=== PATIENT | female | born 1960 | race Caucasian/White ===

== ENCOUNTER 2017-10-11 23:18 | Emergency (ER) | payer OTHER, SELFPAY ==
[2017-10-11 23:25] VITALS: BP 131/71; PULSE 45; RESP 16; TEMP 36.4; O2SAT 100; BMI 55.0
--- NOTE | 2017-10-11 23:33 | XR_ITS ---
XR chest 2V HISTORY: Weakness and dizziness ITS.REASON: DIZZINESS ORDERING PHYSICIAN: Nadeem Banks MD PATIENT AGE: 56 years COMPARISON: 02/08/2017 FINDINGS: Cardiac size is upper limits of normal. No evidence of CHF.. Calcified granuloma right lower lobe. The lungs are otherwise clear.. No acute bony abnormalities. IMPRESSION: No change with no acute finding. Borderline cardiomegaly
--- NOTE | 2017-10-11 23:48 | HMH.EDDIZZ ---
ED Disposition Clinical Impression: Bradycardia with 41-50 beats per minute Cardiac arrhythmia Qualifiers: Arrhythmia type: unspecified cardiac arrhythmia Qualified Code(s): I49.9 - Cardiac arrhythmia, unspecified Disposition: Home, Self-Care Condition on Discharge: Good Instructions: DI for Bradycardia Additional Instructions: see pcp and change meds as per card Referrals: Provider,Referral, [Primary Care Provider] - - Critical Care Critical Care Time: No Attestation: On 10/11/17, the high probability of a clinically significant, sudden or life threatening deterioration of the following system(s) required my full and direct attention, intervention and personal management. The time I documented below is in addition to time spent performing reported procedures but includes the following listed in this critical care notation. Medical Decision Making - Medical Records Medical records reviewed: Yes: I reviewed the patient's medical records. Vital Signs: 10/11/17 23:25 Temperature 97.6 F Temperature Source Tympanic Pulse Rate [Right Brachial] 45 L Respiratory Rate 16 Blood Pressure [Right Arm] 131/71 Blood Pressure Mean [Right Arm] 91 02 Sat by Pulse Oximetry 100 Oxygen Delivery Method Room Air - Lab Data Lab results reviewed: Yes: I reviewed the patient's lab results. Lab Results 10/11/17 23:33: WBC 6.9, RBC 4.86, Hgb 14.0, Hct 42.1, MCV 86.5, MCH 28.9, MCHC 33.4, RDW 13.1, Plt Count 264, MPV 8.4, Neut % (Auto) 68.5, Lymph % (Auto) 19.3, Rush % (Auto) 4.4, Eos % (Auto) 7.1, Baso % (Auto) 0.7, Neut # (Auto) 4.7, Lymph # (Auto) 1.3, Rush # (Auto) 0.3, Eos # (Auto) 0.5 H, Baso # (Auto) 0.1 10/11/17 23:33: Sodium 136, Potassium 3.7, Chloride 102, Carbon Dioxide 33 H, Anion Gap 4.7 L, BUN 15, Creatinine 1.19 H, Estimated Creat Clear 48, Estimated GFR 47 L, Est GFR ( Amer) 57 L, Glucose 103, Calcium 9.1, Total Bilirubin 0.9, AST 23, ALT 30, Alkaline Phosphatase 70, Total Creatine Kinase 79, CK-MB (CK-2) 0.8, CK-MB (CK-2) Rel Index 1.0, Troponin I < 0.02, Total Protein 7.2, Albumin 3.7, Globulin 3.5 H, Albumin/Globulin Ratio 1.1 10/11/17 23:53: POC Glucose 96 10/12/17 00:00: TSH 3.30, Thyroxine (T4) 12.5 Result diagrams: 10/11/17 23:33 10/11/17 23:33 Orders (Tests/Meds): ED MEDICATIONS Discontinued Medications Generic Name Dose Route Start Last Admin Trade Name Freq PRN Reason Stop Dose Admin Sodium Chloride 1,000 mls @ 999 mls/hr 10/12/17 00:30 10/12/17 00:30 Sod Chloride 0.9% 1000ml Bag IV 10/12/17 01:30 999 mls/hr .Q1H1M TONY Administration - Radiology Data #1 Image(s): Chest Image Reviewed: Yes I reviewed the patient's radiology image Preliminary Findings: Normal/NAD - ECG Data Tracing #1 I reviewed this ECG and interpreted as documented below: Arrhythmias present: sinus jens Ischemic changes: non-specific ST-T wave changes - Physician Consults Physician Consulted: arron Reason -: Pt condition Additional Consult: barbara Reason -: Pt condition - Yan Inquiry Pt receiving controlled substance: No Dizzy HPI - General Chief Complaint: Dizziness Stated Complaint: Dizziness and blurred vision Time Seen by Provider: 10/11/17 23:48 Mode of Arrival: Ambulatory Source of Information: Patient, Medical Record Limitations: No Limitations Description of Symptoms (Recalled from ER Triage Doc. by RN): DIZZINESS WITH BLURRED VISION SINCE wednesday - History of Present Illness HPI Narrative: pt with dec hr with dizzyness but no chest pain or syncope - uses betablocker for tremor MD complaint: dizziness, lightheadedness Onset (ago): day(s) Timing: gradual onset Description: room spinning , lightheadedness History of similar episodes: Yes History of trauma: No Severity: moderate - Related Data Home Medications Medication Instructions Recorded Confirmed Levothyroxine Sodium 50 mcg PO DAILY 10/11/17 10/11/17 [Levothyroxine 50mcg (
[2017-10-12] LABS: POC Glucose,Bedside 96 mg/dL
[2017-10-12 00:31] LABS: Basophils # 0.1 K/mm3 (0-0.2); Basophils % 0.7 % (0.1-2.0); Eosinophils # 0.5 K/mm3 (0.0-0.4); Eosinophils % 7.1 % (0.1-12.0); Hematocrit 42.1 % (37.0-47.0); Lymphocytes # 1.3 K/mm3 (0.7-4.5); Lymphocytes % 19.3 K/mm3 (10-50); Mean Corpuscular HGB Conc 33.4 g/dL (31.8-35.4); Mean Corpuscular Hemoglobin 28.9 pg (27.0-31.2); Mean Corpuscular Volume 86.5 fl (81-99); Mean Platelet Volume 8.4 fl (7.4-10.4); Monocytes # 0.3 K/mm3 (0.1-1.0); Monocytes % 4.4 % (1.7-9.3); Neutrophils # 4.7 K/mm3 (1.8-7.8); Neutrophils % 68.5 % (37.0-80.0); Platelet Count 264 K/mm3 (142-424); Red Blood Count 4.86 M/mm3 (4.20-5.40); Red Cell Distribution Width 13.1 % (11.5-17.5); White Blood Count 6.9 K/mm3 (4.8-10.8)
[2017-10-12 00:59] LABS: Alanine Aminotransferase 30 U/L (12-78); Albumin Level 3.7 gm/dL (3.4-5.0); Albumin/Globulin Ratio 1.1 (1.1-1.8); Alkaline Phosphatase 70 U/L (46-116); Anion Gap 4.7 mEq/L (5-15); Aspartate Amino Transferase 23 U/L (15-37); Bilirubin,Total 0.9 mg/dL (0.2-1.0); Blood Urea Nitrogen 15 mg/dL (7-18); Calcium 9.1 mg/dL (8.5-10.1); Carbon Dioxide 33 mmol/L (21.0-32.0); Chloride 102 mmol/L (98-107); Creatine Kinase 79 U/L (26-192); Creatine Kinase MB 0.8 mg/ml (0.0-3.6); Creatinine Clearance Estimated 48 mL/min (0-300); Creatinine,Serum 1.19 mg/dL (0.55-1.02); Estimated Glomerular Filt Rate 47 ml/min (>60); GFR (African American) 57 ML/MIN (>60); Globulin 3.5 gm/dl (1.3-3.2); Glucose 103 mg/dL (74-106); Potassium 3.7 mmoL/L (3.5-5.1); Sodium 136 mmol/L (136-145); Total Protein,Serum 7.2 gm/dL (6.4-8.2); Troponin I < 0.02 ng/ml (0.00-0.06)
[2017-10-12 03:31] LABS: T4 (Thyroxine) 12.5 ug/dl (4.7-13.3)
[2017-10-12 08:46] VITALS: BP 102/60; PULSE 48; RESP 18; TEMP 36.6; O2SAT 98
== END 2017-10-12 08:48 | disposition home or self-care (01) ==
PROVIDERS: Emergency Provider Emergency Medicine
DX: R00.1 Bradycardia, unspecified (principal); I49.9 Cardiac arrhythmia, unspecified; R42 Dizziness and giddiness
CPT/HCPCS: 71046; 80053; 82550; 82553; 82962; 84436; 84443; 84484; 85025; 93005; 96365; 99281

== ENCOUNTER 2017-11-03 09:21 | Outpatient (RCR) | payer OTHER, SELFPAY ==
--- NOTE | 2017-11-03 10:17 | HMH.PTOPEV ---
Rehab Outpatient Evaluation Rehab OP Evaluation Start: 11/03/17 10:06 Freq: Status: Active Protocol: Document 11/03/17 10:06 SHY (Rec: 11/03/17 10:16 SHY [id number]) Electronically Signed By Charanjit Trammell PT 11/03/17 10:06 Outpatient Therapy Subjective History Subjective History This is the initial Physical THerapy evalaution for Yamileth Caal. Pt is a 56 y/o female referred to PT for c/o dizzyness . Pt reports she began having severe bouts of vertigo towards the end of September. Pt reports she spent 4 days in bed w/ severe vertigo, that eased up after beginning to take Meclazine. Chief Complaint Other Symptom Type Other Symptoms Relieved By Rest/Positioning OTC Meds Symptoms Aggravated By Bending/Stooping Physical Activity Twisting Prior Functional Limitations None Current Functional Limitations Recreation Activity Bending/Stooping Symptom Description Intermittent Level of pain today (0-10) 0 Pain scale - at its best (0-10) 0 Pain scale - at its worst (0-10) 0 Balance Eval Chief Complaint vertigo Yes Did you feel dizzy, unsteady or faint? Yes Activity at onset movement R sided is worse Prior Functional Limitations Prior Functional [place] Level independent Current Functional Limitations Comment motion sensitivity Hx of Falls Hx Falls No Number in last 6 months 0 Gait/Posture Asssessment General Gait Observation Wide Based Gait Assistive Devices None / NA Level of Transfer Assist Independent Hip Observation in Gait Swing Circumducted Hip Observation in Gait Stance Inadequate Extension Ankle/Foot Observation in Gait Swing No Deviation Body Alignment Posture Forward Head Nystagmus Nystagmus Presence Unilateral Nystagmus Description Right Direction Geotropic Left Torsion Latency - Delayed Oculomotor Gaze Oculomotor Gaze Nml: Vergence Smooth Pursuit Saccades VOR Cancellation Cover/Uncover
== END 2017-11-03 09:22 | disposition home or self-care (01) ==
LOC: PT 09:21
PROVIDERS: Visit Provider Family Medicine
DX: H81.10 Benign paroxysmal vertigo, unspecified ear (principal)
CPT/HCPCS: 97140

== ENCOUNTER → 2018-06-10 10:50 | Outpatient (CLI) | payer OTHER, SELFPAY ==
--- NOTE | 2018-06-10 10:53 | XR_ITS ---
XR knee LT 4V HISTORY: ITS.REASON: left knee pain ORDERING PHYSICIAN: Rafa Julien MD PATIENT AGE: 57 years COMPARISON: 05/19/2016 FINDINGS: There are moderate to severe osteoarthritic changes of the medial compartment and patellofemoral joint with mild osteoarthritic changes of the lateral compartment. No fracture or dislocation. No lytic or blastic change. IMPRESSION: Moderate to severe osteoarthritis of the left knee overall not significantly changed
== END ==
PROVIDERS: PCP Family Medicine; Visit Provider Orthopaedic Surgery
DX: M25.562 Pain in left knee (principal)
CPT/HCPCS: 73564

== ENCOUNTER → 2019-07-01 18:56 | Outpatient (CLI) | payer OTHER, SELFPAY | PROVIDERS: PCP Family Medicine; Visit Provider Nurse Practitioner Family | DX: R78.81 Bacteremia (principal) | CPT/HCPCS: 36415; 87040 ==

== ENCOUNTER → 2019-08-16 08:42 | Outpatient (CLI) | payer OTHER, SELFPAY ==
--- NOTE | 2019-08-16 08:47 | XR_ITS ---
PROCEDURE: XR KNEE LT 4V CLINICAL INDICATION: left knee pain COMPARISON: KNEE3R KNEE-3 VIEWS-RT from 04/27/2015 [id number] KNEE-4 OR 5 VIEWS-RT from 05/19/2016 [id number] KNEE-4 OR 5 VIEWS-LT from 05/19/2016 [id number] XR knee LT 4V from 06/10/2018 FINDINGS: There are moderate to severe osteoarthritic changes the medial compartment and patellofemoral joint. These findings have slightly progressed 06/10/2018. Mild to moderate osteoarthritis involves the lateral compartment no fracture or dislocation. No lytic or blastic change. IMPRESSION: Moderate to severe osteoarthritis which is slightly progressed Dictated by: Florentin Sun MD 08/16/2019 09:09 Electronically signed by Florentin Sun MD in [place] 08/16/2019 09:09
--- NOTE | 2019-08-16 08:47 | XR_ITS ---
PROCEDURE: XR KNEE RT 4V CLINICAL INDICATION: right knee pain COMPARISON: KNEE3R KNEE-3 VIEWS-RT from 04/27/2015 [id number] KNEE-4 OR 5 VIEWS-RT from 05/19/2016 [id number] KNEE-4 OR 5 VIEWS-LT from 05/19/2016 [id number] XR knee LT 4V from 06/10/2018 FINDINGS: Moderate to severe osteoarthritic changes are present involving the medial compartment and patellofemoral joint moderate osteoarthritis of the lateral compartment. There is mild lateral tibial translation. Prominent bony spurs are present at the intercondylar region and tibial spine area. There may be a loose body in the intercondylar region. On the lateral view there is a triangular-shaped density posterior to the distal femur measuring 14 mm and could be related to either an irregular fabella or loose body and could be better evaluated with CT or MRI. IMPRESSION: Severe osteoarthritis which has progressed compared to the previous exam with possible loose body in the intercondylar region Dictated by: Florentin Sun MD 08/16/2019 09:08 Electronically signed by Florentin Sun MD in [place] 08/16/2019 09:08
== END ==
PROVIDERS: PCP Family Medicine; Visit Provider Orthopaedic Surgery
DX: M25.562 Pain in left knee (principal); M17.11 Unilateral primary osteoarthritis, right knee
CPT/HCPCS: 73564

== ENCOUNTER → 2019-08-18 12:00 | Outpatient (CLI) | payer OTHER, SELFPAY ==
--- NOTE | 2019-08-18 | ECG_ITS ---
APPROVED REPORT Exam: Resting ECG HR:62 bpm ECG Measurements Heart Rate 62 AXES SC 122 P 49 QRSd 112 QRS 20 QT 388 T 66 QTc 393 <Conclusion> Normal sinus rhythm Incomplete right bundle branch block Borderline ECG Electronically signed by : Kyrie Dupont, 08/18/2019 18:21:37
[2019-08-18 12:13] LABS: Microscopic, Urine URINE MICROSCOPIC (MICROSCOPIC)
--- NOTE | 2019-08-18 12:20 | XR_ITS ---
PROCEDURE: XR CHEST 2V CLINICAL HISTORY: HTN, PRE OP COMPARISON: CXR1 CHEST-PORTABLE from 02/08/2017 CXR2V XR chest 2V from 10/11/2017 XR CHEST PORTABLE from 05/11/2019 FINDINGS: The cardiomediastinal silhouette and pulmonary vascularity are within normal limits. There is calcified granuloma in the right lower lobe. The lungs are otherwise clear. No acute bony abnormalities. IMPRESSION: No change with no acute finding Dictated by: Florentin Sun MD 08/18/2019 13:20 Electronically signed by Florentin Sun MD in [place] 08/18/2019 13:20
[2019-08-18 12:26] LABS: Appearance,Urine CLEAR (Clear); Bilirubin,Urine Negative (Negative); Blood, Urine Negative (Negative); Color,Urine YELLOW (Yellow); Glucose,Urine (UA) Negative (Negative); Ketones,Urine Negative (Negative); Leukocyte Esterase,Urine Negative (Negative); Nitrate,Urine Negative (Negative); PH,Urine 6.5 (5.0-8.5); Protein,Urine Negative (Negative); Specific Gravity, Urine 1.025 (1.005-1.030); Urobilinogen,Urine 0.2 EU/dl (0.2)
[2019-08-18 12:29] LABS: Basophils % 0.9 % (0.1-2.0); Eosinophils # 0.5 K/mm3 (0.0-0.4); Lymphocytes # 1.2 K/mm3 (0.7-4.5); Lymphocytes % 24.8 % (10-50); Mean Corpuscular HGB Conc 33.5 g/dL (31.8-35.4); Mean Corpuscular Hemoglobin 31.2 pg (27.0-31.2); Mean Corpuscular Volume 93.1 fl (81-99); Mean Platelet Volume 7.8 fl (7.4-10.4); Monocytes # 0.2 K/mm3 (0.1-1.0); Monocytes % 4.4 % (1.7-9.3); Neutrophils % 59.9 % (37.0-80.0); Platelet Count 268 K/mm3 (142-424); Red Blood Count 4.19 M/mm3 (4.20-5.40); Red Cell Distribution Width 13.2 % (11.5-17.5); White Blood Count 4.9 K/mm3 (4.8-10.8)
[2019-08-18 12:45] LABS: Bacteria,Urine 2+ /lpf; Mucus,Urine 2+ /lpf; RBC,Urine Occasional #/hpf (0-3)
[2019-08-18 14:02] LABS: Alanine Aminotransferase 24 U/L (12-78); Albumin Level 3.6 gm/dL (3.4-5.0); Albumin/Globulin Ratio 1.2 (1.1-1.8); Alkaline Phosphatase 65 U/L (46-116); Anion Gap 14.2 mEq/L (5-15); Aspartate Amino Transferase 15 U/L (15-37); Bilirubin,Total 0.4 mg/dL (0.2-1.0); Blood Urea Nitrogen 17 mg/dL (7-18); Calcium 8.6 mg/dL (8.5-10.1); Carbon Dioxide 30 mmol/L (21.0-32.0); Chloride 106 mmol/L (98-107); Chol/HDL Ratio 1.7 (1-3.5); Cholesterol 219 mg/dL (140-200); Creatinine,Serum 1.37 mg/dL (0.55-1.02); Estimated Glomerular Filt Rate 40 ml/min (>60); Free T4 (Free Thyroxine) 0.98 ng/dl (0.76-1.46); GFR (African American) 48 ML/MIN (>60); Globulin 2.9 gm/dl (1.3-3.2); Glucose 81 mg/dL (74-106); HDL Cholesterol 130 mg/dL (29-89); LDL Cholesterol 67 mg/dL (0-130); Potassium 4.2 mmoL/L (3.5-5.1); Sodium 146 mmol/L (136-145); Total Protein,Serum 6.5 gm/dL (6.4-8.2); Triglycerides 108 mg/dL (30-200); VLDL Cholesterol 22 mg/dL (0-40)
== END ==
PROVIDERS: PCP Family Medicine; Visit Provider Family Medicine
DX: Z01.818 Encounter for other preprocedural examination (principal); E03.9 Hypothyroidism, unspecified; I10 Essential (primary) hypertension
CPT/HCPCS: 36415; 71046; 80053; 80061; 81001; 84439; 84443; 85025; 87086; 93005

== ENCOUNTER → 2019-09-01 16:53 | Outpatient (CLI) | payer OTHER, SELFPAY ==
[2019-09-01 16:58] LABS: Microscopic, Urine URINE MICROSCOPIC (MICROSCOPIC)
[2019-09-01 17:02] LABS: Appearance,Urine CLEAR (Clear); Bilirubin,Urine Negative (Negative); Blood, Urine Negative (Negative); Color,Urine YELLOW (Yellow); Glucose,Urine (UA) Negative (Negative); Ketones,Urine Negative (Negative); Leukocyte Esterase,Urine Negative (Negative); Nitrate,Urine Negative (Negative); Protein,Urine Negative (Negative); Urobilinogen,Urine 0.2 EU/dl (0.2)
[2019-09-01 17:15] LABS: Bacteria,Urine Trace /lpf; WBC,Urine Occasional #/hpf (0-3)
== END ==
PROVIDERS: Visit Provider Orthopaedic Surgery
DX: Z01.818 Encounter for other preprocedural examination (principal); M17.12 Unilateral primary osteoarthritis, left knee
CPT/HCPCS: 36415; 81001; 86850

== ENCOUNTER 2019-09-04 06:26 | Observation (INO) | payer OTHER, SELFPAY ==
[2019-09-01 09:24] VITALS: BMI 41.5
[2019-09-04] VITALS (39 sets, daily range): BP systolic 111–160; BP diastolic 60–96; PULSE 47–80; RESP 16–20; TEMP 36.1–43; O2SAT 94–100; BMI 42.3
--- NOTE | 2019-09-04 07:18 | HMH.ANESCL ---
[facility] Anesthesia Checklist - Patient Identification Patient Identification: Arm Band, Verbal (Name & ) - Structural Data Admitted From: Home Planned Operative Procedure/s: tka Consent for Planned Operative Procedure(s) Verified: Yes Verified Documents: History and Physical - NPO Status Verified Time NPO: 00:00 - Chart Verification Results Verified: CBC, BMP - Additional verifications Patient : No Anesthesia Reactions: No Hx Blood Transfusions: No Blood Transfusion Reaction: No Cephalosporin Allergy: No Previous Colonoscopy: No - Cardiovascular Assessment Heart Sounds: S1 & S2 Pulse Strength: Baseline Pulse Rhythm: Regular Peripheral Edema: No - Airway Assessment C-Spine Mobility Assessed: Yes TMJ Mobility Assessed: Yes Dentition: Poor Dentition - Neurological Assessment Level of Consciousness: Awake, Alert, Appropriate Hx Seizures: No Numbness or tingling in extremities: No - Anesthesia Plan Anesthesia Risk discussed: Yes Anesthesia Plan: Verified ASA Class: II Anesthesia Type: General [facility] History I have reviewed the patient's past medical history: Yes Medical History: Reports:: Cancer, Gastroesophageal Reflux Disease(GERD), Hypertension, MRSA Denies:: Diabetes Mellitus Type 1, Diabetes Mellitus Type 2, Internal Pacemaker, Seizures *Have you ever received a pneumonia vaccine?: No *Have you received a flu vaccine this season?: Yes Other Medical History: Reports: Arthritis, Thyroid Disease. Denies: Blood Transfusion Reaction Anesthesia experience/problems:: none Laterality Cases: Left: Other Other Surgeries: Yes: Cardiac Catheterization, Cholecystectomy. No: Pacemaker Amputation: No Fractures: No - *Social History Educational Level: Attended College Smoking Status: Never smoker Alcohol Intake: never Alcohol Intake Frequency:: a few times a month Substance Use Type: other *Occupational Status:: employed Housing: house Household Members: family *Travel in the last 8 weeks: None Family Hx:: Diabetes
--- NOTE | 2019-09-04 08:43 | P.PN_ITS ---
[facility] Anesthesia Record Part I Intake, IV Amount: 700 Estimated blood loss (mL): 0 Urine output (mL): 250 Blood Pressure: 133/96 SaO2: 96 Pulse Rate: 67 Respiratory Rate: 16 Temperature: 97 F Patient is:: Drowsy, Stable Stable to PACU at:: 08:45
--- NOTE | 2019-09-04 09:40 | SUR.PHASEI ---
0900-pt requested bed curtis, large bowel movement noted. pt eating ice chips, ok per anesthesia, pt tolerating well. pt c/o intermittent cramping in left thigh when moving, relief noted upon resting, pt denies need for medication. 0915-family at bedside
--- NOTE | 2019-09-04 10:08 | SUR.PHASEI ---
1000-pt resting, family at bedside. no complaints noted
[2019-09-04 10:14] LABS: Microscopic,Cath URINE MICROSCOPIC (MICROSCOPIC)
[2019-09-04 10:16] LABS: Appearance,Urine/Cath CLEAR (Clear); Bilirubin,Cath Negative (Negative); Blood, Urine/Cath Negative (Negative); Color,Urine/Cath YELLOW (Yellow); Glucose,Urine/Cath (UA) Negative (Negative); Ketones,Urine/Cath Negative (Negative); Leukocyte Esterase,Cath Negative (Negative); Nitrate,Cath Negative (Negative); Protein,Urine/Cath Negative (Negative); Specific Gravity, Urine/Cath 1.015 (1.005-1.030); Urobilinogen,Cath 0.2 EU/dl (0.2)
[2019-09-04 10:27] LABS: Bacteria,Urine/Cath 1+ /lpf; WBC,Urine/Cath Occasional #/hpf (0-3)
--- NOTE | 2019-09-04 13:11 | SUR.PHASEI ---
1311-Dr. Julien at bedside talking to pt and family
--- NOTE | 2019-09-04 14:36 | SUR.PHASEI ---
1338-pt transported back to OR at this time per surgery team, vss, pt in stable condition
--- NOTE | 2019-09-04 15:12 | SUR.OPER ---
At 0753 pt was brought into OR for surgery. Pt was sedated and intubated per anesthesia. At 0820 decision was made to abort the case due to instrument contamination. No incision had been made at this time. Surgeon discussed with family and agreement was made for reattempt of surgery later today. Anesthesia was reversed and pt was extubated. Pt transferred to PACU at 0845, see PACU intervention for documentation and monitoring.
--- NOTE | 2019-09-04 18:12 | XR_ITS ---
PROCEDURE: XR KNEE LT 2V CLINICAL INDICATION: post op left TKA COMPARISON: XR KNEE LT 4V from 08/16/2019 FINDINGS: The prior femoral prosthesis is in good alignment and apposition to the tibial plateau prosthesis. There is metallic plate undersurface of the patella. There mild postsurgical changes of the soft tissues especially in the infrapatellar region. Other findings:None. IMPRESSION: Satisfactory postop appearance total knee prosthesis Dictated by: Dr. Jonas Jensen MD 09/05/2019 07:[address] Jonas Jensen MD in [place] 09/05/2019 07:42
--- NOTE | 2019-09-04 18:13 | P.PN_ITS ---
[facility] Anesthesia Record Part I Intake, IV Amount: 1,500 Estimated blood loss (mL): 100 Urine output (mL): 1,400 Blood Pressure: 125/69 SaO2: 95 Pulse Rate: 67 Respiratory Rate: 16 Temperature: 97.5 F Patient is:: Drowsy, Stable Stable to PACU at:: 18:10
--- NOTE | 2019-09-04 18:32 | HMH.OPNOTE ---
Date of procedure: 09/04/19 Pre-op Diagnosis:: Advanced degenerative arthritis, left knee Post-op Diagnosis:: Same Procedure performed:: Uncemented total knee arthroplasty, left Surgeon:: Rafa Julien MD Retail Store Clerk(s):: Sydney Webb KNOT BORER:: Gilles Lo Anesthesia: GETA, regional (Femoral and sciatic nerve blocks) Estimated blood loss (mL): 50 Clinical Note:: Patient is a 58-year-old female with end-stage osteoarthritis and [id number] appearance of the medial and patellofemoral compartments with a progressive varus deformity, stiffness and developing flexion contracture presented with unremitting severe pain not relieved by conservative management. The deformity and pain have advanced to the point that it is becoming a hazard for the patient with risk of falling and injuring herself. A total knee arthroplasty is indicated to relieve the pain, correct the deformity, improve function, reduce the risk of falls and improve quality of life. Please refer to my office note for full details. Operative findings:: As noted on the preoperative evaluation, the knee joint had a partially correctable varus deformity and flexion contracture of 5 degrees. As seen on the x-rays, there are tricompartmental degenerative changes with the medial and patellofemoral compartments showing advanced changes with [id number] appearance. Extensive osteophyte formation noted over all 3 compartments. The menisci and cruciate ligaments are significantly degenerated. Bone quality is good. Operative note:: On the day of the surgery the patient and family were seen in the preoperative area. I have again reviewed the clinical and x-ray findings and again discussed the diagnosis, natural history and management options in detail including both nonsurgical and surgical. Patient has end-stage degenerative arthritis of the left knee and has failed to respond satisfactorily to appropriate conservative management so far and has opted for a total knee arthroplasty. The left knee joint is stiff and painful, and is limiting mobility, ADLs and quality of life. Also the knee gives out and patient is at risk of falls resulting in fractures. I have again discussed the details of the procedure, risks and benefits and alternatives in detail. The complications discussed include but are not limited to infection, injury to nerves and blood vessels including injury to popliteal artery, injury to tendons and ligaments, DVT and PE, fat embolism, intraoperative fracture, limb length inequality, patella fracture, patellofemoral instability, patellar clunk syndrome, quadriceps and patellar tendon rupture, implant failure, component loosening, periprosthetic femur and tibia fractures, stiffness (arthrofibrosis), limp, incomplete relief of pain, incomplete functional recovery, likely need for further surgery in future including revision and anesthetic complications including heart attack, stroke and even . We also discussed about the likely need for blood transfusion and transfusion reactions. We discussed how any of these events can be devastating. We have discussed nonsurgical alternatives as well. Patient understands and wishes to proceed with a left total knee arthroplasty as planned and I believe that she is fully informed as to the risks, benefits, and alternatives including nonsurgical alternatives. We also discussed the postoperative course including the rehab and physical therapy required. A physical examination was performed and documented. Patient understood the risks, agreed to proceed with surgery, signed the consent form and no guarantees or assurances were given or implied. The limb was appropriately marked and initialed by me. The patient was then brought to the operating room and a general anesthesia was administered by the room service food server. Prior to that patient had no blocks in the pre-anesthetic area. The patient was then positioned supine on the operating table. All the bony prominences were
--- NOTE | 2019-09-04 18:42 | PC.NURSE ---
surgery stated that last dose of ancef was 1705. order for it every 6 hours will fax order to pharmacy to have first dose start at 2305
--- NOTE | 2019-09-04 19:13 | ECG_ITS ---
APPROVED REPORT Exam: Resting ECG HR:48 bpm ECG Measurements Heart Rate 48 AXES IN 150 P 51 QRSd 102 QRS -4 QT 484 T 41 QTc 432 <Conclusion> Marked sinus bradycardia Incomplete right bundle branch block Abnormal ECG Electronically signed by : Kyrie Dupont, 09/05/2019 14:26:59
--- NOTE | 2019-09-04 19:24 | PC.NURSE ---
report given to luther
--- NOTE | 2019-09-04 20:01 | PC.NURSE ---
pt arrived to floor from OR
[2019-09-04 20:17] LABS: Troponin I < 0.02 ng/ml (0.00-0.06)
--- NOTE | 2019-09-04 20:17 | SUR.PHASEI ---
1840-pt reports chest pain, called RT for EKG. Notified . Orders received to notify primary MD if EKG is abnormal and get troponin. VS remain stable, no changes noted to youth nutritional monitor. 1909-RT at bedside for EKG. EKG sent to ER for MD review. ER MD requests further review. Dr Cummings reviewed EKG and stated he would see the pt when she is transferred to her room. 1914-instrument and controls technician at bedside for troponin lab draw.
--- NOTE | 2019-09-04 21:27 | HMH.ACPN2 ---
Internal Medicine - PN: Subj *Date: 09/04/19 *Time: 21:27 Interval history: FAMILY MEDICINE CONSULT: S: This 58-year-old white female underwent left total knee replacement today by Dr. Julien. Apparently her surgery was uncomplicated and she did well. In the PACU she experienced some chest pain. She did not have shortness of breath. She did not have nausea or diaphoresis. EKG and troponins were obtained. By the time patient reached the medical floor she was without pain and she is comfortable at this time. The EKG did not significantly appear different from her preop though she does show a sinus bradycardia which she does have a tendency toward. She does not take rate admitting medications. She does have hypothyroidism and takes levothyroxine 50 mcg a day. Her troponin was negative. Her oxygen saturations have been normal. She underwent heart catheterization February 08, 2017 and was found not to have coronary artery disease. The patient is a smoker. Her preop history and physical exam by Dr. Osorio is present on the chart. I have also included on the chart and EKG from August 18 this year and lab work from August 18 as well. Slight elevation is noted in creatinine at 1.37. BUN was 17. TSH was within normal range. She has a remarkably high HDL cholesterol at 130. Her LDL cholesterol is only 67. Exam Vital signs and Labs for Last 24 Hours: Temp Pulse Resp BP Pulse Ox 97.8 F 49 L 16 159/93 H 100 09/04/19 18:50 09/04/19 19:50 09/04/19 19:50 09/04/19 19:50 09/04/19 19:50 Laboratory Results - last 24 hr 09/04/19 08:05: Urine Color Yellow, Urine Appearance Clear, Urine pH 7.0, Ur Specific [place] 1.015, Urine Protein Negative, Urine Glucose (UA) Negative, Urine Ketones Negative, Urine Blood Negative, Urine Nitrate Negative, Urine Bilirubin Negative, Urine Urobilinogen 0.2, Ur Leukocyte Esterase Negative, Urine RBC None, Urine WBC Occasional, Ur Squamous Epith Cells 5-10, Urine Bacteria 1+ 09/04/19 19:53: Troponin I < 0.02 I & O for Last 24 hours: Intake & Output 09/02/19 09/03/19 09/04/19 09/05/19 11:59 11:59 11:59 11:59 Intake Total 700 / 700 1500 / 1500 Output Total 100 / 100 Balance 600 / 600 1500 / 1500 - Constitutional no acute distress - *Routine HEENT Exam Eye: Present: PERRL, conjunctivae pink (A bit pale) ENT: Present: mucous membranes moist - Routine Chest/Breast/Axilla Exam Chest wall: Absent: tenderness - *Routine Respiratory Exam Present: CTA bilaterally. Absent: respiratory distress - *Routine Cardiovascular Exam Present: bradycardia (Sinus. No murmurs.) - *Routine Abdominal Exam Present: soft, obese. Absent: tenderness - *Routine Extremities Exam Present: pulses intact (Color of skin is normal. Flowtron device in place on the right leg.). Absent: edema - *Routine Neurological Exam Present: alert, oriented X3. Absent: altered mental status Assessment and Plan (1) Status post left knee replacement Current visit: Yes Status: Acute Category: Surgical Code(s): Z96.652 - Presence of left artificial knee joint (2) Obesity Current visit: Yes Status: Acute Category: Medical Code(s): E66.9 - Obesity, unspecified (3) Hypothyroidism (acquired) Current visit: Yes Status: Acute Category: Medical Code(s): E03.9 - Hypothyroidism, unspecified (4) Bradycardia with 41-50 beats per minute Current visit: No Status: Acute Category: Medical Code(s): R00.1 - Bradycardia, unspecified (5) Chest pain Current visit: No Status: Acute Category: Medical Code(s): R07.9 - Chest pain, unspecified - Assessment and plan all Dx Assessment and Plan for all problems:: It was requested that the patient be placed in stepdown and continued on cardiac nurse specialist. She seems quite stable at this time. CBC is ordered. Follow-up cardiac enzymes will be obtained in 4 hours. Thank you for the consult. I will follow this patient with you.
[2019-09-04 21:44] LABS: Basophils % 0.3 % (0.1-2.0); Eosinophils % 0.3 % (0.1-12.0); Hematocrit 40.1 % (37.0-47.0); Hemoglobin 12.4 g/dL (12.2-16.2); Lymphocytes # 0.5 K/mm3 (0.7-4.5); Lymphocytes % 7.7 % (10-50); Mean Corpuscular HGB Conc 30.8 g/dL (31.8-35.4); Mean Corpuscular Hemoglobin 29.5 pg (27.0-31.2); Mean Corpuscular Volume 95.8 fl (81-99); Mean Platelet Volume 8.4 fl (7.4-10.4); Monocytes # 0.3 K/mm3 (0.1-1.0); Monocytes % 3.6 % (1.7-9.3); Neutrophils # 6.1 K/mm3 (1.8-7.8); Platelet Count 257 K/mm3 (142-424); Red Blood Count 4.19 M/mm3 (4.20-5.40); Red Cell Distribution Width 13.7 % (11.5-17.5); White Blood Count 6.9 K/mm3 (4.8-10.8)
[2019-09-04 21:47] LABS: MANUAL DIFFERENTIAL MANUAL DIFFERENTIAL (MANUAL DIFF)
[2019-09-04 21:56] LABS: Lymphocytes % 6 % (10-50); Neutrophils % 86 % (42-76); Platelet Estimate Normal; RBC Morphology Normal; Total Cells Counted 100
[2019-09-05] VITALS (11 sets, daily range): BP systolic 94–159; BP diastolic 49–93; PULSE 49–81; RESP 16–24; TEMP 36.6–37.1; O2SAT 93–98; BMI 42.3
[2019-09-05 01:29] LABS: Troponin I < 0.02 ng/ml (0.00-0.06)
--- NOTE | 2019-09-05 04:17 | PC.NURSE ---
Has rested at intervals this shift. Remains on room air w/ no s/s of resp distress. NSR on teley w/ HR currently in 80's. Family remains at bedside. Pt denies any pain in her LLE, only occasional viridiana horses when she attempts to move in bed. Surgical dressing remains C/D/I. 2 + pedal pulses palpable in BLE, pt is able to move her toes freely. Polar pac is in place to (L) knee. Incentive spirometer available at bedside, reviewed w/ pt and educated on importance of use post-op. Castro cath to drain at bedside w/ clear straw colored urine noted. No BM this shift. Scud in place to RLE. New IV placed in RAC this shift, currently infusing LR @ 75 mls/hr.
[2019-09-05 06:24] LABS: Basophils % 0.4 % (0.1-2.0); Eosinophils # 0.1 K/mm3 (0.0-0.4); Eosinophils % 0.5 % (0.1-12.0); Hematocrit 36.9 % (37.0-47.0); Hemoglobin 11.4 g/dL (12.2-16.2); Lymphocytes % 11.2 % (10-50); Mean Corpuscular HGB Conc 30.8 g/dL (31.8-35.4); Mean Corpuscular Hemoglobin 29.1 pg (27.0-31.2); Mean Corpuscular Volume 94.6 fl (81-99); Mean Platelet Volume 8.1 fl (7.4-10.4); Monocytes # 0.8 K/mm3 (0.1-1.0); Monocytes % 8.5 % (1.7-9.3); Neutrophils # 7.1 K/mm3 (1.8-7.8); Neutrophils % 79.5 % (37.0-80.0); Platelet Count 248 K/mm3 (142-424); Red Cell Distribution Width 13.8 % (11.5-17.5)
[2019-09-05 06:28] LABS: Anion Gap 9.4 mEq/L (5-15); Blood Urea Nitrogen 13 mg/dL (7-18); Calcium 8.2 mg/dL (8.5-10.1); Carbon Dioxide 30 mmol/L (21.0-32.0); Chloride 107 mmol/L (98-107); Creatinine Clearance Estimated 63 mL/min (50-200); Creatinine,Serum 0.88 mg/dL (0.55-1.02); Estimated Glomerular Filt Rate 66 ml/min (>60); GFR (African American) 80 ML/MIN (>60); Glucose 127 mg/dL (74-106); Potassium 4.4 mmoL/L (3.5-5.1); Sodium 142 mmol/L (136-145)
--- NOTE | 2019-09-05 07:36 | SW/DCPLANNER ---
RECEIVED REFERRAL FOR THIS PATIENT FOR DISCHARGE PLANNING: MS PACE HAD TOTAL KNEE YESTERDAY AND APPEARS TO BE FEELING BETTER THIS MORNING, STATED SHE IS ABLE TO EAT BREAKFAST.. 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
--- NOTE | 2019-09-05 08:30 | P.CONPHA_ITS ---
[facility] Pharmacy VTE Monitoring - Patient Demographics Admission date: 09/04/19 Report Date: 09/05/19 Time: 08:30 Allergies/Adverse Reactions: Patient Allergies promethazine Allergy (Intermediate, Verified 09/01/19 09:24) ANXIETY Height: 1.65 m Weight: 115.326 kg Patient Problems: Current Active Problems (This Medical Record has been edited. Action required.) Status post left knee replacement (Acute) Obesity (Acute) Hypothyroidism (acquired) (Acute) - VTE Risk Labs: VTE Related Lab Results Hgb 11.4 g/dL (12.2-16.2) L 09/05/19 05:58 Hct 36.9 % (37.0-47.0) L 09/05/19 05:58 Plt Count 248 K/mm3 (142-424) 09/05/19 05:58 BUN 13 mg/dL (7-18) 09/05/19 05:58 Creatinine 0.88 mg/dL (0.55-1.02) 09/05/19 05:58 Estimated Creat Clear 63 mL/min (50-200) 09/05/19 05:58 Was VTE Risk Assessment Performed: Yes VTE Score: 3 VTE Risk Level: Low Risk - Prophylaxis VTE Prophylaxis Ordered?: Yes Types of VTE Prophylaxis: IPCS Thigh High Location of Applied Device: Right Leg - VTE Diagnosis Confirmed Treatment or plan recommended: Continue Current Treatment
--- NOTE | 2019-09-05 08:58 | HMH.ACPN2 ---
Internal Medicine - PN: Subj *Date: 09/05/19 *Time: 08:58 Interval history: FAMILY MEDICINE CONSULT: She had a quiet night and feels better this morning. She had no chest pain and is comfortable. Her heart rate is in the 90s this morning and regular. Exam Vital signs and Labs for Last 24 Hours: Temp Pulse Resp BP Pulse Ox 98.3 F 79 19 120/63 93 L 09/05/19 04:00 09/05/19 08:00 09/05/19 08:00 09/05/19 08:00 09/05/19 08:00 Laboratory Results - last 24 hr 09/04/19 08:05: Urine Color Yellow, Urine Appearance Clear, Urine pH 7.0, Ur Specific [place] 1.015, Urine Protein Negative, Urine Glucose (UA) Negative, Urine Ketones Negative, Urine Blood Negative, Urine Nitrate Negative, Urine Bilirubin Negative, Urine Urobilinogen 0.2, Ur Leukocyte Esterase Negative, Urine RBC None, Urine WBC Occasional, Ur Squamous Epith Cells 5-10, Urine Bacteria 1+ 09/04/19 19:33: WBC 6.9, RBC 4.19 L, Hgb 12.4, Hct 40.1, MCV 95.8, MCH 29.5, MCHC 30.8 L, RDW 13.7, Plt Count 257, MPV 8.4, Neut % (Auto) 88.0 H, Lymph % (Auto) 7.7 L, [place] % (Auto) 3.6, Eos % (Auto) 0.3, Baso % (Auto) 0.3, Neut # (Auto) 6.1, Lymph # (Auto) 0.5 L, [place] # (Auto) 0.3, Eos # (Auto) 0.0, Baso # (Auto) 0.0, Total Counted 100, Neutrophils % (Manual) 86 H, Band Neutrophils % 8.0, Lymphocytes % (Manual) 6 L, Platelet Estimate Normal, RBC Morphology Normal 09/04/19 19:53: Troponin I < 0.02 09/05/19 01:05: Troponin I < 0.02 09/05/19 05:58: WBC 9.0 D, RBC 3.90 L, Hgb 11.4 L, Hct 36.9 L, MCV 94.6, MCH 29.1, MCHC 30.8 L, RDW 13.8, Plt Count 248, MPV 8.1, Neut % (Auto) 79.5, Lymph % (Auto) 11.2, [place] % (Auto) 8.5, Eos % (Auto) 0.5, Baso % (Auto) 0.4, Neut # (Auto) 7.1, Lymph # (Auto) 1.0, [place] # (Auto) 0.8, Eos # (Auto) 0.1, Baso # (Auto) 0.0 09/05/19 05:58: Sodium 142, Potassium 4.4, Chloride 107, Carbon Dioxide 30, Anion Gap 9.4, BUN 13, Creatinine 0.88, Estimated Creat Clear 63, Estimated GFR 66, Est GFR ( Amer) 80, Glucose 127 H, Calcium 8.2 L I & O for Last 24 hours: Intake & Output 09/02/19 09/03/19 09/04/19 09/05/19 11:59 11:59 11:59 11:59 Intake Total 700 / 700 2409 / 2409 Output Total 100 / 100 550 / 550 Balance 600 / 600 1859 / 1859 Weight 254 lb 4 oz - Constitutional no acute distress - *Routine HEENT Exam Eye: Present: PERRL. Absent: conjunctival icterus - Routine Chest/Breast/Axilla Exam Chest wall: Absent: tenderness - *Routine Respiratory Exam Present: CTA bilaterally - *Routine Cardiovascular Exam Present: RRR - *Routine Abdominal Exam Present: soft. Absent: tenderness - *Routine Extremities Exam Present: pulses intact, normal capillary refill. Absent: edema Assessment and Plan (1) Status post left knee replacement Current visit: Yes Status: Acute Category: Surgical Code(s): Z96.652 - Presence of left artificial knee joint (2) Obesity Current visit: Yes Status: Acute Category: Medical Code(s): E66.9 - Obesity, unspecified (3) Hypothyroidism (acquired) Current visit: Yes Status: Acute Category: Medical Code(s): E03.9 - Hypothyroidism, unspecified (4) Bradycardia with 41-50 beats per minute Current visit: No Status: Acute Category: Medical Code(s): R00.1 - Bradycardia, unspecified (5) Chest pain Current visit: No Status: Acute Category: Medical Code(s): R07.9 - Chest pain, unspecified - Assessment and plan all Dx Assessment and Plan for all problems:: I will continue to follow the patient with you during this hospitalization. She may come out of stepdown observation.
--- NOTE | 2019-09-05 09:41 | HMH.ANESII ---
[facility] Anesthesia Record Part II Discharge Time: 19:50 Destination: Medical Surgical Department PACU nurse assessment reviewed?: Yes Patient Condition:: Good Anesthesia Complications:: None Swallowing reflex intact?: Yes Cyanosis?: No Blood Pressure: 159/93 Pulse Rate: 49 Temperature: 97.8 F Mental Status: Alert & Oriented Pain level:: 5 Nausea and/or vomitting:: None Intake, IV Amount: 0
--- NOTE | 2019-09-05 10:00 | HMH.PHAINT ---
MEDICATION RECONCILIATION COMPLETED ON PATIENT USING EXTERNAL FILL HISTORY FROM PHARMACY. -RADHA CHAND, RASHAWND
--- NOTE | 2019-09-05 11:40 | HMH.OTEV ---
OT Inpatient Evaluation Rehab OT IP Evaluation Start: 09/04/19 18:34 Freq: ONCE Status: Complete Protocol: Document 09/05/19 11:36 [facility] (Rec: 09/05/19 11:40 [facility] [id number]) Rehab OT IP Assessment Subjective History Pt oriented x 3 upon arrival. Pt agreeable to engage in therapy evaluation. Pt lived at home and was completely independent with all ADL's and IADL's prior to surgery. Pt did not require the use of AE. 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 Subjective I have been scared to walk on it. Objective Patient Orientation Person,Place,Birthday Upper Extremity Gross ROM WFL Bed Mobility bed mobility-scooting,bed mobility - supine/sit,bed mobility - rolling Assist Level Supervision/Stand by Transfer Training Sit/Stand Transfer Assist Level Contact Guard/Hand Hold Chair Transfer Ability Contact Guard/Hand Hold Chair Transfer Technique Sit to/from Ambulatory Chair Transfer Assistive Devices Rolling Walker decrease in endurance No Rehab OT IP prob,goals,plan Problems Date of Evaluation: 09/05/19 OT IP Problems Bed Mobility,Transfers,Gait, Balance,Self care,Safety Rehab Potential Rehab Potential Good Equipment Needs Assistive Devices Rolling / Wheeled Walker Plan OT intervention Plan Bed Mobility,Transfers,Gait, Balance,Self care,Safety, Therapeutic Exercise OT Plan Frequency Daily Duration LOS Discharge Goals Bed Mobility Ability Standby Assistance Sit to Stand Chair Transfer Ability Supervision/Stand by Chair Transfer Ability Supervision/Stand by Chair Transfer Technique Sit to/from Ambulatory Chair Transfer Assistive Devices Rolling Walker Self care skills fully toilet trained,dressing/ undressing independently,uses utensils to feed self Feeding Ability Independent Lower Body Dressing Ability Assistance X1 Upper Body Dressing Ability Standby Assistance Bathing Ability Assistance x1 Performing Toilet Hygiene Ability Standby Assistance Overall Commode/Toilet Transfer Ability Standby Assistance Commode/Toilet Transfer Technique Sit to/from Ambulatory Oral Care Ability Independent Discharge Plan OT Discharge Plan
--- NOTE | 2019-09-05 12:12 | HMH.PTEV ---
Physical Therapy Evaluation Rehab PT IP Evaluation Start: 09/04/19 18:34 Freq: ONCE Status: Active Protocol: Document 09/05/19 12:02 PWDAVID (Rec: 09/05/19 12:12 PWDAVID [id number]) Subjective/History History History THis is the initial IP PT evaluation for Yamileth Caal. Pt is a 58 y/o female admitted to [facility] s/ p L TKA. Subjective Subjective Pt reports she still has some numbness in LLE. Rehab PT IP Eval Objective Appearance Patient Behavior Appropriate,Cooperative, Anxious Patient Orientation Person,Place,Time Difficulty following instructions none Speech Pattern Clear,Appropriate Ambulation Patient Able to Ambulate Yes Ambulation Observation IP General Gait Pattern Observation Antalgic Gait Ambulation Distance (feet) 2 Ambulation Assistive Device Rolling Walker Balance Ability to Arise Able, uses arms to help Sitting Balance Steady, safe Standing Balance Steady, wide stance Dynamic Sitting Balance Ability Normal Dynamic Standing Balance Ability Fair Transfers Bed Transfer Ability Supervision/Stand by Chair Transfer Ability Supervision/Stand by Sit to Stand Bed Transfer Ability Contact Guard/Hand Hold Sit to Stand Chair Transfer Ability Contact Guard/Hand Hold ROM LLE PT ROM Status ABN Abnormal ROM Comment LLE megan wrapped MMT LLE PT MMT ABN Abnormal MMT Grade 3-/5 quad Rehab PT IP prob,goals,plan Problems Date of Evaluation: 09/05/19 PT IP Problems Transfers,Gait,Balance,Self care Rehab Potential Rehab Potential Good Equipment Needs Assistive Devices Rolling / Wheeled Walker Plan PT Intervention Plan Transfers,Gait,Therapeutic Exercise PT Plan Frequency BID Duration LOS Discharge Goals Bed Transfer Ability Supervision/Stand by Sit to Stand Chair Transfer Ability Supervision/Stand by Ambulation Assistive Device Rolling Walker Ambulation Distance (feet) 25 Discharge Plan PT Discharge Plan pt to return home and begin OPPT on 09/07/19 G -code Required Yes Eval Complexity Eval Charge Codes 46829 - Low Complexity G Codes PT Current Status Mobility PT Current Status Modifier CJ-At least 20% but less than 40% impaired, limited or
--- NOTE | 2019-09-05 13:07 | HMH.ORTHPN ---
Subjective Date: 09/05/19 Time: 13:00 Principal diagnosis: Status post total knee arthroplasty, left Interval history: Patient is status post left total knee arthroplasty post op day #1. Patient is sitting up in a chair and says she is doing; however, she does report some knee pain and nausea. Patient reports moderate knee pain and says it's well-controlled with medication. Patient still reports some paresthesias in the lower leg and foot from the nerve blocks. No history of any cough, chest pain, shortness of breath or palpitations. Patient is eating and drinking well. Patient says she managed to walk few steps with the help of physical therapy using a walker. Postoperatively, in the PACU she complained of chest pain for which she had appropriate work-up; she was also seen by Dr. Cummings for consultation regarding the chest pain. The work-up did not reveal any acute coronary event. Her chest pain has since improved. PN: Obj Ex Vital signs: Temp Pulse Resp BP Pulse Ox 97.8 F 79 24 114/54 L 97 09/05/19 09:43 09/05/19 12:00 09/05/19 12:00 09/05/19 12:00 09/05/19 12:00 Narrative: Laboratory Results - last 24 hr 09/04/19 19:33: WBC 6.9, RBC 4.19 L, Hgb 12.4, Hct 40.1, MCV 95.8, MCH 29.5, MCHC 30.8 L, RDW 13.7, Plt Count 257, MPV 8.4, Neut % (Auto) 88.0 H, Lymph % (Auto) 7.7 L, [place] % (Auto) 3.6, Eos % (Auto) 0.3, Baso % (Auto) 0.3, Neut # (Auto) 6.1, Lymph # (Auto) 0.5 L, [place] # (Auto) 0.3, Eos # (Auto) 0.0, Baso # (Auto) 0.0, Total Counted 100, Neutrophils % (Manual) 86 H, Band Neutrophils % 8.0, Lymphocytes % (Manual) 6 L, Platelet Estimate Normal, RBC Morphology Normal 09/04/19 19:53: Troponin I < 0.02 09/05/19 01:05: Troponin I < 0.02 09/05/19 05:58: WBC 9.0 D, RBC 3.90 L, Hgb 11.4 L, Hct 36.9 L, MCV 94.6, MCH 29.1, MCHC 30.8 L, RDW 13.8, Plt Count 248, MPV 8.1, Neut % (Auto) 79.5, Lymph % (Auto) 11.2, [place] % (Auto) 8.5, Eos % (Auto) 0.5, Baso % (Auto) 0.4, Neut # (Auto) 7.1, Lymph # (Auto) 1.0, [place] # (Auto) 0.8, Eos # (Auto) 0.1, Baso # (Auto) 0.0 09/05/19 05:58: Sodium 142, Potassium 4.4, Chloride 107, Carbon Dioxide 30, Anion Gap 9.4, BUN 13, Creatinine 0.88, Estimated Creat Clear 63, Estimated GFR 66, Est GFR ( Amer) 80, Glucose 127 H, Calcium 8.2 L Intake & Output 09/03/19 09/04/19 09/05/19 09/06/19 11:59 11:59 11:59 11:59 Intake Total 700 / 700 2409 / 2409 Output Total 100 / 100 550 / 550 Balance 600 / 600 1859 / 1859 Weight 254 lb 4 oz Exam General appearance: alert, active, awake, no acute distress ENT: normal exam; mucous membranes moist Neck: Soft and supple, trachea midline, full range of movements Cardiovascular: regular rate & rhythm, S1-S2 heard, normal peripheral pulses Respiratory: clear to auscultation, normal breath sounds Abdomen: Soft and nontender, normal bowel sounds Genitourinary: Urinary catheter in place Neuro: alert, oriented x 3, no deficits Psych: appropriate mood/affect for her situation; communicates well Extremities: On examination of the left knee, the dressings are clean, dry and intact. No soakage of dressings noted. She has good quadriceps contraction and is just about able to straight leg raise. Distal pulses are 2+; capillary refill is brisk. Patient has paresthesias over the lower leg and foot from the nerve blocks. Thigh and calf are soft and no signs of compartment syndrome noted. Diagnostic imaging: Postoperative check x-rays reviewed along with radiologist report. The x-rays show total knee arthroplasty in good alignment. No complications noted on the x-rays. - Urinary Catheter Management [place] Cath placed during this visit: no Progress Note: A&P (1) Status post left knee replacement Status: Acute Current Visit: Yes (2) Obesity Status: Acute Current Visit: Yes (3) Hypothyroidism (acquired) Status: Acute Current Visit: Yes (4) Bradycardia with 41-50 beats per minute Status: Acute Current Visit:
--- NOTE | 2019-09-05 18:26 | PC.NURSE ---
Patient walked to bathroom with one assist using a walker. Tolerated this well. Pain medications given.
[2019-09-06] VITALS (7 sets, daily range): BP systolic 120–154; BP diastolic 64–85; PULSE 70–91; RESP 16–20; TEMP 36.9–37.3; O2SAT 91–97; BMI 42.5
--- NOTE | 2019-09-06 08:01 | PC.NURSE ---
PT RESTED WELL THIS SHIFT. A&O X4. PERRLA. 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 +2 BILATERAL RADIAL AND PEDAL PULSES NOTED. NSR NOTED ON PSYCHIATRIC MENTAL HEALTH NURSE THIS SHIFT. NO EDEMA NOTED. BILATERAL BREATH SOUNDS NOTED CLEAR THROUGHOUT UPON AUSCULTATION. THIS AM PT NOTED WITH A NON-PRODUCTIVE CROUPY COUGH. ENCOURAGED USE OF INCENTIVE SPIROMETER THROUGHOUT SHIFT WHILE AWAKE. PT DEMONSTRATED APPROPRIATE USE. PT REFUSED SCUDS. AMB WELL TO AND FROM BATHROOM WITH STANDBY ASSIST X1. UPON INITIAL ASSESSMENT PT WAS IN PAIN WITH ELEVATED B/P. PAIN WAS WELL CONTROLLED THROUGHOUT THE NIGHT WITH ROTATION OF TORDOL AND TYLENOL/OXYCODONE COMBO PER NOV. UPON REASSESSMENTS PT WAS NOTED RESTING WITH EYES CLOSED WITH NO FURTHER COMPLAINTS. ACTIVE BOWEL SOUNDS NOTED IN ALL 4 QUADS. ABD NOTED LARGE, ROUND, AND NON-TENDER UPON PALPATION. ADEQUATE URINE OUTPUT NOTED THIS SHIFT. URINE NOTED CLEAR, BRIGHT YELLOW, WITH NORMAL ODOR. NO BM NOTED THIS SHIFT. B/P RETURNED TO BASELINE THIS AM UPON 0400 ROUNDS. PT ALSO STATES HER PAIN IS WELL CONTROLLED, RATING 1/10. VSS. REMAINS SAFE. CALL LIGHT WITHIN REACH. WILL CONTINUE TO MONITOR.
--- NOTE | 2019-09-06 09:20 | HMH.ACPN2 ---
Internal Medicine - PN: Subj *Date: 09/06/19 *Time: 09:20 Interval history: FAMILY MEDICINE CONSULT: She seems to be quite stable. Possibly will be discharged today. She is a bit anxious about having to be discharged. She slept okay last night. She has had some congestion. She has a past history of having to use an inhaler during episodes of bronchitis. She has been using her incentive spirometry bottles. Exam Vital signs and Labs for Last 24 Hours: Temp Pulse Resp BP Pulse Ox 99.0 F 79 20 120/78 91 L 09/06/19 04:55 09/06/19 04:55 09/06/19 04:55 09/06/19 04:55 09/06/19 04:55 I & O for Last 24 hours: Intake & Output 09/03/19 09/04/19 09/05/19 09/06/19 11:59 11:59 11:59 11:59 Intake Total 700 / 700 2409 / 2409 120 / 120 Output Total 100 / 100 550 / 550 1250 / 1250 Balance 600 / 600 1859 / 1859 -1130 / -1130 Weight 254 lb 4 oz 255 lb 4 oz - Constitutional no acute distress - *Routine HEENT Exam Head: Present: normocephalic Eye: Present: PERRL ENT: Present: mucous membranes moist - Routine Chest/Breast/Axilla Exam Chest wall: Absent: tenderness - *Routine Respiratory Exam Present: decreased breath sounds, wheezes (Some) - *Routine Cardiovascular Exam Present: RRR. Absent: tachycardia - *Routine Abdominal Exam Present: soft, obese. Absent: tenderness - *Routine Extremities Exam Present: pulses intact Assessment and Plan (1) Status post left knee replacement Current visit: Yes Status: Acute Category: Surgical Code(s): Z96.652 - Presence of left artificial knee joint (2) Obesity Current visit: Yes Status: Acute Category: Medical Code(s): E66.9 - Obesity, unspecified (3) Hypothyroidism (acquired) Current visit: Yes Status: Acute Category: Medical Code(s): E03.9 - Hypothyroidism, unspecified (4) Bradycardia with 41-50 beats per minute Current visit: No Status: Acute Category: Medical Code(s): R00.1 - Bradycardia, unspecified (5) Chest pain Current visit: No Status: Acute Category: Medical Code(s): R07.9 - Chest pain, unspecified (6) Tobacco abuse Current visit: Yes Status: Acute Category: Medical Code(s): Z72.0 - Tobacco use - Assessment and plan all Dx Assessment and Plan for all problems:: Add Ventolin HFA inhaler. Check chest x-ray.
--- NOTE | 2019-09-06 09:30 | XR_ITS ---
PROCEDURE: XR CHEST PORTABLE Patient Age:58Y CLINICAL HISTORY: CONGESTION nonsmoker but knee replacement 2 days ago the a the the the the COMPARISON: CXR2V XR chest 2V from 10/11/2017 XR CHEST PORTABLE from 05/11/2019 XR CHEST 2V from 05/11/2019 XR CHEST 2V from 08/18/2019 FINDINGS: The May 2019 portable upright CXR provides the best comparison although inspiration slightly less optimal today. Borderline cardiomegaly, with heart size on today's CXR accentuated by portable projection again observed. There is some mild chronic changes towards bases, as noted on previous exam.. The umberto and mediastinal structures appear stable-calcified hilar nodes most evident on right old granulomatous disease. Superior mediastinum unremarkable. panel monitor leads in place. Normal to upper normal pulmonary vascularity. Chest wall/ribs unremarkable on this PCXR On closer inspection there is suggestion slight increased markings at the left infrahilar region and medial left lower lobe-which partially obscure the descending aorta shadow. Thus suspect minimal airspace disease reflect atelectasis and possible minimal infiltrate medial left lower lobe. There is also some atelectasis I believe at the right infrahilar region and medial right base associated chronic changes-no definitive infiltrate but difficult to totally exclude. Tend favor atelectasis here at right lung base but . Upper lung mcnair clear Stable round calcified granuloma right lung base. 14 mm size again noted IMPRESSION: 1.Suggestion minimal airspace disease medial aspect LLL- . Atelectasis with probable minimal infiltrate here, partially obscures the descending aorta shadow 2.Suspect minimal atelectasis and chronic changes at the right infrahilar region/right lung base 3.Borderline cardiomegaly Dictated by: Pola Aguilar MD 09/06/2019 10:20 Electronically signed by Pola Aguilar MD in [place] 09/06/2019 10:20
--- NOTE | 2019-09-06 13:07 | HMH.DCSUM ---
General - General Admission date:: 09/04/19 Discharge date: 09/06/19 HPI HPI: Patient is a 58-year-old female with advanced degenerative joint disease of the left knee who is admitted to the hospital electively following an uncomplicated primary total knee arthroplasty on 09/04/2019. Prior to surgery patient had long-standing pain, stiffness and disability secondary to advanced degenerative arthritis in both knee joints with the left knee being worse than the right. She has not responded well to conservative management including weight loss, NSAID, Tylenol, and intra-articular injections in the past. A total knee arthroplasty is indicated to improve her pain, mobility and quality of life and to reduce the risk of falls. Her walking distance and ADLs are adversely affected; she also has history of night pain and sleep disturbance. The surgical and nonsurgical alternatives were discussed in detail with the patient as well as the risks and benefits of the surgery. Patient is fairly healthy and has a history of hypothyroidism, bradycardia, obesity and osteoarthritis. Hospital Course Hospital Course: Patient underwent an uncomplicated straightforward primary uncemented left total knee arthroplasty on 09/04/2019. Immediately after surgery, patient complained of chest pain in the PACU. Evaluation did not reveal evidence of any acute coronary event. Dr. Cummings was consulted for this; evaluation did not reveal any evidence of acute coronary event; patient was managed appropriately and her chest pain resolved in a short period of time. Following surgery patient was admitted to hospital and progressed well without any orthopedic complications. On the day of discharge she complained of some chest congestion and was placed on albuterol inhalation by Dr. Cummings. The postoperative check x-ray of the left knee was satisfactory with good alignment and fixation of the components. Patient progressed rapidly with physical therapy and was able to mobilize using a walker. After 2 days of hospital stay for observation, patient was discharged to home with self-care on 09/06/2019. Patient is planning to do outpatient physical therapy at [facility]. At the time of discharge she has not yet regained good quadriceps control and is not able to actively straight leg raise. Patient has mild to moderate pain and her pain is well controlled with as needed oral medication. The incision is healthy and healing well. No signs of any erythema, induration or discharge noted. After consulting with the pharmacy, patient was started on Lovenox 40 mg subcu twice daily for DVT prophylaxis after surgery. The neurovascular status in both lower extremities is intact. Pedal pulses 2+ bilaterally and fully sensate distally. No clinical evidence of DVT noted. Patient was cleared for discharge by physical therapy. On the day of discharge, the patient has been stable. Patient's vital signs have been stable throughout and patient is afebrile at the time of discharge. She is being discharged home with family/self-care. She has outpatient physical therapy scheduled. Condition at discharge: improved and stable. Treatments and Procedures: Total knee arthroplasty, left knee; date of surgery 09/04/2019. Objective Vital signs: Temp Pulse Resp BP Pulse Ox 99.1 F 77 18 128/68 97 09/06/19 12:00 09/06/19 12:00 09/06/19 12:00 09/06/19 12:00 09/06/19 12:00 no acute distress, morbidly obese, cooperative - *Routine HEENT Exam Head: Present: normocephalic, atraumatic Eye: Present: EOMI ENT: Present: mucous membranes moist - *Routine Neck Exam Present: supple, full ROM, trachea midline - *Routine Respiratory Exam Present: CTA bilaterally - *Routine Cardiovascular Exam Present: RRR, Normal S1, Normal S2 - *Routine Abdominal Exam Present: soft, normoactive bowel sounds. Absent: tenderness - *Routine Extremities Exam Comments: On examination of
--- NOTE | 2019-09-06 14:36 | PC.NURSE ---
Addendum entered by Zeferino Irvin RN 09/06/19 14:47: spoke with Dr. Smith and reported CXR results and he ordered omnicef 300 mg po bid x 7 days and albuterol inhaler. Awaiting daughter at this time- went [facility]. Original Note: Spoke with kaila in RE to [facility] and [facility]. [facility] is going to deliver within the hr. D/C instructions given to ptMax coker
--- NOTE | 2019-09-06 16:37 | PC.NURSE ---
Spoke with Dr. Julien and he has called in a new script to [facility] for pts pain medication. Pharm was unable to fill due to quanity of previous script.
== END 2019-09-06 17:00 | disposition home or self-care (01) ==
LOC: 2ND 06:27
PROVIDERS: Family Medicine; Admitting Provider Orthopaedic Surgery; PCP Family Medicine; Visit Provider Orthopaedic Surgery
PROC: (CPT 27447; principal; 2019-09-04 07:30)
DX: M17.0 Bilateral primary osteoarthritis of knee (principal); E03.9 Hypothyroidism, unspecified; Z79.899 Other long term (current) drug therapy; E66.01 Morbid (severe) obesity due to excess calories; Z68.41 Body mass index [BMI] 40.0-44.9, adult; R07.9 Chest pain, unspecified; R00.1 Bradycardia, unspecified
CPT/HCPCS: 27447; 36415; 71045; 73560; 80048; 81001; 84484; 85007; 85025; 93005; 96374; 97116; 97161; 97166; 97530; C1776; G0378; J2405; J2710; J3370

== ENCOUNTER → 2019-10-19 09:47 | Outpatient (CLI) | payer OTHER, SELFPAY ==
--- NOTE | 2019-10-19 09:51 | XR_ITS ---
PROCEDURE: XR KNEE LT 2V CLINICAL INDICATION: sp LT knee replacement, sx 09/04/19 COMPARISON: [id number] XR knee LT 4V from 06/10/2018 XR KNEE RT 4V from 08/16/2019 XR KNEE LT 4V from 08/16/2019 XR KNEE LT 2V from 09/04/2019 FINDINGS: Status post total knee replacement with good alignment and no evidence of orthopedic complications. Soft tissue gas is no longer apparent. Other findings:None. IMPRESSION: Good alignment status post total knee replacement Dictated by: Florentin Sun MD 10/19/2019 12:56 Electronically signed by Florentin Sun MD in [facility] 10/19/2019 12:56
== END ==
PROVIDERS: PCP Family Medicine; Visit Provider Orthopaedic Surgery
DX: M25.562 Pain in left knee (principal); Z96.652 Presence of left artificial knee joint
CPT/HCPCS: 73560

== ENCOUNTER → 2019-11-20 09:21 | Outpatient (CLI) | payer OTHER, SELFPAY ==
[2019-11-24 11:22] LABS: Vitamin B12 358 pg/mL (232-1245)
== END ==
PROVIDERS: Visit Provider Specialist
DX: R25.1 Tremor, unspecified (principal)
CPT/HCPCS: 36415; 82607

== ENCOUNTER 2019-11-23 14:30 | Outpatient (RCR) | payer OTHER, SELFPAY ==
--- NOTE | 2019-09-07 09:47 | HMH.PTOPEV ---
PT Outpatient Evaluation Rehab PT Outpatient Evaluation Start: 09/07/19 09:27 Freq: Status: Active Protocol: Document 09/07/19 09:27 LORENA (Rec: 09/07/19 09:47 LORENA [id number]) Electronically Signed By Narinder Grossman, PT 09/07/19 09:27 Outpatient Therapy Subjective History Subjective History Pt presents s/p L TKA w/sx. on 09/04. Pt reports 'as expected' post-op pain/ discomfort, 'mostly at the top of the incision'. Pt reports ambulation with RW 'is doable' , but 'it's definitely more painful when I'm up on it'. Chief Complaint Pain,Stiff,Weakness Symptom Type Ache,Sharp,Dull Symptoms Relieved By Rest/Positioning Symptoms Aggravated By Standing,Walking Prior Functional Limitations Standing,Walking Current Functional Limitations Housework,Standing,Walking, Stairs Symptom Description Constant but Variable Level of pain today (0-10) 5 Pain scale - at its best (0-10) 4 Pain scale - at its worst (0-10) 8 Hip/Knee Eval Gait Observation General Gait Pattern Observation Antalgic Gait,Wide Based Gait, Decrease Weight Bear (L), Decrease Stride Lngth (L) Assistive Device Assistive Devices Rolling / Wheeled Walker Palpation Tenderness left Knee Palpation Finding Tenderness Knee Palpation Overall Comment 3/4 GLOBAL MMT Hip Flexion Strength Grade 4- Good- Hip Abduction Strength Grade 3+ Fair+ Hip Adduction Strength Grade 3+ Fair+ Hip Extension Strength Grade 3+ Fair+ Knee Extension Strength Grade 4- Good- Knee Flexion Strength Grade 4- Good- ROM Knee Flexion Active Range of Motion ( 10-70 degrees) Knee Flexion Passive Range of Motion ( 5-80 degrees) Knee ROM Limitations Pain Outpatient Therapy Assessment Impairments Problems/Impairmments Palpation Tenderness,Impaired Range of Motion,Impaired Strength,Impaired Gait Pattern ,Impaired Walking,Impaired Standing,Impaired Household Care,Impaired Stair Climbing, Subjective C/O Pain,Impaired Self Care/Self Management Prognosis Rehab Potential Good Clinical Impression Consistent with Diagnosis Yes Short Term Goals Number of Weeks 4 Decreased Palpation Tenderness Yes: 1-2/4 Increase Range of Motion
--- NOTE | 2019-11-14 15:37 | HMH.RHREAS ---
Rehab Reassessment Rehab OP Re-assessment Start: 10/06/19 13:15 Freq: Status: Active Protocol: Document 11/14/19 15:30 DARVINDURGA (Rec: 11/14/19 15:37 [email or web address] [id number]) Electronically Signed By Narinder Grossman, PT 11/14/19 15:30 Rehab Re-assessment Subjective Subjective Pt reports 4/10 posterior L knee pain/calf pain on VAS, however, reports feels 80% better overall since I Eval Objective Objective Notes AROM: L KNEE FLX 5-105 PROM: L KNEE 0-110 MMT: L QUAD 4+/5, HS 4-4+/5, L HIP FLX 4/5, L HIP ABD,EXT, ADD 4/5 TTP: L KNEE GASTROC INSERTION 2-3/4 (MEDIAL AND LATERAL) Assessment Progress Assessment Progressing as Expected Assessment Notes PT W/IMPROVED GAIT, STRENGTH, ADN ROM Patient goals met STG'S 04/13 LTG'S 10/16 Goals Not Met LTG'S 04/15 Plan Plan PT TO CONT. W/SKILLED P.T. TO MAKE FURTHER IMPROVEMENTS IN AROM, STRENGTH, AND TTP TO ALLOW FOR OPTIMAL FUNCTION Frequency of Therapy 2-3X/WK Duration of therapy 3-4WKS Time and Billing Re-Eval Time 15 Re-Eval Billing Units 1 PHYSICIAN CERTIFICATION: I certify the specified therapy services for Yamileth Caal are required, authorized, and reviewed every 30 days.
== END 2019-11-23 15:34 | disposition home or self-care (01) ==
LOC: PT 14:30
PROVIDERS: PCP Family Medicine; Visit Provider Orthopaedic Surgery
DX: M25.562 Pain in left knee (principal); Z96.652 Presence of left artificial knee joint
CPT/HCPCS: 97010; 97014; 97016; 97033; 97110; 97116; 97140; 97163; 97164; G0283

== ENCOUNTER → 2019-12-18 11:15 | Outpatient (CLI) | payer OTHER, SELFPAY ==
[2019-12-18 14:24] LABS: Hemoglobin A1C 4.9 % (4.0-6.0)
== END ==
PROVIDERS: Visit Provider Specialist
DX: E11.9 Type 2 diabetes mellitus without complications (principal); G47.33 Obstructive sleep apnea (adult) (pediatric); G47.00 Insomnia, unspecified; R06.83 Snoring; R53.83 Other fatigue; G47.19 Other hypersomnia; R25.1 Tremor, unspecified; Z68.41 Body mass index [BMI] 40.0-44.9, adult
CPT/HCPCS: 36415; 83036; 95806

== ENCOUNTER → 2020-01-21 14:16 | Outpatient (CLI) | payer OTHER, SELFPAY ==
[2020-01-21 14:29] LABS: Adenovirus F 40/41, stool Not Detected (NotDetected); Astrovirus Not Detected (NotDetected); Campylobacter Not Detected (NotDetected); Clostridium Difficile A/B, PCR Not Detected (NotDetected); Cryptosporidium Not Detected (NotDetected); Cyclospora Cayetanesis Not Detected (NotDetected); Entamoeba histolytica Not Detected (NotDetected); Enteroaggregative E coli Not Detected (NotDetected); Enteropathogenic E coli Not Detected (NotDetected); Enterotoxigenic E coli Not Detected (NotDetected); Giardia lamblia Not Detected (NotDetected); Norovirus Not Detected (NotDetected); Plesimonas Shigalloides, PCR Not Detected (NotDetected); Rotavirus A Not Detected (NotDetected); Salmonella, PCR Not Detected (NotDetected); Sapovirus Not Detected (NotDetected); Shiga-like toxin E coli Not Detected (NotDetected); Shigella Enterovasive E coli Not Detected (NotDetected); Vibrio Cholerae Not Detected (NotDetected); Vibrio, PCR Not Detected (NotDetected); Yersinia Entercolitica, PCR Not Detected (NotDetected)
== END ==
PROVIDERS: PCP Family Medicine; Visit Provider Nurse Practitioner
DX: R19.7 Diarrhea, unspecified (principal)
CPT/HCPCS: 87507

== ENCOUNTER 2020-01-23 12:26 | Observation (INO) | payer OTHER, SELFPAY ==
[2020-01-23 12:39] VITALS: BP 115/72; PULSE 71; RESP 16; TEMP 36.9; O2SAT 100; BMI 41.5
--- NOTE | 2020-01-23 12:44 | CT_ITS ---
PROCEDURE: CT HEAD/BRAIN WO CON CLINICAL INDICATION: migraine COMPARISON: CT HEAD/BRAIN WO CON from 08/28/2019 TECHNIQUE: Axial images obtained. All CT scans at the facility use one or more dose reduction, viz: automated exposure control, ma/kV adjustment per patient size (including targeted exams where dose is matched to indication, i.e. head), or iterative reconstruction technique. FINDINGS: No midline shift, mass effect, intracranial hemorrhage, hydrocephalus, or extra-axial fluid collection is evident. The sylvian fissures are mildly prominent and the cortical sulci over the frontal lobes are mildly prominent. The calvarium has an unremarkable appearance. No mastoid effusion. No sinus air-fluid level. IMPRESSION: No acute intracranial finding, findings of mild age-appropriate cortical atrophy Dictated by: Dr. Jonas Jensen MD 01/23/2020 14:[address] Jonas Jensen MD in [facility] 01/23/2020 14:25
[2020-01-23 12:54] LABS: Basophils # 0.1 K/mm3 (0-0.2); Basophils % 0.9 % (0.1-2.0); Eosinophils # 0.3 K/mm3 (0.0-0.4); Eosinophils % 3.3 % (0.1-12.0); Hematocrit 39.2 % (37.0-47.0); Hemoglobin 12.8 g/dL (12.2-16.2); Lymphocytes # 1.2 K/mm3 (0.7-4.5); Lymphocytes % 14.7 % (10-50); Mean Corpuscular HGB Conc 32.7 g/dL (31.8-35.4); Mean Corpuscular Hemoglobin 29.6 pg (27.0-31.2); Mean Corpuscular Volume 90.6 fl (81-99); Mean Platelet Volume 7.8 fl (7.4-10.4); Monocytes # 0.4 K/mm3 (0.1-1.0); Monocytes % 4.6 % (1.7-9.3); Neutrophils # 6.3 K/mm3 (1.8-7.8); Neutrophils % 76.5 % (37.0-80.0); Platelet Count 289 K/mm3 (142-424); Red Blood Count 4.33 M/mm3 (4.20-5.40); Red Cell Distribution Width 13.6 % (11.5-17.5); White Blood Count 8.3 K/mm3 (4.8-10.8)
[2020-01-23 13:00] LABS: Chloride 100 mmol/L (98-107); Sodium 134 mmol/L (136-145)
[2020-01-23 13:03] LABS: Alanine Aminotransferase 16 U/L (12-78); Albumin Level 3.8 g/dl (3.5-5.0); Albumin/Globulin Ratio 1.3 (1.1-1.8); Alkaline Phosphatase 84 U/L (38-126); Aspartate Amino Transferase 27 U/L (14-36); Bilirubin,Total 0.7 mg/dl (0.2-1.3); Blood Urea Nitrogen 13 mg/dl (7-17); Calcium 9.3 mg/dl (8.4-10.2); Carbon Dioxide 31 mmol/L (22.0-30.0); Creatinine Clearance Estimated 78 mL/min (50-200); Estimated Glomerular Filt Rate 86 ml/min (>60); GFR (African American) 104 ML/MIN (>60); Glucose 100 mg/dl (74-100); Total Protein,Serum 6.8 g/dl (6.3-8.2)
--- NOTE | 2020-01-23 13:24 | HMH.EDGENADL ---
ED Disposition Clinical Impression: Intractable headache Qualifiers: Headache type: unspecified Headache chronicity pattern: acute headache Qualified Code(s): R51 - Headache Diarrhea Qualifiers: Diarrhea type: presumed infectious Qualified Code(s): R19.7 - Diarrhea, unspecified Abdominal pain Qualifiers: Abdominal location: lower abdomen, unspecified Qualified Code(s): R10.30 - Lower abdominal pain, unspecified Disposition: Admitted as Observation Condition on Discharge: Fair - Critical Care Critical Care Time: No Attestation: On 01/23/20, the high probability of a clinically significant, sudden or life threatening deterioration of the following system(s) required my full and direct attention, intervention and personal management. The time I documented below is in addition to time spent performing reported procedures but includes the following listed in this critical care notation. Medical Decision Making - Medical Records Medical records reviewed: Yes: I reviewed the patient's medical records. - Yan Inquiry Pt receiving controlled substance: Yes Yan was queried for this patient: No Reason not queried -: Emergent pt cond-no time Risks and benefits of using a controlled substance: were not discussed with pt by me Vital Signs: 01/23/20 12:39 01/23/20 16:27 01/23/20 18:01 Temperature 98.5 F 98.5 F Temperature Source Oral Pulse Rate 64 Pulse Rate [Right Brachial] 71 62 Respiratory Rate 16 16 18 Blood Pressure 116/66 Blood Pressure [Right Arm] 115/72 136/74 Blood Pressure Mean [Right Arm] 86 94 Blood Pressure Source Automatic Cuff Blood Pressure Source [Right Arm] Automatic Cuff Automatic Cuff Blood Pressure Position Supine Blood Pressure Position [Right Arm] Sitting Sitting 02 Sat by Pulse Oximetry 100 94 L Oxygen Delivery Method Room Air Room Air Room Air - Lab Data Lab results reviewed: Yes: I reviewed the patient's lab results. Lab Results 01/23/20 12:40: WBC 8.3, RBC 4.33, Hgb 12.8, Hct 39.2, MCV 90.6, MCH 29.6, MCHC 32.7, RDW 13.6, Plt Count 289, MPV 7.8, Neut % (Auto) 76.5, Lymph % (Auto) 14.7, [place] % (Auto) 4.6, Eos % (Auto) 3.3, Baso % (Auto) 0.9, Neut # (Auto) 6.3, Lymph # (Auto) 1.2, [place] # (Auto) 0.4, Eos # (Auto) 0.3, Baso # (Auto) 0.1 01/23/20 12:40: Sodium 134 L, Potassium 4.0, Chloride 100, Carbon Dioxide 31 H, Anion Gap 7.0, BUN 13, Creatinine 0.70, Estimated Creat Clear 78, Estimated GFR 86, Est GFR ( Amer) 104, Glucose 100, Calcium 9.3, Total Bilirubin 0.7, AST 27, ALT 16, Alkaline Phosphatase 84, Total Protein 6.8, Albumin 3.8, Globulin 3.0, Albumin/Globulin Ratio 1.3 01/23/20 12:40: Amylase 56, Lipase 39 Result diagrams: 01/23/20 12:40 01/23/20 12:40 Orders (Tests/Meds): ED MEDICATIONS Generic Name Dose Route Start Last Admin Trade Name Freq PRN Reason Stop Dose Admin Acetaminophen 650 mg 01/23/20 17:55 Acetaminophen 325mg Tab PO 02/22/20 17:54 Q4HP PRN As Needed for Fever or Pain Sodium Chloride 1,000 mls @ 100 mls/hr 01/23/20 17:55 Sod Chlor 0.9% 1000ml Bag IV 02/22/20 17:54 .Q10H TONY Levothyroxine Sodium 50 mcg 01/24/20 09:00 Synthroid 50mcg (0.05mg) Tablet PO 02/23/20 08:59 DAILY TONY Morphine Sulfate 4 mg 01/23/20 17:55 Morphine 2mg/Ml Syringe IV 02/22/20 17:54 Q4HP PRN Severe Pain Ondansetron HCl 4 mg 01/23/20 17:55 Zofran 4mg/2ml Vial IV 02/22/20 17:54 Q8HP PRN Nausea Primidone 250 mg 01/24/20 09:00 Mysoline 250mg Tablet PO 02/23/20 08:59 DAILY TONY Discontinued Medications Generic Name Dose Route Start Last Admin Trade Name Freq PRN Reason Stop Dose Admin Diphenhydramine HCl 25 mg 01/23/20 12:50 01/23/20 12:52 Benadryl 50mg/1ml Vial IV 01/23/20 12:51 25 mg ONCE ONE Administration Sodium Chloride 1,000 mls @ 999 mls/hr 01/23/20 12:45 01/23/20 12:52 Sod Chlor 0.9% 1000ml Bag IV 01/23/20 13:45 999 mls/hr .Q1H1M TONY Admi
--- NOTE | 2020-01-23 13:34 | CT_ITS ---
PROCEDURE: CT ABDOMEN PELVIS W CON CLINICAL INDICATION: abdo pain COMPARISON: ABDPELW/O CT ABD PELVIS W/O CONTRAST from 07/12/2016 TECHNIQUE: IV Contrast: 75ML OPTIRAY 350 Oral Contrast none given Axial images obtained with sagittal and coronal reformats. All CT scans at the facility use one or more dose reduction, viz: automated exposure control, ma/kV adjustment per patient size (including targeted exams where dose is matched to indication, i.e. head), or iterative reconstruction technique. FINDINGS: Lower thorax: No acute finding there is moderate-sized calcified granuloma right lower lobe. There is borderline cardiomegaly. There is no pleural fluid. ABDOMEN: Liver: No masses or biliary dilatation. Gallbladder: Post cholecystectomy Pancreas: No masses or peripancreatic fluid collections. Spleen: unremarkable Adrenals: unremarkable Kidneys/ureters: The kidneys are normal in size and show symmetrical function both appearing normal. ABDOMEN & PELVIS: Stomach bowel: The stomach is decompressed with the wall of the stomach appearing somewhat thickened but this is likely due to lack of distention. Small bowel appears normal. There is moderate scattered stool and gas seen throughout the colon. Peritoneum: There is a small umbilical hernia containing fat only. Lymph nodes: No enlarged lymph nodes apparent. Vasculature: No evidence of abdominal aortic aneurysm. No retroperitoneal hemorrhage evident. Bones: There is prominent spurring anteriorly and posteriorly at the L5-S1 level. There are moderate multilevel degenerate changes lower thoracic spine. PELVIS: Reproductive: The uterus is normal size and in the midline. Bladder: Moderately distended with urine but appearing normal. There is no cul-de-sac fluid. Appendix: Not definitely identified but I see no findings to suggest appendicitis. IMPRESSION: No acute abdominal or pelvic pathology identified Dictated by: Dr. Jonas Jensen MD 01/23/2020 15:[address] Jonas Jensen MD in [place] 01/23/2020 15:06
[2020-01-23 13:48] LABS: Amylase 56 U/L (30-110); Lipase 39 U/L (23-300)
[2020-01-23 16:27] VITALS: BP 136/74; PULSE 62; RESP 16; O2SAT 94
--- NOTE | 2020-01-23 16:54 | PC.NURSE ---
Dr barreto paged at this time
--- NOTE | 2020-01-23 18:00 | PC.NURSE ---
report called to LUIS ALBERTO Larson on second floor, stated she would send staff to transport pt.
[2020-01-23 18:01] VITALS: BP 116/66; PULSE 64; RESP 18; TEMP 36.9; O2SAT 97
[2020-01-23 18:30] VITALS: BMI 41.3
[2020-01-23 18:37] LABS: Microscopic, Urine URINE MICROSCOPIC (MICROSCOPIC)
[2020-01-23 19:05] LABS: Appearance,Urine CLEAR (Clear); Bilirubin,Urine Negative (Negative); Blood, Urine TRACE-L (Negative); Color,Urine YELLOW (Yellow); Glucose,Urine (UA) Negative (Negative); Ketones,Urine TRACE (Negative); Leukocyte Esterase,Urine Negative (Negative); Nitrate,Urine Negative (Negative); Protein,Urine Negative (Negative); Urobilinogen,Urine 0.2 EU/dl (0.2)
--- NOTE | 2020-01-23 19:16 | PC.NURSE ---
report given to saran
--- NOTE | 2020-01-23 19:37 | PC.NURSE ---
REPORT GIVEN TO DAVID SAHU
[2020-01-23 19:39] LABS: Bacteria,Urine Trace /lpf; WBC,Urine Occasional #/hpf (0-3)
[2020-01-23 19:57] VITALS: BP 125/70; PULSE 60; RESP 17; TEMP 36.6; O2SAT 94
[2020-01-24 04:00] VITALS: BP 100/57; PULSE 66; RESP 16; TEMP 36.4; O2SAT 96
[2020-01-24 05:22] VITALS: BMI 42.4
[2020-01-24 08:00] VITALS: BP 105/60; PULSE 59; RESP 18; TEMP 36.6; O2SAT 99
--- NOTE | 2020-01-24 08:01 | P.CONPHA_ITS ---
[facility] Pharmacy VTE Monitoring - Patient Demographics Admission date: 01/23/20 Report Date: 01/24/20 Time: 08:01 Allergies/Adverse Reactions: Patient Allergies promethazine Allergy (Intermediate, Verified 01/23/20 12:45) ANXIETY Height: 1.65 m Weight: 115.439 kg Patient Problems: Current Active Problems (This Medical Record has been edited. Action required.) Intractable headache (Acute) Diarrhea (Acute) Abdominal pain (Acute) - VTE Risk Labs: VTE Related Lab Results Hgb 12.8 g/dL (12.2-16.2) 01/23/20 12:40 Hct 39.2 % (37.0-47.0) 01/23/20 12:40 Plt Count 289 K/mm3 (142-424) 01/23/20 12:40 BUN 13 mg/dl (7-17) 01/23/20 12:40 Creatinine 0.70 mg/dl (0.52-1.04) 01/23/20 12:40 Estimated Creat Clear 78 mL/min (50-200) 01/23/20 12:40 VTE Score: 9 VTE Risk Level: Moderate Risk - Prophylaxis VTE Prophylaxis Ordered?: Yes Types of VTE Prophylaxis: TEDS Knee High Location of Applied Device: Bilateral Lower Extremeties - VTE Diagnosis Confirmed Treatment or plan recommended: Continue Current Treatment
--- NOTE | 2020-01-24 08:02 | HMH.PHAINT ---
MEDICATION RECONCILIATION COMPLETED ON PATIENT USING EXTERNAL FILL HISTORY FROM PHARMACY AND PATIENT INTERVIEW. -RADHA CHAND, RASHAWND
--- NOTE | 2020-01-24 08:37 | HMH.HP ---
*Admission Date: 01/23/20 <Ana Maria Eldridge 01/24/20 08:46> *Chief complaint: headache, diarrhea, vomiting <Ana Maria Eldridge 01/24/20 08:37> *History of present illness: Ms. Caal is a 59-year-old female with a history of hypothyroidism, essential tremor, and reflux. She states on Wednesday she began having diarrhea. It was very watery and she had multiple episodes. She had an outpatient diarrhea panel performed which was negative. She states she woke up Wednesday morning with a migraine and vomiting. She was unable to get out of her bed except to go to the bathroom. She states she woke up early Wednesday and felt better, however the migraine and vomiting returned. Her son brought her to the emergency room. She states she was given a migraine cocktail and some morphine, which finally helped her headache. She woke up with a mild headache this morning, but it was relieved with Tylenol. She states her diarrhea has resolved and she has had no further vomiting. She does complain of some right-sided neck pain today. She has been able to eat some Jell-O and drink some fluids. <Ana Maria Eldridge 01/24/20 08:46> [facility] History I have reviewed the patient's past medical history: Yes <Ana Maria Eldridge 01/24/20 08:46> Medical History: Reports:: Gastroesophageal Reflux Disease(GERD), Hypertension, MRSA Denies:: Cancer, Diabetes Mellitus Type 1, Diabetes Mellitus Type 2, Internal Pacemaker, Seizures <Ana Maria Eldridge 01/24/20 08:37> *Have you ever received a pneumonia vaccine?: No <Ana Maria Eldridge 01/24/20 08:37> *Have you received a flu vaccine this season?: Yes <Ana Maria Eldridge 01/24/20 08:37> Other Medical History: Reports: Arthritis, Cataracts, Hypothyroidism, Sinus Problems, Thyroid Disease. Denies: Blood Transfusion Reaction <Ana Maria Eldridge 01/24/20 08:37> Laterality Cases: Left: Total Knee Replacement, Other, Bilateral: Cataract, Tonsillectomy <Ana Maria Eldridge 01/24/20 08:46> Other Surgeries: Yes: Cardiac Catheterization, Cholecystectomy, Other. No: Pacemaker <Ana Maria Eldridge 20 08:37> Amputation: No <MikejfAna Maria 01/24/20 08:37> Fractures: No <MikejfAna Maria 01/24/20 08:37> - *Social History Educational Level: Attended College <MikejfAna Maria 01/24/20 08:37> Smoking Status: Former smoker <MikejfAna Maria 01/24/20 08:37> Tobacco Type: cigarettes <JazmynAna Maria 01/24/20 08:37> # Packs/Day (cigarettes): 1 <JazmynAna Maria 01/24/20 08:37> #Yrs smoked (if former smoker): 30 <JazmynAna Maria 01/24/20 08:37> Alcohol Intake: never <JazmynAna Maria 01/24/20 08:37> Alcohol Intake Frequency:: holidays/special occasions only <MikejfAna Maria 01/24/20 08:37> Substance Use Type: other <JazmynAna Maria 01/24/20 08:37> *Occupational Status:: employed <JazmynAna Maria 01/24/20 08:37> Housing: house <MikejfAna Maria 01/24/20 08:37> Household Members: spouse <MikejfAna Maria 01/24/20 08:37> *Travel in the last 8 weeks: None <JazmynAna Maria 01/24/20 08:37> Family Hx:: Coronary Artery Disease, Diabetes, Hypertension, Alcoholism <JazmynAna Maria 01/24/20 08:37> Review of Systems - Constitutional Reports fatigue, Reports headache(s), Reports weakness, Denies fever(s) <JazmynAna Maria 01/24/20 08:46> - Eyes Denies blurry vision, Denies double vision <JazmynAna Maria 01/24/20 08:46> - ENT Denies nasal congestion, Denies sore throat <JazmynAna Maria 01/24/20 08:46> - *Cardiovascular Denies chest pain, Denies shortness of breath <Ana Maria Eldridge 01/24/20 08:46> - *Respiratory Denies cough, Denies shortness of breath <Ana Maria Eldridge 01/24/20 08:46> - *Gastrointestinal Reports abdominal pain, Reports loose stools, Reports nausea, Reports vomiting <Ana Maria Eldridge 01/24/20 08:46> - *Genitourinary Denies difficulty urinating, Denies painful urination <Ana Maria Eldridge 01/24/20 08:46> - *Musculoskeletal Reports neck pain (right side), Denies joint pain <Ana Maria Eldridge 01/24/20 08:46> - *Neurolo
[2020-01-24 11:23] LABS: Adenovirus F 40/41, stool Not Detected (NotDetected); Astrovirus Not Detected (NotDetected); Campylobacter Not Detected (NotDetected); Clostridium Difficile A/B, PCR Not Detected (NotDetected); Cryptosporidium Not Detected (NotDetected); Cyclospora Cayetanesis Not Detected (NotDetected); Entamoeba histolytica Not Detected (NotDetected); Enteroaggregative E coli Not Detected (NotDetected); Enteropathogenic E coli Not Detected (NotDetected); Enterotoxigenic E coli Not Detected (NotDetected); Giardia lamblia Not Detected (NotDetected); Norovirus Not Detected (NotDetected); Plesimonas Shigalloides, PCR Not Detected (NotDetected); Rotavirus A Not Detected (NotDetected); Salmonella, PCR Not Detected (NotDetected); Sapovirus Not Detected (NotDetected); Shiga-like toxin E coli Not Detected (NotDetected); Shigella Enterovasive E coli Not Detected (NotDetected); Vibrio Cholerae Not Detected (NotDetected); Vibrio, PCR Not Detected (NotDetected); Yersinia Entercolitica, PCR Not Detected (NotDetected)
[2020-01-24 16:00] VITALS: BP 97/55; PULSE 69; RESP 16; TEMP 36.7; O2SAT 97
[2020-01-24 17:30] VITALS: BP 110/70
--- NOTE | 2020-01-24 19:12 | PC.NURSE ---
report given to luther
[2020-01-24 19:17] VITALS: BP 94/56; PULSE 64; RESP 18; TEMP 36.9; O2SAT 94
--- NOTE | 2020-01-24 20:00 | PC.NURSE ---
DURING THIS RN'S ADL CHECK AT 1700 PATIENT STATED HER LAST BP CHECK WAS LOW. THIS RN ASSESSED A MANUAL BP. 110/70. PATIENT STATED SHE JUST DOESN'T FEEL WELL. THIS RN ASKED IF THERE IS ANYTHING SHE CAN DO OR NEEDS ANYTHING. PATIENT STATED NO, I JUST DON'T FEEL GOOD. THIS RN INSTRUCTED TO PATIENT TO CALL OUT TO WC IF SHE NEEDS ANYTHING OR HAS A CHANGE IN STATUS, PATIENT VERBALIZED AN UNDERSTANDING. NO OTHER CONCERNS OR NEEDS AT THIS TIME.
--- NOTE | 2020-01-25 03:36 | PC.NURSE ---
patient iv infiltrated, patient states that she thinks she will be ok without it and would like to leave it out. patient has received one dose of tylenol for headache at the beginning of the shift, has had no nausea or diarrhea this shift. will continue to monitor.
[2020-01-25 03:48] VITALS: BP 108/60; PULSE 54; RESP 18; TEMP 36.4; O2SAT 94
[2020-01-25 05:22] VITALS: BMI 42.9
[2020-01-25 08:00] VITALS: BP 145/77; PULSE 60; RESP 18; TEMP 36.5; O2SAT 96
--- NOTE | 2020-01-25 08:22 | HMH.ACPN2 ---
<Ana Maria Eldridge - Last Filed: 01/25/20 08:22> Internal Medicine - PN: Subj *Date: 01/25/20 *Time: 08:22 Interval history: Patient is feeling much better today. Her headache is resolved. She is had no further vomiting or diarrhea. Her abdominal pain is improved. She was able to tolerate some liquids this morning and Jell-O. She slept well last night and is anxious to go home. Exam Vital signs and Labs for Last 24 Hours: Temp Pulse Resp BP Pulse Ox 97.6 F 54 L 18 108/60 L 94 L 01/25/20 03:48 01/25/20 03:48 01/25/20 03:48 01/25/20 03:48 01/25/20 03:48 Laboratory Results - last 24 hr 01/24/20 11:15: Stl Aeromonas (PCR) Not detected, Stl C. cayetanensis PCR Not detected, Stool Rotavirus (PCR) Not detected, Stl Adenov F 40/41 PCR Not detected, Stool Astrovirus (PCR) Not detected, Stool Campylobacter PCR Not detected, Stl C.difficile Tox PCR Not detected, Stool Cryptosporidium PCR Not detected, Stl E.coli Shiga Tox PCR Not detected, Stool E coli O157 PCR Not detected, Stl Enterotoxigenic E PCR Not detected, Stool EPEC (PCR) Not detected, Stool EAEC (PCR) Not detected, Stl E. histolytica PCR Not detected, Stool Giardia Lamblia PCR Not detected, Stool Salmonella PCR Not detected, Stool Sapovirus (PCR) Not detected, Stl P. shigelloides PCR Not detected, Stl Shigella/EIEC PCR Not detected, St Y.enterocolitica PCR Not detected, Stool Vibrio (PCR) Not detected, Stl Vibrio cholerae PCR Not detected, Stl Norovirus GI/GII PCR Not detected I & O for Last 24 hours: Intake & Output 01/22/20 01/23/20 01/24/20 01/25/20 11:59 11:59 11:59 11:59 Intake Total 2888 / 2888 840 / 840 Output Total 1100 / 1100 3100 / 3100 Balance 1788 / 1788 -2260 / -2260 Weight 254 lb 8 oz 257 lb 9 oz - Constitutional no acute distress - *Routine Respiratory Exam Present: CTA bilaterally - *Routine Cardiovascular Exam Present: RRR - *Routine Abdominal Exam Present: soft, normoactive bowel sounds. Absent: tenderness - *Routine Extremities Exam Absent: cyanosis, clubbing, edema - *Routine Skin Exam Present: warm. Absent: rash - *Routine Neurological Exam Present: alert, oriented X3 Assessment and Plan (1) Migraine Current visit: No Status: Acute Category: Medical Code(s): G43.909 - Migraine, unspecified, not intractable, without status migrainosus (2) Nausea and vomiting Current visit: Yes Status: Acute Category: Medical Code(s): R11.2 - Nausea with vomiting, unspecified (3) Abdominal pain Current visit: Yes Status: Acute Qualifiers: Abdominal location: lower abdomen, unspecified Qualified Code(s): R10.30 - Lower abdominal pain, unspecified Category: Medical Code(s): R10.9 - Unspecified abdominal pain (4) Diarrhea Current visit: Yes Status: Acute Qualifiers: Diarrhea type: presumed infectious Qualified Code(s): R19.7 - Diarrhea, unspecified Category: Medical Code(s): R19.7 - Diarrhea, unspecified (5) Hypothyroidism (acquired) Current visit: No Status: Chronic Category: Medical Code(s): E03.9 - Hypothyroidism, unspecified (6) Obesity Current visit: No Status: Chronic Category: Medical Code(s): E66.9 - Obesity, unspecified - Assessment and plan all Dx Assessment and Plan for all problems:: Patient stable to be discharged home today. <Edwin Osorio - Last Filed: 01/25/20 08:29> Internal Medicine - PN: Subj *Date: 01/25/20 *Time: 08:28 Exam Vital signs and Labs for Last 24 Hours: Temp Pulse Resp BP Pulse Ox 97.6 F 54 L 18 108/60 L 94 L 01/25/20 03:48 01/25/20 03:48 01/25/20 03:48 01/25/20 03:48 01/25/20 03:48 Laboratory Results - last 24 hr 01/24/20 11:15: Stl Aeromonas (PCR) Not detected, Stl C. cayetanensis PCR Not detected, Stool Rotavirus (PCR) Not detected, Stl Adenov F 40/41 PCR Not detected, Stool Astrovirus (PCR) Not detected, Stool Campylobacter PCR Not detected, Stl C.difficile Tox PCR Not detecte
--- NOTE | 2020-01-25 09:33 | HMH.PHAINT ---
DISCHARGE COUNSELING-DISCUSSED THE ADDITION OF CYCLOBENZAPRINE 5 MG TIDP.
--- NOTE | 2020-01-25 11:49 | HMH.DCSUM ---
General - General Admission date:: 01/23/20 <Edwin Osorio - 01/26/20 08:46> 01/23/20 <Ana Maria Eldridge - 01/25/20 12:04> Discharge date: 01/25/20 <Ana Maria Eldridge - 01/25/20 12:04> HPI HPI: Ms. Caal is a 59-year-old female with a history of hypothyroidism, essential tremor, and reflux. She states on Wednesday she began having diarrhea. It was very watery and she had multiple episodes. She had an outpatient diarrhea panel performed which was negative. She states she woke up Wednesday morning with a migraine and vomiting. She was unable to get out of her bed except to go to the bathroom. She states she woke up early Wednesday and felt better, however the migraine and vomiting returned. Her son brought her to the emergency room. She states she was given a migraine cocktail and some morphine, which finally helped her headache. She woke up with a mild headache this morning, but it was relieved with Tylenol. She states her diarrhea has resolved and she has had no further vomiting. She does complain of some right-sided neck pain today. She has been able to eat some Jell-O and drink some fluids. <Ana Maria Eldridge - 01/25/20 12:04> Hospital Course Hospital Course: The patient's initial head CT showed nothing acute. Her abdominal/pelvic CT showed nothing acute. She was admitted and given a migraine cocktail as well as morphine for her headache, which improved. Her vomiting and diarrhea resolved. She did have a muscle spasm on the right side of her neck and was started on some muscle relaxants and a heating pad. Stool PCR was ordered and was negative. Her diet was advanced and she tolerated this well. She was stable to be discharged home on continued Flexeril as needed and will follow-up in the office of [facility]. <Ana Maria Eldridge - 01/25/20 12:04> Objective Vital signs: Temp Pulse Resp BP Pulse Ox 97.7 F 60 18 145/77 H 96 01/25/20 08:00 01/25/20 08:00 01/25/20 08:00 01/25/20 08:00 01/25/20 08:00 <Edwin Osorio - 05/22/20 08:46> Temp Pulse Resp BP Pulse Ox 97.7 F 60 18 145/77 H 96 01/25/20 08:00 01/25/20 08:00 01/25/20 08:00 01/25/20 08:00 01/25/20 08:00 <Ana Maria Eldridge - 01/25/20 12:04> Narrative: - Constitutional no acute distress - *Routine HEENT Exam Head: Present: normocephalic Eye: Present: EOMI, PERRL ENT: Present: mucous membranes moist - *Routine Neck Exam Present: supple, tenderness (along the trapezius attachment to the occiput on the right). Absent: lymphadenopathy - *Routine Respiratory Exam Present: CTA bilaterally - *Routine Cardiovascular Exam Present: RRR - *Routine Abdominal Exam Present: soft, normoactive bowel sounds, tenderness (bilateral lower quadrants) - *Routine Extremities Exam Absent: cyanosis, clubbing, edema - *Routine Skin Exam Present: warm. Absent: rash - *Routine Neurological Exam Present: alert, oriented X3 <Ana Maria Eldridge - 01/25/20 12:04> Results Labs on day of discharge: Labs from last 24 hours 01/24/20 11:15 Stl Aeromonas (PCR) Not detected Stl C. cayetanensis PCR Not detected Stool Rotavirus (PCR) Not detected Stl Adenov F 40/41 PCR Not detected Stool Astrovirus (PCR) Not detected Stool Campylobacter PCR Not detected Stl C.difficile Tox PCR Not detected Stool Cryptosporidium PCR Not detected Stl E.coli Shiga Tox PCR Not detected Stool E coli O157 PCR Not detected Stl Enterotoxigenic E PCR Not detected Stool EPEC (PCR) Not detected Stool EAEC (PCR) Not detected Stl E. histolytica PCR Not detected Stool Giardia Lamblia PCR Not detected Stool Salmonella PCR Not detected Stool Sapovirus (PCR) Not detected Stl P. shigelloides PCR Not detected Stl Shigella/EIEC PCR Not detected St Y.enterocolitica PCR Not detected Stool Vibrio (PCR) Not detected Stl Vibrio cholerae PCR Not detected Stl Norovirus GI/GII PCR Not detected
== END 2020-01-25 11:25 | disposition home or self-care (01) ==
LOC: ER 17:30 → 2ND 18:17
PROVIDERS: Admitting Provider Family Medicine; Emergency Provider Emergency Medicine; PCP Family Medicine; Visit Provider Family Medicine
DX: R10.30 Lower abdominal pain, unspecified (principal); G43.909 Migraine, unspecified, not intractable, without status migrainosus; E03.9 Hypothyroidism, unspecified; E66.9 Obesity, unspecified; Z68.41 Body mass index [BMI] 40.0-44.9, adult; I10 Essential (primary) hypertension; Z87.891 Personal history of nicotine dependence; K21.9 Gastro-esophageal reflux disease without esophagitis; G25.0 Essential tremor; Z79.899 Other long term (current) drug therapy
CPT/HCPCS: 70450; 74177; 80053; 81001; 82150; 83690; 85025; 87507; 96365; 96375; 96376; 99284; G0378; J2405; Q9967

== ENCOUNTER → 2020-02-01 07:07 | Outpatient (CLI) | payer OTHER, SELFPAY ==
[2020-02-01 10:23] LABS: Glucose 1 Hour 84 mg/dL (74-100); Glucose 2 Hour 56 mg/dL (74-100); Glucose,Fasting 90 mg/dl (74-100)
--- NOTE | 2020-02-01 10:31 | XR_ITS ---
PROCEDURE: XR HIP LT 2-3V W/PELVIS CLINICAL INDICATION: LT HIP PAIN COMPARISON: CT ABDOMEN PELVIS W CON from 01/23/2020 FINDINGS: There are mild osteoarthritic changes of the left hip with lucency is noted at the acetabular roof consistent with subchondral cystic changes. No acute fracture or dislocation. Mild degenerative changes are also present involving the right hip as seen on the AP view of the pelvis. IMPRESSION: Mild osteoarthritis of the hips Dictated by: Florentin Sun MD 02/01/2020 13:12 Electronically signed by Florentin Sun MD in [facility] 02/01/2020 13:12
[2020-02-01 12:55] LABS: Glucose 3 Hour 76 mg/dL (74-100)
== END ==
PROVIDERS: Visit Provider Family Medicine
DX: R25.1 Tremor, unspecified (principal); M25.552 Pain in left hip
CPT/HCPCS: 36415; 73502; 82951

== ENCOUNTER → 2020-02-04 17:32 | Outpatient (CLI) | payer OTHER, SELFPAY ==
[2020-02-04 18:15] LABS: Coronavirus 19 IgG Antibody Negative (Negative); Coronavirus 19 IgM Antibody Negative (Negative)
== END ==
PROVIDERS: PCP Emergency Medicine; Visit Provider Emergency Medicine
DX: Z03.818 Encounter for observation for suspected exposure to other biological agents ruled out (principal)
CPT/HCPCS: 86328

== ENCOUNTER → 2020-02-21 11:55 | Outpatient (CLI) | payer OTHER, SELFPAY ==
--- NOTE | 2020-02-21 12:01 | XR_ITS ---
PROCEDURE: XR KNEE LT 2V CLINICAL INDICATION: sp LT TKA, dos 09/04/19 Follow-up knee replacement COMPARISON: No exams were available for comparison FINDINGS: Status post total knee arthroplasty on the left with good alignment and no evidence of orthopedic complications with no significant change. IMPRESSION: Good alignment status post left knee replacement Dictated by: Florentin Sun MD 02/21/2020 14:14 Electronically signed by Florentin Sun MD in [facility] 02/21/2020 14:14
--- NOTE | 2020-02-21 12:01 | XR_ITS ---
PROCEDURE: XR KNEE RT 4V CLINICAL INDICATION: right knee pain COMPARISON: XR KNEE RT 4V from 08/16/2019 XR KNEE LT 4V from 08/16/2019 XR KNEE LT 2V from 09/04/2019 XR KNEE LT 2V from 10/19/2019 FINDINGS: No fracture or dislocation. No lytic or blastic change. There is normal mineralization. Moderate to severe osteoarthritic changes are present involving the medial compartment and patellofemoral joint. Mild osteoarthritis involves the lateral compartment. Other findings:None. IMPRESSION: No change in the moderate to severe osteoarthritic changes Dictated by: Florentin Sun MD 02/21/2020 14:35 Electronically signed by Florentin Sun MD in [facility] 02/21/2020 14:35
== END ==
PROVIDERS: PCP Family Medicine; Visit Provider Orthopaedic Surgery
DX: M17.11 Unilateral primary osteoarthritis, right knee (principal); Z96.652 Presence of left artificial knee joint
CPT/HCPCS: 73560; 73564

== ENCOUNTER → 2020-03-14 15:01 | Outpatient (CLI) | payer OTHER, SELFPAY ==
--- NOTE | 2020-03-14 15:08 | MR_ITS ---
PROCEDURE: MR LUMBAR SPINE WO CON CLINICAL INDICATION: LUMBAGO Left-sided hip/groin pain X 2 months, pain is worse with walking pain, numbness and tingling down left leg COMPARISON: CT ABDOMEN PELVIS W CON from 01/23/2020 TECHNIQUE: Standard multiplanar multiecho sequences are performed without contrast. 3-D MIP and myelographic images are also rendered and reviewed FINDINGS: The spinal cord ends at the L1 level. T12-L1: Unremarkable. L1-L2: Unremarkable. L2-L3: Mild facet hypertrophic change with minimal amount of fluid in the left facet joint L3-L4: Mild concentric bulging disc with mild facet and ligamentum hypertrophy and [id number] bilateral foraminal narrowing L4-5: Facet and ligamentum hypertrophic change with mild bilateral foraminal narrowing L5-S1: There is grade 1 spondylitic spondylolisthesis. There is 9 mm anterolisthesis of L5 on S1 with severe degenerative disc disease at that level with moderate facet and ligamentum hypertrophic changes with sclerosis at the pars defect. This is causing moderate to severe right foraminal narrowing and severe left foraminal narrowing with impingement upon the exiting L5 nerve root. No extruded herniated disc are evident. IMPRESSION: 1. L2-L3: Mild facet hypertrophic change with minimal amount of fluid in the left facet joint 2. L3-L4: Mild concentric bulging disc with mild facet and ligamentum hypertrophy and ljxg-uw-fvawsmna bilateral foraminal narrowing 3. L4-5: Facet and ligamentum hypertrophic change with mild bilateral foraminal narrowing 4. L5-S1: There is grade 1 spondylitic spondylolisthesis. There is 9 mm anterolisthesis of L5 on S1 with severe degenerative disc disease at that level with moderate facet and ligamentum hypertrophic changes with sclerosis at the pars defect. This is causing moderate to severe right foraminal narrowing and severe left foraminal narrowing with impingement upon the exiting L5 nerve root. Dictated by: Florentin Sun MD 03/15/2020 16:09 Electronically signed by Florentin Sun MD in [facility] 03/15/2020 16:09
== END ==
PROVIDERS: PCP Family Medicine; Visit Provider Family Medicine
DX: M54.40 Lumbago with sciatica, unspecified side (principal); M51.36 Other intervertebral disc degeneration, lumbar region; M43.06 Spondylolysis, lumbar region
CPT/HCPCS: 72148; 76376

== ENCOUNTER → 2020-03-20 11:58 | Outpatient (POV) | payer OTHER, SELFPAY ==
--- NOTE | 2020-03-20 13:16 | HMH.PMPROC ---
- Procedure Date: 03/20/20 Time: 13:17 Anesthesiologist:: Bryan Humphreys MD Complications:: None Pre-procedure Diagnosis:: Sacroiliitis and trochanteric bursitis Post-procedure Diagnosis:: Same Indications for Procedure:: Patient is a pleasant 59-year-old white female who we are treating for low back pain left hip pain left leg pain. Most of her pain seems to be over the left trochanteric bursa left SI joint. She she has a positive Gemma test on left side. She has positive SI joint compression test on left side. She has a positive Gus's test on left side. Today we will do a left SI joint injection with trochanteric bursa injection to help her with her pain symptoms. Procedure Details:: Left SI joint injection under fluoroscopy Informed consent was obtained and the risks and benefits of the procedure was explained to the patient. Patient was taken to the procedure room. Patient was placed prone on the procedure table. The left hip was prepped using ChloraPrep. The skin and subcutaneous tissues were anesthetized using lidocaine. I placed a 22-gauge spinal needle into the inferior aspect of the left SI joint. Needle placement was confirmed with dye. After this we injected 5 mL bupivacaine 0.25% and Depo-Medrol 40 mg into the left SI joint. The patient tolerated the procedure well with no complication. Left trochanteric bursa injection under fluoroscopy Is a informed consent was obtained and the risk and benefits of the procedure was explained to the patient. The patient was taken to procedure room and placed prone on the procedure table. The left hip was prepped using ChloraPrep. The skin and subcutaneous tissues were anesthetized using lidocaine. I placed a 22-gauge spinal needle under fluoroscopic guidance and advanced until it contacted the left greater trochanter. Needle placement was confirmed with dye. After this we injected 5 mL bupivacaine 0.25% and Depo-Medrol 40 mg. Patient tolerated the procedure well with no complications. Plan and Disposition:: We will follow-up with her in 2 weeks. Will reevaluate symptoms at that time. If this does not help her symptoms we will proceed with a lumbar epidural steroid injection.
[2020-03-20 13:45] VITALS: BP 108/86; PULSE 66; RESP 18; O2SAT 98; BMI 34.9
[2020-03-20 14:11] VITALS: BP 110/87; PULSE 65; RESP 18; TEMP 36.2; O2SAT 98; BMI 34.9
[2020-03-20 14:12] VITALS: BP 108/86; PULSE 66; RESP 18
[2020-03-20 14:13] VITALS: BP 110/88; BP 115/87; PULSE 69; PULSE 71; RESP 18; O2SAT 98
== END ==
PROVIDERS: PCP Family Medicine; Visit Provider Anesthesiology
DX: M46.1 Sacroiliitis, not elsewhere classified (principal); M70.62 Trochanteric bursitis, left hip; I49.9 Cardiac arrhythmia, unspecified; G43.909 Migraine, unspecified, not intractable, without status migrainosus; Z96.652 Presence of left artificial knee joint; E03.9 Hypothyroidism, unspecified; Z79.899 Other long term (current) drug therapy
CPT/HCPCS: 20610; 27096; 77002; 99202; G0260; Q9966

== ENCOUNTER 2020-03-24 06:44 | Emergency (ER) | payer OTHER, SELFPAY ==
--- NOTE | 2020-03-24 06:49 | CT_ITS ---
PROCEDURE: CT HEAD/BRAIN WO CON CLINICAL INDICATION: stroke protocol COMPARISON: CT HEAD/BRAIN WO CON from 01/23/2020 TECHNIQUE: Axial images obtained. All CT scans at the facility use one or more dose reduction, viz: automated exposure control, ma/kV adjustment per patient size (including targeted exams where dose is matched to indication, i.e. head), or iterative reconstruction technique. FINDINGS: No midline shift, mass effect, intracranial hemorrhage, hydrocephalus, or extra-axial fluid collection is evident. The calvarium has an unremarkable appearance. No mastoid effusion. No sinus air-fluid level. There has been bilateral cataract surgery. The cortical sulci are mildly prominent but normal for age. IMPRESSION: No acute intracranial finding Dictated by: Dr. Jonas Jensen MD 03/24/2020 08:[address] Jonas Jensen MD in [facility] 03/24/2020 08:34
--- NOTE | 2020-03-24 06:50 | PC.NURSE ---
pt to ed per pov. pt to ct for stroke protocol
[2020-03-24 06:56] VITALS: RESP 16; TEMP 36.7; O2SAT 87; BMI 46.0
--- NOTE | 2020-03-24 06:57 | PC.NURSE ---
pt to ct
--- NOTE | 2020-03-24 07:10 | PC.NURSE ---
Pt returned from rad
--- NOTE | 2020-03-24 07:11 | PC.NURSE ---
report given to jl gorman rn
--- NOTE | 2020-03-24 07:11 | PC.NURSE ---
[facility] calling at this time.
--- NOTE | 2020-03-24 07:12 | PC.NURSE ---
Dr Banks speaking with [facility] at this time.
--- NOTE | 2020-03-24 07:18 | PC.NURSE ---
blood sent to lab.
[2020-03-24 07:22] LABS: MANUAL DIFFERENTIAL MANUAL DIFFERENTIAL (MANUAL DIFF)
[2020-03-24 07:23] VITALS: BP 117/95; PULSE 56; O2SAT 100
[2020-03-24 07:25] LABS: Basophils % 0.7 % (0.1-2.0); Eosinophils # 0.4 K/mm3 (0.0-0.4); Eosinophils % 5.5 % (0.1-12.0); Hematocrit 39.9 % (37.0-47.0); Hemoglobin 13.8 g/dL (12.2-16.2); Lymphocytes # 1.8 K/mm3 (0.7-4.5); Lymphocytes % 27.5 % (10-50); Mean Corpuscular HGB Conc 34.6 g/dL (31.8-35.4); Mean Corpuscular Hemoglobin 31.6 pg (27.0-31.2); Mean Corpuscular Volume 91.2 fl (81-99); Mean Platelet Volume 7.8 fl (7.4-10.4); Monocytes # 0.3 K/mm3 (0.1-1.0); Monocytes % 4.9 % (1.7-9.3); Neutrophils # 4.1 K/mm3 (1.8-7.8); Neutrophils % 61.4 % (37.0-80.0); Platelet Count 267 K/mm3 (142-424); Red Blood Count 4.37 M/mm3 (4.20-5.40); Red Cell Distribution Width 13.6 % (11.5-17.5); White Blood Count 6.6 K/mm3 (4.8-10.8)
[2020-03-24 07:28] LABS: Chloride 99 mmol/L (98-107); Sodium 140 mmol/L (136-145)
[2020-03-24 07:29] LABS: Eosinophils % 2 % (0-3); Lymphocytes % 31 % (10-50); Monocytes % 5 % (2-9); Neutrophils % 62 % (42-76); Platelet Estimate Normal; RBC Morphology Normal; Total Cells Counted 100
[2020-03-24 07:30] VITALS: BP 120/64; PULSE 58; O2SAT 98
[2020-03-24 07:31] LABS: Alanine Aminotransferase 25 U/L (12-78); Alkaline Phosphatase 74 U/L (38-126); Aspartate Amino Transferase 36 U/L (14-36); Bilirubin,Total 0.5 mg/dl (0.2-1.3); Blood Urea Nitrogen 17 mg/dl (7-17); Carbon Dioxide 32 mmol/L (22.0-30.0); Creatinine Clearance Estimated 63 mL/min (50-200); Estimated Glomerular Filt Rate 73 ml/min (>60); GFR (African American) 89 ML/MIN (>60)
[2020-03-24 07:32] LABS: Albumin Level 4.4 g/dl (3.5-5.0); Albumin/Globulin Ratio 1.5 (1.1-1.8); Calcium 9.6 mg/dl (8.4-10.2); Glucose 88 mg/dl (74-100); Total Protein,Serum 7.4 g/dl (6.3-8.2)
--- NOTE | 2020-03-24 07:37 | HMH.EDHA ---
ED Disposition Clinical Impression: Headache Qualifiers: Headache type: unspecified Headache chronicity pattern: acute headache Intractability: not intractable Qualified Code(s): R51 - Headache Disposition: Home, Self-Care Condition on Discharge: Good Instructions: DI for Migraine Additional Instructions: see pcp for follow up Referrals: Edwin Osorio MD [Primary Care Provider] - - Critical Care Critical Care Time: No Attestation: On 03/24/20, the high probability of a clinically significant, sudden or life threatening deterioration of the following system(s) required my full and direct attention, intervention and personal management. The time I documented below is in addition to time spent performing reported procedures but includes the following listed in this critical care notation. Medical Decision Making - Medical Records Medical records reviewed: Yes: I reviewed the patient's medical records. - Yan Inquiry Pt receiving controlled substance: No Vital Signs: 03/24/20 06:56 03/24/20 07:23 03/24/20 07:30 Temperature 98.0 F Temperature Source Oral Pulse Rate [Right Radial] 56 L 58 L Respiratory Rate 16 Blood Pressure [Right Arm] 117/95 H 120/64 Blood Pressure Mean [Right Arm] 102 82 Blood Pressure Source [Right Arm] Automatic Cuff Automatic Cuff Blood Pressure Position [Right Arm] Sitting Sitting 02 Sat by Pulse Oximetry 87 L 100 98 Oxygen Delivery Method Room Air Room Air Room Air - Lab Data Lab results reviewed: Yes: I reviewed the patient's lab results. Lab Results 03/24/20 07:16: WBC 6.6, RBC 4.37, Hgb 13.8, Hct 39.9, MCV 91.2, MCH 31.6 H, MCHC 34.6, RDW 13.6, Plt Count 267, MPV 7.8, Neut % (Auto) 61.4, Lymph % (Auto) 27.5, [place] % (Auto) 4.9, Eos % (Auto) 5.5, Baso % (Auto) 0.7, Neut # (Auto) 4.1, Lymph # (Auto) 1.8, [place] # (Auto) 0.3, Eos # (Auto) 0.4, Baso # (Auto) 0.0, Total Counted 100, Neutrophils % (Manual) 62, Lymphocytes % (Manual) 31, Monocytes % (Manual) 5, Eosinophils % (Manual) 2, Platelet Estimate Normal, RBC Morphology Normal 03/24/20 07:16: Sodium 140, Potassium 4.0, Chloride 99, Carbon Dioxide 32 H, Anion Gap 13.0, BUN 17, Creatinine 0.80, Estimated Creat Clear 63, Estimated GFR 73, Est GFR ( Amer) 89, Glucose 88, Calcium 9.6, Total Bilirubin 0.5, AST 36, ALT 25, Alkaline Phosphatase 74, Total Protein 7.4, Albumin 4.4, Globulin 3.0, Albumin/Globulin Ratio 1.5 Result diagrams: 03/24/20 07:16 03/24/20 07:16 Orders (Tests/Meds): ED MEDICATIONS Generic Name Dose Route Start Last Admin Trade Name Freq PRN Reason Stop Dose Admin Sodium Chloride 1,000 mls @ 999 mls/hr 03/24/20 07:15 03/24/20 07:27 Sod Chlor 0.9% 1000ml Bag IV 03/24/20 08:15 999 mls/hr .[id number] TONY Administration Sodium Chloride 8 ml 03/24/20 07:08 03/24/20 07:26 Sodium Chloride 0.9% 10ml Vial IV 04/23/20 07:07 8 ml NEEDED PRN Administration dilute pepcid Discontinued Medications Generic Name Dose Route Start Last Admin Trade Name Freq PRN Reason Stop Dose Admin Famotidine 20 mg 03/24/20 07:08 03/24/20 07:26 Pepcid 20mg/2ml Vial IV 03/24/20 07:09 20 mg ONCE ONE Administration Ketorolac Tromethamine 30 mg 03/24/20 07:08 03/24/20 07:26 Toradol 30mg/Ml Vial IV 03/24/20 07:09 30 mg ONCE ONE Administration Metoclopramide HCl 10 mg 03/24/20 07:08 03/24/20 07:26 Reglan 10mg/2ml Vial IVP 03/24/20 07:09 10 mg ONCE ONE Administration Ondansetron HCl 4 mg 03/24/20 07:08 03/24/20 07:26 Zofran 4mg/2ml Vial IV 03/24/20 07:09 4 mg ONCE ONE Administration ORDERS Category Date Time Status CT head/brain wo con Stat Cat Scan 03/24/20 06:49 Taken - CT Data CT Scan: Head Time Received: 07:[address] Reviewed: Yes: I have viewed the radiologist's interpretation Preliminary Findings: Normal/NAD - Reevaluation(s) Time: 07:45 Reevaluation #1: improved Headache HPI - General Chief Complaint: Headac
--- NOTE | 2020-03-24 08:25 | PC.NURSE ---
pt states feeling improved with medication given
[2020-03-24 08:46] VITALS: BP 123/67; PULSE 78; RESP 16; TEMP 36.6; O2SAT 98
== END 2020-03-24 08:51 | disposition home or self-care (01) ==
PROVIDERS: Emergency Provider Emergency Medicine; PCP Family Medicine
DX: G43.901 Migraine, unspecified, not intractable, with status migrainosus (principal); K21.9 Gastro-esophageal reflux disease without esophagitis; I10 Essential (primary) hypertension; E03.9 Hypothyroidism, unspecified; Z79.899 Other long term (current) drug therapy
CPT/HCPCS: 70450; 80053; 85007; 85014; 85018; 85048; 85049; 96365; 96375; 99283; J2405

== ENCOUNTER 2020-03-26 10:30 | Observation (INO) | payer OTHER, SELFPAY ==
[2020-03-26] VITALS (9 sets, daily range): BP systolic 91–158; BP diastolic 53–93; PULSE 52–64; RESP 16–18; TEMP 36.6–36.8; O2SAT 94–100; BMI 43.2; BMI 43.7
--- NOTE | 2020-03-26 10:35 | CT_ITS ---
Procedure: CT ANGIO NECK CLINICAL HISTORY: Head pain Severe headache, nausea, blurred vision, pressure on top of COMPARISON: No exams were available for comparison TECHNIQUE: IV Contrast: 100ml Optiray 350 Axial images obtained with sagittal and coronal reformats. All CT scans at the facility use one or more dose reduction, viz: automated exposure control, ma/kV adjustment per patient size (including targeted exams where dose is matched to indication, i.e. head), or iterative reconstruction technique. FINDINGS: CTA neck: Aortic arch: Unremarkable. No stenosis of the great vessels. Vertebral arteries have an unremarkable appearance. No evidence of carotid stenosis, aneurysm, or dissection. Carotids: There is tortuosity of the internal carotid arteries on both sides but no evidence significant stenosis, ulceration, or dissection. CTA head: The vertebral basilar system has an unremarkable appearance. The internal carotids are unremarkable. No aneurysm, AVM, or major intracranial occlusive process is evident.. No evidence sinus thrombosis. No enhancing lesions, AVMs, midline shift, or mass effect evident. There is nonspecific thickening of the esophagus. Lung apices are clear. IMPRESSION: Negative CTA of the neck and head Dictated by: Florentin Sun MD 03/26/2020 12:03 Electronically signed by Florentin Sun MD in [facility] 03/26/2020 12:03
--- NOTE | 2020-03-26 10:36 | PC.NURSE ---
FSBS 85 upon arrival.
--- NOTE | 2020-03-26 10:37 | PC.NURSE ---
Pt to rad.
--- NOTE | 2020-03-26 10:38 | PC.NURSE ---
at bedside at 1033
[2020-03-26 10:44] LABS: Basophils % 0.6 % (0.1-2.0); Eosinophils # 0.5 K/mm3 (0.0-0.4); Eosinophils % 8.6 % (0.1-12.0); Hematocrit 40.1 % (37.0-47.0); Hemoglobin 13.6 g/dL (12.2-16.2); Lymphocytes # 1.5 K/mm3 (0.7-4.5); Lymphocytes % 28.7 % (10-50); Mean Corpuscular HGB Conc 33.9 g/dL (31.8-35.4); Mean Corpuscular Hemoglobin 31.6 pg (27.0-31.2); Mean Corpuscular Volume 93.2 fl (81-99); Monocytes # 0.3 K/mm3 (0.1-1.0); Monocytes % 5.1 % (1.7-9.3); Platelet Count 245 K/mm3 (142-424); Red Cell Distribution Width 13.5 % (11.5-17.5); White Blood Count 5.3 K/mm3 (4.8-10.8)
[2020-03-26 10:52] LABS: Alanine Aminotransferase 21 U/L (12-78); Albumin/Globulin Ratio 1.3 (1.1-1.8); Alkaline Phosphatase 82 U/L (38-126); Anion Gap 10.1 mEq/L (5-15); Aspartate Amino Transferase 29 U/L (14-36); Bilirubin,Total 0.4 mg/dl (0.2-1.3); Blood Urea Nitrogen 15 mg/dl (7-17); Calcium 9.3 mg/dl (8.4-10.2); Carbon Dioxide 34 mmol/L (22.0-30.0); Chloride 102 mmol/L (98-107); Creatinine Clearance Estimated 68 mL/min (50-200); Estimated Glomerular Filt Rate 73 ml/min (>60); GFR (African American) 89 ML/MIN (>60); Glucose 98 mg/dl (74-100); Potassium 4.1 mmoL/L (3.5-5.1); Sodium 142 mmol/L (136-145)
[2020-03-26 11:07] LABS: Erythrocyte Sedimentation Rate 17 mm/hr (0-30)
--- NOTE | 2020-03-26 11:13 | PC.NURSE ---
Went to radiology to assess IV and possibly restart hers. Was able to flush and get blood return from IV. Pt had no complaints.
--- NOTE | 2020-03-26 11:14 | PC.NURSE ---
Pt returned from CT
--- NOTE | 2020-03-26 11:14 | PC.NURSE ---
Pt returned from rad.
--- NOTE | 2020-03-26 11:49 | HMH.EDGENADL ---
ED Disposition Clinical Impression: Migraine with status migrainosus Qualifiers: Migraine type: unspecified Intractability: intractable Qualified Code(s): G43.911 - Migraine, unspecified, intractable, with status migrainosus Disposition: Admitted as Observation Condition on Discharge: Fair Time of Disposition: 13:10 - Critical Care Critical Care Time: No Attestation: On 03/26/20, the high probability of a clinically significant, sudden or life threatening deterioration of the following system(s) required my full and direct attention, intervention and personal management. The time I documented below is in addition to time spent performing reported procedures but includes the following listed in this critical care notation. Medical Decision Making - Medical Records Medical records reviewed: Yes: I reviewed the patient's medical records. - Yan Inquiry Pt receiving controlled substance: No Vital Signs: 03/26/20 10:31 03/26/20 11:14 03/26/20 11:33 Temperature 97.8 F Temperature Source Oral Pulse Rate Pulse Rate [Right] 64 55 L 54 L Respiratory Rate 16 16 Blood Pressure Blood Pressure [Left Arm] 158/93 H 156/89 H 141/84 H Blood Pressure Mean [Left Arm] 114 111 103 Blood Pressure Source Blood Pressure Source [Left Arm] Automatic Cuff Automatic Cuff Automatic Cuff Blood Pressure Position Blood Pressure Position [Left Arm] Sitting Sitting Sitting 02 Sat by Pulse Oximetry 98 99 100 Oxygen Delivery Method Room Air Room Air Room Air 03/26/20 12:04 03/26/20 12:42 03/26/20 13:29 Temperature 97.8 F Temperature Source Oral Pulse Rate 60 Pulse Rate [Right] 62 60 Respiratory Rate 16 Blood Pressure 130/82 Blood Pressure [Left Arm] 133/80 130/82 Blood Pressure Mean [Left Arm] 97 98 Blood Pressure Source Automatic Cuff Blood Pressure Source [Left Arm] Automatic Cuff Automatic Cuff Blood Pressure Position Sitting Blood Pressure Position [Left Arm] Sitting Sitting 02 Sat by Pulse Oximetry 100 100 Oxygen Delivery Method Room Air Room Air Room Air - Lab Data Lab Results 03/26/20 10:35: WBC 5.3, RBC 4.30, Hgb 13.6, Hct 40.1, MCV 93.2, MCH 31.6 H, MCHC 33.9, RDW 13.5, Plt Count 245, MPV 8.0, Neut % (Auto) 57.0, Lymph % (Auto) 28.7, [place] % (Auto) 5.1, Eos % (Auto) 8.6, Baso % (Auto) 0.6, Neut # (Auto) 3.0, Lymph # (Auto) 1.5, [place] # (Auto) 0.3, Eos # (Auto) 0.5 H, Baso # (Auto) 0.0, ESR 17 03/26/20 10:35: Sodium 142, Potassium 4.1, Chloride 102, Carbon Dioxide 34 H, Anion Gap 10.1, BUN 15, Creatinine 0.80, Estimated Creat Clear 68, Estimated GFR 73, Est GFR ( Amer) 89, Glucose 98, Calcium 9.3, Total Bilirubin 0.4, AST 29, ALT 21, Alkaline Phosphatase 82, Total Protein 7.0, Albumin 4.0, Globulin 3.0, Albumin/Globulin Ratio 1.3 Result diagrams: 03/26/20 10:35 03/26/20 10:35 Orders (Tests/Meds): ED MEDICATIONS Generic Name Dose Route Start Last Admin Trade Name Freq PRN Reason Stop Dose Admin Acetaminophen 650 mg 03/26/20 13:22 Acetaminophen 325mg Tab PO 04/25/20 13:21 Q4HP PRN As Needed for Fever or Pain Sodium Chloride 1,000 mls @ 125 mls/hr 03/26/20 13:22 03/26/20 14:24 Sod Chlor 0.9% 1000ml Bag IV 04/25/20 13:21 125 mls/hr .Q8H TONY Administration Ibuprofen 400 mg 03/26/20 13:22 Motrin 400mg Tablet PO 04/25/20 13:21 Q6HP PRN Mild Pain Ondansetron HCl 4 mg 03/26/20 13:22 Zofran 4mg/2ml Vial IV 04/25/20 13:21 Q8HP PRN Nausea Discontinued Medications Generic Name Dose Route Start Last Admin Trade Name Freq PRN Reason Stop Dose Admin Acetaminophen 650 mg 03/26/20 12:32 03/26/20 12:53 Acetaminophen 325mg Tab PO 03/26/20 12:33 650 mg ONCE ONE Administration Dexamethasone Sodium Phosphate 8 mg 03/26/20 12:32 03/26/20 12:54 Decadron 4mg/Ml 1ml Vial IV 03/26/20 12:33 8 mg ONCE ONE Administration Diphenhydramine HCl 25 mg 03/26/20 10:32 03/26/20 10:39 Benadryl 50mg/1ml Vial I
--- NOTE | 2020-03-26 12:13 | PC.NURSE ---
calling dr welsh office at this time.
--- NOTE | 2020-03-26 12:17 | PC.NURSE ---
Dr Humphreys is not in today but will be available for phone consult if needed per Susie in pain management.
--- NOTE | 2020-03-26 13:05 | PC.NURSE ---
calling Dr. Osorio
--- NOTE | 2020-03-26 13:07 | PC.NURSE ---
speaking with Dr. Smith
--- NOTE | 2020-03-26 13:12 | PC.NURSE ---
notified house and care management of admission
--- NOTE | 2020-03-26 13:27 | PC.NURSE ---
Pt arrived to floor via stretcher
--- NOTE | 2020-03-26 13:32 | HMH.PHAVTE ---
[facility] Pharmacy VTE Monitoring - Patient Demographics Admission date: 03/26/20 Report Date: 03/26/20 Time: 13:32 Allergies/Adverse Reactions: Patient Allergies promethazine Allergy (Intermediate, Verified 02/21/20 14:26) ANXIETY Height: 1.65 m Weight: 117.934 kg Patient Problems: Current Active Problems (This Medical Record has been edited. Action required.) Migraine with status migrainosus (Acute) - VTE Risk Labs: VTE Related Lab Results Hgb 13.6 g/dL (12.2-16.2) 03/26/20 10:35 Hct 40.1 % (37.0-47.0) 03/26/20 10:35 Plt Count 245 K/mm3 (142-424) 03/26/20 10:35 BUN 15 mg/dl (7-17) 03/26/20 10:35 Creatinine 0.80 mg/dl (0.52-1.04) 03/26/20 10:35 Estimated Creat Clear 68 mL/min (50-200) 03/26/20 10:35 Clinical Trial Participant: No - Prophylaxis VTE Prophylaxis Ordered?: Yes Types of VTE Prophylaxis: TEDS Knee High
--- NOTE | 2020-03-26 17:10 | PC.NURSE ---
PT IS RESTING IN BED. WHEN PT ARRIVED TO THE FLOOR SHE STATED HER HEADACHE WAS TOLERABLE. PT HAD A ONE TIME DOSE OF IMITREX AND NOT EVEN 1 MINUTE LATER PT STATED HER HEAD STARTED TO HURT AGAIN ( PAIN WAS DESCRIBED THROBBING AND UNBEARABLE ) PT WAS ASKED ABOUT BLURRED VISION AND SHE STATED IT HURT TO EVEN TRY OPENING HER EYES. CALLED AND HE ORDERED ONE TIME DOSE OF MORPHINE 2 MG IV. AFTER MORPHINE PT BECAME RELAXED AND WAS ABLE TO REST. PT WAS ABLE TO GET UP AND AMBULATE THE THE BATHROOM (STANDBY ASSIST). PT HAS BEEN ABLE TO TOLERATE PO FLUIDS W/O N/V. WILL CONTINUE TO MONITOR.
--- NOTE | 2020-03-26 17:19 | HMH.HP ---
*Admission Date: 03/26/20 <Malorie Azevedo 03/26/20 17:34> *Chief complaint: headache <Malorie Azevedo 03/26/20 17:34> *History of present illness: Ms. Caal is a 59-year-old female with a history of sleep apnea, essential tremor, hypothyroidism, GERD, and lumbar disc disease who presented to [facility] emergency room with an intense headache. She had an emergent CT of the head and neck which showed no occlusion or intracranial bleed. She was given 15 mg of Toradol and 10 mg of Reglan +25 mg of Benadryl which eased her headache.She was also given acetaminophen IV fluids at 125 an hour ibuprofen 2 mg of morphine sulfate and Imitrex. Patient describes having 2 episodes of headaches when leaning over. She describes them as being intense and she did come to the emergency room on 1 other occasion.During these headaches she has no neuro symptoms except for blurred vision. She had a CT scan of the head also 2 days ago without contrast which was unremarkable. At the time of this exam patient is feeling somewhat better. She states her headache is tolerable and think she can sleep. She describes the pain on the left side of her forehead and her muslim area. She has been nauseated and has received Zofran. CBC shows a white blood cell count of 5300 with a hemoglobin of 13.6 and hematocrit of 40.1. Blood chemistries are satisfactory kidney function is normal and liver function studies normal. CTA of the neck and head are negative. <Azevedo,Malorie 03/26/20 17:34> [facility] History Medical History: Reports:: Gastroesophageal Reflux Disease(GERD), Hypertension, Migraine, MRSA Denies:: Cancer, Diabetes Mellitus Type 1, Diabetes Mellitus Type 2, Internal Pacemaker, Seizures <AzevedoMalorie - 03/26/20 17:34> *Have you ever received a pneumonia vaccine?: No <Malorie Azevedo 03/26/20 17:34> *Have you received a flu vaccine this season?: Yes <Malorie Azevedo 03/26/20 17:34> Other Medical History: Reports: Arthritis, Cataracts, Hypothyroidism, Sinus Problems, Thyroid Disease, Other. Denies: Blood Transfusion Reaction <Malorie Azevedo 03/26/20 17:34> Comment:: Severe degenerative disc disease <Malorie Azevedo 03/26/20 17:37> Laterality Cases: Left: Arthroscopy Knee, Total Knee Replacement, Other, Bilateral: Tonsillectomy <Malorie Azevedo 03/26/20 17:34> Other Surgeries: Yes: Cardiac Catheterization, Cholecystectomy, Other. No: Pacemaker <Malorie Azevedo 03/26/20 17:34> Amputation: No <Malorie Azevedo 03/26/20 17:34> Fractures: No <Malorie Azevedo 03/26/20 17:34> Comment: Partial lobectomy 06/2007; skin lesion removal on March 2016 tooth extraction 08/17/2019 <Malorie Azevedo 03/26/20 17:34> - *Social History Last grade of school completed: Some college <Malorie Azevedo 03/26/20 17:34> Smoking Status: Former smoker <Malorie Azevedo 03/26/20 17:34> Tobacco Type: cigarettes <Malorie Azevedo 03/26/20 17:34> # Packs/Day (cigarettes): 1 <Malorie Azevedo 03/26/20 17:34> #Yrs smoked (if former smoker): 30 <Malorie Azevedo 03/26/20 17:34> Alcohol Intake: never <Malorie Azevedo 03/26/20 17:34> Alcohol Intake Frequency:: a few times a week <Malorie Azevedo 03/26/20 17:34> Substance Use Type: other <Malorie Azevedo 03/26/20 17:34> *Occupational Status:: employed <Malorie Azevedo 03/26/20 17:34> Housing: apartment <Malorie Azevedo 03/26/20 17:34> Household Members: spouse <Malorie Azevedo 03/26/20 17:34> *Travel in the last 8 weeks: None <Malorie Azevedo 03/26/20 17:34> Family Hx:: Unable to obtain, Diabetes <Malorie Azevedo 03/26/20 17:34> Review of Systems - Constitutional Denies fever(s) <Malorie Azevedo 03/26/20 17:34> - Eyes Reports blurry vision <Malorie Azevedo - 03/26/20 17:34> - ENT Reports dizziness, Denies ear pain, Denies nasal congestion, Denies neck pain, Denies post nasal drip, Denies sore throat <Malorie Azevedo - 03/26/20 17:34> - *Cardiovascular Denies chest pain, Denies shortness of breath
[2020-03-27 03:52] VITALS: BP 122/67; PULSE 51; RESP 17; TEMP 36.6; O2SAT 98
[2020-03-27 05:22] VITALS: BMI 43.4
--- NOTE | 2020-03-27 06:04 | PC.NURSE ---
A&OX4. PT TOLERATING RA WELL. PT HAS SLEPT WELL T/O MAJORITY OF SHIFT. PT STATES SHE FEELS SLIGHTLY DIZZY WHEN GETTING OUT OF BED AND WALKING TO THE BR. PT HAS C/O A SLIGHT DULL, THROBBING LEMUS T/O NIGHT WHILE AWAKE, TX WITH TYLENOL PER NOV. ON REASSESSMENT PT RESTING IN BED WITH EYES CLOSED. NO OTHER C/O THUS FAR, VSS WILL CONTINUE TO MONITOR.
[2020-03-27 07:31] LABS: Basophils % 0.6 % (0.1-2.0); Eosinophils # 0.2 K/mm3 (0.0-0.4); Eosinophils % 2.4 % (0.1-12.0); Hematocrit 40.4 % (37.0-47.0); Hemoglobin 13.2 g/dL (12.2-16.2); Lymphocytes # 1.7 K/mm3 (0.7-4.5); Lymphocytes % 24.1 % (10-50); Mean Corpuscular HGB Conc 32.6 g/dL (31.8-35.4); Mean Corpuscular Hemoglobin 31.1 pg (27.0-31.2); Mean Corpuscular Volume 95.3 fl (81-99); Mean Platelet Volume 7.6 fl (7.4-10.4); Monocytes # 0.3 K/mm3 (0.1-1.0); Monocytes % 3.7 % (1.7-9.3); Neutrophils # 4.7 K/mm3 (1.8-7.8); Neutrophils % 69.2 % (37.0-80.0); Platelet Count 235 K/mm3 (142-424); Red Blood Count 4.23 M/mm3 (4.20-5.40); Red Cell Distribution Width 13.4 % (11.5-17.5); White Blood Count 6.9 K/mm3 (4.8-10.8)
[2020-03-27 07:33] LABS: Chloride 103 mmol/L (98-107); Sodium 140 mmol/L (136-145)
[2020-03-27 07:34] LABS: Potassium 3.8 mmoL/L (3.5-5.1)
[2020-03-27 07:36] LABS: Blood Urea Nitrogen 13 mg/dl (7-17); Creatinine Clearance Estimated 65 mL/min (50-200); Estimated Glomerular Filt Rate 73 ml/min (>60); GFR (African American) 89 ML/MIN (>60)
[2020-03-27 07:37] LABS: Anion Gap 8.8 mEq/L (5-15); Calcium 8.8 mg/dl (8.4-10.2); Carbon Dioxide 32 mmol/L (22.0-30.0); Glucose 97 mg/dl (74-100); Magnesium 1.8 mg/dl (1.6-2.3); Phosphorous 3.4 mg/dl (2.5-4.5)
--- NOTE | 2020-03-27 07:38 | HMH.ACPN2 ---
<Malorie Azevedo - Last Filed: 03/27/20 07:45> Internal Medicine - PN: Subj *Date: 03/27/20 *Time: 07:45 Interval history: Did sleep last night. She has had some Tylenol for headache. She rates her pain 1 out of 10. She has had some nausea. She was able to eat dinner and plans to eat some breakfast. Good p.o. fluid intake. Voiding QS. Exam Vital signs and Labs for Last 24 Hours: Temp Pulse Resp BP Pulse Ox 97.8 F 51 L 17 122/67 98 03/27/20 03:52 03/27/20 03:52 03/27/20 03:52 03/27/20 03:52 03/27/20 03:52 Laboratory Results - last 24 hr 03/26/20 10:35: WBC 5.3, RBC 4.30, Hgb 13.6, Hct 40.1, MCV 93.2, MCH 31.6 H, MCHC 33.9, RDW 13.5, Plt Count 245, MPV 8.0, Neut % (Auto) 57.0, Lymph % (Auto) 28.7, [place] % (Auto) 5.1, Eos % (Auto) 8.6, Baso % (Auto) 0.6, Neut # (Auto) 3.0, Lymph # (Auto) 1.5, [place] # (Auto) 0.3, Eos # (Auto) 0.5 H, Baso # (Auto) 0.0, ESR 17 03/26/20 10:35: Sodium 142, Potassium 4.1, Chloride 102, Carbon Dioxide 34 H, Anion Gap 10.1, BUN 15, Creatinine 0.80, Estimated Creat Clear 68, Estimated GFR 73, Est GFR ( Amer) 89, Glucose 98, Calcium 9.3, Total Bilirubin 0.4, AST 29, ALT 21, Alkaline Phosphatase 82, Total Protein 7.0, Albumin 4.0, Globulin 3.0, Albumin/Globulin Ratio 1.3 03/27/20 07:04: WBC 6.9 D, RBC 4.23, Hgb 13.2, Hct 40.4, MCV 95.3, MCH 31.1, MCHC 32.6, RDW 13.4, Plt Count 235, MPV 7.6, Neut % (Auto) 69.2, Lymph % (Auto) 24.1, [place] % (Auto) 3.7, Eos % (Auto) 2.4, Baso % (Auto) 0.6, Neut # (Auto) 4.7, Lymph # (Auto) 1.7, [place] # (Auto) 0.3, Eos # (Auto) 0.2, Baso # (Auto) 0.0 03/27/20 07:04: Sodium 140, Potassium 3.8, Chloride 103 I & O for Last 24 hours: Intake & Output 03/24/20 03/25/20 03/26/20 03/27/20 11:59 11:59 11:59 11:59 Intake Total 2602 / 2602 Balance 2602 / 2602 Weight 260 lb 261 lb - Constitutional no acute distress - *Routine Respiratory Exam Present: CTA bilaterally (Anteriorly and posteriorly) - *Routine Cardiovascular Exam Present: RRR - *Routine Abdominal Exam Present: soft, normoactive bowel sounds. Absent: tenderness - *Routine Extremities Exam Present: pulses intact. Absent: edema, calf tenderness - *Routine Neurological Exam Present: alert, oriented X3, normal speech. Absent: tremors Assessment and Plan (1) Intractable headache Current visit: No Status: Acute Qualifiers: Headache type: unspecified Headache chronicity pattern: acute headache Qualified Code(s): R51 - Headache Category: Medical Code(s): R51 - Headache (2) Migraine Current visit: No Status: Acute Category: Medical Code(s): G43.909 - Migraine, unspecified, not intractable, without status migrainosus (3) Nausea and vomiting Current visit: No Status: Acute Category: Medical Code(s): R11.2 - Nausea with vomiting, unspecified (4) Hypothyroidism (acquired) Current visit: No Status: Chronic Category: Medical Code(s): E03.9 - Hypothyroidism, unspecified (5) Degenerative disc disease Current visit: Yes Status: Chronic Category: Medical - Assessment and plan all Dx Assessment and Plan for all problems:: Decrease IV fluids to 75 an hour.TSH; restart synthroid <Edwin Osorio - Last Filed: 03/27/20 08:53> Internal Medicine - PN: Subj *Date: 03/27/20 *Time: 08:52 Exam Vital signs and Labs for Last 24 Hours: Temp Pulse Resp BP Pulse Ox 97.8 F 51 L 17 122/67 98 03/27/20 03:52 03/27/20 03:52 03/27/20 03:52 03/27/20 03:52 03/27/20 03:52 Laboratory Results - last 24 hr 03/26/20 10:35: WBC 5.3, RBC 4.30, Hgb 13.6, Hct 40.1, MCV 93.2, MCH 31.6 H, MCHC 33.9, RDW 13.5, Plt Count 245, MPV 8.0, Neut % (Auto) 57.0, Lymph % (Auto) 28.7, [place] % (Auto) 5.1, Eos % (Auto) 8.6, Baso % (Auto) 0.6, Neut # (Auto) 3.0, Lymph # (Auto) 1.5, [place] # (Auto) 0.3, Eos # (Auto) 0.5 H, Baso # (Auto) 0.0, ESR 17 03/26/20 10:35: Sodium 142, Potassium 4.1, Chloride 102, Carbon Dioxide 34 H, Anion Gap 10.1, BUN 15,
[2020-03-27 08:00] VITALS: BP 117/62; PULSE 60; RESP 19; TEMP 36.6; O2SAT 99
--- NOTE | 2020-03-27 08:02 | HMH.PHAINT ---
HOME MEDICATION RECONCILIATION COMPLETED USING LIST FROM HOME PHARMACY
[2020-03-27 08:28] LABS: Thyroid Stimulating Hormone 1.31 uIU/mL (0.465-4.68)
--- NOTE | 2020-03-27 09:49 | PC.NURSE ---
Called and spoke with Jovana in [place] office in [place] to home meds. She stated she would have Dr. Osorio call me back. Awaiting cb at this time 1923.
[2020-03-27 12:09] VITALS: TEMP 37.2
[2020-03-27 16:00] VITALS: BP 103/57; PULSE 60; RESP 18; TEMP 36.7; O2SAT 96
--- NOTE | 2020-03-27 18:24 | PC.NURSE ---
Pt alert and oriented and able to make needs known. RR even and unlabored. No complaints at this time. Pt has stated head does hurt when she leans over. Have made MD Dr. Osorio aware of this and that pt states she was recently around someone with meningitis, MD aware. Pt did have some flushing in face earlier this shift as well and Malorie De León APRN made aware of this as well as Dr. Osorio.At one point it looked like a butterfly rash. Pt states this isn't the first time it has happened. CB in reach. Daughter has been at bedside this shift. VSS. Did receive order for primidone and duexis per nov. Also gave prn tylenol this shift r/t flushing and temp 99.0 oral. Cool cloths applied to forehead as well. Dr. Osorio came and rounded on pt tonight and plans to possibly d/c tomorrow if pt continues to do well.
--- NOTE | 2020-03-27 19:10 | PC.NURSE ---
report given to saran
[2020-03-27 19:13] LABS: POC Glucose,Bedside 130 (70-110)
[2020-03-27 20:00] VITALS: BP 116/62; PULSE 55; RESP 20; TEMP 36.6; O2SAT 98
[2020-03-28 03:57] VITALS: BP 116/61; PULSE 48; RESP 16; TEMP 36.6; O2SAT 94
--- NOTE | 2020-03-28 04:17 | PC.NURSE ---
A&OX4. PT UP INDEPENDENTLY TO BR T/O SHIFT. PT HAS C/O OF SLIGHT LEMUS THIS SHIFT, REQUESTING TYLENOL X1. PT HAS BEEN SLEEPING T/O MAJORITY OF SHIFT. NO OTHER C/O THUS FAR. VSS WILL CONTINUE TO MONITOR.
[2020-03-28 04:34] VITALS: BMI 44.9
[2020-03-28 07:37] LABS: POC Glucose,Bedside 94 (70-110)
[2020-03-28 08:00] VITALS: BP 124/74; PULSE 57; RESP 19; TEMP 36.8; O2SAT 98
--- NOTE | 2020-03-28 08:13 | HMH.ACPN2 ---
<Ana Maria Eldridge - Last Filed: 03/28/20 08:13> Internal Medicine - PN: Subj *Date: 03/28/20 *Time: 08:13 Interval history: Patient states she was feeling fine this morning until she got up to go to the bathroom. The movement to and from the bathroom caused her head to begin hurting again. At this point she has pain on the left side of her head and feels very nauseated. She is lying in the bed trying to stay still. Exam Vital signs and Labs for Last 24 Hours: Temp Pulse Resp BP Pulse Ox 98 F 48 L 16 116/61 94 L 03/28/20 03:57 03/28/20 03:57 03/28/20 03:57 03/28/20 03:57 03/28/20 03:57 Laboratory Results - last 24 hr 03/27/20 07:04: TSH 1.31 03/27/20 18:50: POC Glucose 130 H 03/28/20 07:26: POC Glucose 94 I & O for Last 24 hours: Intake & Output 03/25/20 03/26/20 03/27/20 03/28/20 11:59 11:59 11:59 11:59 Intake Total 2962 / 2962 954 / 954 Balance 2962 / 2962 954 / 954 Weight 260 lb 261 lb 270 lb 1 oz - Constitutional Comments: Does not appear to feel well - *Routine Respiratory Exam Present: CTA bilaterally - *Routine Cardiovascular Exam Present: RRR - *Routine Abdominal Exam Present: soft, normoactive bowel sounds. Absent: tenderness - *Routine Extremities Exam Absent: cyanosis, clubbing, edema - *Routine Skin Exam Present: warm. Absent: rash - *Routine Neurological Exam Present: alert, oriented X3 Assessment and Plan (1) Intractable headache Current visit: No Status: Acute Qualifiers: Headache type: unspecified Headache chronicity pattern: acute headache Qualified Code(s): R51 - Headache Category: Medical Code(s): R51 - Headache (2) Migraine Current visit: No Status: Acute Category: Medical Code(s): G43.909 - Migraine, unspecified, not intractable, without status migrainosus (3) Nausea and vomiting Current visit: No Status: Acute Category: Medical Code(s): R11.2 - Nausea with vomiting, unspecified (4) Hypothyroidism (acquired) Current visit: No Status: Chronic Category: Medical Code(s): E03.9 - Hypothyroidism, unspecified (5) Degenerative disc disease Current visit: Yes Status: Chronic Category: Medical - Assessment and plan all Dx Assessment and Plan for all problems:: We will discuss further care with Dr. Osorio. <Edwin Osorio - Last Filed: 03/28/20 09:14> Internal Medicine - PN: Subj *Date: 03/28/20 *Time: 09:13 Exam Vital signs and Labs for Last 24 Hours: Temp Pulse Resp BP Pulse Ox 98.3 F 57 L 19 124/74 98 03/28/20 08:00 03/28/20 08:00 03/28/20 08:00 03/28/20 08:00 03/28/20 08:00 Laboratory Results - last 24 hr 03/27/20 18:50: POC Glucose 130 H 03/28/20 07:26: POC Glucose 94 I & O for Last 24 hours: Intake & Output 03/25/20 03/26/20 03/27/20 03/28/20 23:59 23:59 23:59 23:59 Intake Total 1196 / 1196 2246 / 2246 954 / 954 Balance 1196 / 1196 2246 / 2246 954 / 954 Weight 263 lb 261 lb 270 lb 1 oz Assessment and Plan (1) Intractable headache Current visit: No Status: Acute Qualifiers: Headache type: unspecified Headache chronicity pattern: acute headache Qualified Code(s): R51 - Headache Category: Medical Code(s): R51 - Headache (2) Migraine Current visit: No Status: Acute Category: Medical Code(s): G43.909 - Migraine, unspecified, not intractable, without status migrainosus (3) Nausea and vomiting Current visit: No Status: Acute Category: Medical Code(s): R11.2 - Nausea with vomiting, unspecified (4) Hypothyroidism (acquired) Current visit: No Status: Chronic Category: Medical Code(s): E03.9 - Hypothyroidism, unspecified (5) Degenerative disc disease Current visit: Yes Status: Chronic Category: Medical - Assessment and plan all Dx Assessment and Plan for all problems:: Saw patient earlier this morning, afterwards she had an acute worsening of headache as described in this n
--- NOTE | 2020-03-28 11:18 | CT_ITS ---
PROCEDURE: CT HEAD/BRAIN WO CON CLINICAL INDICATION: STROKE ALERT Sudden onset left-sided weakness COMPARISON: CT HEAD/BRAIN WO CON from 03/24/2020 CT ANGIO HEAD from 03/26/2020 TECHNIQUE: Axial images obtained. All CT scans at the facility use one or more dose reduction, viz: automated exposure control, ma/kV adjustment per patient size (including targeted exams where dose is matched to indication, i.e. head), or iterative reconstruction technique. FINDINGS: No midline shift, mass effect, intracranial hemorrhage, hydrocephalus, or extra-axial fluid collection is evident. The calvarium has an unremarkable appearance. No mastoid effusion. No sinus air-fluid level. There is moderate rightward nasal septal deviation with septal spur projecting toward the right IMPRESSION: No change with no acute finding Dictated by: Florentin Sun MD 03/28/2020 11:37 Electronically signed by Florentin Sun MD in [place] 03/28/2020 11:37
--- NOTE | 2020-03-28 12:16 | P.PN_ITS ---
Internal Medicine - PN: Subj *Date: 03/28/20 *Time: 12:16 Interval history: Patient with worsening of headache this morning around 11:15 AM, associated with heaviness of the left leg and to a lesser amount the left arm. Stroke alert called by nurse. Patient does not remember having weakness with previous headaches. Exam Vital signs and Labs for Last 24 Hours: Temp Pulse Resp BP Pulse Ox 98.3 F 57 L 19 124/74 98 03/28/20 08:00 03/28/20 08:00 03/28/20 08:00 03/28/20 08:00 03/28/20 08:00 Laboratory Results - last 24 hr 03/27/20 18:50: POC Glucose 130 H 03/28/20 07:26: POC Glucose 94 I & O for Last 24 hours: Intake & Output 03/25/20 03/26/20 03/27/20 03/28/20 23:59 23:59 23:59 23:59 Intake Total 1196 / 1196 2246 / 2246 954 / 954 Balance 1196 / 1196 2246 / 2246 954 / 954 Weight 263 lb 261 lb 270 lb 1 oz - Constitutional Comments: uncomfortable due to pain, room dimly lit, cold wash cloth over forehead. - *Routine HEENT Exam Eye: Present: EOMI, PERRL ENT: Present: mucous membranes moist - *Routine Respiratory Exam Present: CTA bilaterally - *Routine Cardiovascular Exam Present: RRR - *Routine Neurological Exam Present: alert, oriented X3, motor deficit (slight decreased dispute coordinator in left hand, able to raised left leg, decreased plantar flexion strength on left). Absent: altered mental status, facial asymmetry, tremors Assessment and Plan (1) Intractable headache Current visit: No Status: Acute Qualifiers: Headache type: unspecified Headache chronicity pattern: acute headache Qualified Code(s): R51 - Headache Category: Medical Code(s): R51 - Headache (2) Migraine Current visit: No Status: Acute Category: Medical Code(s): G43.909 - Migraine, unspecified, not intractable, without status migrainosus (3) Nausea and vomiting Current visit: No Status: Acute Category: Medical Code(s): R11.2 - Nausea with vomiting, unspecified (4) Hypothyroidism (acquired) Current visit: No Status: Chronic Category: Medical Code(s): E03.9 - Hypothyroidism, unspecified (5) Degenerative disc disease Current visit: Yes Status: Chronic Category: Medical - Assessment and plan all Dx Assessment and Plan for all problems:: Non CT of brain done stat, shows no hemorrhage. Blood sugar is normal. Spoke to Stroke team MD at . They recommend against TPA at this time and do recommend different headache treatment. Will give IV Depakote, Reglan and Toradol now. Continue close monitoring and neuro checks.
--- NOTE | 2020-03-28 15:41 | PC.NURSE ---
LATE ENTRY 1115 PATIENT CALLED OUT TO [facility] FOR THIS NURSE 1120 CHECKED ON PATIENT AND SHE STATED SOMETHING IS WRONG . SHE C/O SEVERE HEADACHE, WEAKNESS AND HEAVINESS ON HER LEFT SIDE. NEURO ASSESSMENT DID SHOW SIGNIFICANT WEAKNESS ON THE LEFT SIDE. PATIENT HAVING DIFFICULTY LIFTING LEFT LEG FROM THE BED. CHARGE NURSE NOTIFIED AND SHE WAS IN AGREEMENT TO CALL STROKE ALERT. FAMILY AT BEDSIDE MD AWARE. PATIENT TAKEN TO CT SCAN. UPON RETURN PATIENT VITALS WERE BP 153/79 PULSE 56 O2 100% RESP 22 FSBS WAS 77 PATIENT MEDICATED PER NOV FORM PAIN. 1130 MD AT BEDSIDE STATES OK TO GIVE SECOND DOSE OF 2MG MORPHINE IV. AFTER SPEAKING TO THE STROKE TEAM AT HER ENTERED NEW MEDICATION ORDERS AND THESE WERE GIVEN PER NOV
[2020-03-28 16:00] VITALS: BP 139/76; PULSE 60; RESP 19; TEMP 36.7; O2SAT 95
[2020-03-28 17:11] LABS: POC Glucose,Bedside 77 (70-110)
[2020-03-28 20:00] VITALS: BP 133/71; PULSE 60; RESP 17; TEMP 36.7; O2SAT 97
[2020-03-28 22:10] VITALS: O2SAT 97
[2020-03-29 04:33] VITALS: BP 114/68; PULSE 56; RESP 14; TEMP 36.5; O2SAT 99
[2020-03-29 05:00] VITALS: BMI 45.8
--- NOTE | 2020-03-29 05:30 | PC.NURSE ---
A&OX4. PT TOLERATING RA WELL T/O SHIFT. PT HAS C/O DULL LEMUS AT TIMES THIS SHIFT, WITH RELIEF FROM TONY TORADOL. PT ALSO C/O BACK PAIN, TX WITH TYLENOL PER NOV. ON REASSESSMENT, PT RESTING IN BED WITH EYES CLOSED. PT FAMILY AT BEDSIDE THIS SHIFT. PT HAS HAD NO C/O NUMBNESS, DIZZINESS, OR NA/VO T/O SHIFT. PT RESTING MAJORITY OF SHIFT. VSS WILL CONTINUE TO MONITOR.
[2020-03-29 06:27] LABS: Basophils % 0.3 % (0.1-2.0); Eosinophils # 0.4 K/mm3 (0.0-0.4); Eosinophils % 5.6 % (0.1-12.0); Hematocrit 36.8 % (37.0-47.0); Hemoglobin 12.2 g/dL (12.2-16.2); Lymphocytes # 2.4 K/mm3 (0.7-4.5); Lymphocytes % 30.8 % (10-50); Mean Corpuscular HGB Conc 33.2 g/dL (31.8-35.4); Mean Corpuscular Volume 93.1 fl (81-99); Mean Platelet Volume 7.6 fl (7.4-10.4); Monocytes # 0.4 K/mm3 (0.1-1.0); Monocytes % 4.8 % (1.7-9.3); Neutrophils # 4.5 K/mm3 (1.8-7.8); Neutrophils % 58.4 % (37.0-80.0); Platelet Count 205 K/mm3 (142-424); Red Blood Count 3.96 M/mm3 (4.20-5.40); Red Cell Distribution Width 13.7 % (11.5-17.5); White Blood Count 7.8 K/mm3 (4.8-10.8)
[2020-03-29 06:39] LABS: Chloride 106 mmol/L (98-107); Sodium 139 mmol/L (136-145)
[2020-03-29 06:42] LABS: Blood Urea Nitrogen 17 mg/dl (7-17); Calcium 8.7 mg/dl (8.4-10.2); Carbon Dioxide 28 mmol/L (22.0-30.0); Creatinine Clearance Estimated 65 mL/min (50-200); Estimated Glomerular Filt Rate 73 ml/min (>60); GFR (African American) 89 ML/MIN (>60); Glucose 79 mg/dl (74-100)
--- NOTE | 2020-03-29 06:58 | PC.NURSE ---
PT C/O MORE SEVERE LEMUS AT THIS TIME. TYLENOL ADMINISTERED. PT RESTING IN THE DARK, HEAD COVERED WITH BLANKETS.
[2020-03-29 08:00] VITALS: BP 138/75; PULSE 55; RESP 16; TEMP 36.4; O2SAT 100
--- NOTE | 2020-03-29 08:25 | HMH.ACPN2 ---
<Ana Maria Eldridge - Last Filed: 03/29/20 08:25> Internal Medicine - PN: Subj *Date: 03/29/20 *Time: 08:25 Interval history: Patient states she did not rest well through the night due to some back pain. Her headache however had subsided until this morning when she raised up for blood work. She states that headache began and she became very nauseated. At this point she cannot move and has to lay completely still. Exam Vital signs and Labs for Last 24 Hours: Temp Pulse Resp BP Pulse Ox 97.7 F 56 L 14 114/68 99 03/29/20 04:33 03/29/20 04:33 03/29/20 04:33 03/29/20 04:33 03/29/20 04:33 Laboratory Results - last 24 hr 03/28/20 11:18: POC Glucose 77 03/29/20 06:10: WBC 7.8, RBC 3.96 L, Hgb 12.2, Hct 36.8 L, MCV 93.1, MCH 31.0, MCHC 33.2, RDW 13.7, Plt Count 205, MPV 7.6, Neut % (Auto) 58.4, Lymph % (Auto) 30.8, [place] % (Auto) 4.8, Eos % (Auto) 5.6, Baso % (Auto) 0.3, Neut # (Auto) 4.5, Lymph # (Auto) 2.4, [place] # (Auto) 0.4, Eos # (Auto) 0.4, Baso # (Auto) 0.0 03/29/20 06:10: Sodium 139, Potassium 4.0, Chloride 106, Carbon Dioxide 28, Anion Gap 9.0, BUN 17 D, Creatinine 0.80, Estimated Creat Clear 65, Estimated GFR 73, Est GFR ( Amer) 89, Glucose 79, Calcium 8.7 I & O for Last 24 hours: Intake & Output 03/26/20 03/27/20 03/28/20 03/29/20 11:59 11:59 11:59 11:59 Intake Total 2962 / 2962 1434 / 1434 1662 / 1662 Balance 2962 / 2962 1434 / 1434 1662 / 1662 Weight 260 lb 261 lb 270 lb 1 oz 275 lb 8 oz - Constitutional no acute distress - *Routine Respiratory Exam Present: CTA bilaterally - *Routine Cardiovascular Exam Present: RRR - *Routine Abdominal Exam Present: soft, normoactive bowel sounds. Absent: tenderness - *Routine Extremities Exam Absent: cyanosis, clubbing, edema - *Routine Skin Exam Present: warm. Absent: rash - *Routine Neurological Exam Present: alert, oriented X3 laying flat with left sided headache, cannot move without nausea and pain Assessment and Plan (1) Intractable headache Current visit: No Status: Acute Qualifiers: Headache type: unspecified Headache chronicity pattern: acute headache Qualified Code(s): R51 - Headache Category: Medical Code(s): R51 - Headache (2) Migraine Current visit: No Status: Acute Category: Medical Code(s): G43.909 - Migraine, unspecified, not intractable, without status migrainosus (3) Nausea and vomiting Current visit: No Status: Acute Category: Medical Code(s): R11.2 - Nausea with vomiting, unspecified (4) Hypothyroidism (acquired) Current visit: No Status: Chronic Category: Medical Code(s): E03.9 - Hypothyroidism, unspecified (5) Degenerative disc disease Current visit: Yes Status: Chronic Category: Medical - Assessment and plan all Dx Assessment and Plan for all problems:: We will give cocktail of Reglan and Depakote again today as this worked yesterday. She just had toradol at 6am. <Edwin Osorio - Last Filed: 03/29/20 08:32> Internal Medicine - PN: Subj *Date: 03/29/20 *Time: 08:32 Exam Vital signs and Labs for Last 24 Hours: Temp Pulse Resp BP Pulse Ox 97.7 F 56 L 14 114/68 99 03/29/20 04:33 03/29/20 04:33 03/29/20 04:33 03/29/20 04:33 03/29/20 04:33 Laboratory Results - last 24 hr 03/28/20 11:18: POC Glucose 77 03/29/20 06:10: WBC 7.8, RBC 3.96 L, Hgb 12.2, Hct 36.8 L, MCV 93.1, MCH 31.0, MCHC 33.2, RDW 13.7, Plt Count 205, MPV 7.6, Neut % (Auto) 58.4, Lymph % (Auto) 30.8, [place] % (Auto) 4.8, Eos % (Auto) 5.6, Baso % (Auto) 0.3, Neut # (Auto) 4.5, Lymph # (Auto) 2.4, [place] # (Auto) 0.4, Eos # (Auto) 0.4, Baso # (Auto) 0.0 03/29/20 06:10: Sodium 139, Potassium 4.0, Chloride 106, Carbon Dioxide 28, Anion Gap 9.0, BUN 17 D, Creatinine 0.80, Estimated Creat Clear 65, Estimated GFR 73, Est GFR ( Amer) 89, Glucose 79, Calcium 8.7 I & O for Last 24 hours: Intake & Output 03/26/20 03/27/20 03/28/20 03/29/20 23:59 23:59 23
[2020-03-29 16:00] VITALS: BP 132/75; PULSE 55; RESP 16; TEMP 37; O2SAT 98
--- NOTE | 2020-04-01 08:29 | HMH.DCSUM ---
General - General Admission date:: 03/26/20 Discharge date: 03/29/20 HPI HPI: Ms. Caal is a 59-year-old female with a history of sleep apnea, essential tremor, hypothyroidism, GERD, and lumbar disc disease who presented to [facility] emergency room with an intense headache. She had an emergent CT of the head and neck which showed no occlusion or intracranial bleed. She was given 15 mg of Toradol and 10 mg of Reglan +25 mg of Benadryl which eased her headache. She was also given acetaminophen, IV fluids at 125 an hour, ibuprofen, 2 mg of morphine sulfate and Imitrex. Patient described having 2 episodes of headaches when leaning over. She described them as being intense. She did come to the emergency room on 1 other occasion. During these headaches she has no neuro symptoms except for blurred vision. She had a CT scan of the head also 2 days ago without contrast which was unremarkable. At the time of exam patient was feeling somewhat better. She stated her headache was tolerable and thought she would be able to sleep. She described the pain on the left side of her forehead and her jainism area. She was nauseated and received Zofran. CBC showed a white blood cell count of 5300 with a hemoglobin of 13.6 and hematocrit of 40.1. Blood chemistries were satisfactory; kidney function was normal and liver function studies normal. CTA of the neck and head were negative. Hospital Course Hospital Course: After admission patient required 2 mg of morphine to relieve a severe headache. She reiterated that movement and bending over exacerbated her headache. She did take Tylenol as needed for headache which helped decrease the pain. With nausea she was given Zofran. She was able to eat and drink. 03/25/2023 in the early a.m. patient had been feeling fine until she got up to go to the bathroom. Movement to and from the bathroom caused her head to begin hurting again. The pain was on the left side of her head and she was very nauseated. She was given IV dexamethasone and Benadryl with oral pseudophed. Later in the morning patient had worsening of her headache associated with heaviness of the left leg and to lesser amount the left arm. Stroke alert was called by the nurse. Patient did not recall having weakness with previous headaches. Non CT of brain was performed stat and revealed no hemorrhage. Blood sugar was normal. Dr. Osorio spoke with the stroke team at and they recommended against TPA at this time. They did recommend different headache treatment. Patient was given IV Depakote, Reglan, and Toradol. 03/29/2020 patient states that she had not rested during the night due to some back pain. Her headache however had subsided until in the a.m. when she raised up for blood work. She stated that the headache began again and she was very nauseated. She was given a cocktail of Reglan and Depakote. She had also received Toradol earlier. Patient did feel better later on in the day and in the evening was discharged home. She was to continue with Zofran for her nausea and Toradol plus Reglan for her headaches. She was to follow-up with Dr. Osorio in 1 week. See medication reconciliation sheet. Diet was to be as tolerated. Objective Vital signs: Temp Pulse Resp BP Pulse Ox 98.6 F 55 L 16 132/75 98 03/29/20 16:00 03/29/20 16:00 03/29/20 16:00 03/29/20 16:00 03/29/20 16:00 Narrative: Exam Vital signs and Labs for Last 24 Hours: Temp Pulse Resp BP Pulse Ox 97.7 F 56 L 14 114/68 99 03/29/20 04:33 03/29/20 04:33 03/29/20 04:33 03/29/20 04:33 03/29/20 04:33 Laboratory Results - last 24 hr 03/28/20 11:18: POC Glucose 77 03/29/20 06:10: WBC 7.8, RBC 3.96 L, Hgb 12.2, Hct 36.8 L, MCV 93.1, MCH 31.0, MCHC 33.2, RDW 13.7, Plt Count 205, MPV 7.6, Neut % (Auto) 58.4, Lymph % (Auto) 30.8, [place] % (Auto) 4.8, Eos % (Auto) 5.6, Baso % (Auto) 0.3, Neut # (Auto) 4.5, Lymph #
[2020-05-06 13:15] LABS: POC Glucose,Bedside 85 (70-110)
== END 2020-03-29 17:32 | disposition home or self-care (01) ==
LOC: ER 13:14 → 2ND 13:20
PROVIDERS: Nurse Practitioner Family; Admitting Provider Family Medicine; Emergency Provider Emergency Medicine; PCP Family Medicine; Visit Provider Family Medicine
DX: G43.901 Migraine, unspecified, not intractable, with status migrainosus (principal); E03.9 Hypothyroidism, unspecified; Z96.652 Presence of left artificial knee joint; M51.36 Other intervertebral disc degeneration, lumbar region; G25.0 Essential tremor
CPT/HCPCS: 36415; 70450; 70496; 70498; 80048; 80053; 82962; 83735; 84100; 84443; 85025; 85651; 96374; 96375; 99284; G0378; J2405; Q9967

== ENCOUNTER 2020-03-28 11:00 | Outpatient (RCR) | payer OTHER, SELFPAY ==
--- NOTE | 2020-02-08 08:55 | HMH.PTOPEV ---
PT Outpatient Evaluation Rehab PT Outpatient Evaluation Start: 02/08/20 08:41 Freq: Status: Active Protocol: Document 02/08/20 08:41 USAMA (Rec: 02/08/20 08:55 USAMA [id number]) Electronically Signed By Dustin Gomez, PT 02/08/20 08:41 Outpatient Therapy Subjective History Subjective History Patient is a 59 year old female presenting to outpatient PT with reports of L hip pain of insidious onset starting approx 1 month ago. Most recent imaging indicates mild L hip OA. Signs and symptoms consistent with L hip bursitis. Pt underwent L TKA 08/2019. Comorbidities include hx of hypoglycemia, hypothyroidism, cholecystectomy and elevated BMI. Chief Complaint Pain,Stiff Symptom Type Ache Symptoms Relieved By Rest/Positioning,OTC Meds Symptoms Aggravated By Standing,Bending/Stooping, Physical Activity,Walking Prior Functional Limitations None Current Functional Limitations Housework,Standing,Recreation Activity,Walking,Stairs, Balance Symptom Description Intermittent Level of pain today (0-10) 1 Pain scale - at its best (0-10) 0 Pain scale - at its worst (0-10) 8 Hip/Knee Eval Gait Observation General Gait Pattern Observation Antalgic Gait,Decrease Weight Bear (L) Assistive Device Assistive Devices None / NA Palpation Tenderness left Knee Palpation Overall Comment L trochanteric bursa 3/4 Hip Palpation Findings Tenderness MMT Hip Strength Reason Not Measured WFL Knee Strength Reason Not Measured WFL ROM Hip Flexion w/Knee Extended Active Range 65 of Motion (degrees) Hip Abduction Active Range of Motion ( 40 degrees) Hip Extension Active Range of Motion ( 5 degrees) Hip External Rotation Active Range of 45 Motion (degrees) Hip Internal Rotation Active Range of 4 Motion (degrees) Hip ROM Limitations Soft Tissue Tightness Special Tests Hip Romario Test Positive Left Hip Piriformis Test Positive Left Hip 90-90 Straight Leg Raise Test Positive Left Freddy Test Positive Outpatient Therapy Assessment Impairments Problems/Impairmments Palpation Tenderness,Impaired Range of Motion,Impaired
--- NOTE | 2020-02-29 10:48 | HMH.RHREAS ---
Rehab Reassessment Rehab OP Re-assessment Start: 02/29/20 10:27 Freq: Status: Active Protocol: Document 02/29/20 10:27 USAMA (Rec: 02/29/20 10:47 USAMA [id number]) Electronically Signed By Dustin Gomez, PT 02/29/20 10:27 Rehab Re-assessment Subjective Subjective Pt reports persistent L hip pain. Pt reports progression of R knee pain since start of L hip pain starting approximatly 1 month ago. I feel like I'm falling apart and can't do anything. Objective Objective Notes AROM: R knee flx 112; ext -10 MMT RLE: hip flx 4/5; abd 4/5; add 4/5; ext 4-/5; IR/ER 4/5; knee ext 4/5; knee flx 4+/5 R knee pain 6/10 currently; 8/ 10 at worst Special test: (-) varus/valgus /anterior drawer (+) Mariano' s TTP: R pes anserene bursa 4/4 Assessment Progress Assessment Slower Than Expected Assessment Notes Patient is currently being seen for L hip bursitis with intermittent improvements noted. She has recently been treated in PT S/P L TKA. L hip pain and R knee pain has progressively gotten worse since the L TKA. No recent imaging on R knee, but patient has discussed possible R TKA with ortho per patient report. Pain is local to medial tibial plateau/femoral condyle . Suspect pes anerene bursitis. All of the same functional impairments for R knee as L hip noted. Functional limitations with all standing and ambulatory activity. L hip progressing well with intermittent exacerbation. Patient goals met STG 2 Goals Not Met ALL OTHERS Revised Goals Improve ROM R knee 0-120 BLE strength 4+/5 all hip and knee mm. R knee/L hip pain 2/10 at
== END 2020-03-28 11:05 | disposition home or self-care (01) ==
LOC: PT 11:00
PROVIDERS: PCP Emergency Medicine; Visit Provider Family Medicine
DX: M16.12 Unilateral primary osteoarthritis, left hip (principal); M25.552 Pain in left hip
CPT/HCPCS: 97010; 97014; 97035; 97110; 97113; 97163; 97164; G0283

== ENCOUNTER → 2020-04-01 14:05 | Outpatient (CLI) | payer OTHER, SELFPAY ==
[2020-04-01 14:49] LABS: Blood Urea Nitrogen 13 mg/dl (7-17); Estimated Glomerular Filt Rate 64 ml/min (>60); GFR (African American) 78 ML/MIN (>60)
== END ==
PROVIDERS: Visit Provider Specialist
DX: Z01.818 Encounter for other preprocedural examination (principal)
CPT/HCPCS: 36415; 82565; 84520

== ENCOUNTER → 2020-04-02 08:16 | Outpatient (CLI) | payer OTHER, SELFPAY ==
--- NOTE | 2020-04-02 08:16 | MR_ITS ---
PROCEDURE: MR HEAD/BRAIN WO/W CON CLINICAL INDICATION: Suspected venous thrombosis, increased ICP Severe headache with left-sided weakness dizziness and blurred vision COMPARISON: CT ANGIO HEAD from 03/26/2020 MR VENOGRAPHY HEAD WO CON from 04/02/2020 TECHNIQUE: Routine multiplanar multi echo sequences are performed without and with gadolinium enhancement. FINDINGS: No evidence of acute infarction. No midline shift, mass effect, intracranial hemorrhage, or hydrocephalus is evident. The cerebellopontine angles, cerebellum, and brainstem have an unremarkable appearance. There is some scattered T2 white matter hyperintensity within the connie with a few small foci of increased. The pituitary, optic chiasm, corpus callosum, and craniocervical junction have an unremarkable appearance. No mastoid effusion or sinus air-fluid level. MR venography: The superior sagittal sinus left transverse sinus and sigmoid sinuses have an unremarkable appearance. The vena Hiren and straight sinus are unremarkable. The right transverse and sigmoid sinus are very small or could even be recanalized. 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 There is no evidence of acute sinus thrombosis. No area venous infarcts or delta sign apparent. IMPRESSION: 1. Asymmetry in the size of the transverse and sigmoid sinuses. The left side appears normal while the right side is small and could be either recanalized or the vessels visualized on the right could be collaterals. 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 No evidence of acute sinus thrombosis. 2. Nonspecific small T2 white matter hyperintensities which could be due to ischemic gliotic changes. Sequela from migraine headache or demyelinating process also consideration. Dictated by: Florentin Sun MD 04/03/2020 10:42 Electronically signed by Florentin Sun MD in [place] 04/03/2020 10:42
== END ==
PROVIDERS: PCP Family Medicine; Visit Provider Specialist
DX: R51 Headache (principal)
CPT/HCPCS: 70544; 70553; A9576

== ENCOUNTER 2020-04-10 12:59 | Emergency (ER) | payer OTHER, SELFPAY ==
[2020-04-10 13:00] VITALS: BP 150/90; PULSE 62; RESP 18; TEMP 36.6; O2SAT 98; BMI 44.2
[2020-04-10 13:08] VITALS: BP 150/86; PULSE 63; RESP 18; O2SAT 100; BMI 42.9
--- NOTE | 2020-04-10 13:25 | HMH.EDUTC ---
[facility] [place] Condition on Discharge: Good Time of Disposition: 17:03 <Nir Cuadra - Last Filed: 04/10/20 16:57> <López Cheng - Last Filed: 04/11/20 15:07> Clinical Impression: Complicated migraine with status migrainosus Disposition: Home, Self-Care Instructions: DI for Migraine Prescriptions: Prochlorperazine Maleate [Compazine 10mg tablet] 10 mg PO BID #10 tab Prescription Printed diazePAM [Valium 2mg tablet] 2 mg PO PM #10 tab Prescription Printed Referrals: Edwin Osorio MD [Primary Care Provider] - Medical Decision Making - Yan Trujillo Pt receiving controlled substance: No - ECG Data Tracing #1 ECG initial impression date: 04/10/20 ECG initial impression time: 14:09 - Reevaluation(s) Time: 17:01 <Nir Cuadra - Last Filed: 04/10/20 16:57> - Medical Records Medical records reviewed: Yes: I reviewed the patient's medical records. - Yan Trujillo Pt receiving controlled substance: No <López Cheng - Last Filed: 04/11/20 15:07> Vital Signs: 04/10/20 13:00 04/10/20 13:08 04/10/20 16:45 Temperature 98 F Temperature Source Oral Pulse Rate Pulse Rate [Radial] 62 63 55 L Respiratory Rate 18 18 Blood Pressure Blood Pressure [Right Arm] 150/90 H 150/86 H 108/51 L Blood Pressure Mean [Right Arm] 110 107 70 Blood Pressure Source [Right Arm] Automatic Cuff Blood Pressure Position Blood Pressure Position [Right Arm] Sitting Sitting Sitting 02 Sat by Pulse Oximetry 98 100 Oxygen Delivery Method Room Air Room Air 04/10/20 17:20 Temperature 98 F Temperature Source Oral Pulse Rate 65 Pulse Rate [Radial] Respiratory Rate 15 Blood Pressure 130/74 Blood Pressure [Right Arm] Blood Pressure Mean [Right Arm] Blood Pressure Source [Right Arm] Blood Pressure Position Sitting Blood Pressure Position [Right Arm] 02 Sat by Pulse Oximetry Oxygen Delivery Method Room Air Orders (Tests/Meds): ED MEDICATIONS Discontinued Medications Generic Name Dose Route Start Last Admin Trade Name Freq PRN Reason Stop Dose Admin Diphenhydramine HCl 25 mg 04/10/20 14:08 04/10/20 16:04 Benadryl 50mg/1ml Vial IV 04/10/20 14:09 Not Given ONCE ONE Sodium Chloride 1,000 mls @ 999 mls/hr 04/10/20 14:15 04/10/20 16:03 Sod Chlor 0.9% 1000ml Bag IV 04/10/20 15:15 999 mls/hr .Q1H1M TONY Administration Ketorolac Tromethamine 30 mg 04/10/20 14:08 04/10/20 16:02 Toradol 30mg/Ml Vial IV 04/10/20 14:09 30 mg ONCE ONE Administration Ondansetron HCl 4 mg 04/10/20 14:08 04/10/20 16:04 Zofran 4mg/2ml Vial IV 04/10/20 14:09 Not Given ONCE ONE Prochlorperazine Edisylate 10 mg 04/10/20 14:26 04/10/20 16:02 Compazine 10mg/2ml Vial IV 04/10/20 14:27 10 mg ONCE ONE Administration - ECG Data Tracing #1 Normal MI interval, normal QTC. Sinus bradycardia with right axis deviation, nonspecific changes (Nir Cuadra) - Reevaluation(s) Reevaluation #1: On reevaluation, patient is feeling much better. Her headache has improved. Repeat neurologic exam is normal. Patient is scheduled outpatient lumbar puncture. I did ask planed to her that she should maintain his appointment for procedure. She was given strict return precautions. Verbalized understanding. (Nir Cuadra) Medical Decision Narrative: This is a 59-year-old female presented to the emergency department with headaches. I do believe the patient's symptoms are consistent with complex migraine. The patient has extensive testing including MRV as well as CTA. There is no evidence of aneurysm. Patient be treated symptomatically and reevaluated. (Nir Cuadra) [facility] [place] - History of Present Illness Provider Complaint: This is a 59-year-old female presented to the emergency department with a headache. Patient was originally here for outpatient testing when she started having a headache. Patient has been battling with headaches for the last
--- NOTE | 2020-04-10 14:07 | ECG_ITS ---
APPROVED REPORT Exam: Resting ECG HR:56 bpm ECG Measurements Heart Rate 56 AXES NV 122 P QRSd 98 QRS 212 QT 412 T 147 QTc 397 <Conclusion> Sinus bradycardia Right superior axis deviation Pulmonary disease pattern Incomplete right bundle branch block Septal changes are old Abnormal ECG Electronically signed by : Christ Perla, 04/13/2020 08:32:30
--- NOTE | 2020-04-10 14:10 | CT_ITS ---
PROCEDURE: CT HEAD/BRAIN WO CON CLINICAL INDICATION: headache Severe headache with weakness COMPARISON: CT CT HEAD/BRAIN WO CON from 03/28/2020 TECHNIQUE: Axial images obtained. All CT scans at the facility use one or more dose reduction, viz: automated exposure control, ma/kV adjustment per patient size (including targeted exams where dose is matched to indication, i.e. head), or iterative reconstruction technique. FINDINGS: No midline shift, mass effect, intracranial hemorrhage, hydrocephalus, or extra-axial fluid collection is evident. There is mild bifrontal atrophy. The calvarium has an unremarkable appearance. No mastoid effusion. No sinus air-fluid level. IMPRESSION: No acute intracranial finding Dictated b Florentin Sun MD 04/10/2020 15:15 Florentin Sun MD in [place] 04/10/2020 15:15
[2020-04-10 16:45] VITALS: BP 108/51; PULSE 55
[2020-04-10 17:20] VITALS: BP 130/74; PULSE 65; RESP 15; TEMP 36.6; O2SAT 98
== END 2020-04-10 17:22 | disposition home or self-care (01) ==
LOC: UTC 13:05 → ER 13:38
PROVIDERS: Emergency Provider Emergency Medicine; PCP Family Medicine
DX: G43.101 Migraine with aura, not intractable, with status migrainosus (principal); R19.7 Diarrhea, unspecified; K21.9 Gastro-esophageal reflux disease without esophagitis; I10 Essential (primary) hypertension; E03.9 Hypothyroidism, unspecified; Z87.891 Personal history of nicotine dependence; Z79.899 Other long term (current) drug therapy; Z20.828 Contact with and (suspected) exposure to other viral communicable diseases
CPT/HCPCS: 70450; 93005; 96365; 96375; 99283; U0003

== ENCOUNTER → 2020-04-18 12:11 | Outpatient (CLI) | payer OTHER, SELFPAY ==
[2020-04-18 12:31] LABS: Basophils % 0.7 % (0.1-2.0); Eosinophils # 0.4 K/mm3 (0.0-0.4); Eosinophils % 8.1 % (0.1-12.0); Hematocrit 38.7 % (37.0-47.0); Hemoglobin 13.2 g/dL (12.2-16.2); Lymphocytes # 1.3 K/mm3 (0.7-4.5); Lymphocytes % 28.2 % (10-50); Mean Corpuscular Hemoglobin 31.6 pg (27.0-31.2); Mean Corpuscular Volume 92.9 fl (81-99); Mean Platelet Volume 7.9 fl (7.4-10.4); Monocytes # 0.3 K/mm3 (0.1-1.0); Monocytes % 5.5 % (1.7-9.3); Neutrophils # 2.7 K/mm3 (1.8-7.8); Neutrophils % 57.5 % (37.0-80.0); Platelet Count 209 K/mm3 (142-424); Red Blood Count 4.17 M/mm3 (4.20-5.40); Red Cell Distribution Width 13.9 % (11.5-17.5); White Blood Count 4.7 K/mm3 (4.8-10.8)
[2020-04-18 13:15] LABS: Anion Gap 8.4 mEq/L (5-15); Blood Urea Nitrogen 18 mg/dl (7-17); Calcium 9.3 mg/dl (8.4-10.2); Carbon Dioxide 30 mmol/L (22.0-30.0); Chloride 104 mmol/L (98-107); Estimated Glomerular Filt Rate 73 ml/min (>60); GFR (African American) 89 ML/MIN (>60); Glucose 94 mg/dl (74-100); Potassium 4.4 mmoL/L (3.5-5.1); Sodium 138 mmol/L (136-145)
[2020-04-18 14:02] LABS: Coronavirus 19 IgG Antibody Negative (Negative); Coronavirus 19 IgM Antibody Negative (Negative)
== END ==
PROVIDERS: Visit Provider Anesthesiology
DX: Z01.818 Encounter for other preprocedural examination (principal); R51 Headache
CPT/HCPCS: 36415; 80048; 85025; 86328

== ENCOUNTER 2020-04-19 07:09 | Day surgery (SDC) | payer OTHER, SELFPAY ==
[2020-04-17 09:11] VITALS: BMI 43.2
[2020-04-19] VITALS (18 sets, daily range): BP systolic 99–134; BP diastolic 57–84; PULSE 53–85; RESP 18; TEMP 36.5–36.8; O2SAT 97–100
--- NOTE | 2020-04-19 08:01 | P.PN_ITS ---
[facility] Anesthesia Checklist - Patient Identification Patient Identification: Arm Band, Verbal (Name & ) - Structural Data Admitted From: Home Planned Operative Procedure/s: Lumbar puncture Consent for Planned Operative Procedure(s) Verified: Yes Verified Documents: Surgical Consent - NPO Status Verified Time NPO: 21:00 - Chart Verification Results Verified: CBC, BMP - Additional verifications Anesthesia Reactions: No Hx Blood Transfusions: No Blood Transfusion Reaction: No - Airway Assessment C-Spine Mobility Assessed: Yes TMJ Mobility Assessed: Yes Dentition: Good Dentition - Neurological Assessment Level of Consciousness: Awake, Alert, Appropriate, Follows Commands Hx Seizures: No Numbness or tingling in extremities: No - Anesthesia Plan Anesthesia Risk discussed: Yes Anesthesia Plan: Verified ASA Class: III Anesthesia Type: MAC [facility] History I have reviewed the patient's past medical history: Yes Medical History: Reports:: Gastroesophageal Reflux Disease(GERD), Migraine Denies:: Cancer, Diabetes Mellitus Type 1, Diabetes Mellitus Type 2, Internal Pacemaker, MRSA, Seizures *Have you ever received a pneumonia vaccine?: No *Have you received a flu vaccine this season?: Yes Other Medical History: Reports: Arthritis, Cataracts, Hypothyroidism, Sinus Problems, Thyroid Disease, Other. Denies: Blood Transfusion Reaction Comment:: morbid obesity, [place] Anesthesia experience/problems:: No prior complications Laterality Cases: Left: Arthroscopy Knee, Total Knee Replacement, Other, Bilateral: Cataract, Tonsillectomy Other Surgeries: Yes: Cardiac Catheterization, Cholecystectomy, Skin Cancer Excision (lt total knee), Other. No: Pacemaker Amputation: No Fractures: No - *Social History Last grade of school completed: Some college Smoking Status: Never smoker Tobacco Type: cigarettes # Packs/Day (cigarettes): 1 #Yrs smoked (if former smoker): 30 Alcohol Intake: current Alcohol Intake Frequency:: holidays/special occasions only Substance Use Type: other, denies use *Occupational Status:: employed Housing: house Household Members: none *Travel in the last 8 weeks: None Family Hx:: Unable to obtain, Diabetes
--- NOTE | 2020-04-19 10:19 | HMH.OPNOTE ---
Date of procedure: 04/19/20 Pre-op Diagnosis:: Headaches with possible pseudotumor cerebri Post-op Diagnosis:: Same Procedure performed:: Lumbar puncture diagnostic under fluoroscopy Surgeon:: Bryna Humphreys MD [employer]:: Gilles Lo Anesthesia: MAC Estimated blood loss (mL): 1 Clinical Note:: This patient is a pleasant 59-year-old white female who we previously saw for sacroiliitis and trochanteric bursitis. She recently has started developing headaches. Worse with movement. She does not get any relief lying flat she has had severe episodes of headaches with some visual changes and nausea. She is being evaluated for possible pseudotumor cerebri. We will referred her for diagnostic lumbar puncture to obtain opening and closing pressures and send CSF for indicated studies. Operative findings:: Opening pressure was 21 centimeters of water. Closing pressures were 6 cm water. Operative note:: Informed consent was obtained and the risk and benefits of the procedure were explained to the patient. Patient was taken to the operating room placed in a left lateral decubitus position. She was prepped in sterile fashion. She was sedated. C-arm fluoroscopy was used on the lateral view to access the intrathecal space of L4-L5. This was done after anesthetizing the skin and subcutaneous tissue. Opening pressures were found to be 21 cm of water. We took off approximately 18 mL's of clear CSF placed into 4 tubes. Closing pressures were found to be 6 cm of water. The needle was withdrawn. A Band-Aid was placed. The patient was taken recovery in stable condition. The patient did have a headache which most likely was a post dural puncture headache after the procedure. This was treated conservatively. CSF was sent for indicated studies. Patient did tolerate the procedure well with no complications. Patient was discharged home and was given instructions on conservative management of post dural puncture headache. If this persists we will possibly do a lumbar epidural blood patch in the future if all conservative management fails. Plan and disposition: We will follow-up with this patient on a as needed basis. Again if her headache persist and all conservative management is failed for post dural puncture headache we may consider lumbar epidural blood patch. Condition: stable Disposition: PACU Complications:: None
[2020-04-19 10:50] LABS: Appearance,CSF Clear (Clear); Volume,CSF 15 mL
[2020-04-19 10:51] LABS: Red Blood Cell,CSF 1 cells/uL (0); White Blood Cell,CSF 2 cells/uL (0-5)
[2020-04-19 10:56] LABS: Glucose,CSF 54 mg/dl (40-70)
[2020-04-19 12:06] LABS: Mononuclear WBCs,CSF 0 %; Polynuclear WBCs,CSF 0 %
--- NOTE | 2020-04-19 16:01 | HMH.PMPROC ---
- Procedure Date: 04/19/20 Time: 16:01 Anesthesiologist:: Bryan Humphreys MD Complications:: None Pre-procedure Diagnosis:: Post dural puncture headache Post-procedure Diagnosis:: Same Indications for Procedure:: The patient is a pleasant 59-year-old white female who we did a lumbar puncture diagnostic for headaches and possible pseudotumor cerebri today. Opening pressures were 21. Closing pressures were 6 cm of water. We did take out approximately 18 mL's of clear CSF. She developed a severe post dural puncture headache after the procedure. We did give her almost 2 L of IV fluids, Toradol 30 mg and Zofran 4 mg with Reglan 10 mg. Her symptoms got somewhat better however she still could not move out of bed without having excruciating pain. We will do a lumbar epidural blood patch today to see if this will help with her symptoms to enable her to go home today. Procedure Details:: Lumbar epidural blood patch Informed consent was obtained and the risk and benefits of the procedure was explained to the patient. The patient was taken to the procedure room. The patient was placed prone on the procedure table. The patient was prepped and draped in sterile fashion. C-arm fluoroscopy was used to view the lumbar spine. Skin and subcutaneous tissues were anesthetized using lidocaine. I placed an 18-gauge epidural needle and advanced into the L4-L5 interspace using fluoroscopic guidance and [id number] to air. After confirmation of needle placement in the epidural space with dye I injected 6 mL's of venous blood drawn under sterile conditions and 10 mL's of saline. Patient tolerated the procedure well with no complications. Plan and Disposition:: We have encouraged the patient to lie flat when she gets home. She is to continue with conservative treatments. If her headache returns or worsens she is to call us in the pain clinic. If she has any symptoms over the weekend she is to go to the nearest emergency room.
== END 2020-04-19 16:40 | disposition home or self-care (01) ==
LOC: OR 07:11
PROVIDERS: PCP Family Medicine; Visit Provider Anesthesiology
PROC: (CPT 62328; principal; 2020-04-19 08:30)
DX: R51 Headache (principal); E03.9 Hypothyroidism, unspecified; I10 Essential (primary) hypertension; M19.90 Unspecified osteoarthritis, unspecified site; K21.9 Gastro-esophageal reflux disease without esophagitis; I49.9 Cardiac arrhythmia, unspecified; Z83.3 Family history of diabetes mellitus; Z96.652 Presence of left artificial knee joint; Z82.49 Family history of ischemic heart disease and other diseases of the circulatory system; Z87.39 Personal history of other diseases of the musculoskeletal system and connective tissue; Z90.89 Acquired absence of other organs; Z88.8 Allergy status to other drugs, medicaments and biological substances
CPT/HCPCS: 62328; 62273; 77003; 82945; 84155; 87070; 87205; 89051; J2405

== ENCOUNTER → 2020-08-21 13:40 | Outpatient (CLI) | payer OTHER, SELFPAY ==
--- NOTE | 2020-08-21 13:45 | XR_ITS ---
PROCEDURE: XR KNEE LT 2V CLINICAL INDICATION: sp LT TKA, dos 09/04/19 COMPARISON: CR XR KNEE LT 2V from 09/04/2019 CR XR KNEE LT 2V from 10/19/2019 CR XR KNEE LT 2V from 02/21/2020 CR XR KNEE RT 4V from 02/21/2020 FINDINGS: Status post total knee replacement with good alignment and no evidence of orthopedic complication. No fracture or dislocation. No significant change IMPRESSION: Good alignment status post total knee replacement Dictated by: Florentin Sun MD 08/21/2020 16:05 Florentin Sun MD in [place] 08/21/2020 16:05
== END ==
PROVIDERS: PCP Family Medicine; Visit Provider Orthopaedic Surgery
DX: Z96.652 Presence of left artificial knee joint (principal)
CPT/HCPCS: 73560

== ENCOUNTER 2020-09-05 12:38 | Day surgery (SDC) | payer OTHER, SELFPAY ==
--- NOTE | 2020-09-05 12:42 | P.PCN_ITS ---
- Procedure Date: 09/05/20 Time: 12:42 Anesthesiologist:: Yamileth Yen APRN Complications:: None Pre-procedure Diagnosis:: Left sacroiliitis Post-procedure Diagnosis:: Same Indications for Procedure:: Patient is a pleasant 59-year-old white female who presents today for left sacroiliitis. She has positive tenderness and noted over her left SI joint as well as a positive Gus's, compression, and distraction test. Patient is limping today and is very tearful. She rates her pain a 9 to a 10 out of 10. 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 We will perform the left SI joint injection for her to see if she gets relief. She has tried anti-inflammatories along with a home stretching program. Physical exam General: Alert and oriented x3, no acute distress, pleasant and cooperative, [on room air] Lungs: Respirations even and unlabored, symmetrical chest expansion Eyes: PERRL Musculoskeletal: Flexion and extension of lumbar spine somewhat guarded secondary to pain, deep tendon reflexes normal, strength in upper and lower extremities [5/5], [abnormal gait noted] positive Gus's test, positive compression test, positive distraction test Neurological: Speech clear, project account manager equal, no gross sensory deficit Procedure Details:: Informed consent was obtained and the risk and benefits of the procedure were explained to the patient. The patient was taken to the procedure room and noninvasive monitors were placed including noninvasive blood pressure cuff and pulse oximeter. The patient was placed prone on the procedure table. The left hip was cleansed using chlorhexidine as a cleansing solution. C-arm fluoroscopy was used to view the left SI joint. The skin and subcutaneous tissue were anesthetized using lidocaine 1.5% and 25-gauge needle. After this a 22-gauge spinal needle was inserted under fluoroscopic guidance into the inferior aspect of the left SI joint. Omnipaque dye was injected and good spread was seen throughout the joint. After this approximately 5 mils of bupivacaine 0.25% and Depo-Medrol 40 mg were incrementally injected into the sacroiliac joint. The patient tolerated the procedure well with no complications. Plan and Disposition:: We will see the patient back in the clinic in 2 weeks to reassess her symptoms. She has been instructed to contact clinic if she has any concerns before next appointment. The patient and I specifically discussed risk factors for COVID19. These risks include, but are not limited to age greater than 60, heart or lung disease, diabetes, immunosuppression, and travel. We also discussed NSAIDs may worsen COVID19 infection or symptoms. Patient should not use NSAIDs to treat COVID19 signs or symptoms. Patient was also informed that any type of corticosteroid of any form (oral or injection) will decrease the patient's immune system response and may increase the likelihood of COVID19 infection and symptoms[address] Dr. Humphreys has reviewed this note and agrees with this plan of care. This note was dictated using voice recognition software and make contain errors or omissions.
[2020-09-05 13:00] VITALS: BP 143/67; PULSE 85; RESP 18; TEMP 36.4; O2SAT 99; BMI 45.4
== END 2020-09-05 13:00 | disposition home or self-care (01) ==
LOC: SC.PAINP 12:38
PROVIDERS: PCP Family Medicine; Visit Provider Clinical Nurse Specialist Family Health
DX: M46.1 Sacroiliitis, not elsewhere classified (principal); Z72.0 Tobacco use; R00.2 Palpitations; J45.909 Unspecified asthma, uncomplicated; E03.9 Hypothyroidism, unspecified; Z87.39 Personal history of other diseases of the musculoskeletal system and connective tissue; Z79.899 Other long term (current) drug therapy
CPT/HCPCS: 27096; 99212; G0260; J1040; Q9966

== ENCOUNTER → 2020-11-11 09:13 | Outpatient (CLI) | payer OTHER, SELFPAY ==
--- NOTE | 2020-11-11 09:16 | XR_ITS ---
PROCEDURE: XR FOOT WT BEARING RT 3V CLINICAL INDICATION: pain COMPARISON: No exams were available for comparison FINDINGS: No fracture or dislocation. No lytic or blastic change. There is normal mineralization. Mild osteoarthritic changes are present at the talonavicular joint and the tarsal metatarsal joints. Other findings:None. IMPRESSION: Mild osteoarthritic change. No acute finding. Dictated by: Florentin Sun MD 11/11/2020 10:05 Florentin Sun MD in [place] 11/11/2020 10:05
--- NOTE | 2020-11-11 09:16 | XR_ITS ---
PROCEDURE: XR FOOT WT BEARING LT 3V CLINICAL INDICATION: Pain COMPARISON: No exams were available for comparison FINDINGS: No fracture or dislocation. No lytic or blastic change. There is normal mineralization. There is a type 2 os navicularis. The osteoarthritic changes are present at the tarsal metatarsal junction and at the navicular cuneiform junction. There is a small calcaneal spur. Other findings:None. IMPRESSION: Osteoarthritic changes Dictated by: Florentin Sun MD 11/11/2020 10:08 Florentin Sun MD in [facility] 11/11/2020 10:08
== END ==
PROVIDERS: PCP Family Medicine; Visit Provider Podiatrist
DX: M79.673 Pain in unspecified foot (principal)
CPT/HCPCS: 73630

== ENCOUNTER → 2020-11-29 08:21 | Outpatient (CLI) | payer OTHER, SELFPAY ==
[2020-11-29 09:07] LABS: Blood Urea Nitrogen 17 mg/dl (7-17); Estimated Glomerular Filt Rate 73 ml/min (>60); GFR (African American) 89 ML/MIN (>60)
== END ==
PROVIDERS: PCP Family Medicine; Visit Provider Nurse Practitioner
DX: Z01.818 Encounter for other preprocedural examination (principal)
CPT/HCPCS: 82565; 84520

== ENCOUNTER → 2020-11-30 07:39 | Outpatient (CLI) | payer OTHER, SELFPAY ==
--- NOTE | 2020-11-30 07:39 | MR_ITS ---
PROCEDURE: MR FOOT LT WO/W CON CLINICAL INDICATION: left foot pain COMPARISON: CR XR FOOT WT BEARING LT 3V from 11/11/2020 TECHNIQUE: Routine multiplanar multi echo sequences are performed without gadolinium enhancement. FINDINGS: The flexor and extensor tendons are unremarkable. There is evidence of multiple subchondral cystic changes, joint space narrowing and osteophyte formation noted at the 2nd, 3rd and 4th tarsometatarsal joints. No evidence of acute fractures. There is evidence of subchondral cystic changes with bone marrow edema noted in the middle and lateral cuneiforms with the subchondral cystic changes in the bases of the 2nd and 3rd metatarsals. There is minor associated enhancement without evidence of focal mass lesions. Findings are suggestive of osteoarthritis. Associated adjacent soft tissue edema is noted. There is minor enhancement is noted within the 2nd and 3rd tarsometatarsal joints, middle and lateral cuneiforms. Otherwise the bone marrow signal intensity is unremarkable. The rest of the tarsals, metatarsals and the phalanges are unremarkable. Minor soft tissue edema is noted on the dorsum of the foot at the site of marker placement. No other soft tissue mass lesions. No focal fluid collections are noted. IMPRESSION: Finds Ding star suggestive of osteoarthritis at the 2nd and 3rd metatarsal joints. Minor bone marrow edema of the middle and lateral cuneiforms, likely degenerative. Associated soft tissue edema with enhancement is noted. No evidence of focal mass lesions. Dictated by: Manisha Julien 12/05/2020 11:10 Manisha Julien in [place] 12/05/2020 11:10
== END ==
PROVIDERS: PCP Family Medicine; Visit Provider Podiatrist
DX: M79.673 Pain in unspecified foot (principal)
CPT/HCPCS: 73720; A9576

== ENCOUNTER → 2021-04-20 14:26 | Outpatient (CLI) | payer OTHER, SELFPAY ==
[2021-04-20 14:48] LABS: Coronavirus 19, PCR Not Detected (NotDetected); Influenza A, PCR Not Detected (NotDetected); Influenza B, PCR Not Detected (NotDetected)
== END ==
PROVIDERS: PCP Family Medicine; Visit Provider Nurse Practitioner Family
DX: Z11.52 Encounter for screening for COVID-19 (principal); R05 Cough; R09.89 Other specified symptoms and signs involving the circulatory and respiratory systems
CPT/HCPCS: U0003

== ENCOUNTER → 2021-04-23 11:35 | Outpatient (CLI) | payer OTHER, SELFPAY ==
--- NOTE | 2021-04-23 11:54 | XR_ITS ---
PROCEDURE: XR CHEST PORTABLE CLINICAL HISTORY: COVID OP COMPARISON: CR XR CHEST PORTABLE from 05/11/2019 CR XR CHEST 2V from 08/18/2019 CR XR CHEST PORTABLE from 09/06/2019 FINDINGS: The cardiomediastinal silhouette and pulmonary vascularity are within normal limits. Calcified granuloma noted in the right lower lobe. There are increased markings in the right lower lobe. This however has been a chronic feature and may be due to overlapping vasculature and soft tissues. No definite lobar consolidation or collapse. No acute bony abnormalities. IMPRESSION: No definite acute finding Dictated by: Florentin Sun MD 04/23/2021 12:16 Florentin Sun MD in [place] 04/23/2021 12:16
[2021-04-23 12:07] LABS: Adenovirus,PCR Not Detected (NotDetected); Bordetella Pertussis Not Detected (NotDetected); Chlamydophila Pneumoniae, PCR Not Detected (NotDetected); Coronavirus 19, PCR Not Detected (NotDetected); Coronavirus 229E Not Detected (NotDetected); Coronavirus NL63 Not Detected (NotDetected); Coronavirus OC43 Not Detected (NotDetected); Coronovirus HKU1,PCR Not Detected (NotDetected); Human Metapneumovirus Not Detected (NotDetected); Influenza A, PCR Not Detected (NotDetected); Influenza AH1, 2009 Not Detected (NotDetected); Influenza AH1, PCR Not Detected (NotDetected); Influenza AH3,PCR Not Detected (NotDetected); Influenza B, PCR Not Detected (NotDetected); Mycoplasma Pneumoniae, PCR Not Detected (NotDetected); Parainfluenza 1, PCR Not Detected (NotDetected); Parainfluenza 2, PCR Not Detected (NotDetected); Parainfluenza 3, PCR Not Detected (NotDetected); Parainfluenza 4, PCR Not Detected (NotDetected); Rhinovirus/Enterovirus Not Detected (NotDetected)
[2021-04-23 16:55] LABS: Respiratory Syncytial Virus Detected (NotDetected)
== END ==
PROVIDERS: PCP Family Medicine; Visit Provider Nurse Practitioner Family
DX: Z20.822 Contact with and (suspected) exposure to COVID-19 (principal); B97.4 Respiratory syncytial virus as the cause of diseases classified elsewhere
CPT/HCPCS: 71045; 87581; 87633; 87798

== ENCOUNTER 2021-04-26 09:32 | Observation (INO) | payer OTHER, SELFPAY ==
[2021-04-26] VITALS (10 sets, daily range): BP systolic 110–139; BP diastolic 56–82; PULSE 62–76; RESP 18–20; TEMP 36.4–36.7; O2SAT 92–99; BMI 43.7
--- NOTE | 2021-04-26 09:51 | HMH.EDGENADL ---
ED Disposition Clinical Impression: RSV bronchitis Disposition: Admitted as Observation Condition on Discharge: Fair Referrals: Edwin Osorio MD [Primary Care Provider] - - Critical Care Critical Care Time: No Attestation: On 04/26/21, the high probability of a clinically significant, sudden or life threatening deterioration of the following system(s) required my full and direct attention, intervention and personal management. The time I documented below is in addition to time spent performing reported procedures but includes the following listed in this critical care notation. Medical Decision Making - Yan Inquiry Pt receiving controlled substance: No Vital Signs: 04/26/21 09:34 04/26/21 11:22 Temperature 97.9 F Temperature Source Oral Pulse Rate 66 Pulse Rate [Right] 70 Respiratory Rate 20 Blood Pressure 111/67 Blood Pressure [Right Arm] 139/82 Blood Pressure Mean [Right Arm] 101 Blood Pressure Source [Right Arm] Automatic Cuff 02 Sat by Pulse Oximetry 98 97 Oxygen Delivery Method Room Air - Lab Data Lab Results 04/26/21 10:20: SARS-CoV-2 (PCR) Not detected, Influenza A Untype (PCR) Not detected, Influenza Type B (PCR) Not detected 04/26/21 10:40: WBC 4.5 L, RBC 4.52, Hgb 14.2, Hct 43.1, MCV 95.3, MCH 31.5 H, MCHC 33.0, RDW 12.8, Plt Count 204, MPV 7.6, Neut % (Auto) 52.0, Lymph % (Auto) 28.2, [place] % (Auto) 7.3, Eos % (Auto) 11.7, Baso % (Auto) 0.8, Neut # (Auto) 2.3, Lymph # (Auto) 1.3, [place] # (Auto) 0.3, Eos # (Auto) 0.5 H, Baso # (Auto) 0.0 04/26/21 10:40: Sodium 140, Potassium 4.4, Chloride 101, Carbon Dioxide 32 H, Anion Gap 11.4, BUN 8, Creatinine 0.70, Estimated Creat Clear 77, Estimated GFR 85, Est GFR ( Amer) 103, Glucose 92, Calcium 9.1, Total Bilirubin 0.5, AST 45 H, ALT 25, Alkaline Phosphatase 78, Total Protein 6.9, Albumin 3.9, Globulin 3.0, Albumin/Globulin Ratio 1.3 04/26/21 10:40: Lactate 0.8 Result diagrams: 04/26/21 10:40 04/26/21 10:40 Orders (Tests/Meds): ED MEDICATIONS Discontinued Medications Generic Name Dose Route Start Last Admin Trade Name Apq PRN Reason Stop Dose Admin Albuterol/Ipratropium 3 ml 04/26/21 11:00 Ipratropium/Albuterol 3 Ml Neb IH 04/26/21 11:01 ONCE ONE Benzonatate 100 mg 04/26/21 11:04 04/26/21 11:15 Benzonatate 100mg Capsule PO 04/26/21 11:05 100 mg ONCE ONE Administration Ketorolac Tromethamine 30 mg 04/26/21 11:26 04/26/21 11:28 Ketorolac 30mg/Ml Vial IV 04/26/21 11:27 30 mg ONCE ONE Administration Methylprednisolone Sodium Succinate 125 mg 04/26/21 11:00 04/26/21 11:15 Methylprednisolone Sod Succ 125mg Vial IV 04/26/21 11:01 125 mg ONCE ONE Administration Sodium Chloride 1,000 ml 04/26/21 11:06 04/26/21 11:16 Sodium Chloride 0.9% 1000ml Bag IV 04/26/21 11:07 1,000 ml BOLUS ONE Administration ORDERS Category Date Time Status Blood Culture Stat Micro 04/26/21 10:40 Received - Radiology Data #1 Image(s): Chest Image Reviewed: Yes I reviewed the patient's radiology image, Yes I have reviewed radiologist's interpretation PROCEDURE INFORMATION: Exam: XR Chest Exam date and time: 04/26/2021 9:50 AM Age: 60 years old Clinical indication: Cough and shortness of breath; Additional info: SOA, cough TECHNIQUE: Imaging protocol: XR of the chest. Views: 1 view. COMPARISON: CR XR CHEST PORTABLE 04/23/2021 12:03 PM FINDINGS: Lungs: Stable calcified granuloma right lung. No focal consolidation. Pleural spaces: Unremarkable. No pleural effusion. No pneumothorax. Heart/Mediastinum: Unremarkable. No cardiomegaly. Bones/joints: Unremarkable. IMPRESSION: No focal consolidation. - Physician Consults Physician Consulted: Emiliano Time: 11:18 Reason -: Admission, Pt condition Comment/Response: Agrees to admit the patient to the hospital. We discussed the patient's c
[2021-04-26 10:26] LABS: Coronavirus 19, PCR Not Detected (NotDetected); Influenza A, PCR Not Detected (NotDetected); Influenza B, PCR Not Detected (NotDetected)
--- NOTE | 2021-04-26 10:26 | PC.NURSE ---
labs delayed due to trying to find IV access.
[2021-04-26 10:50] LABS: Basophils % 0.8 % (0.1-2.0); Eosinophils # 0.5 K/mm3 (0.0-0.4); Eosinophils % 11.7 % (0.1-12.0); Hematocrit 43.1 % (37.0-47.0); Hemoglobin 14.2 g/dL (12.2-16.2); Lymphocytes # 1.3 K/mm3 (0.7-4.5); Lymphocytes % 28.2 % (10-50); Mean Corpuscular Hemoglobin 31.5 pg (27.0-31.2); Mean Corpuscular Volume 95.3 fl (81-99); Mean Platelet Volume 7.6 fl (7.4-10.4); Monocytes # 0.3 K/mm3 (0.1-1.0); Monocytes % 7.3 % (1.7-9.3); Neutrophils # 2.3 K/mm3 (1.8-7.8); Platelet Count 204 K/mm3 (142-424); Red Blood Count 4.52 M/mm3 (4.20-5.40); Red Cell Distribution Width 12.8 % (11.5-17.5); White Blood Count 4.5 K/mm3 (4.8-10.8)
[2021-04-26 10:58] LABS: Chloride 101 mmol/L (98-107); Sodium 140 mmol/L (136-145)
[2021-04-26 10:59] LABS: Potassium 4.4 mmoL/L (3.5-5.1)
[2021-04-26 11:01] LABS: Alanine Aminotransferase 25 U/L (12-78); Alkaline Phosphatase 78 U/L (38-126); Anion Gap 11.4 mEq/L (5-15); Aspartate Amino Transferase 45 U/L (14-36); Bilirubin,Total 0.5 mg/dl (0.2-1.3); Blood Urea Nitrogen 8 mg/dl (7-17); Calcium 9.1 mg/dl (8.4-10.2); Carbon Dioxide 32 mmol/L (22.0-30.0); Creatinine Clearance Estimated 77 mL/min (50-200); Estimated Glomerular Filt Rate 85 ml/min (>60); GFR (African American) 103 ML/MIN (>60); Glucose 92 mg/dl (74-100)
[2021-04-26 11:02] LABS: Albumin Level 3.9 g/dl (3.5-5.0); Albumin/Globulin Ratio 1.3 (1.1-1.8); Lactic Acid 0.8 mmol/L (0.7-2.1); Total Protein,Serum 6.9 g/dl (6.3-8.2)
--- NOTE | 2021-04-26 12:17 | PC.NURSE ---
Report called to Usha SAHU
--- NOTE | 2021-04-26 12:21 | HMH.PHAINT ---
MEDICATION RECONCILIATION COMPLETED ON PATIENT USING EXTERNAL FILL HISTORY FROM PHARMACY. -RADHA CHAND, RASHAWND
--- NOTE | 2021-04-26 12:22 | HMH.PHAVTE ---
[facility] Pharmacy VTE Monitoring - Patient Demographics Admission date: 04/26/21 Report Date: 04/26/21 Time: 12:22 Allergies/Adverse Reactions: Patient Allergies promethazine Allergy (Intermediate, Verified 02/18/21 08:53) ANXIETY Height: 1.65 m Weight: 119.295 kg Patient Problems: Current Active Problems (This Medical Record has been edited. Action required.) RSV bronchitis (Acute) - VTE Risk Labs: VTE Related Lab Results Hgb 14.2 g/dL (12.2-16.2) 04/26/21 10:40 Hct 43.1 % (37.0-47.0) 04/26/21 10:40 Plt Count 204 K/mm3 (142-424) 04/26/21 10:40 BUN 8 mg/dl (7-17) 04/26/21 10:40 Creatinine 0.70 mg/dl (0.52-1.04) 04/26/21 10:40 Estimated Creat Clear 77 mL/min (50-200) 04/26/21 10:40 - Prophylaxis VTE Prophylaxis Ordered?: Yes Types of VTE Prophylaxis: TEDS Knee High Location of Applied Device: Bilateral Lower Extremeties
--- NOTE | 2021-04-26 12:52 | PC.NURSE ---
pt arrived to the floor at this time.
--- NOTE | 2021-04-26 15:09 | HMH.HP ---
*Admission Date: 04/26/21 *Chief complaint: Cough, shortness of breath, fatigue *History of present illness: This 60-year-old white female has been feeling poorly for 1 week. 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 Her symptoms started with sore throat. She developed cough shortness of breath and has had extreme fatigue. No fever has been documented. PCR testing was negative on 04/20 and 04/23 as well as today. She has had her Covid vaccination. Apparently she tested positive outpatient for RSV. Here is the ER narrative: Sick for 1 week, started with a sore throat. Has developed a cough and shortness of breath. Feels hot and cold and chilled, but no documented fevers. Today she is more short of breath and has lost her sense of taste and smell. She feels wheezing and congestion in her airways that will clear with coughing. Profoundly weak, unable to eat, has lost 9 lbs in the last week. When she gets a coughing spell she feels like she cannot breathe. She has had PCR testing on 04/20 and 04/23 - for COVID-19, but positive for RSV on 04/23. Chest x-ray on 04/23 was unremarkable. She is vaccinated against COVID-19. [facility] History Medical History: Reports:: Gastroesophageal Reflux Disease(GERD), Hypertension, Migraine, Palpitations Denies:: Cancer, Diabetes Mellitus Type 1, Diabetes Mellitus Type 2, Internal Pacemaker, MRSA, Seizures *Have you ever received a pneumonia vaccine?: No *Have you received a flu vaccine this season?: Yes Other Medical History: Reports: Arthritis, Cataracts, Hypothyroidism, Sinus Problems, Thyroid Disease, Other. Denies: Blood Transfusion Reaction Laterality Cases: Left: Arthroscopy Knee, Other, Bilateral: Tonsillectomy Other Surgeries: Yes: Cardiac Catheterization, Cholecystectomy, Skin Cancer Excision (lt total knee), Other. No: Pacemaker Amputation: No Fractures: No - *Social History Smoking Status: Current every day smoker Tobacco Type: cigarettes # Packs/Day (cigarettes): 1 #Yrs smoked (if former smoker): 30 Alcohol Intake: never Alcohol Intake Frequency:: holidays/special occasions only Substance Use Type: denies use *Occupational Status:: employed Housing: house Household Members: friend(s) *Travel in the last 8 weeks: None Family Hx:: Diabetes, Coronary Artery Disease, Hypertension Review of Systems - Constitutional Reports headache(s), Reports lack of energy, Reports malaise, Reports weakness, Denies fever(s) - Eyes Denies change in vision - ENT Reports sore throat, Denies dizziness, Denies mouth lesions - *Cardiovascular Denies chest pain - *Respiratory Reports chest congestion, Reports cough, Reports shortness of breath, Reports wheezing, Denies coughing up blood, Denies pain with cough - *Gastrointestinal Reports heartburn, Denies abdominal pain - *Genitourinary Reports other (History of partial vulvectomy) - *Musculoskeletal Reports joint pain (Knees. Total knee replacement left) - Integumentary/Breasts Denies bleeding lesions, Denies yellowing of the skin - *Neurologic Reports headache(s), Reports tremor(s), Reports weakness - Psychiatric Denies confusion, Denies depression - Endocrine Denies rapid, pounding, or irregular heartbeat - Hematologic/Lymphatic Denies easy bleeding Meds Home Medications Medication Instructions Recorded Confirmed Type Levothyroxine Sodium 50 mcg PO DAILY 10/11/17 04/26/21 History [Levothyroxine 50mcg (0.05mg) Tab] cetirizine 10 mg capsule 10 mg PO DAILY 04/15/20 04/26/21 History aspirin 81 mg tablet,delayed 81 mg PO DAILY 12/25/20 04/26/21 History release primidone 250 mg tablet 250 mg PO BID #180 tab 12/25/20 04/26/21 Rx ibuprofen 800 mg-famotidine 26.6 1 tab PO TID PRN 30 Days #90 tab 02/18/21 04/26/21 Rx mg tablet Omeprazole [Omeprazole 20mg 20 mg PO DAILY 04/26/21 04/26/21 History Capsule] Vit B Cplx C No.13/Folic AC/D3 1 each PO DAILY 04/26/21
[2021-04-26 16:11] LABS: Thyroid Stimulating Hormone 2.75 uIU/mL (0.465-4.68)
[2021-04-27] VITALS (8 sets, daily range): BP systolic 118–135; BP diastolic 68–82; PULSE 53–78; RESP 16–20; TEMP 36.4–37.1; O2SAT 92–96; BMI 46.0
--- NOTE | 2021-04-27 09:05 | HMH.ACPN2 ---
Internal Medicine - PN: Subj *Date: 04/27/21 *Time: 09:05 Interval history: Patient states she feels a little better this morning. Still wheezing a lot. Exam Vital signs and Labs for Last 24 Hours: Temp Pulse Resp BP Pulse Ox 98.4 F 78 20 118/68 93 L 04/27/21 08:00 04/27/21 08:00 04/27/21 08:00 04/27/21 08:00 04/27/21 08:00 Laboratory Results - last 24 hr 04/26/21 10:20: SARS-CoV-2 (PCR) Not detected, Influenza A Untype (PCR) Not detected, Influenza Type B (PCR) Not detected 04/26/21 10:40: WBC 4.5 L, RBC 4.52, Hgb 14.2, Hct 43.1, MCV 95.3, MCH 31.5 H, MCHC 33.0, RDW 12.8, Plt Count 204, MPV 7.6, Neut % (Auto) 52.0, Lymph % (Auto) 28.2, [place] % (Auto) 7.3, Eos % (Auto) 11.7, Baso % (Auto) 0.8, Neut # (Auto) 2.3, Lymph # (Auto) 1.3, [place] # (Auto) 0.3, Eos # (Auto) 0.5 H, Baso # (Auto) 0.0 04/26/21 10:40: Sodium 140, Potassium 4.4, Chloride 101, Carbon Dioxide 32 H, Anion Gap 11.4, BUN 8, Creatinine 0.70, Estimated Creat Clear 77, Estimated GFR 85, Est GFR ( Amer) 103, Glucose 92, Calcium 9.1, Total Bilirubin 0.5, AST 45 H, ALT 25, Alkaline Phosphatase 78, Total Protein 6.9, Albumin 3.9, Globulin 3.0, Albumin/Globulin Ratio 1.3 04/26/21 10:40: Lactate 0.8 04/26/21 10:40: TSH 2.75 Vital Signs - 24 hr 04/26/21 09:34 04/26/21 11:22 04/26/21 11:30 Temperature 97.9 F Pulse Rate 66 63 Pulse Rate [Right] 70 Respiratory Rate 20 Blood Pressure 111/67 130/65 Blood Pressure [Right Arm] 139/82 02 Sat by Pulse Oximetry 98 97 98 04/26/21 11:50 04/26/21 12:01 04/26/21 12:30 Temperature Pulse Rate 67 62 66 Pulse Rate [Right] Respiratory Rate 18 Blood Pressure 110/56 L 137/82 Blood Pressure [Right Arm] 02 Sat by Pulse Oximetry 97 96 04/26/21 12:49 04/26/21 12:56 04/26/21 16:00 Temperature 97.9 F 97.5 F L 98.1 F Pulse Rate 66 Pulse Rate [Right] 76 68 Respiratory Rate 18 19 20 Blood Pressure 137/82 Blood Pressure [Right Arm] 133/81 136/74 02 Sat by Pulse Oximetry 99 98 04/26/21 19:12 04/27/21 04:00 04/27/21 08:00 Temperature 97.8 F 97.7 F 98.4 F Pulse Rate Pulse Rate [Right] 67 53 L 78 Respiratory Rate 18 16 20 Blood Pressure Blood Pressure [Right Arm] 117/63 127/68 118/68 02 Sat by Pulse Oximetry 92 L 93 L 93 L I & O for Last 24 hours: Intake & Output 04/24/21 04/25/21 04/26/21 04/27/21 23:59 23:59 23:59 23:59 Intake Total 2220 / 2220 240 / 240 Balance 2220 / 2220 240 / 240 Weight 263 lb 276 lb 2 oz - Constitutional no acute distress - *Routine HEENT Exam Head: Present: normocephalic Eye: Present: EOMI, PERRL ENT: Present: mucous membranes moist - *Routine Neck Exam Present: supple. Absent: lymphadenopathy - *Routine Respiratory Exam Present: wheezes (bilateral inspiratory and expiratory) - *Routine Cardiovascular Exam Present: RRR - *Routine Extremities Exam Absent: cyanosis, clubbing - *Routine Skin Exam Present: warm. Absent: rash - *Routine Neurological Exam Present: alert, oriented X3 Assessment and Plan (1) RSV bronchitis Status: Acute Category: Medical Code(s): J20.5 - Acute bronchitis due to respiratory syncytial virus (2) Morbid obesity with body mass index (BMI) of 40.0 to 44.9 in adult Status: Acute Category: Medical Code(s): E66.01 - Morbid (severe) obesity due to excess calories; Z68.41 - Body mass index [BMI]40.0-44.9, adult (3) Status post left knee replacement Status: Acute Category: Surgical Code(s): Z96.652 - Presence of left artificial knee joint (4) Hypothyroidism (acquired) Status: Chronic Category: Medical Code(s): E03.9 - Hypothyroidism, unspecified - Assessment and plan all Dx Assessment and Plan for all problems:: Cont. current treatment. Possible discharge home tomorrow.
--- NOTE | 2021-04-27 18:03 | PC.NURSE ---
Pt has done well this shift. Pt sat up to the chair majority of the afternoon. Pt reports x2 loose BM's this shift. No other acute changes or complaints, will continue to monitor.
[2021-04-28 04:00] VITALS: BP 139/85; PULSE 52; RESP 16; TEMP 36.6; O2SAT 94
[2021-04-28 06:00] VITALS: PULSE 68; RESP 18
[2021-04-28 06:46] VITALS: PULSE 69; PULSE 70; O2SAT 96
--- NOTE | 2021-04-28 07:59 | HMH.ACPN2 ---
<Malorie Azevedo - Last Filed: 04/28/21 07:59> Internal Medicine - PN: Subj *Date: 04/28/21 *Time: 07:59 Interval history: She states she is better although she continues to wheeze. She continues with a nonproductive cough. She denies chest pain. She was awake most of the night due to nebs and steroids. She has been out of bed and ambulates to the bathroom without difficulty. She is voiding QS. She ate well this morning and was actually hungry. She is planning on going home today. Exam Vital signs and Labs for Last 24 Hours: Temp Pulse Resp BP Pulse Ox 97.8 F 70 16 139/85 96 04/28/21 04:00 04/28/21 06:46 04/28/21 04:00 04/28/21 04:00 04/28/21 06:46 I & O for Last 24 hours: Intake & Output 04/25/21 04/26/21 04/27/21 04/28/21 11:59 11:59 11:59 11:59 Intake Total 2460 / 2460 2790 / 2790 Balance 2460 / 2460 2790 / 2790 Weight 263 lb 276 lb 2 oz - Constitutional no acute distress Comments: Awake and alert and wheezing. - *Routine Respiratory Exam Present: wheezes (Bilateral expiratory wheezing with scattered crackles posteriorly) - *Routine Cardiovascular Exam Present: RRR (Sinus bradycardia at times) - *Routine Abdominal Exam Present: soft, normoactive bowel sounds. Absent: tenderness, distended - *Routine Extremities Exam Absent: edema, calf tenderness - *Routine Neurological Exam Present: alert, oriented X3 Assessment and Plan (1) RSV bronchitis Status: Acute Category: Medical Code(s): J20.5 - Acute bronchitis due to respiratory syncytial virus (2) Morbid obesity with body mass index (BMI) of 40.0 to 44.9 in adult Status: Acute Category: Medical Code(s): E66.01 - Morbid (severe) obesity due to excess calories; Z68.41 - Body mass index [BMI]40.0-44.9, adult (3) Status post left knee replacement Status: Acute Category: Surgical Code(s): Z96.652 - Presence of left artificial knee joint (4) Hypothyroidism (acquired) Status: Chronic Category: Medical Code(s): E03.9 - Hypothyroidism, unspecified - Assessment and plan all Dx Assessment and Plan for all problems:: Probably home today. <Edwin Osorio - Last Filed: 04/28/21 08:40> Internal Medicine - PN: Subj *Date: 04/28/21 *Time: 08:39 Exam Vital signs and Labs for Last 24 Hours: Temp Pulse Resp BP Pulse Ox 97.8 F 70 18 139/85 96 04/28/21 04:00 04/28/21 06:46 04/28/21 06:00 04/28/21 04:00 04/28/21 06:46 I & O for Last 24 hours: Intake & Output 04/25/21 04/26/21 04/27/21 04/28/21 23:59 23:59 23:59 23:59 Intake Total 0 / 2220 1079 / 3030 1949 Balance 0 / 2220 1079 / 3030 1949 Weight 263 lb 276 lb 2 oz Assessment and Plan (1) RSV bronchitis Status: Acute Category: Medical Code(s): J20.5 - Acute bronchitis due to respiratory syncytial virus (2) Morbid obesity with body mass index (BMI) of 40.0 to 44.9 in adult Status: Acute Category: Medical Code(s): E66.01 - Morbid (severe) obesity due to excess calories; Z68.41 - Body mass index [BMI]40.0-44.9, adult (3) Status post left knee replacement Status: Acute Category: Surgical Code(s): Z96.652 - Presence of left artificial knee joint (4) Hypothyroidism (acquired) Status: Chronic Category: Medical Code(s): E03.9 - Hypothyroidism, unspecified - Assessment and plan all Dx Assessment and Plan for all problems:: Saw patient, agree with above note. OK for discharge home today.
[2021-04-28 08:00] VITALS: BP 129/72; PULSE 77; RESP 20; TEMP 36.8; O2SAT 93
--- NOTE | 2021-04-28 15:17 | HMH.DCSUM ---
General - General Admission date:: 04/26/21 Discharge date: 04/28/21 HPI HPI: This 60-year-old white female has been feeling poorly for 1 week. 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 Her symptoms started with sore throat. She developed cough shortness of breath and has had extreme fatigue. No fever has been documented. PCR testing was negative on 04/20 and 04/23 as well as today. She has had her Covid vaccination. Apparently she tested positive outpatient for RSV. Here is the ER narrative: Sick for 1 week, started with a sore throat. Has developed a cough and shortness of breath. Feels hot and cold and chilled, but no documented fevers. Today she is more short of breath and has lost her sense of taste and smell. She feels wheezing and congestion in her airways that will clear with coughing. Profoundly weak, unable to eat, has lost 9 lbs in the last week. When she gets a coughing spell she feels like she cannot breathe. She has had PCR testing on 04/20 and 04/23 - for COVID-19, but positive for RSV on 04/23. Chest x-ray on 04/23 was unremarkable. She is vaccinated against COVID-19. Hospital Course Hospital Course: The patient's initial chest x-ray showed no focal consolidation. She was admitted and received a dose of steroids in the emergency room. She had a headache and does have a history of chronic migraines. She was started on neb treatments as well. She continued to wheeze but did begin feeling slightly better. She was able to ambulate without difficulty and began eating well. She was stable to be discharged home and will follow up with Dr. Osorio. Objective Vital signs: Temp Pulse Resp BP Pulse Ox 98.3 F 77 20 129/72 93 L 04/28/21 08:00 04/28/21 08:00 04/28/21 08:00 04/28/21 08:00 04/28/21 08:00 Narrative: - Constitutional mild distress (Coughing congested tremor), obese - *Routine HEENT Exam Head: Present: normocephalic Eye: Present: PERRL ENT: Present: mucous membranes moist - *Routine Neck Exam Present: supple. Absent: JVD - *Routine Respiratory Exam Present: decreased breath sounds, wheezes - *Routine Cardiovascular Exam Present: RRR - *Routine Abdominal Exam Present: soft, normoactive bowel sounds, obese. Absent: tenderness, mass - *Routine Rectal Exam Rectal:: deferred - *Routine Genitalia Exam Genitalia:: deferred - *Routine Extremities Exam Absent: cyanosis, clubbing, edema - *Routine Skin Exam Present: warm. Absent: rash - *Routine Neurological Exam Present: alert, oriented X3, normal speech, tremors Results Labs on day of discharge: Preliminary micro results at discharge 04/26/21 10:40 Blood Culture - Preliminary Blood NO GROWTH AFTER 48 HOURS 04/26/21 10:40 Blood Culture - Preliminary Blood NO GROWTH AFTER 48 HOURS DS: Diagnosis - Discharge Diagnosis (1) RSV bronchitis Status: Acute (2) Morbid obesity with body mass index (BMI) of 40.0 to 44.9 in adult Status: Acute (3) Status post left knee replacement Status: Acute (4) Hypothyroidism (acquired) Status: Chronic Discharge Plan - Patient Discharge Instructions ACTIVITY: Continue current activity DIET: continue same diet Additional Instructions: Off work until 05/03/21 Patient Instructions: DI for Respiratory Syncytial Virus -- Adults - Follow up Plan Follow up with: Edwin Osorio MD [Primary Care Provider] - 05/08/21 9:45 am Disposition: Home, Self-Care Condition at discharge:: Improved Home Medications: Home Medications Medication Instructions Recorded Confirmed Type Levothyroxine Sodium 50 mcg PO DAILY 10/11/17 04/26/21 History [Levothyroxine 50mcg (0.05mg) Tab] cetirizine 10 mg capsule 10 mg PO DAILY 04/15/20 04/26/21 History aspirin 81 mg tablet,delayed 81 mg PO DAILY 12/25/20 04/26/21 History release primidone 250 mg tablet 250 mg PO BID #180 tab
== END 2021-04-28 09:22 | disposition home or self-care (01) ==
LOC: ER 11:19 → 2ND 13:07
PROVIDERS: Admitting Provider Family Medicine; Emergency Provider Emergency Medicine; PCP Family Medicine; Visit Provider Family Medicine
DX: J20.5 Acute bronchitis due to respiratory syncytial virus (principal); Z20.822 Contact with and (suspected) exposure to COVID-19; G43.909 Migraine, unspecified, not intractable, without status migrainosus; Z79.899 Other long term (current) drug therapy; Z88.8 Allergy status to other drugs, medicaments and biological substances; K21.9 Gastro-esophageal reflux disease without esophagitis; I10 Essential (primary) hypertension; E03.9 Hypothyroidism, unspecified; F17.210 Nicotine dependence, cigarettes, uncomplicated; E66.01 Morbid (severe) obesity due to excess calories; Z68.42 Body mass index [BMI] 45.0-49.9, adult; Z96.652 Presence of left artificial knee joint
CPT/HCPCS: 71045; 80053; 83605; 84443; 85025; 87040; 87070; 87077; 87205; 94640; 94761; 96365; 96375; 99284; G0378; U0003

== ENCOUNTER → 2021-05-07 12:01 | Outpatient (CLI) | payer OTHER, SELFPAY ==
--- NOTE | 2021-05-07 12:04 | XR_ITS ---
PROCEDURE: XR KNEE RT 4V CLINICAL INDICATION: right knee pain; weightbearing COMPARISON: CR XR KNEE LT 2V from 10/19/2019 CR XR KNEE LT 2V from 02/21/2020 CR XR KNEE RT 4V from 02/21/2020 CR XR KNEE LT 2V from 08/21/2020 FINDINGS: There is a longitudinal lucency through the lateral aspect of the medial tibial plateau as seen on the AP view. An additional longitudinal lucency noted on the lateral view at the mid aspect of the proximal tibia. Nondisplaced tibial plateau fracture is considered. CT may confirm. There are severe osteoarthritic changes of the medial compartment with moderate osteoarthritis of the patellofemoral joint and mild osteoarthritic change of the lateral compartment. There is loss of the medial joint space. No acute fracture or dislocation. Other findings:None. IMPRESSION: Severe osteoarthritic changes. Possible medial tibial plateau fracture versus prominent trabeculation. CT suggested for further evaluation. Dictated by: Florentin Sun MD 05/07/2021 16:07 Florentin Sun MD in [place] 05/07/2021 16:07
--- NOTE | 2021-05-07 12:04 | XR_ITS ---
PROCEDURE: XR HIP RT 2-3V W/PELVIS CLINICAL INDICATION: right hip pain COMPARISON: CR XR HIP LT 2-3V W/PELVIS from 02/01/2020 FINDINGS: No fracture or dislocation. No lytic or blastic change. Minimal osteoarthritic change of the right hip with some spurring along the inferior aspect of the acetabulum. IMPRESSION: Minimal osteoarthritic change right hip, no acute finding Dictated by: Florentin Sun MD 05/07/2021 16:08 Florentin Sun MD in [place] 05/07/2021 16:08
== END ==
PROVIDERS: PCP Family Medicine; Visit Provider Orthopaedic Surgery
DX: M25.551 Pain in right hip (principal); M25.561 Pain in right knee
CPT/HCPCS: 73502; 73564

== ENCOUNTER → 2021-05-23 08:09 | Outpatient (CLI) | payer OTHER, SELFPAY ==
--- NOTE | 2021-05-23 08:10 | CA_ITS ---
APPROVED REPORT EXAM: Comprehensive 2D, Doppler, and color-flow Echocardiogram Mixing Roll Operator: Martha Bryson, RCS, RVS Ht: 5 ft 5 in Wt: 266lbs BSA: 2.23 BP: 130/73 mmHg Indications: Pre-op clearance, SOB, abn ekg, ex smoker 2D Dimensions IVSd 1.03 cm LVEF (Visual) 87.90 % PWd 0.98 cm LA Volume 49.00 mL LVDd 4.82 cm LA Volume Index 22.00 mL/m2 (M/F) 16-34 LVDs 2.02 cm Left Atrium 3.53 cm LVOT 1.99 cm (M/F) 1.5-2.5 M-Mode Dimensions LA Diam 2.85 cm (1.9-4.0) Ao Diam 3.53 cm (2.0-3.7) TAPSE 1.94 (<1.7) LV Diastology E Decel Time 200.00 (160-240 msec) E/A Ratio 1.15 MED E' 7.30 (< 7 cm/sec) MED A' 7.80 cm/s E'/MED E' Ratio 12.03 (>14) LAT E' 10.50 (<10 cm/sec) LAT A' 8.60 cm/s E/LAT E' Ratio 8.36 (>14) Pulm Vein s 48.00 cm/sec Pulm Vein d 25.00 cm/sec Ar-A Duration 133.00 msec Aortic Valve LVOT Max 117.00 (70-110 cm/s) LVOT VTI 24.30 cm AoV Peak Campos. 134.00 (50-130 cm/s) AO Peak GR. 7.20 mmHg AO Mean GR. 3.60 (<5 mmHg) AO VTI 27.71 (18-25 cm) EVERETTE (VTI) 2.73 (2.5-4.5 cm2) Mitral Valve MV A Velocity 76.00 (40-130 cm/s) E/A Ratio 1.15 MV Decel. Time 200.00 (160-240 ms) Pulmonary Valve PV Peak Velocity 71.00 (50-150 cm/s) CT End VMAX 159.00 cm/s Tricuspid Valve TR P. Velocity 210.00 cm/s RAP Estimate 10.00 mmHg RVSP 27.70 mmHg Left Ventricle Left atrium is mildly enlarged, left ventricle is normal size, mild concentric left ventricular hypertrophy, visually estimated ejection fraction 55% with no regional wall motion abnormality, diastolic parameters are inconclusive. Right Ventricle Right atrium and right ventricle are mildly enlarged with normal contractility. Aortic Valve Aortic valve is minimally thickened and fibrosed, there is no aortic stenosis or aortic insufficiency. Mitral Valve Mitral valve is grossly normal, there is trace mitral regurgitation. Tricuspid Valve Tricuspid grossly normal, there is trace tricuspid regurgitation, tricuspid regurgitation jet velocity is inadequate for calculation of the right ventricular systolic pressure. Pulmonic Valve Pulmonic valve is poorly visualized. Great Vessels Aortic root is normal size. Pericardium No significant pericardial effusion noted. Conclusion 1. Mild biatrial enlargement, normal left ventricular size, mild concentric left ventricular hypertrophy, visually estimated ejection fraction 55% with no regional wall motion abnormality, diastolic parameters are inconclusive. 2. Mildly enlarged right ventricle with normal contractility. 3. Trace mitral and tricuspid regurgitation. 4. No significant pericardial effusion noted. Electronically signed by : Ronald Torrez MD 05/26/2021 20:12:00
== END ==
PROVIDERS: PCP Family Medicine; Visit Provider Nurse Practitioner Family
DX: Z01.810 Encounter for preprocedural cardiovascular examination (principal); R94.31 Abnormal electrocardiogram [ECG] [EKG]
CPT/HCPCS: 93306

== ENCOUNTER → 2021-07-22 15:20 | Outpatient (CLI) | payer OTHER, SELFPAY ==
[2021-07-22 15:24] LABS: Microscopic, Urine URINE MICROSCOPIC (MICROSCOPIC)
--- NOTE | 2021-07-22 15:30 | XR_ITS ---
PROCEDURE: XR KNEE RT 4V CLINICAL INDICATION: weightbearing; preop RT TKA COMPARISON: CR XR KNEE LT 2V from 02/21/2020 CR XR KNEE RT 4V from 02/21/2020 CR XR KNEE LT 2V from 08/21/2020 CR XR KNEE RT 4V from 05/07/2021 FINDINGS: No fracture or dislocation. No lytic or blastic change. There is normal mineralization. There are tricompartmental osteoarthritic change most prominent at the medial compartment and patellofemoral joint. Weight-bearing views performed with markers in place for preoperative planning. Lucency in the proximal aspect of the tibia just distal to the lateral tibial spine once again noted. Other findings:Possible loose body along the anterior aspect of the proximal tibia adjacent to the proximal tibia. This measures 7 mm. IMPRESSION: Severe osteoarthritis as described above. Dictated by: Florentin Sun MD 07/23/2021 07:49 Florentin Sun MD in [place] 07/23/2021 07:49
[2021-07-23 00:18] LABS: Appearance,Urine CLEAR (Clear); Bilirubin,Urine Negative (Negative); Blood, Urine Negative (Negative); Color,Urine YELLOW (Yellow); Glucose,Urine (UA) Negative (Negative); Ketones,Urine Negative (Negative); Leukocyte Esterase,Urine Negative (Negative); Nitrate,Urine Negative (Negative); PH,Urine 6.5 (5.0-8.5); Protein,Urine Negative (Negative); Urobilinogen,Urine 0.2 EU/dl (0.2)
[2021-07-23 00:24] LABS: Bacteria,Urine Trace /lpf; RBC,Urine Occasional #/hpf (0-3)
== END ==
PROVIDERS: PCP Family Medicine; Visit Provider Orthopaedic Surgery
DX: Z01.818 Encounter for other preprocedural examination (principal); M25.561 Pain in right knee
CPT/HCPCS: 73564; 81001

== ENCOUNTER → 2021-08-02 09:39 | Outpatient (CLI) | payer OTHER, SELFPAY | PROVIDERS: PCP Family Medicine; Visit Provider Orthopaedic Surgery | DX: Z01.818 Encounter for other preprocedural examination (principal); Z11.52 Encounter for screening for COVID-19 | CPT/HCPCS: 36415; 86850; C9803; U0003; U0005 ==

== ENCOUNTER 2021-08-04 13:47 | Observation (INO) | payer OTHER, SELFPAY ==
[2021-07-25 11:07] VITALS: BMI 44.9
[2021-08-04] VITALS (27 sets, daily range): BP systolic 102–139; BP diastolic 52–78; PULSE 54–80; RESP 12–18; TEMP 36.3–43; O2SAT 93–100
[2021-08-04 06:36] LABS: Coronavirus 19, PCR Not Detected (NotDetected); Influenza A, PCR Not Detected (NotDetected); Influenza B, PCR Not Detected (NotDetected)
--- NOTE | 2021-08-04 07:21 | HMH.ANESCL ---
[facility] Anesthesia Checklist - Patient Identification Patient Identification: Arm Band - Structural Data Admitted From: Home Planned Operative Procedure/s: Right TKA Consent for Planned Operative Procedure(s) Verified: Yes Verified Documents: Surgical Consent, History and Physical - NPO Status Verified Time NPO: 00:00 - Additional verifications Anesthesia Reactions: No Hx Blood Transfusions: No Blood Transfusion Reaction: No - Airway Assessment C-Spine Mobility Assessed: Yes (mp2) TMJ Mobility Assessed: Yes Dentition: Good Dentition - Neurological Assessment Level of Consciousness: Awake, Alert - Anesthesia Plan Anesthesia Risk discussed: Yes Anesthesia Plan: Verified ASA Class: III Anesthesia Type: General w/block (Femoral Nerve Block. Risks/benefits explained) [facility] History I have reviewed the patient's past medical history: Yes Medical History: Reports:: Gastroesophageal Reflux Disease(GERD), Hypertension, Migraine, MRSA, Palpitations Denies:: Cancer, Diabetes Mellitus Type 1, Diabetes Mellitus Type 2, Internal Pacemaker, Seizures *Have you ever received a pneumonia vaccine?: No *Have you received a flu vaccine this season?: Yes Other Medical History: Reports: Arthritis, Cataracts, Hypothyroidism, Sinus Problems, Thyroid Disease, Other. Denies: Blood Transfusion Reaction Anesthesia experience/problems:: nac Laterality Cases: Left: Arthroscopy Knee, Total Hip Replacement, Partial Knee Replacement, Other, Bilateral: Lumpectomy, Tonsillectomy Other Surgeries: Yes: Cardiac Catheterization, Cholecystectomy, Skin Cancer Excision (lt total knee), Other. No: Pacemaker Amputation: No Fractures: No - *Social History Last grade of school completed: Some college Smoking Status: Former smoker Tobacco Type: cigarettes # Packs/Day (cigarettes): 1 #Yrs smoked (if former smoker): 25 Alcohol Intake: current Alcohol Intake Frequency:: holidays/special occasions only Substance Use Type: denies use *Occupational Status:: employed Housing: house Household Members: friend(s) *Travel in the last 8 weeks: None Family Hx:: Diabetes, Hypertension
--- NOTE | 2021-08-04 12:28 | HMH.ANESI ---
[facility] Anesthesia Record Part I Intake, IV Amount: 1,500 Estimated blood loss (mL): 50 Urine output (mL): 600 Blood Products used (#): none Blood Pressure: 124/59 SaO2: 93 Pulse Rate: 76 Respiratory Rate: 16 Temperature: 98.5 F Patient is:: Drowsy, Stable Stable to PACU at:: 12:25
--- NOTE | 2021-08-04 12:32 | XR_ITS ---
PROCEDURE: XR KNEE RT 3V CLINICAL INDICATION: Post op total knee arthroplasty COMPARISON: CR XR KNEE LT 2V from 02/21/2020 CR XR KNEE LT 2V from 08/21/2020 CR XR KNEE RT 4V from 05/07/2021 CR XR KNEE RT 4V from 07/22/2021 FINDINGS: Status post total knee replacement. There is good alignment. There is postsurgical gas noted. No acute fracture or dislocation. IMPRESSION: Good alignment status post total knee replacement Dictated by: Florentin Sun MD 08/04/2021 13:18 Florentin Sun MD in [place] 08/04/2021 13:18
--- NOTE | 2021-08-04 13:51 | HMH.PHAINT ---
MEDICATION RECONCILIATION COMPLETED ON PATIENT USING EXTERNAL FILL HISTORY FROM PHARMACY. -RADHA CHAND, RASAHWND
--- NOTE | 2021-08-04 13:52 | HMH.PHAVTE ---
[facility] Pharmacy VTE Monitoring - Patient Demographics Admission date: 08/04/21 Report Date: 08/04/21 Time: 13:52 Allergies/Adverse Reactions: Patient Allergies promethazine Allergy (Intermediate, Verified 08/04/21 06:23) ANXIETY Height: 1.65 m Weight: 122.47 kg - Prophylaxis VTE Prophylaxis Ordered?: Yes Types of VTE Prophylaxis: IPCS Thigh High, Pharmacological Location of Applied Device: Bilateral Lower Extremeties Pharmacologic Type: Other (XARELTO)
[2021-08-04 14:19] LABS: Microscopic,Cath URINE MICROSCOPIC (MICROSCOPIC)
--- NOTE | 2021-08-04 14:32 | PC.NURSE ---
DR. MARTIN AT BEDSIDE
[2021-08-04 14:40] LABS: Appearance,Urine/Cath CLEAR (Clear); Bilirubin,Cath Negative (Negative); Blood, Urine/Cath Negative (Negative); Color,Urine/Cath YELLOW (Yellow); Glucose,Urine/Cath (UA) Negative (Negative); Ketones,Urine/Cath Negative (Negative); Leukocyte Esterase,Cath Negative (Negative); Nitrate,Cath Negative (Negative); Protein,Urine/Cath Negative (Negative); Urobilinogen,Cath 0.2 EU/dl (0.2)
--- NOTE | 2021-08-04 14:46 | HMH.ORTHHP ---
*Admission Date: 08/04/21 *Reason for consult:: s/p right total knee arthroplasty *History of present illness: Patient is a 60 year old female admitted to [facility] after an uneventful right total knee arthroplasty performed by Dr. Julien today 08/04/2021. She has had chronic right knee pain for years which has failed to respond satisfactorily to nonsurgical management. X-ray demonstrates severe degenerative changes involving all three compartments of the right knee. Following evaluation in the office, patient elected to proceed with a total knee arthroplasty. She states that weight bearing, walking, standing and sitting for prolonged periods of time aggravates her pain. She states her pain is 5 out of 10 at rest and 8 out of 10 at its worst. She reports intermittent knee swelling and sensation of the knee giving out. No history of any systemic symptoms like fevers, chills or rigors. No history of any local redness or increased warmth. Patient says she is finding it difficult to walk any distance without support. She also reports frequent night pain and sleep disturbance because of the knee. No history of any hip pain or back pain. No history of any distal tingling or numbness. She has been on ibuprofen and Tylenol without significant pain relief. She underwent a left total knee arthroplasty with Dr. Julien at the end of 2018 and did very well. She is a former smoker. Her past medical history includes GERD, hypothyroidism, arthritis, and migraines. She is not known to have diabetes. Total knee arthroplasty is indicated to reduce the risk of falls, improve her pain, mobility, and quality of life. The surgical and nonsurgical alternatives were discussed in detail with the patient as well as the risks and benefits of the surgery. [facility] History I have reviewed the patient's past medical history: Yes Medical History: Reports:: Gastroesophageal Reflux Disease(GERD), Hypertension, Migraine, MRSA, Palpitations Denies:: Cancer, Diabetes Mellitus Type 1, Diabetes Mellitus Type 2, Internal Pacemaker, Seizures *Have you ever received a pneumonia vaccine?: No *Have you received a flu vaccine this season?: Yes Other Medical History: Reports: Arthritis, Cataracts, Hypothyroidism, Sinus Problems, Thyroid Disease, Other. Denies: Blood Transfusion Reaction Anesthesia experience/problems:: nac Laterality Cases: Left: Arthroscopy Knee, Total Hip Replacement, Total Knee Replacement, Other, Bilateral: Lumpectomy, Tonsillectomy Other Surgeries: Yes: Cardiac Catheterization, Cholecystectomy, Skin Cancer Excision (lt total knee), Other. No: Pacemaker Amputation: No Fractures: No - *Social History Last grade of school completed: Some college Smoking Status: Former smoker Tobacco Type: cigarettes # Packs/Day (cigarettes): 1 #Yrs smoked (if former smoker): 25 Alcohol Intake: never Alcohol Intake Frequency:: holidays/special occasions only Substance Use Type: denies use *Occupational Status:: employed Housing: house Household Members: friend(s) *Travel in the last 8 weeks: None Family Hx:: Diabetes, Hypertension Review of Systems - Review of Systems Review of systems:: pertinent systems reviewed and negative unless documented below - Constitutional Denies chills, Denies fatigue, Denies fever(s), Denies headache(s), Denies malaise, Denies weakness - Eyes Denies blurry vision, Denies change in vision, Denies double vision, Denies loss of vision - ENT Denies abnormal hearing, Denies dizziness, Denies dry mouth, Denies difficulty swallowing, Denies nasal congestion, Denies nasal discharge, Denies neck pain - *Cardiovascular Denies chest pain, Denies chest pain at rest, Denies chest pain with activity, Denies shortness of breath, Denies irregular heart rhythm, Denies lightheadedness - *Respiratory Denies chest congestion, Denies cough, Denies shortness of breath, Denies wheezing - *Gastrointestinal Denies abdominal pain, Denies change in bowel habi
--- NOTE | 2021-08-04 14:55 | HMH.OPNOTE ---
Date of procedure: 08/04/21 Pre-op Diagnosis:: Advanced degenerative arthritis, right knee Post-op Diagnosis:: Same Procedure performed:: Uncemented total knee arthroplasty, right Surgeon:: Rafa Julien MD Players Assistant(s):: Scarlett Milan PA-C RESOLUTION REP:: Gilles Lo Anesthesia: GETA, regional (Femoral nerve block) Estimated blood loss (mL): 50 Clinical Note:: Patient is a 60-year-old female with end-stage osteoarthritis of the right knee and [id number] appearance of the medial and patellofemoral compartments with a progressive varus deformity, stiffness and developing flexion contracture presented with unremitting severe pain not relieved by conservative management. The deformity and pain have advanced to the point that it is becoming a hazard for the patient with risk of falling and injuring herself. A total knee arthroplasty is indicated to relieve the pain, correct the deformity, improve function, reduce the risk of falls and improve quality of life. Please refer to my office note for full details. Operative findings:: As noted on the preoperative evaluation, the knee joint had a partially correctable varus deformity and flexion contracture of 5 degrees. As seen on the x-rays, there are tricompartmental degenerative changes with the medial and patellofemoral compartments showing advanced changes with [id number] appearance. Extensive osteophyte formation noted over all 3 compartments. The menisci and cruciate ligaments are significantly degenerated. Bone quality is good. Operative note:: On the day of the surgery the patient and her daughter were met in the preoperative area and patient positively identified. I have again reviewed the clinical and x-ray findings and again discussed the diagnosis, natural history and management options in detail including both nonsurgical and surgical.? Patient has end-stage degenerative arthritis of the left knee and has failed to respond satisfactorily to appropriate conservative management so far and has opted for a total knee arthroplasty.? The left knee joint is stiff and painful, and is limiting mobility, ADLs and quality of life.? Also the knee gives out and patient is at risk of falls resulting in fractures.? I have again discussed the details of the procedure, risks and benefits and alternatives in detail. The complications discussed include but are not limited to infection, injury to nerves and blood vessels including injury to popliteal artery, injury to tendons and ligaments, DVT and PE, fat embolism, intraoperative fracture, limb length inequality, patella fracture, patellofemoral instability, patellar clunk syndrome, quadriceps and patellar tendon rupture, implant failure, component loosening, periprosthetic femur and tibia fractures, stiffness, limp, incomplete relief of pain, incomplete functional recovery, likely need for further surgery in future including revision and anesthetic complications including heart attack, stroke and even .? We also discussed about the likely need for blood transfusion and transfusion reactions. We discussed how any of these events can be devastating. We have discussed nonsurgical alternatives as well. Patient understands and wishes to proceed with a left total knee arthroplasty as planned and I believe that she is fully informed as to the risks, benefits, and alternatives including nonsurgical alternatives. We also discussed the postoperative course including the rehab and physical therapy required.? A physical examination was performed and documented.? Patient understood the risks, agreed to proceed with surgery, signed the consent form and no guarantees or assurances were given or implied. The limb was appropriately marked and initialed by me. The patient was then brought to the operating room and a general anesthesia was administered by the pastry supervisor.? Prior to that patient had no blocks in the pre-anesthetic area. The patient was then positioned supine on the operating
--- NOTE | 2021-08-04 16:39 | PC.NURSE ---
NO ACUTE CHANGES SINCE ADMISSION FROM SURGERY, VSS, AFEBRILE. LUNGS CTAB, O2 OFF. HEART RATE REGULAR. IV PATENT. BOWEL SOUNDS ACTIVE, F/C WITH CLEAR YELLOW URINE NOTED. PAIN WELL CONTROLLED. TOLERATING CLEAR LIQUIDS DAUGHTER AT BEDSIDE. RIGHT KNEE IMMOBILIZER IN PLACE. SKIN W/D. PULSES EASILY PALPABLE. PT ABLE TO MOVE RIGHT LOWER EXTREMITY. SCUD TO LEFT LEG. WILL CONTINUE TO MONITOR
[2021-08-05] VITALS (8 sets, daily range): BP systolic 99–143; BP diastolic 55–79; PULSE 61–76; RESP 16–20; TEMP 36.3–37.2; O2SAT 98–100
--- NOTE | 2021-08-05 04:42 | PC.NURSE ---
PT HAS RESTED WELL THIS SHIFT. VS REMAIN STABLE, PAIN CONTROLLED WITH PRN MEDICATION. R KNEE IMMOBILIZER REMAINS IN PLACE WITH IUPC ON L LEG IN PLACE. F/C PATENT AND DRAINING TO DARK YELLOW URINE TO BEDSIDE. POLAR PACK REFILLED AT THIS TIME. WILL CONTINUE TO MONITOR.
--- NOTE | 2021-08-05 07:17 | HMH.ANESII ---
[facility] Anesthesia Record Part II Discharge Time: 13:35 Destination: Obstetric PACU nurse assessment reviewed?: Yes Patient Condition:: Good Anesthesia Complications:: None Swallowing reflex intact?: Yes Cyanosis?: No Blood Pressure: 121/67 Pulse Rate: 61 Temperature: 97.9 F Mental Status: Alert & Oriented Pain level:: 6 Nausea and/or vomitting:: None Intake, IV Amount: 0
[2021-08-05 07:56] LABS: Basophils % 0.3 % (0.1-2.0); Eosinophils # 0.2 K/mm3 (0.0-0.4); Eosinophils % 2.6 % (0.1-12.0); Hematocrit 35.6 % (37.0-47.0); Lymphocytes % 14.2 % (10-50); Mean Corpuscular HGB Conc 33.7 g/dL (31.8-35.4); Mean Corpuscular Hemoglobin 31.5 pg (27.0-31.2); Mean Corpuscular Volume 93.5 fl (81-99); Mean Platelet Volume 9.6 fl (7.4-10.4); Monocytes # 0.4 K/mm3 (0.1-1.0); Monocytes % 6.1 % (1.7-9.3); Neutrophils # 5.3 K/mm3 (1.8-7.8); Neutrophils % 76.9 % (37.0-80.0); Platelet Count 162 K/mm3 (142-424); Red Blood Count 3.81 M/mm3 (4.20-5.40); Red Cell Distribution Width 13.2 % (11.5-17.5); White Blood Count 6.9 K/mm3 (4.8-10.8)
[2021-08-05 08:03] LABS: Anion Gap 5.7 mEq/L (5-15); Blood Urea Nitrogen 12 mg/dl (7-17); Calcium 8.7 mg/dl (8.4-10.2); Carbon Dioxide 27 mmol/L (22.0-30.0); Chloride 105 mmol/L (98-107); Creatinine Clearance Estimated 90 mL/min (50-200); Estimated Glomerular Filt Rate 102 ml/min (>60); GFR (African American) 123 ML/MIN (>60); Glucose 107 mg/dl (74-100); Potassium 4.7 mmoL/L (3.5-5.1); Sodium 133 mmol/L (136-145)
--- NOTE | 2021-08-05 08:55 | HMH.ORTHPN ---
Subjective Date: 08/05/21 Time: 08:35 Principal diagnosis: S/p right total knee arthroplasty Interval history: Patient is a 60-year-old female who underwent an uneventful right total knee arthroplasty yesterday 08/04/2021. Today she is postop day #1. She is lying comfortably in bed this morning with her daughter at the bedside. She reports that she is doing well and denies any concerns at this time. She reports right knee pain with attempted movements of the right leg, but states that it is well controlled with medication. She does report that she had some nausea and a couple episodes of vomiting during the night, but states that this has improved this morning. She reports that she is drinking well, but has not had much of an appetite due to the nausea. She states that she has been able to eat some crackers. She reports that physical therapy has not been by this morning yet to ambulate with her. She denies any history of fevers, chills, rigors, chest pain, shortness of breath, palpitations, or distal tingling/numbness. PN: Obj Ex Vital signs: Temp Pulse Resp BP Pulse Ox 97.9 F 61 16 121/67 99 08/05/21 07:18 08/05/21 07:18 08/05/21 04:19 08/05/21 07:18 08/05/21 04:00 - Constitutional no acute distress, obese, cooperative - Routine HEENT Exam Head: Present: normocephalic, atraumatic Eye: Present: EOMI, PERRL ENT: Present: mucous membranes moist - Routine Neck Exam Present: supple, full ROM, trachea midline. Absent: JVD, lymphadenopathy - Routine Respiratory Exam Absent: accessory muscle use, respiratory distress Comments: Symmetric chest movement, able to speak in complete sentences - Routine Cardiovascular Exam Present: RRR. Absent: irregular rhythm, JVD Comments: Normal peripheral pulses - Routine Abdominal Exam Present: soft. Absent: tenderness - Routine Extremities Exam Present: pulses intact, normal capillary refill. Absent: calf tenderness, Yisel's sign Comments: Upon examination of the lower extremities: The limb lengths are equal. Upon examination of the right knee, the surgical incision is healing well. No induration, erythema, drainage, bleeding, or other signs of infection noted. Attempted movements of the right knee are painful. Thigh and calf are soft and nontender; Homans' sign is negative. No clinical evidence of DVT noted. Posterior tibial pulse 2+; capillary refill is brisk. Sensation to light touch is grossly intact throughout. Patient is actively mobilizing the ankle, foot, and toes. - Routine Skin Exam Present: intact, normal turgor. Absent: erythema, lesions, ecchymosis - Routine Neurological Exam Present: alert, oriented X3, moving all extremities, normal tone. Absent: sensory deficit, motor deficit - Routine Psychiatric Exam Present: normal affect, cooperative - Urinary Catheter Management Castro Cath placed during this visit: no Urethral indwelling: Yes Progress Note: A&P (1) S/P total knee arthroplasty Status: Acute Assessment and Plan for All Diagnoses:: I have reviewed the clinical findings and progress with the patient and her daughter. Overall she is doing well from an orthopedic standpoint. I changed her dressing and the surgical incision appears clean, dry, and healthy. A sterile bordered gauze dressing was reapplied over her incision. Continue ice, elevation, pain medication as needed, and DVT prophylaxis as ordered. Again advised the patient to avoid placing a pillow behind the knee, use knee immobilizer when weightbearing and walking until she is able to actively straight leg raise. Discontinue urinary catheter today. Continue PT/OT. Care management coordinating discharge planning. Continue home medication as ordered.
--- NOTE | 2021-08-05 09:06 | PC.NURSE ---
physical therapy at bedside
--- NOTE | 2021-08-05 09:06 | PC.NURSE ---
Ketty OLVERA PA-C AT BEDSIDE, WILL REORDER HOME MEDS
--- NOTE | 2021-08-05 10:12 | HMH.PTEV ---
Physical Therapy Evaluation Rehab PT IP Evaluation Start: 08/04/21 12:37 Freq: ONCE Status: Active Protocol: Document 08/05/21 09:51 [facility] (Rec: 08/05/21 10:12 [facility] [id number]) Subjective/History History History This is the initial evaluation for Yamileth Caal. Pt is a 60 y/o female s/p R TKA. Pt had surgery 08/04/21 with no reports of complications. Pt was supine in bed upon arrival and complaining of pain. 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 Pt states she had her L knee TKA a couple years ago and did well. Pt states when she returns home she will have people at home to check on her and help with any ADL's she has trouble with. Rehab PT IP Eval Objective Appearance Patient Behavior Appropriate,Cooperative Patient Orientation Place,Name,Birthday,Year Difficulty following instructions none Speech Pattern Clear,Appropriate,Coherent Ambulation Patient Able to Ambulate Yes Ambulation Observation IP General Gait Pattern Observation Antalgic Gait,Shuffling Step, Hips Posterior to RHEA,Decrease Weight Bear (R) Ambulation Distance (feet) 10 Ambulation Assistive Device Rolling Walker Ambulation Ability Moderate x 2 (50% assist) Balance Ability to Arise Able, uses arms to help Sitting Balance Steady, safe Standing Balance Steady, wide stance Dynamic Sitting Balance Ability Fair Dynamic Standing Balance Ability Fair Transfers Bed Transfer Ability Minimal x 2 (25% assist) Chair Transfer Ability Moderate x 2 (50% assist) Sit to Stand Bed Transfer Ability Moderate x 2 (50% assist) Sit to Stand Chair Transfer Ability Moderate x 2 (50% assist) Rehab PT IP prob,goals,plan Problems Date of Evaluation: 08/05/21 PT IP Problems Bed Mobility,Transfers,Gait, Balance,Self care,Safety Rehab Potential Rehab Potential Good Equipment Needs Assistive Devices Rolling / Wheeled Walker Plan PT Intervention Plan Bed Mobility,Transfers,Gait,
--- NOTE | 2021-08-05 11:31 | HMH.OTEV ---
OT Inpatient Evaluation Rehab OT IP Evaluation Start: 08/04/21 12:37 Freq: ONCE Status: Complete Protocol: Document 08/05/21 11:25 [facility] (Rec: 08/05/21 11:31 [facility] [id number]) Rehab OT IP Assessment Subjective History Pt oriented x 3 on arrival. Pt agreeable to engage in therapy evaluation. Pt was admitted following a Right TKA completed on 08/04/21. Pt has a past medical history of Gastroesophageal Reflux Disease(GERD), Hypertension, Migraine, MRSA, Palpitations. Pt reports prior to her surgery she lived in an apartment with a roommate. Pt claims she was independent with all ADLs and IADLs. She did not require AE during ambulation. She continued to work [employer] and drive. Subjective I will try my best. Pt completed bed mobility with min assist to go from supine to sitting at eob. Pt stood from eob with mod assist x 2. Pt engaged in stand, step, transfer with mod assist x 2 and rolling walker. Pt required a rest break by sitting down in chair due to decreased endurance. Pt was able to stand from chair with mod assist x 2. Pt engaged in stand step transfer back to bed with mod assist x 2 and walker. Pt sat down at eob with min assist. Pt required min assist x 2 to complete bed mobility and go from sitting to supine. Pt was left with call العراقي and all other needs in reach. Daughter present. Objective Patient Orientation Person,Place,Birthday Upper Extremity Gross ROM WFL Bed Mobility bed mobility-scooting,bed mobility - supine/sit,bed mobility - rolling Assist Level Minimal x 2 (25% assist) Transfer Training Sit/Stand Transfer Chair Transfer Ability
--- NOTE | 2021-08-05 12:22 | PC.NURSE ---
DR. MARTIN AT BEDSIDE
--- NOTE | 2021-08-05 12:38 | HMH.ORTHPN ---
Subjective Date: 08/05/21 Time: 12:15 Principal diagnosis: S/p right total knee arthroplasty Interval history: Patient is a 60 year old female who underwent a right total knee arthroplasty and is postop day #1. This afternoon she is lying comfortably in bed and her daughter is at her bedside. She reports that her nausea has resolved and she has been eating and drinking well without issue. She also reports that physical therapy went well this morning and she was able to ambulate a short distance. She continues to report right knee pain as to be expected at this stage, but states that it is well controlled with pain medication. She denies chest pain, shortness of breath, palpitations, nausea, vomiting, fevers, chills, rigors, distal tingling/numbness, or any other symptoms at this time. PN: Obj Ex Vital signs: Temp Pulse Resp BP Pulse Ox 98.2 F 76 17 99/55 L 99 08/05/21 08:00 08/05/21 08:00 08/05/21 08:00 08/05/21 08:00 08/05/21 08:00 - Constitutional no acute distress, cooperative - Routine Respiratory Exam Absent: accessory muscle use, respiratory distress Comments: Symmetric chest movement, able to speak in complete sentences - Routine Cardiovascular Exam Present: RRR. Absent: JVD Comments: Normal peripheral pulses - Routine Abdominal Exam Present: soft. Absent: tenderness - Routine Extremities Exam Present: pulses intact, normal capillary refill. Absent: calf tenderness Comments: Upon examination of the right knee: The dressings over the right knee are clean, dry, and intact. No evidence of drainage or bleeding noted. Attempted movements of the right leg/knee are painful. Thigh and calf are soft and nontender; Homans' sign is negative, no clinical evidence of DVT noted. Posterior tibial pulse 2+; capillary refill is brisk. Sensation to light touch is grossly intact throughout. Patient is actively mobilizing the knee, foot, ankle, and toes. - Routine Skin Exam Present: intact, normal turgor. Absent: erythema, lesions, ecchymosis - Routine Neurological Exam Present: alert, oriented X3, moving all extremities, normal tone. Absent: sensory deficit, motor deficit - Routine Psychiatric Exam Present: normal affect, cooperative - Urinary Catheter Management Castro Cath placed during this visit: no Urethral indwelling: Yes Progress Note: A&P (1) S/P total knee arthroplasty Status: Acute Assessment and Plan for All Diagnoses:: I reviewed the clinical findings with the patient and her daughter. She reports that she is doing much better this afternoon, her nausea has completely resolved and she is eating and drinking well. She was able to ambulate a short distance today with the assistance of physical therapy, continue PT/OT. Again advised patient to keep the right knee in full extension; avoid placing a pillow behind the knee. Continue to use the knee immobilizer when walking/weight bearing until she is able to actively straight leg raise. DC urinary catheter and IV fluids. Continue DVT prophylaxis and home medications as ordered. Continue rest, ice, elevation, and pain medication as needed. Case management looking into discharge planning.
--- NOTE | 2021-08-05 12:39 | PC.NURSE ---
1228 V/O FROM DR. MARTIN TO [facility]
--- NOTE | 2021-08-05 13:40 | PC.NURSE ---
9293 PHYSICAL THERAPY AT BEDSIDE
--- NOTE | 2021-08-05 16:11 | PC.NURSE ---
PT HAS TOLERATED PHYSICAL THERAPY TODAY, AMBULATED OUT TO HALLWAY.POLAR PACK TO RIGHT KNEE, RIGHT KNEE IMMOBILIZER IN PLACE, IPC TO LEFT LOWER LEG. PAIN CONTROLLED WITH PRN MEDICATIONS. VSS, AFEBRILE. TOLERATING REGULAR DIET. IV SALINE LOCKED PER MD ORDER. PULSES PALPABLE TO RIGHT LEG. PT HAS RESTED THROUGHOUT THIS SHIFT. USES INCENTIVE SPIROMETER WHILE AWAKE. CALL LIGHT WITHIN REACH. WILL CONTINUE TO MONITOR. DECLINES SHOWER AT THIS TIME.
[2021-08-06 04:00] VITALS: BP 122/72; PULSE 66; RESP 18; TEMP 36.9; O2SAT 97
[2021-08-06 04:10] VITALS: BP 124/71; PULSE 66; RESP 18; TEMP 36.5; O2SAT 97
--- NOTE | 2021-08-06 04:23 | PC.NURSE ---
PT HAS BEEN PLEASANT THIS SHIFT. PAIN CONTROLLED WITH PRN MEDICATIONS. PT AMBULATES WITH WALKER AND STANDBY ASSIST AND GAIT IS SATISFACTORY. IMMOBILIZER IN PLACE WHILE WALKING. FOOT ELEVATED WHILE IN BED. POLAR PACK IN PLACE. PT IS A&O X4. LUNGS CTAB AND BOWELS ACTIVE X4 QUADRANTS. BILATERAL PEDAL PULSES EQUAL AND STRONG. NO EDEMA NOTED. CALL PALMER IN REACH.
--- NOTE | 2021-08-06 06:05 | PC.NURSE ---
IV IN LEFT HAND REMOVED AT THIS TIME DUE TO OCCLUSION. CATHETER APPEARED POSSIBLY BENT FROM PT WALKER USE. IV WOULD NOT FLUSH. REMOVED AT THIS TIME. TIP INTACT, PT TOLERATED WELL.
--- NOTE | 2021-08-06 06:55 | SW/DCPLANNER ---
RECEIVED REFERRAL ON THIS PATIENT FOR DISCHARGE PLANNING: [facility] HAD A RIGHT TOTAL KNEE ARTHROPLASTY.. 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 WILL FOLLOW UP WITH PATIENT DURING ROUNDS THIS AM....
[2021-08-06 08:00] VITALS: BP 118/68; PULSE 71; RESP 20; TEMP 36.8; O2SAT 97
--- NOTE | 2021-08-06 09:28 | HMH.DCSUM ---
General - General Admission date:: 08/04/21 Discharge date: 08/06/21 HPI HPI: Patient is a 60-year-old female who was admitted to [facility] following an uncomplicated right total knee arthroplasty on 08/04/[address] Julien. She has had chronic right knee pain for years which has failed to respond satisfactorily to nonsurgical management. X-ray demonstrates severe degenerative changes. Following evaluation in the office, patient elected to proceed with a total knee arthroplasty. She states that weight bearing, walking, standing and sitting for prolonged periods of time aggravates her pain. She states her pain is 5 out of 10 at rest and 8 out of 10 at its worst. She reports intermittent knee swelling and sensation of the knee giving out. No history of any systemic symptoms like fevers, chills or rigors. No history of any local redness or increased warmth. Patient says she is finding it difficult to walk any distance without support. She also reports frequent night pain and sleep disturbance because of the knee. No history of any hip pain or back pain. No history of any distal tingling or numbness. She has been on ibuprofen and Tylenol without significant pain relief. She underwent a left total knee arthroplasty with Dr. Julien at the end of 2018 and did very well. She is a former smoker. Her past medical history includes GERD, hypothyroidism, arthritis, and migraines. Hospital Course Hospital Course: Following an uncomplicated right total knee arthroplasty, the patient was admitted to the inpatient service and has progressed well. Her postoperative check x-ray was satisfactory with good alignment and fixation of the components. She was advised to ambulate with weightbearing as tolerated on the right side. She managed this very well using the walker and assistance of physical therapy. Her pain has been well controlled with oral pain medications. No clinical evidence of DVT noted. Patient reports that she has been eating and drinking well without any problems. She is medically stable at the time of discharge and was also cleared for discharge by physical therapy. Her surgical dressings were changed on the first postoperative day and her surgical incision appears clean, dry, and healthy. No evidence of erythema, induration, drainage, or other signs of infection. Patient was started on aspirin 325 mg daily for DVT prophylaxis after surgery. On the day of discharge, her surgical incision is clean, dry, and healthy. Throughout her inpatient stay, the patient's vital signs have been stable and she is afebrile at the time of discharge. She is being discharged to her home. Objective Vital signs: Temp Pulse Resp BP Pulse Ox 97.7 F 66 18 124/71 97 08/06/21 04:10 08/06/21 04:10 08/06/21 04:10 08/06/21 04:10 08/06/21 04:10 no acute distress, obese, cooperative - *Routine HEENT Exam Head: Present: normocephalic, atraumatic Eye: Present: EOMI, PERRL ENT: Present: mucous membranes moist - *Routine Neck Exam Present: supple, full ROM, trachea midline. Absent: JVD, lymphadenopathy - *Routine Respiratory Exam Present: CTA bilaterally. Absent: accessory muscle use, decreased breath sounds, respiratory distress Comments: Symmetric chest movement, able to speak in complete sentences - *Routine Cardiovascular Exam Present: RRR, Normal S1, Normal S2. Absent: JVD Comments: Normal peripheral pulses - *Routine Abdominal Exam Present: soft, normoactive bowel sounds. Absent: tenderness - *Routine Rectal Exam Patient deferred: visual exam - *Routine Exam Patient deferred: external exam - *Routine Extremities Exam Present: pulses intact, normal capillary refill. Absent: edema, calf tenderness, Yisel's sign Comments: Upon examination of the lower extremities: The limb lengths are equal. Dressings over the left knee are clean, dry, and intact. No evidence of drainage or bleed
[2021-08-06 10:13] VITALS: O2SAT 97
--- NOTE | 2021-08-06 11:10 | PC.NURSE ---
Physical Therapy at bs to see pt.
--- NOTE | 2021-08-06 11:25 | PC.NURSE ---
Walking with PT in hallway.
== END 2021-08-06 15:02 | disposition home or self-care (01) ==
LOC: OB 14:22
PROVIDERS: Physician Assistant Surgical; Admitting Provider Orthopaedic Surgery; PCP Family Medicine; Visit Provider Orthopaedic Surgery
PROC: 0SRC0JA Replacement of Right Knee Joint with Synthetic Substitute, Uncemented, Open Approach (ICD-10-PCS; CPT 27447; principal; 2021-08-04 07:30)
DX: M17.11 Unilateral primary osteoarthritis, right knee (principal); I10 Essential (primary) hypertension; G43.909 Migraine, unspecified, not intractable, without status migrainosus; Z79.899 Other long term (current) drug therapy; Z20.822 Contact with and (suspected) exposure to COVID-19
CPT/HCPCS: 27447; 73562; 80048; 81001; 85025; 96374; 97110; 97116; 97161; 97166; 97530; C1776; C9803; G0378; J2405; J2710; U0003; U0005

== ENCOUNTER → 2021-08-19 09:59 | Outpatient (CLI) | payer OTHER, SELFPAY ==
--- NOTE | 2021-08-19 10:14 | XR_ITS ---
PROCEDURE: XR KNEE RT 2V CLINICAL INDICATION: sp rt tka, sx 08/04/21 COMPARISON: No exams were available for comparison FINDINGS: No fracture or dislocation. No lytic or blastic change. There is normal mineralization. Good alignment status post total knee replacement. No evidence of orthopedic complication. No acute fracture or dislocation. No lytic or blastic change. Previously noted soft tissue gas no longer apparent Other findings:None. IMPRESSION: Good alignment status post total knee arthroplasty Dictated by: Florentin Sun MD 08/19/2021 17:05 Florentin Sun MD in [facility] 08/19/2021 17:05
== END ==
PROVIDERS: PCP Family Medicine; Visit Provider Orthopaedic Surgery
DX: M25.561 Pain in right knee (principal); Z96.651 Presence of right artificial knee joint
CPT/HCPCS: 73560

== ENCOUNTER → 2021-10-17 14:50 | Outpatient (CLI) | payer OTHER, SELFPAY ==
--- NOTE | 2021-10-17 14:54 | XR_ITS ---
FINAL REPORT CLINICAL HISTORY: sp RT TKA COMPARISON: August 19, 2021 FINDINGS: Two views of the right knee were obtained. There is no evidence of fracture. There has been right knee arthroplasty, visually stable. There is suprapatellar soft tissue calcification that has increased since the prior exam of uncertain etiology. IMPRESSION: Right knee arthroplasty, stable. Increased suprapatellar soft tissue calcification of uncertain etiology. Loose body cannot be excluded. Reviewed, Interpreted and Dictated by Taqueria Ag III, MD Transcribed by Enoch Borjas Authenticated by Taqueria Ag III, MD on 10/17/2021 04:09:06 PM [facility]
== END ==
PROVIDERS: PCP Family Medicine; Visit Provider Orthopaedic Surgery
DX: M25.561 Pain in right knee (principal); Z96.651 Presence of right artificial knee joint
CPT/HCPCS: 73560

== ENCOUNTER 2021-10-24 15:30 | Outpatient (RCR) | payer OTHER, SELFPAY ==
--- NOTE | 2021-08-08 09:43 | HMH.PTOPEV ---
PT Outpatient Evaluation Rehab PT Outpatient Evaluation Start: 08/08/21 09:33 Freq: Status: Active Protocol: Document 08/08/21 09:33 [facility] (Rec: 08/08/21 09:42 [facility] [id number]) Electronically Signed By Dustin Gomez, PT 08/08/21 09:33 Outpatient Therapy Subjective History Subjective History Patient is a 60 year old female presenting to outpatient PT with reports of R post-surgical knee pain S/P R TKA 08/04/21 (4d S/P). Patient reports hx of chronic knee pain of insidious onset for approx 3 years. Comorbidities include hx of L TKA, hypothyroidism, tremors and elevated BMI. Chief Complaint Pain,Stiff,Swelling Symptom Type Throb Symptoms Relieved By Rest/Positioning,Ice, Prescription Meds Symptoms Aggravated By Standing,Physical Activity, Walking Prior Functional Limitations Standing,Walking Current Functional Limitations Housework,Sleeping,Standing, Squatting,Recreation Activity, Walking,Stairs,Balance Symptom Description Constant but Variable Level of pain today (0-10) 6 Pain scale - at its best (0-10) 4 Pain scale - at its worst (0-10) 10 Hip/Knee Eval Gait Observation General Gait Pattern Observation Antalgic Gait,Decrease Weight Bear (R) Assistive Device Assistive Devices Rolling / Wheeled Walker Palpation Tenderness right Knee Palpation Finding Tenderness Knee Palpation Overall Comment Medial compartment and surgical incision 3/4 MMT Hip Strength Reason Not Measured Orthopedic Precautions Knee Strength Reason Not Measured Orthopedic Precautions ROM Hip ROM Reason Not Measured Within Functional Limits Knee Extension Active Range of Motion ( -5 degrees) Knee Extension Passive Range of Motion ( 0 degrees) Knee Flexion Active Range of Motion ( 76 degrees) Knee Flexion Passive Range of Motion ( 85 degrees) Knee ROM Limitations Soft Tissue Tightness,Pain Special Tests Knee Valgus Stress Test Negative Right Knee Varus Stress Test Negative Right Outpatient Therapy Assessment Impairments Problems/Impairmments Palpation Tenderness,Impaired Range of Motion,Impaired Strength,Impaired Endurance, Impaired Tra
--- NOTE | 2021-09-09 08:41 | HMH.RHREAS ---
Rehab Reassessment Rehab OP Re-assessment Start: 09/09/21 08:33 Freq: Status: Active Protocol: Document 09/04/21 14:00 [facility] (Rec: 09/09/21 08:40 [facility] [id number]) Electronically Signed By Dustin Gomez, PT 09/04/21 14:00 Rehab Re-assessment Subjective Subjective Patient reports 70% improvement since start of care. Objective Objective Notes AROM: -3-109 PROM: 0-112 MMT: hip flx 4+/5; hip abd 4+/ 5; hip add 4/5; hip ext 4/5; hip ER/IR 4+/5; knee ext 4+/5; knee flx 4+/5 Pain: 2/10 today; 3/10 at worst over past week Neuro: WNL TTP: 2/4 medial joint line Assessment Progress Assessment Progressing as Expected Assessment Notes Patient is tolerating progression well. Objective improvements as noted above. She has progressed to ambulation without assistive device. Improved tolerance to manual therapy. She would benefit from continuing with skilled PT services in order to address functional limitations with all standing/ ambulatory activities. Patient goals met STG's Goals Not Met LTG's Revised Goals NA Plan Plan Continue with current POC. Frequency of Therapy 2x/week Duration of therapy 4 weeks Time and Billing Re-Eval Time 15 Re-Eval Billing Units 1 PHYSICIAN CERTIFICATION: I certify the specified therapy services for Yamileth Caal are required, authorized, and reviewed every 30 days.
--- NOTE | 2021-10-03 14:18 | HMH.RHREAS ---
Rehab Reassessment Rehab OP Re-assessment Start: 09/09/21 08:33 Freq: Status: Active Protocol: Document 10/03/21 13:54 [facility] (Rec: 10/03/21 14:18 [facility] [id number]) Electronically Signed By Dustin Gomez, PT 10/03/21 13:54 Rehab Re-assessment Subjective Subjective Patient reports 80% improvement since start of care. [ End ] Objective Objective Notes AROM: -2-110 PROM: 0-113 MMT: hip flx 5-/5; hip abd 5-/ 5; hip add 4+/5; hip ext 4+/5; hip ER/IR 4+/5; knee ext 5-/5 ; knee flx 5/5 Pain: 0/10 today; 3/10 at worst over past week Neuro: WNL TTP: 2/4 medial/lateral joint line Assessment Progress Assessment Progressing as Expected Assessment Notes Patient is tolerating progression well. Objective improvements as noted above. She has progressed to ambulation without assistive device. Improved tolerance to manual therapy. She continues to demonstrate fear avoidance behaviors about return to full working duty. She would benefit from continuing with skilled PT services in order to address functional limitations with all standing/ambulatory activities. Patient goals met STG's Goals Not Met LTG's Revised Goals NA Plan Plan Continue with current POC. Frequency of Therapy 2x/week Duration of therapy 4 weeks Time and Billing Re-Eval Time 15 Re-Eval Billing Units 1 PHYSICIAN CERTIFICATION: I certify the specified therapy services for Yamileth Caal are required, authorized, and reviewed every 30 days.
== END 2021-10-24 15:35 | disposition home or self-care (01) ==
LOC: PT 15:30
PROVIDERS: PCP Family Medicine; Visit Provider Orthopaedic Surgery
DX: M25.561 Pain in right knee (principal); Z96.651 Presence of right artificial knee joint
CPT/HCPCS: 97010; 97014; 97016; 97110; 97116; 97140; 97163; 97164; 97530; G0283

== ENCOUNTER → 2021-12-24 09:16 | Outpatient (CLI) | payer OTHER, SELFPAY ==
--- NOTE | 2021-12-24 09:18 | XR_ITS ---
FINAL REPORT CLINICAL HISTORY: back of knee hurting COMPARISON: October 17, 2021 FINDINGS: RIGHT KNEE Three views of the right knee reveal no evidence of fracture. There are postoperative changes from knee arthroplasty. The bony alignment is normal. There is a soft tissue calcification superior to the patella which is stable. There is no evidence of joint effusion. No localized soft tissue abnormality is identified. IMPRESSION: Postoperative changes without acute abnormality identified. Reviewed, Interpreted and Dictated by Taqueria Ag III, MD Transcribed by Jory Fatima Authenticated by Taqueria Ag III, MD on 12/24/2021 10:51:33 AM [facility]
== END ==
PROVIDERS: PCP Family Medicine; Visit Provider Orthopaedic Surgery
DX: M25.561 Pain in right knee (principal)
CPT/HCPCS: 73562

== ENCOUNTER → 2021-12-25 11:27 | Outpatient (CLI) | payer OTHER, SELFPAY ==
--- NOTE | 2021-12-25 11:30 | CA_ITS ---
FINAL REPORT TECHNIQUE: Color Doppler, duplex Doppler and compression sonography of the right lower extremity venous system was performed. CLINICAL HISTORY: PAIN BEHIND RT KNEE X SEVERAL DAYS RADIATING INTO CALF, NKI,EDEMA,OBESITY,HX RT TKR FINDINGS: There is no evidence of deep venous thrombosis from the level of the groin to the calf. The veins are patent and compressible. IMPRESSION: No evidence of deep venous thrombosis right lower extremity. Reviewed, Interpreted and Dictated by Taqueria Ag III, MD Transcribed by Sol Barker Authenticated by Taqueria Ag III, MD on 12/25/2021 01:01:10 PM [facility]
[2021-12-25 12:12] LABS: Basophils # 0.1 K/mm3 (0-0.2); Basophils % 1.3 % (0.1-2.0); Eosinophils # 0.3 K/mm3 (0.0-0.4); Eosinophils % 6.1 % (0.1-12.0); Hematocrit 41.7 % (37.0-47.0); Hemoglobin 13.1 g/dL (12.2-16.2); Lymphocytes # 1.4 K/mm3 (0.7-4.5); Lymphocytes % 26.9 % (10-50); Mean Corpuscular HGB Conc 31.3 g/dL (31.8-35.4); Mean Corpuscular Hemoglobin 30.4 pg (27.0-31.2); Mean Platelet Volume 8.9 fl (7.4-10.4); Monocytes # 0.3 K/mm3 (0.1-1.0); Monocytes % 5.4 % (1.7-9.3); Neutrophils # 3.2 K/mm3 (1.8-7.8); Neutrophils % 60.3 % (37.0-80.0); Platelet Count 255 K/mm3 (142-424); Red Cell Distribution Width 13.6 % (11.5-17.5); White Blood Count 5.2 K/mm3 (4.8-10.8)
[2021-12-25 13:01] LABS: Erythrocyte Sedimentation Rate 18 mm/hr (0-30)
[2021-12-25 13:15] LABS: C-Reactive Protein 6.8 mg/L (0-4)
== END ==
PROVIDERS: PCP Family Medicine; Visit Provider Physician Assistant Surgical
DX: Z01.812 Encounter for preprocedural laboratory examination (principal); M25.561 Pain in right knee; M25.461 Effusion, right knee
CPT/HCPCS: 36415; 85025; 85651; 86140; 93971

== ENCOUNTER → 2021-12-30 09:17 | Outpatient (CLI) | payer OTHER, SELFPAY ==
[2021-12-30 09:57] LABS: Chloride 102 mmol/L (98-107); Potassium 4.3 mmoL/L (3.5-5.1); Sodium 140 mmol/L (136-145)
[2021-12-30 10:00] LABS: Alanine Aminotransferase 27 U/L (12-78); Albumin Level 4.1 g/dl (3.5-5.0); Albumin/Globulin Ratio 1.4 (1.1-1.8); Alkaline Phosphatase 79 U/L (38-126); Anion Gap 7.3 mEq/L (5-15); Aspartate Amino Transferase 40 U/L (14-36); Bilirubin,Direct 0.3 mg/dl (0.0-0.4); Bilirubin,Indirect 0.2 mg/dL (0.0-0.9); Bilirubin,Total 0.5 mg/dl (0.2-1.3); Blood Urea Nitrogen 17 mg/dl (7-17); Calcium 9.6 mg/dl (8.4-10.2); Carbon Dioxide 35 mmol/L (22.0-30.0); Estimated Glomerular Filt Rate 73 ml/min (>60); GFR (African American) 88 ML/MIN (>60); Glucose 97 mg/dl (74-100); Total Protein,Serum 7.1 g/dl (6.3-8.2)
== END ==
PROVIDERS: PCP Family Medicine; Visit Provider Podiatrist
DX: B35.1 Tinea unguium (principal); L60.8 Other nail disorders
CPT/HCPCS: 80053; 82248; 87102; 87206; 87220

== ENCOUNTER 2022-02-04 09:00 | Outpatient (RCR) | payer OTHER, SELFPAY ==
--- NOTE | 2022-01-14 08:46 | HMH.PTOPEV ---
PT Outpatient Evaluation Rehab PT Outpatient Evaluation Start: 01/14/22 08:32 Freq: Status: Active Protocol: Document 01/14/22 08:33 USAMA (Rec: 01/14/22 08:45 USAMA [id number]) Electronically Signed By Dustin Gomez, PT 01/14/22 08:33 Outpatient Therapy Subjective History Subjective History Patient is a 61 year old female presenting to outpatient PT with reports of acute exacerbation of R knee pain S/P R TKA performed 08/04. She previously completed an episode of PT in 09/07/2021. Patient most recently starts to complain of R posterior knee pain. Comorbidities include hx of hypothyroidism and tremors. Chief Complaint Pain,Stiff,Swelling Symptom Type Sharp Symptoms Relieved By Rest/Positioning,OTC Meds Symptoms Aggravated By Standing,Physical Activity, Walking Prior Functional Limitations Lifting,Housework,Standing, Squatting,Walking,Bending/ Stooping Current Functional Limitations Lifting,Housework,Standing, Squatting,Walking,Bending/ Stooping Symptom Description Intermittent Level of pain today (0-10) 1 Pain scale - at its best (0-10) 0 Pain scale - at its worst (0-10) 8 Hip/Knee Eval Gait Observation General Gait Pattern Observation Antalgic Gait,Decrease Weight Bear (R) Assistive Device Assistive Devices None / NA Palpation Tenderness right Knee Palpation Finding Tenderness Knee Palpation Overall Comment popliteal fossa 2/4 MMT Hip Flexion Strength Grade 4 Good Hip Abduction Strength Grade 4 Good Hip Adduction Strength Grade 4 Good Hip Extension Strength Grade 4 Good Hip External Rotation Strength Grade 4 Good Hip Internal Rotation Strength Grade 4 Good Knee Extension Strength Grade 5 Normal Knee Flexion Strength Grade 4 Good ROM Hip ROM Reason Not Measured Within Functional Limits Knee Extension Active Range of Motion ( -2 degrees) Knee Flexion Active Range of Motion ( 92 degrees) Special Tests Knee Valgus Stress Test Negative Right Knee Varus Stress Test Negative Right Outpatient Therapy Assessment Impairments Problems/Impairmments Palpation Tenderness,Impaired Range of Motion,Impaired
== END 2022-02-04 09:05 | disposition home or self-care (01) ==
LOC: PT 09:00
PROVIDERS: PCP Family Medicine; Visit Provider Orthopaedic Surgery
DX: M25.561 Pain in right knee (principal); Z96.651 Presence of right artificial knee joint
CPT/HCPCS: 97010; 97014; 97033; 97035; 97110; 97163; G0283

== ENCOUNTER → 2022-02-10 09:14 | Outpatient (POV) | payer OTHER, SELFPAY | PROVIDERS: Visit Provider Dermatology | DX: Z00.00 Encounter for general adult medical examination without abnormal findings (principal) ==

== ENCOUNTER → 2022-03-03 08:34 | Outpatient (CLI) | payer OTHER, SELFPAY ==
--- NOTE | 2022-03-03 08:39 | XR_ITS ---
FINAL REPORT CLINICAL HISTORY: s/p rt TKA COMPARISON: December 24, 2021 FINDINGS: RIGHT KNEE: Three views of the right knee were obtained. There is no acute fracture or dislocation. Visualized joint spaces are normally aligned. There is no joint effusion. There are chronic calcifications superior to the patella is stable and may represent a loose body. There are postoperative changes from total knee arthroplasty. IMPRESSION: Postoperative changes with no acute bony abnormality. Reviewed, Interpreted and Dictated by Taqueria Ag III, MD Transcribed by Yamileth Rodrigez Authenticated and [facility]
== END ==
PROVIDERS: PCP Family Medicine; Visit Provider Orthopaedic Surgery
DX: M25.561 Pain in right knee; Z96.651 Presence of right artificial knee joint
CPT/HCPCS: 73562

== ENCOUNTER 2022-03-03 11:47 | Outpatient (RCR) | payer OTHER, SELFPAY | END 2022-03-03 12:45 | disposition home or self-care (01) | LOC: PT 11:47 | PROVIDERS: Visit Provider Orthopaedic Surgery | DX: M25.561 Pain in right knee (principal) ==

== ENCOUNTER → 2022-03-10 15:09 | Outpatient (POV) | payer OTHER, SELFPAY | PROVIDERS: Visit Provider Dermatology | DX: Z00.00 Encounter for general adult medical examination without abnormal findings (principal) ==

== ENCOUNTER → 2022-03-17 08:08 | Outpatient (POV) | payer OTHER, SELFPAY | PROVIDERS: Visit Provider Dermatology | DX: Z00.00 Encounter for general adult medical examination without abnormal findings (principal) ==

== ENCOUNTER → 2022-03-17 08:47 | Outpatient (CLI) | payer OTHER, SELFPAY ==
--- NOTE | 2022-03-17 08:52 | XR_ITS ---
FINAL REPORT CLINICAL HISTORY: knee pain, total knee replacement 07/2021 COMPARISON: 03/03/2022 FINDINGS: RIGHT KNEE 3 views of the right knee were obtained. There is total joint prosthesis with proper anatomic alignment. There is some irregularity of the superior margin of the patella which does not appear changed since the prior exam and may be related to a healing fracture. Soft tissues are unremarkable. IMPRESSION: Stable, probable healing fracture of the superior patella. Reviewed, Interpreted and Dictated by Lito Hwang MD Transcribed by Jory Fatima Authenticated and . [facility]
== END ==
PROVIDERS: PCP Family Medicine; Visit Provider Physician Assistant Surgical
DX: S82.001A Unspecified fracture of right patella, initial encounter for closed fracture (principal)
CPT/HCPCS: 73562

== ENCOUNTER → 2022-04-01 08:11 | Outpatient (CLI) | payer OTHER, SELFPAY ==
--- NOTE | 2022-04-01 08:16 | XR_ITS ---
PROCEDURE INFORMATION: Exam: XR Right Knee Exam date and time: 04/01/2022 8:23 AM Age: 61 years old Clinical indication: Pain; Knee; Right; Prior surgery; Surgery date: 6+ months; Additional info: RT tka TECHNIQUE: Imaging protocol: Radiologic exam of the Right knee. Views: 3 views. COMPARISON: CR XR KNEE RT 3V 03/17/2022 8:57 AM FINDINGS: Tubes, catheters and devices: Arthroplastic replacement of the right knee with radiopaque prosthetic components in satisfactory configuration. Bones/joints: Otherwise unremarkable. Soft tissues: Normal. IMPRESSION: Arthroplastic replacement of the right knee with radiopaque prosthetic components in satisfactory configuration.
== END ==
PROVIDERS: PCP Family Medicine; Visit Provider Physician Assistant Surgical
DX: S82.001A Unspecified fracture of right patella, initial encounter for closed fracture (principal)
CPT/HCPCS: 73562

== ENCOUNTER → 2022-04-15 08:22 | Outpatient (CLI) | payer OTHER, SELFPAY ==
--- NOTE | 2022-04-15 08:25 | XR_ITS ---
FINAL REPORT CLINICAL HISTORY: knee pain..f/u fx COMPARISON: March 17, 2022 FINDINGS: Three views of the right knee reveal a probable subacute fracture of the superior pole of the patella which appears stable. There are postoperative changes from right knee arthroplasty. The bony alignment is normal. There is no evidence of joint effusion. There is a chronic calcification superior to the patella. IMPRESSION: Probable subacute fracture of the superior pole of the patella, appears stable. Reviewed, Interpreted and Dictated by Taqueria Ag III, MD Transcribed by Jory Fatima Authenticated and [facility]
== END ==
PROVIDERS: PCP Family Medicine; Visit Provider Physician Assistant Surgical
DX: S82.001A Unspecified fracture of right patella, initial encounter for closed fracture (principal)
CPT/HCPCS: 73562

== ENCOUNTER → 2022-04-28 08:08 | Outpatient (CLI) | payer OTHER, SELFPAY ==
--- NOTE | 2022-04-28 08:11 | XR_ITS ---
FINAL REPORT CLINICAL HISTORY: knee pain FINDINGS: RIGHT KNEE Three views of the right knee were obtained. There is no acute fracture or dislocation. There is a total joint prosthesis. Soft tissues are unremarkable. IMPRESSION: No acute bony abnormality. Reviewed, Interpreted and Dictated by Lito Hwang MD Transcribed by Yamileth Rodrigez Authenticated and [facility]
== END ==
PROVIDERS: PCP Family Medicine; Visit Provider Orthopaedic Surgery
DX: S89.91XA Unspecified injury of right lower leg, initial encounter (principal); M25.561 Pain in right knee
CPT/HCPCS: 73562

== ENCOUNTER 2022-05-27 10:00 | Outpatient (RCR) | payer OTHER, SELFPAY ==
--- NOTE | 2022-04-17 15:02 | HMH.PTOPEV ---
PT Outpatient Evaluation Rehab PT Outpatient Evaluation Start: 04/17/22 12:57 Freq: Status: Active Protocol: Document 04/17/22 12:58 ZOHRA (Rec: 04/17/22 15:01 ZOHRA [id number]) Electronically Signed By Sydney Laird, ROSITA 04/17/22 12:58 Outpatient Therapy Subjective History Subjective History Pt is a 61 y/o female that reports insidious onset of right knee pain on February 27. Pt reports pain worsened to the point where she couldn't hardly walk so she went to her doctor. Pt reports she had an xray on March 03 showing a fracture of her knee cap and was placed in a knee immobilzier locked at 0 degrees extension. Pt had a recent radiograph performed at [facility] on 04/15/22 with report of a stable subacute fracture of the superior pole of the patella and stable bony alighnment of previous total knee replacement. Pt reports since 04/15 she is allowed 0-90 in the brace. Pt reports the brace loosens and slides so she has to hold it up. Pt reports she returns to the doctor on the with hope to remove the brace. Pt reports she has not used any AD since being placed in the brace and denies falls or fear of falling. Pt reports she has had hamstring tendinitis after both knee replacement and feels like she has it now with pain in the back of the medial side of the knee. Pt reports intermittent numbness around the top of the knee as well. Pt reports she has 1 step to the porch, front door, washer/dryer and toilet . Pt reports she has a sharp shooting pain from the calf to the hamstring when ascending stairs. Pt reports she hasn't been doing a lot of
== END 2022-05-27 10:05 | disposition home or self-care (01) ==
LOC: PT 10:00
PROVIDERS: PCP Family Medicine; Visit Provider Orthopaedic Surgery
DX: S82.001D Unspecified fracture of right patella, subsequent encounter for closed fracture with routine healing (principal)
CPT/HCPCS: 97010; 97014; 97033; 97035; 97110; 97112; 97163; 97164; 97530; G0283

== ENCOUNTER → 2022-06-02 06:47 | Outpatient (CLI) | payer OTHER, SELFPAY ==
--- NOTE | 2022-06-02 06:51 | XR_ITS ---
FINAL REPORT CLINICAL HISTORY: knee pain COMPARISON: 04/28/2022 FINDINGS: Right knee Three views were obtained. There is no acute fracture or dislocation. There are post arthroplasty changes. The hardware is unremarkable. No significant joint effusion is identified. No soft tissue abnormality is identified. IMPRESSION: No acute process. Reviewed, Interpreted and Dictated by Wood Calderon MD Transcribed by Malorie Alfredo Authenticated and [facility]
== END ==
PROVIDERS: PCP Family Medicine; Visit Provider Orthopaedic Surgery
DX: S82.001A Unspecified fracture of right patella, initial encounter for closed fracture (principal)
CPT/HCPCS: 73562

== ENCOUNTER → 2022-06-08 15:28 | Outpatient (CLI) | payer OTHER, SELFPAY ==
--- NOTE | 2022-06-08 15:30 | MM_ITS ---
PROCEDURE INFORMATION: Exam: MG Bilateral Screening 3D Mammography Exam date and time: 06/08/2022 3:40 PM Age: 61 years old Clinical indication: Screening examination TECHNIQUE: Imaging protocol: Bilateral Screening tomosynthesis and 2D mammography including computer-aided detection (CAD) when performed. COMPARISON: 1. MG DMSB DIG MAMM-SCREEN KRZYSZTOF 06/30/2013 4:36 PM 2. MG DIGITAL MAMM-SCREEN BILATE 08/11/2010 1:06 PM FINDINGS: MAMMOGRAPHY: Breast composition: The breasts are almost entirely fatty. Mass: None. Architectural distortion: None. Calcifications: No suspicious calcifications. Asymmetric density: None. Skin thickening: None. Axillary adenopathy: None. IMPRESSION: No mammographic evidence of malignancy. Annual screening is recommended unless otherwise clinically indicated. ASSESSMENT: BI-RADS Category 1: Negative
== END ==
PROVIDERS: PCP Family Medicine; Visit Provider Family Medicine
DX: Z12.31 Encounter for screening mammogram for malignant neoplasm of breast (principal)
CPT/HCPCS: 77063; 77067

== ENCOUNTER → 2022-06-25 12:16 | Outpatient (CLI) | payer OTHER, SELFPAY ==
--- NOTE | 2022-06-25 12:19 | XR_ITS ---
FINAL REPORT CLINICAL HISTORY: left hip pain FINDINGS: LEFT HIP Two views of the left hip with an AP pelvis demonstrate no acute fracture or dislocation. There are mild degenerative changes of the left hip. The visualized bony structures are well aligned. No soft tissue abnormality is seen. IMPRESSION: Mild degenerative change of the left hip with acute bony abnormality. Reviewed, Interpreted and Dictated by Taqueria Ag III, MD Transcribed by Jory Fatima Authenticated and [facility]
== END ==
PROVIDERS: PCP Family Medicine; Visit Provider Physician Assistant Surgical
DX: M25.552 Pain in left hip (principal)
CPT/HCPCS: 73502

== ENCOUNTER → 2022-07-06 11:18 | Outpatient (CLI) | payer OTHER, SELFPAY ==
--- NOTE | 2022-07-06 11:21 | XR_ITS ---
FINAL REPORT CLINICAL HISTORY: shoulder pain FINDINGS: RIGHT SHOULDER: 3 views of the right shoulder were obtained. There is no acute fracture or dislocation. There are mild degenerative changes of the acromioclavicular and glenohumeral joints. There is no soft tissue abnormality. IMPRESSION: Mild degenerative changes of the acromioclavicular and glenohumeral joints. Reviewed, Interpreted and Dictated by Taqueria Ag III, MD Transcribed by Jory Fatima Authenticated and . [facility]
== END ==
PROVIDERS: PCP Family Medicine; Visit Provider Orthopaedic Surgery
DX: M25.511 Pain in right shoulder (principal)
CPT/HCPCS: 73030

== ENCOUNTER → 2022-08-26 17:13 | Outpatient (CLI) | payer OTHER, SELFPAY | PROVIDERS: PCP Family Medicine; Visit Provider Nurse Practitioner Family | DX: Z20.822 Contact with and (suspected) exposure to COVID-19 (principal) ==

== ENCOUNTER → 2022-09-01 11:51 | Outpatient (CLI) | payer OTHER, SELFPAY ==
[2022-08-26 17:33] LABS: Adenovirus,PCR Not Detected (NotDetected); Bordetella Pertussis Not Detected (NotDetected); Chlamydophila Pneumoniae, PCR Not Detected (NotDetected); Coronavirus 229E Not Detected (NotDetected); Coronavirus NL63 Not Detected (NotDetected); Coronavirus OC43 Not Detected (NotDetected); Coronovirus HKU1,PCR Not Detected (NotDetected); Human Metapneumovirus Not Detected (NotDetected); Influenza A, PCR Not Detected (NotDetected); Influenza AH1, 2009 Not Detected (NotDetected); Influenza AH1, PCR Not Detected (NotDetected); Influenza AH3,PCR Not Detected (NotDetected); Influenza B, PCR Not Detected (NotDetected); Mycoplasma Pneumoniae, PCR Not Detected (NotDetected); Parainfluenza 1, PCR Not Detected (NotDetected); Parainfluenza 2, PCR Not Detected (NotDetected); Parainfluenza 3, PCR Not Detected (NotDetected); Parainfluenza 4, PCR Not Detected (NotDetected); Respiratory Syncytial Virus Not Detected (NotDetected); Rhinovirus/Enterovirus Not Detected (NotDetected)
[2022-08-27 02:48] LABS: Coronavirus 19, PCR Detected (NotDetected)
--- NOTE | 2022-09-01 11:52 | MR_ITS ---
FINAL REPORT CLINICAL HISTORY: right shoulder. pain [id number]. limited rom. FINDINGS: Multiplanar MR imaging of the right shoulder was performed without contrast. Motion artifact is identified. The tendons of the rotator cuff are intact without evidence of rotator cuff tear. There is mild AC joint arthrosis. Edema is seen in the distal clavicle and acromion. There is spurring along the undersurface of the acromion. A small amount of fluid is seen in the subacromial/subdeltoid bursa. The glenoid labrum is intact. There is tendinosis of the long head of the biceps tendon with a small partial tear. Small glenohumeral joint effusion is seen. There is no evidence of fracture or dislocation. The musculature is intact. There is no evidence of soft tissue mass. IMPRESSION: Small partial tear of the long head of the biceps tendon with associated tendinosis. Reviewed, Interpreted and Dictated by Taqueria Ag III, MD Transcribed by Malorie Alfredo Authenticated and [facility]
== END ==
PROVIDERS: Nurse Practitioner Family; PCP Family Medicine; Visit Provider Orthopaedic Surgery
DX: M25.511 Pain in right shoulder (principal); U07.1 COVID-19
CPT/HCPCS: 73221; 87581; 87632; 87798; C9803; U0003; U0005

== ENCOUNTER 2022-10-28 16:00 | Outpatient (RCR) | payer OTHER, SELFPAY ==
--- NOTE | 2022-10-07 16:00 | HMH.PTOPEV ---
PT Outpatient Evaluation Rehab PT Outpatient Evaluation Start: 10/07/22 15:44 Freq: Status: Active Protocol: Document 10/07/22 15:48 USAMA (Rec: 10/07/22 16:00 USAMA [id number]) E-signed By Dustin Gomez, PT Outpatient Therapy Subjective History Subjective History Patient is a 61 year old female presenting to outpatient PT with reports of L hip pain starting approx 3 months ago of insidious onset. Most recent imaging indicates mild degenerative changes. Comorbidities include hx of B TKA, LBP, R shoulder pain, essential tremor and hypothyroidism. Chief Complaint Pain,Gives out/Unstable Symptom Type Sharp Symptoms Relieved By Rest/Positioning Prior Functional Limitations None Current Functional Limitations Housework,Standing,Squatting, Walking,Stairs Level of pain today (0-10) 0 Pain scale - at its best (0-10) 0 Pain scale - at its worst (0-10) 8 Hip/Knee Eval Gait Observation General Gait Pattern Observation Antalgic Gait Palpation Tenderness left Knee Palpation Finding Tenderness Knee Palpation Overall Comment L greater trochanteric bursa 3 /4 MMT Hip Strength Reason Not Measured WFL Knee Strength Reason Not Measured WFL ROM Hip Flexion w/Knee Flexed Active Range WFL of Motion (degrees) Hip Abduction Passive Range of Motion ( WFL degrees) Hip Extension Passive Range of Motion ( WFL degrees) Hip External Rotation Passive Range of WFL Motion (degrees) Hip Internal Rotation Active Range of 12 Motion (degrees) Knee ROM Reason Not Measured Within Functional Limits Outpatient Therapy Assessment Impairments Problems/Impairmments Palpation Tenderness,Impaired Range of Motion,Impaired Walking,Impaired Standing, Impaired Household Care, Impaired Stair Climbing, Impaired Incline Stepping, Impaired Stepping on Uneven Surface,Impaired Squatting, Impaired Bending,Impaired Work Activities,Subjective C/O Pain Prognosis Rehab Potential Good Clinical Impression Consistent with Diagnosis Yes Short Term Goals Number of Weeks
== END 2022-10-28 16:05 | disposition home or self-care (01) ==
LOC: PT 16:00
PROVIDERS: PCP Family Medicine; Visit Provider Orthopaedic Surgery
DX: M70.62 Trochanteric bursitis, left hip (principal); S79.912A Unspecified injury of left hip, initial encounter
CPT/HCPCS: 97010; 97014; 97110; 97140; 97163; G0283

== ENCOUNTER 2022-11-03 13:30 | Outpatient (RCR) | payer OTHER, SELFPAY ==
--- NOTE | 2022-09-11 10:00 | HMH.OTOPEV ---
OT Inpatient Evaluation Rehab OT Outpatient Eval Start: 09/11/22 09:02 Freq: Status: Active Protocol: Document 09/11/22 09:02 GULSHAN (Rec: 09/11/22 10:00 [email or web address] [id number]) E-signed By Usha Roberts, OT Outpatient Therapy Subjective History Subjective History 61 year old female referred to skilled OP OT services for R shld pain. Patient stated to have R shld pain since February 2022. X-ray completed on 07/06 with findings of mild degenerative changes of the acromioclavicular and glenohumeral joint. MRI completed on 09/01/22 on R shld with small partial tear of the long head of the biceps tendon with associated tendinosis. Chief Complaint Pain Symptom Type Ache,Throb Symptoms Relieved By Nothing Symptoms Aggravated By Physical Activity Prior Functional Limitations None Current Functional Limitations Reaching,Lifting,Recreation Activity Symptom Description Constant and Continuous Level of pain today (0-10) 1 Pain scale - at its best (0-10) 1 Pain scale - at its worst (0-10) 8 Shoulder/Elbow Eval Shoulder Objective Measurements Shoulder ROM Right Shoulder Abduction Active Range of 105 Motion (degrees) Shoulder Flexion Active Range of Motion 155 (degrees) Query Text: Shoulder External Rotation Active Range 70 of Motion (degrees) Shoulder Internal Rotation Active Range 40 of Motion (degrees) pain with active ROM shoulder exam right standard Shoulder MMT Shoulder Abduction Strength Grade 3- Fair- Shoulder Extension Strength Grade 3- Fair- Shoulder Flexion Strength Grade 3- Fair- Shoulder Horizontal Abduction Strength 3- Fair- Grade Shoulder Horizontal Adduction Strength 3- Fair- Grade Infraspinatus/Teres Minor Strength Grade 3- Fair- Shoulder External Rotation Strength 3- Fair- Grade Shoulder Internal Rotation Strength 3- Fair- Grade Elbow Objective Measurements OT Outpatient Assessment Impairments Problems/Impairments Impaired Range of Motion, Impaired Strength,Subjective C /O Pain Prognosis Rehab Potential Good Clinical Impression Consistent with Diagnosis
--- NOTE | 2022-10-22 14:31 | HMH.RHREAS ---
Rehab Reassessment Rehab OP Re-assessment Start: 10/22/22 14:18 Freq: Status: Active Protocol: Document 10/22/22 14:18 TRUONG (Rec: 10/22/22 14:31 TRUONG [id number]) E-signed By Chalino Rodrigez OT Rehab Re-assessment Subjective Subjective I think it is doing better. Objective Objective Notes Pt continues to be seen twice a week in order to address right shoulder deficits. Each session, pt engages in right shoulder AROM, AAROM, and strengthening exercises. Pt also receives PROM manual stretching to right shoulder in flexoin, abduction, ER, and IR. Modalities are provided in order to decrease pain/ inflammation at 1 mL, 80 mA/ min. Assessment Progress Assessment Progressing as Expected Assessment Notes As of today, pt reports her pain is a 1/10. Her worst pain now reaches a 4/10 which is much better than initial evaluation. Pt also received an injection at right shoulder ~2 weeks ago. Since this she has had improved pain. She returns to the ortho at the end of november. Pt does demonstrate improvement with R shoulder AROM and strength. Current R shoulder AROM and MMT: Flex: 140 degrees; 3+ Abd: 140 degrees; 3+ ER: 80 degrees; 3+ IR: 58 degrees; 3+ Patient goals met ST-5 LT Goals Not Met See below Revised Goals ST: 1 LT, 2, 4, and 5 Plan Plan Continue with OT plan of care at this time. Frequency of Therapy 2x's a week Duration of therapy 4 more weeks Time and Billing Re-Eval Time 11 Re-Eval Billing Units 1 PHYSICIAN CERTIFICATION: I certify the specified therapy services for Yamileth Caal are required, authorized, and reviewed every 30 days.
== END 2022-11-03 13:35 | disposition home or self-care (01) ==
LOC: OT 13:30
PROVIDERS: PCP Family Medicine; Visit Provider Orthopaedic Surgery
DX: M75.21 Bicipital tendinitis, right shoulder (principal); M75.111 Incomplete rotator cuff tear or rupture of right shoulder, not specified as traumatic
CPT/HCPCS: 97010; 97014; 97035; 97110; 97140; 97164; 97165; 97530; G0283

== ENCOUNTER → 2022-11-22 07:26 | Outpatient (CLI) | payer OTHER, SELFPAY ==
[2022-11-23 11:29] LABS: Estradiol 7.3 pg/mL (.); Progesterone 0.2 ng/mL (.)
== END ==
PROVIDERS: PCP Family Medicine; Visit Provider Obstetrics & Gynecology
DX: Z01.419 Encounter for gynecological examination (general) (routine) without abnormal findings (principal)
CPT/HCPCS: 82670; 83001; 84144

== ENCOUNTER 2023-05-10 11:48 | Emergency (ER) | payer OTHER, SELFPAY ==
[2023-05-10 11:58] VITALS: BP 135/79; PULSE 64; RESP 16; TEMP 36.8; O2SAT 98; BMI 51.5
--- NOTE | 2023-05-10 11:59 | XR_ITS ---
PROCEDURE INFORMATION: Exam: XR Right Knee Exam date and time: 05/10/2023 12:18 PM Age: 62 years old Clinical indication: Pain; Knee; Right; Additional info: Fall, pain TECHNIQUE: Imaging protocol: Radiologic exam of the right knee. Views: 3 views. COMPARISON: CR XR KNEE RT 3V 06/02/2022 6:52 AM FINDINGS: Bones/joints: There is a right total knee prosthesis that appears in satisfactory position. Bone metal interface is unremarkable. There is no periprosthetic fracture. Remainder of visualized osseous structures are unremarkable. There are no significant interval changes. Soft tissues: Unremarkable IMPRESSION: Stable appearance right total knee replacement in satisfactory position.
--- NOTE | 2023-05-10 11:59 | XR_ITS ---
PROCEDURE INFORMATION: Exam: XR Left Knee Exam date and time: 05/10/2023 12:19 PM Age: 62 years old Clinical indication: Pain; Knee; Left; Additional info: Fall, pain TECHNIQUE: Imaging protocol: Radiologic exam of the left knee. Views: 3 views. COMPARISON: CR XR KNEE LT 2V 08/21/2020 1:53 PM FINDINGS: Bones/joints: There is a left total knee prosthesis that appears in satisfactory position. Bone metal interface is unremarkable. There is no periprosthetic fracture. There are no significant interval bony changes detected. Soft tissues: Unremarkable IMPRESSION: 1. Stable appearance of left total knee replacement. 2. No acute bony abnormalities.
--- NOTE | 2023-05-10 12:00 | HMH.EDGENADL ---
Discharge Plan Disposition Patient Disposition: Home, Self-Care Condition: Good Prescriptions Prescriptions: No Action Zyrtec 10 mg capsule 10 mg PO DAILY primidone 250 mg tablet 250 mg PO BID 90 Days Qty: 180 3RF ubrogepant 100 mg tablet 100 mg PO ONCE PRN (Reason: headache) Qty: 10 11RF Rx Instructions: Take 100 mg at onset of headache, may repeat 100 mg after 2 hours if symptoms persist with max dose 200 mg in 24 hours omeprazole 20 mg capsule,delayed release(DR/EC) 20 mg PO Patient Comments: TAKE ONE CAPSULE BY MOUTH ONCE DAILY fluticasone propionate [Flonase Allergy Relief] 50 mcg/actuation spray,suspension 2 spray intranasal DAILY Qty: 16 3RF Rx Instructions: administer into each nostril levothyroxine 50 MCG tablet 50 mcg PO DAILY Referrals Follow up/Referrals: Edwin Osorio MD [Primary Care Provider] - See instructions Bill Gu DO [Staff Physician] - See instructions (Workplace accident, fell on her knees, has bilateral total knee replacements, x-rays negative) Activity Restrictions/Add. Instructions Additional Instructions/Restrictions: You were evaluated in the emergency department today for knee pain after falling onto them at work. We did not identify any fracture, dislocation, or hardware malfunction on x-ray. Continue taking all home medications as prescribed, you can continue taking Tylenol or ibuprofen as needed for pain. As discussed, there is still the chance of a soft tissue injury or occult fracture. Because your symptoms had improved, you were comfortable discharging and following up outpatient which I believe is reasonable, however as discussed please follow-up closely with orthopedics and your primary care physician for reevaluation and consideration of additional advanced imaging to evaluate for soft tissue injury or occult fracture. Make an appointment with these physicians as soon as possible. Return to the emergency department with any new or worsening symptoms. Clinical Impressions Clinical Impression: Acute bilateral knee pain Fall Qualifiers: Encounter type: initial encounter Qualified Code(s): W19.XXXA - Unspecified fall, initial encounter Discharge ED Provider: Joann Falcon Adult HPI General Chief complaint: Fall Stated complaint: doreen knee pain, fall, WC Time Seen by Provider: 05/10/23 11:59 History of Present Illness HPI narrative: This 62-year-old female with multiple chronic medical conditions presents to the emergency department with bilateral knee pain after a fall at work. 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 She did not hit her head or face, does not have pain in the upper extremities or elsewhere in the body but is complaining of pain in the bilateral knees, left greater than right. Patient has history of prior fracture of the right knee as well as knee replacements. She is able to ambulate after the incident, but it is extremely painful. She is concerned for possible repeat fracture. She states that she had left full knee replacement in 2018 and right total knee in 2020. She states that she fractured the right knee in 2021. Related Data Home Medications Medication Instructions Recorded Confirmed levothyroxine 50 mcg tablet 50 mcg PO DAILY THYROID 10/11/17 03/01/23 cetirizine 10 mg capsule (Zyrtec) 10 mg PO DAILY Allergy symptoms 04/15/20 03/01/23 omeprazole 20 mg capsule,delayed 20 mg PO 09/14/22 03/01/23 release Previous Rx's Medication Instructions Recorded primidone 250 mg tablet 250 mg PO BID tremor 90 days #180 04/16/22 tabs ubrogepant 100 mg tablet 100 mg PO ONCE PRN headache #10 04/16/22 tabs fluticasone propionate 50 2 spray intranasal DAILY allergy 04/15/23 mcg/actuation nasal symptoms #16 grams spray,suspension (Flonase Allergy Relief) Allergies Allergy/AdvReac Type Severity Re
[2023-05-10 13:44] VITALS: BP 131/74; PULSE 61; RESP 20; TEMP 36.8; O2SAT 97
== END 2023-05-10 13:44 | disposition home or self-care (01) ==
PROVIDERS: Emergency Provider Emergency Medicine; PCP Family Medicine
DX: M25.562 Pain in left knee (principal); M25.561 Pain in right knee; W01.0XXA Fall on same level from slipping, tripping and stumbling without subsequent striking against object, initial encounter; Y99.0 Civilian activity done for income or pay
CPT/HCPCS: 73562; 99283

== ENCOUNTER → 2023-06-16 13:06 | Outpatient (CLI) | payer OTHER, SELFPAY ==
[2023-06-16 12:21] LABS: Basophils % 0.6 % (0.1-2.0); Eosinophils # 0.2 K/mm3 (0.0-0.4); Eosinophils % 3.6 % (0.1-12.0); Hemoglobin 14.6 g/dL (12.2-16.2); Lymphocytes # 1.3 K/mm3 (0.7-4.5); Lymphocytes % 20.2 % (10-50); Mean Corpuscular HGB Conc 33.9 g/dL (31.8-35.4); Mean Corpuscular Hemoglobin 31.1 pg (27.0-31.2); Mean Corpuscular Volume 91.7 fl (81-99); Mean Platelet Volume 8.1 fl (7.4-10.4); Monocytes # 0.3 K/mm3 (0.1-1.0); Neutrophils # 4.5 K/mm3 (1.8-7.8); Neutrophils % 70.6 % (37.0-80.0); Platelet Count 255 K/mm3 (142-424); Red Blood Count 4.69 M/mm3 (4.20-5.40); Red Cell Distribution Width 13.3 % (11.5-17.5); White Blood Count 6.4 K/mm3 (4.8-10.8)
[2023-06-16 12:45] LABS: Hemoglobin A1C 5.6 % (4.0-6.0)
[2023-06-16 12:56] LABS: Alanine Aminotransferase 30 U/L (12-78); Albumin Level 4.1 g/dl (3.5-5.0); Albumin/Globulin Ratio 1.4 (1.1-1.8); Alkaline Phosphatase 96 U/L (38-126); Anion Gap 9.9 mEq/L (5-15); Aspartate Amino Transferase 39 U/L (14-36); Bilirubin,Total 0.2 mg/dl (0.2-1.3); Blood Urea Nitrogen 13 mg/dl (7-17); Calcium 9.3 mg/dl (8.4-10.2); Carbon Dioxide 35 mmol/L (22.0-30.0); Chloride 99 mmol/L (98-107); Chol/HDL Ratio 2.6 (1-3.5); Cholesterol 256 mg/dl (140-200); Estimated Glomerular Filt Rate 85 ml/min (>60); GFR (African American) 103 ML/MIN (>60); Globulin 2.9 g/dL (1.3-3.2); Glucose 92 mg/dl (74-100); HDL Cholesterol 99 mg/dl (40-60); Potassium 4.9 mmoL/L (3.5-5.1); Sodium 139 mmol/L (136-145); Triglycerides 152 mg/dl (30-150); VLDL Cholesterol 30 mg/dL (0-40)
[2023-06-16 13:07] LABS: Direct LDL Cholesterol 102.47 mg/dL (100-129)
[2023-06-16 13:27] LABS: Thyroid Stimulating Hormone 2.91 uIU/mL (0.465-4.68)
[2023-06-16 13:31] LABS: Ferritin 38.6 ng/ml (11.1-264)
[2023-06-16 13:46] LABS: Vitamin B12 763 pg/mL (239-931)
== END ==
PROVIDERS: PCP Nurse Practitioner Family; Visit Provider Nurse Practitioner Family
DX: G25.0 Essential tremor (principal); R63.5 Abnormal weight gain; R20.0 Anesthesia of skin; E16.2 Hypoglycemia, unspecified; E03.9 Hypothyroidism, unspecified; Z13.220 Encounter for screening for lipoid disorders; Z68.43 Body mass index [BMI] 50.0-59.9, adult
CPT/HCPCS: 80053; 80061; 82607; 82728; 83036; 84443; 85025

== ENCOUNTER → 2023-06-30 16:37 | Outpatient (CLI) | payer OTHER, SELFPAY ==
--- NOTE | 2023-06-30 16:38 | MR_ITS ---
FINAL REPORT CLINICAL HISTORY: left lower back pain FINDINGS: Multiplanar MR imaging of the lumbar spine was performed without contrast. On the sagittal T2-weighted images, disc degeneration is seen at multiple levels. There is a 7 mm of anterolisthesis of L5 on S1. Severe endplate changes are seen at L5-S1. There is no evidence of fracture. Several hemangiomas are present. The conus has an unremarkable appearance. T10-11: Unremarkable. T11-T12: Unremarkable. T12-L1: A disc bulge is present. There is a small left paracentral disc protrusion which mildly indents the thecal sac. No significant neural foraminal narrowing is seen. L1-2: An annular bulge is present. There is no significant canal stenosis or neural foraminal narrowing. L2-3: An annular bulge is present. There is no significant canal stenosis or neural foraminal narrowing. L3-4: An annular bulge is present. Mild bilateral facet arthropathy is noted. A small right foraminal disc protrusion is seen. Moderate right and mild left neural foraminal narrowing is seen. L4-5: An annular bulge is present. Bilateral facet arthropathy is noted. Mild bilateral neural foraminal narrowing is seen. L5-S1: An annular bulge is present. There are bilateral L5 pars defects with grade 1-2 anterolisthesis of L5 on S1. Moderate right and severe left neural foraminal narrowing is seen. There is impingement of the left L5 nerve root in the neural foramen. IMPRESSION: Multilevel degenerative disc disease and spondylosis as described. Bilateral L5 pars defects with grade 1-2 anterolisthesis of L5 on S1 and left L5 nerve root impingement. Small right foraminal L3-4 disc protrusion. Small left paracentral T12-L1 disc protrusion. Authenticated and [facility]
== END ==
LOC: RAD 16:38
PROVIDERS: PCP Nurse Practitioner Family; Visit Provider Nurse Practitioner Family
DX: M43.06 Spondylolysis, lumbar region (principal); M54.50 Low back pain, unspecified
CPT/HCPCS: 72148; 76376

== ENCOUNTER 2023-09-15 08:03 | Day surgery (SDC) | payer OTHER, SELFPAY ==
[2023-09-15 08:22] VITALS: BP 141/76; PULSE 62; RESP 16; TEMP 36.2; O2SAT 97; BMI 54.2
[2023-09-15] MEDS: LACTATED RINGERS 1000ML 1,000 ML 25 ML IV (08:30)
--- NOTE | 2023-09-15 08:39 | EXP.ANES.CKL ---
[facility] Disclaimer: The information contained in this section may have been updated after the patient was seen, as this information can be updated by other users. Medical History Abnormal electrocardiography Abnormal weight gain Basal cell carcinoma Bilateral impacted cerumen Chest pain Encounter for pre-operative cardiovascular clearance Feeling of incomplete bladder emptying Irritability and anger Sinus bradycardia MADAI (stress urinary incontinence, female) Uterine prolapse Surgical History History of incision and drainage History of tonsillectomy History of vulvectomy Hx of cholecystectomy Hx of total knee replacement Status post left knee replacement Family History Family/Other Hypertension Coronary artery disease Other Diabetes Social History Smoking Status: Former smoker tobacco type: cigarettes packs per day: 1 years smoked: 30 how long ago did patient quit smokin second hand exposure: No alcohol intake: current substance use type: denies use current occupational status: employed Travel in the last 8 weeks: None household members: friend(s) housing: house current occupation: [employer] current occupational exposures/hazards: No caffeine: Yes [employer] Anesthesia Checklist Patient Identification Patient Identification: Arm Band, Family and Verbal (Name & ) Structural Data Admitted From: Home Planned Operative Procedure/s: EGD w/Dilation Consent for Planned Operative Procedure(s) Verified: Yes Verified Documents: Surgical Consent and History and Physical NPO Status Verified Time NPO: 22:00 Chart Verification Results Verified: CBC, BMP and ECG Additional verifications Patient : No Anesthesia Reactions: No Hx Blood Transfusions: No Blood Transfusion Reaction: No Cardiovascular Assessment Heart Sounds: S1 & S2 Pulse Rhythm: Irregular Peripheral Edema: Yes (3+ [id number] LE) Airway Assessment Mallampati Score:: Class II C-Spine Mobility Assessed: Yes (FROM) TMJ Mobility Assessed: Yes Dentition: Poor Dentition (Many missing. Nothing loose per pt.) Neurological Assessment Level of Consciousness: Awake, Alert, Appropriate and Follows Commands Hx Seizures: No Numbness or tingling in extremities: Yes (+ Lumbar DDD; CBP) Anesthesia Plan Anesthesia Risk discussed: Yes Anesthesia Plan: Verified ASA Class: III Anesthesia Type: MAC
[2023-09-15 08:56] VITALS: O2SAT 97
--- NOTE | 2023-09-15 09:11 | HMH.SCOPE ---
Procedure: Date: 09/15/23 Patient Date of :: 1960 Procedure Performed:: EGD Indications:: Dysphagia Performing Provider:: Lance Dowling MD Referring Provider:: Aaliyah Antunez APRN (Gastroenterology) Sedation:: See RN records Procedure:: The gastroscope was gently passed through the incisoral orifice into the oral cavity and under direct visualization the esophagus was intubated. The endoscope was passed down the esophagus, through the stomach, and into the duodenum. Color, texture, mucosa, and anatomy of the esophagus, stomach, and duodenum were carefully examined with the scope.. Findings:: Oropharynx: normal Esophagus: normal. Biopsies obtained. Empiric dilatation performed with 54F bougie dilator EG Measured at 35 cm Cardia: normal Fundus: normal Body: normal Antrum: normal Duodenal bulb: normal Duodenum (second and third portion): normal Recommendations:: Await pathology results If dysphagia symptom does not improve after esophageal dilatation, then recommend barium esophagram with tablet Complications:: None Estimated blood obtained (mL): 0 Colonoscopy Component Colonoscopy Component Was a colonoscopy performed during today's procedure?: No
[2023-09-15 09:17] VITALS: BP 118/70; PULSE 64; RESP 18; TEMP 36.2; O2SAT 97
[2023-09-15 09:30] VITALS: BP 117/65; PULSE 54; RESP 18; O2SAT 97
[2023-09-15 10:05] VITALS: BP 112/72; PULSE 56; RESP 18; O2SAT 96
== END 2023-09-15 10:10 | disposition home or self-care (01) ==
PROVIDERS: PCP Nurse Practitioner Family; Visit Provider Internal Medicine
PROC: 0DJ08ZZ Inspection of Upper Intestinal Tract, Via Natural or Artificial Opening Endoscopic (ICD-10-PCS; CPT 43235; principal; 2023-09-15 09:00)
DX: R13.10 Dysphagia, unspecified (principal)
CPT/HCPCS: 43239; 43248

== ENCOUNTER 2023-09-18 01:22 | Emergency (ER) | payer OTHER, SELFPAY ==
[2023-09-18] VITALS (8 sets, daily range): BP systolic 119–145; BP diastolic 59–82; PULSE 56–63; RESP 12–20; TEMP 36.4–36.7; O2SAT 96–100; BMI 54.2
--- NOTE | 2023-09-18 01:30 | CT_ITS ---
PROCEDURE INFORMATION: Exam: CT Chest With Contrast; Diagnostic Exam date and time: 09/18/2023 2:28 AM Age: 62 years old Clinical indication: Sternal or substernal pain; Prior surgery; Surgery date: 3-7 days post-operative; Surgery type: Egd Wednesday; Additional info: Recent egd, dysphagia, throat/neck pain, cp TECHNIQUE: Imaging protocol: Diagnostic computed tomography of the chest with contrast. Radiation optimization: All CT scans at this facility use at least one of these dose optimization techniques: automated exposure control; mA and/or kV adjustment per patient size (includes targeted exams where dose is matched to clinical indication); or iterative reconstruction. Contrast material: ISOVUE; Contrast volume: 75 ml; Contrast route: IV; COMPARISON: CR XR CHEST PORTABLE 04/26/2021 10:09 AM FINDINGS: Tubes, catheters and devices: Intravenous gas is likely related to peripheral IV catheter placement. Lungs: Benign granulomatous disease of the lung is noted. Trace bibasilar atelectasis or scar. Pleural spaces: Unremarkable. No pneumothorax. No pleural effusion. Heart: Unremarkable. No cardiomegaly. No pericardial effusion. Coronary arteries: No calcific coronary artery disease identified. Lymph nodes: Unremarkable. No enlarged lymph nodes. Vasculature: The pulmonary artery is enlarged, suspicious for pulmonary artery hypertension. Bones/joints: Unremarkable. No acute fracture. Soft tissues: Unremarkable. IMPRESSION: 1. No pneumomediastinum or other evidence of complication from recent endoscopy. 2. The pulmonary artery is enlarged, suspicious for pulmonary artery hypertension. Recommend correlation for potential of obstructive sleep apnea.
--- NOTE | 2023-09-18 01:30 | CT_ITS ---
PROCEDURE INFORMATION: Exam: CT Neck With Contrast Exam date and time: 09/18/2023 2:21 AM Age: 62 years old Clinical indication: Dysphagia / difficulty swallowing; Prior surgery; Surgery date: 3-7 days post-operative; Surgery type: Egd Wednesday; Additional info: Recent egd, dysphagia, throat/neck pain, cp TECHNIQUE: Imaging protocol: Computed tomography of the neck with contrast. Radiation optimization: All CT scans at this facility use at least one of these dose optimization techniques: automated exposure control; mA and/or kV adjustment per patient size (includes targeted exams where dose is matched to clinical indication); or iterative reconstruction. Contrast material: ISOVUE; Contrast volume: 75 ml; Contrast route: IV; COMPARISON: CT ANGIO NECK 03/26/2020 11:03 AM FINDINGS: Orbital cavities: The patient is post bilateral cataract surgery. Nasal cavity: There is a rightward convexity deviation of the nasal septum. Pharynx: Unremarkable. No significant tonsillar enlargement. Larynx: Unremarkable. Epiglottis is normal. Prevertebral and retropharyngeal spaces: Unremarkable. Salivary glands: Normal. Glands are normal in size. Thyroid: Normal. No enlarged or calcified nodules. Lymph nodes: Unremarkable. No lymphadenopathy. Trachea: Visualized trachea is unremarkable. Lungs: Unremarkable as visualized. Esophagus: There is mild mural thickening of the visualized portion of the thoracic esophagus. Bones/joints: Degenerative changes are noted in the bones. Vasculature: Common carotids take a medialized retropharyngeal course. Soft tissues: Unremarkable. No significant soft tissue swelling. IMPRESSION: The soft tissue mass or drainable fluid collection in the neck. No suspicious lymphadenopathy. Mild mural thickening incompletely imaged in the thoracic esophagus. Please correlate clinically and with results of recent EGD.
--- NOTE | 2023-09-18 01:43 | ECG_ITS ---
APPROVED REPORT Exam: Resting ECG HR:57 bpm ECG Measurements Heart Rate 57 AXES FL 156 P 80 QRSd 110 QRS -9 QT 410 T 50 QTc 403 Conclusion SINUS BRADYCARDIA BORDERLINE ECG UNCONFIRMED REPORT Electronically signed by : Christ Perla MD 09/18/2023 08:51:28
[2023-09-18 01:46] LABS: Basophils % 0.5 % (0.1-2.0); Eosinophils # 0.3 K/mm3 (0.0-0.4); Eosinophils % 3.8 % (0.1-12.0); Hematocrit 44.8 % (37.0-47.0); Hemoglobin 14.9 g/dL (12.2-16.2); Lymphocytes % 21.7 % (10-50); Mean Corpuscular HGB Conc 33.1 g/dL (31.8-35.4); Mean Corpuscular Hemoglobin 30.2 pg (27.0-31.2); Mean Platelet Volume 8.6 fl (7.4-10.4); Monocytes # 0.4 K/mm3 (0.1-1.0); Monocytes % 4.7 % (1.7-9.3); Neutrophils # 6.2 K/mm3 (1.8-7.8); Neutrophils % 69.4 % (37.0-80.0); Platelet Count 274 K/mm3 (142-424); Red Blood Count 4.93 M/mm3 (4.20-5.40); Red Cell Distribution Width 13.8 % (11.5-17.5)
[2023-09-18 01:53] LABS: Chloride 100 mmol/L (98-107); Potassium 4.1 mmoL/L (3.5-5.1); Sodium 139 mmol/L (136-145)
[2023-09-18] MEDS: diphenhydrAMINE 50MG/ML VIAL 50 MG IV (01:53)
[2023-09-18] MEDS: ONDANSETRON 4MG/2ML VIAL 4 MG IV (01:53)
[2023-09-18] MEDS: FAMOTIDINE 20MG/2ML VIAL 20 MG IV (01:53)
[2023-09-18] MEDS: PANTOPRAZOLE 40MG VIAL 40 MG IV (01:53)
[2023-09-18 01:56] LABS: Alanine Aminotransferase 37 U/L (12-78); Albumin Level 4.2 g/dl (3.5-5.0); Albumin/Globulin Ratio 1.3 (1.1-1.8); Alkaline Phosphatase 94 U/L (38-126); Anion Gap 8.1 mEq/L (5-15); Aspartate Amino Transferase 44 U/L (14-36); Bilirubin,Total 0.4 mg/dl (0.2-1.3); Blood Urea Nitrogen 21 mg/dl (7-17); Carbon Dioxide 35 mmol/L (22.0-30.0); Creatinine Clearance Estimated 52 mL/min (50-200); Estimated Glomerular Filt Rate 73 ml/min (>60); GFR (African American) 88 ML/MIN (>60); Globulin 3.3 g/dL (1.3-3.2); Total Protein,Serum 7.5 g/dl (6.3-8.2)
[2023-09-18 01:57] LABS: Calcium 9.2 mg/dl (8.4-10.2); Glucose 83 mg/dl (74-100)
--- NOTE | 2023-09-18 02:02 | HMH.EDGENADL ---
Discharge Plan Disposition Patient Disposition: Home, Self-Care Condition: Good Prescriptions Prescriptions: No Action Zyrtec 10 mg capsule 10 mg PO DAILY fluticasone propionate [Flonase Allergy Relief] 50 mcg/actuation spray,suspension 2 spray intranasal DAILY PRN (Reason: allergy symptoms) Rx Instructions: administer into each nostril sertraline 100 mg tablet 100 mg PO DAILY levothyroxine 50 mcg tablet 50 mcg PO DAILY 90 Days Qty: 90 1RF primidone 250 mg tablet 250 mg PO BID 90 Days Qty: 180 1RF cyclobenzaprine 10 mg tablet 10 mg PO HS PRN (Reason: muscle spasm) 30 Days Qty: 30 0RF methocarbamol 750 mg tablet 750 mg PO NEEDED PRN (Reason: (Drug) Ingestion) tramadol 50 mg tablet 50 mg PO Q8H PRN (Reason: pain) Qty: 90 0RF omeprazole 20 mg capsule,delayed release(DR/EC) 20 mg PO DAILY 90 Days Qty: 90 1RF ubrogepant 100 mg tablet 100 mg PO ONCE PRN (Reason: headache) Qty: 10 11RF Rx Instructions: Take 100 mg at onset of headache, may repeat 100 mg after 2 hours if symptoms persist with max dose 200 mg in 24 hours Referrals Follow up/Referrals: Kaitlynn Eric APRN [Primary Care Provider] - See instructions Activity Restrictions/Add. Instructions Additional Instructions/Restrictions: You were evaluated in the emergency department today. 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 Continue taking your PPI at home. Return to the emergency department for new or worsening symptoms. Clinical Impressions Clinical Impression: Esophagitis, Dysphagia Instructions Patient Instructions: DI for Esophageal Dysphagia, DI for Oropharyngeal Dysphagia Discharge ED Provider: Sydney Rosa General Adult HPI General Chief complaint: Dental/Oral Stated complaint: something lodged in throat Time Seen by Provider: 09/18/23 01:29 Mode of Arrival: Ambulatory Source of Information: Patient and Relative Limitations: No Limitations Description of Symptoms (Recalled from ER Triage Doc. by RN): Patient had EGD on Wednesday and had stretching performed for difficulty swallowing. Was having no difficulties after and had a licorice before going to bed at approximately 1030pm. Patient awoke around 1130 and stated that she felt something stuck in her throat and extreme burning. Just prior to coming to the emergency department patient reports that it feels as though her tongue began swelling. History of Present Illness HPI narrative: This patient is a 62-year-old female with a history of sinus bradycardia, GERD, dysphagia, essential tremor, and hypothyroidism presenting to the emergency department for evaluation with concern for burning in her throat, foreign body sensation, and sensation as if her tongue may be swelling. Patient reports that she had an EGD with dilatation on 09/15/2023 for her chronic dysphagia, and she had been doing fine since. She been able to tolerate oral intake. Around 11:30 PM last night, the patient states that she woke up and felt something stuck in her throat and felt extreme burning as if stomach acid, up into the back of her throat. She took antacids and without good improvement. She also feels like her tongue may be swelling, but she is not sure. She is allergic to Phenergan and Topamax but has not encountered anything she is allergic to recently. Related Data Home Medications Medication Instructions Recorded Confirmed cetirizine 10 mg capsule (Zyrtec) 10 mg PO DAILY Allergy symptoms 04/15/20 07/22/23 fluticasone propionate 50 2 spray intranasal DAILY PRN 06/16/23 07/22/23 mcg/actuation nasal allergy symptoms spray,suspension (Flonase Allergy Relief) sertraline 100 mg tablet 100 mg PO DAILY 06/16/23 07/22/23 methocarbamol 750 mg tablet 750 mg PO NEEDED PRN (Drug) 08/19/23 08/19/23 Ingestion Previous Rx's Medication Instructions Recorded cyclobenzaprine 10 mg tablet 10 mg PO HS PRN muscle spasm 30 06/16/23 days #30 tabs levothyroxine 50 mcg tablet 50 mcg PO DAILY THYROID 90 days 06/16/23 #90 tabs primidone 250 mg tablet 250 mg PO BID tremor 90 days #180 06/16/23 tabs tramadol 50 mg tablet 50 mg PO Q8H PRN pain #90 tabs 07/08/23 omeprazole 20 mg capsule,delayed 20 mg PO DAILY 90 days #90 caps 08/13/23 release ubrogepant 100 mg tablet 100 mg PO ONCE PRN headache #10 09/14/23 tabs Allergies Allergy/AdvReac Type Severity Reaction Status Date / Time promethazine Allergy Intermediate ANXIETY Verified 09/15/23 08:20 topiramate [From Topamax] Allergy Mild Verified 09/15/23 08:20 [facility] Disclaimer: The information contained in this section may have been updated after the patient was seen, as this information can be updated by other users. Medical History Abnormal electrocardiography Abnormal weight gain Basal cell carcinoma Bilateral impacted cerumen Chest pain Encounter for pre-operative cardiovascular clearance Feeling of incomplete bladder emptying Irritability and anger Sinus bradycardia MADAI (stress urinary incontinence, female) Uterine prolapse Surgical History History of incision and drainage History of tonsillectomy History of vulvectomy Hx of cholecystectomy Hx of total knee replacement Status post left knee replacement Family History Family/Other Hypertension Coronary artery disease Other Diabetes Social History Smoking Status: Unknown if ever smoked years smoked: 30 how long ago did patient quit smokin second hand exposure: No alcohol intake: current substance use type: denies use current occupational status: employed Travel in the last 8 weeks: None household members: friend(s) housing: house current occupation: [employer] current occupational exposures/hazards: No caffeine: Yes ROS Obtained: Yes All systems reviewed & no additional complaints except as documented Physical Exam General General appearance: alert and in no apparent distress Head Head exam: atraumatic and normocephalic Eye Eye exam: Present normal appearance, PERRL and EOMI ENT ENT exam: Present normal exam, normal oropharynx, mucous membranes moist, normal external ear exam and other (No significant oropharyngeal swelling, no subungual swelling, no uvular swelling) Neck Neck exam: Present normal inspection, full ROM, trachea midline and other (No palpable crepitus); Absent tenderness Chest Chest inspection: Present normal inspection and symmetric chest wall rise; Absent tenderness Respiratory Respiratory exam: Present normal lung sounds bilaterally; Absent respiratory distress, wheezes, stridor or accessory muscle use Cardiovascular Cardiovascular exam: Present normal rhythm and bradycardia Abdominal Exam Abdominal exam: Present soft; Absent distention, tenderness or guarding Extremities Exam Extremities exam: Present normal inspection, full ROM and normal capillary refill; Absent tenderness or edema Back Exam Back exam: Present normal inspection and full ROM; Absent tenderness Neurological Exam Neurological exam: Present alert, oriented X3, CN II-XII intact and normal gait; Absent motor sensory deficit Psychiatric Psychiatric exam: Present normal affect and normal mood Skin Skin exam: Present warm and dry Medical Decision Making Medical Records Medical records reviewed: Yes I reviewed the patient's medical records. Yan Inquiry Pt receiving controlled substance: No Vital Signs: 09/18/23 01:24 09/18/23 02:00 09/18/23 02:36 Temperature 97.6 F Temperature Source Oral Pulse Rate 63 60 Pulse Rate [Left Radial] 63 Respiratory Rate 20 16 Blood Pressure 119/59 L Blood Pressure [Right Arm] 145/82 H Blood Pressure Mean Blood Pressure Mean [Right Arm] 103 Blood Pressure Source [Right Arm] Automatic Cuff Blood Pressure Position Blood Pressure Position [Right Arm] Sitting 02 Sat by Pulse Oximetry 96 96 96 Oxygen Delivery Method Room Air Room Air Room Air 09/18/23 03:00 09/18/23 03:30 09/18/23 04:01 Temperature Temperature Source Pulse Rate 56 L 57 L 59 L Pulse Rate [Left Radial] Respiratory Rate 12 14 17 Blood Pressure 123/71 125/71 124/62 Blood Pressure [Right Arm] Blood Pressure Mean 82 Blood Pressure Mean [Right Arm] Blood Pressure Source [Right Arm] Blood Pressure Position Blood Pressure Position [Right Arm] 02 Sat by Pulse Oximetry 98 99 100 Oxygen Delivery Method Room Air Room Air 09/18/23 04:31 09/18/23 05:10 Temperature 98.0 F Temperature Source Oral Pulse Rate 63 63 Pulse Rate [Left Radial] Respiratory Rate 16 16 Blood Pressure 120/68 120/68 Blood Pressure [Right Arm] Blood Pressure Mean 85 Blood Pressure Mean [Right Arm] Blood Pressure Source [Right Arm] Blood Pressure Position Sitting Blood Pressure Position [Right Arm] 02 Sat by Pulse Oximetry 99 Oxygen Delivery Method Room Air Lab Data Lab results reviewed: Yes I reviewed the patient's lab results. Lab Results 09/18/23 01:38: WBC 9.0, RBC 4.93, Hgb 14.9, Hct 44.8, MCV 91.0, MCH 30.2, MCHC 33.1, RDW 13.8, Plt Count 274, MPV 8.6, Neut % (Auto) 69.4, Lymph % (Auto) 21.7, [place] % (Auto) 4.7, Eos % (Auto) 3.8, Baso % (Auto) 0.5, Neut # (Auto) 6.2, Lymph # (Auto) 2.0, [place] # (Auto) 0.4, Eos # (Auto) 0.3, Baso # (Auto) 0.0, Sodium 139, Potassium 4.1, Chloride 100, Carbon Dioxide 35 H, Anion Gap 8.1, BUN 21 H, Creatinine 0.80, Estimated Creat Clear 52, Estimated GFR 73, Est GFR ( Amer) 88, Glucose 83, Calcium 9.2, Total Bilirubin 0.4, AST 44 H, ALT 37, Alkaline Phosphatase 94, Troponin I < 0.01, Total Protein 7.5, Albumin 4.2, Globulin 3.3 H, Albumin/Globulin Ratio 1.3 09/18/23 04:23: Troponin I < 0.01 09/18/23 01:38 09/18/23 01:38 Orders (Tests/Meds): ED MEDICATIONS Discontinued Medications Generic Name Dose Route Start Last Admin Trade Name Freq PRN Reason Stop Dose Admin Belladonna Alkaloids 60 ml 09/18/23 03:41 09/18/23 03:49 Belladonna Alkaloids 60 Ml Ml PO 09/18/23 03:42 60 ml ONCE ONE Administration Diphenhydramine HCl 50 mg 09/18/23 01:31 09/18/23 01:53 Diphenhydramine 50mg/Ml Vial IV 09/18/23 01:32 50 mg ONCE ONE Administration Famotidine 20 mg 09/18/23 01:31 09/18/23 01:53 Famotidine 20mg/2ml Vial IV 09/18/23 01:32 20 mg ONCE ONE Administration Iopamidol 150 ml 09/18/23 02:38 09/18/23 02:39 Iopamidol-370 (76%);100ml Bottle IV 09/18/23 02:39 150 ml ONCE ONE Administration Ondansetron HCl 4 mg 09/18/23 01:31 09/18/23 01:53 Ondansetron 4mg/2ml Vial IV 09/18/23 01:32 4 mg ONCE ONE Administration Pantoprazole Sodium 40 mg 09/18/23 01:31 09/18/23 01:53 Pantoprazole 40mg Vial IV 09/18/23 01:32 40 mg ONCE ONE Administration Sodium Chloride 10 ml 09/18/23 01:31 Sodium Chloride 0.9% 10ml Vial IV 10/18/23 01:30 NEEDED PRN dilute protonix Sodium Chloride 8 ml 09/18/23 01:31 Sodium Chloride 0.9% 10ml Vial IV 10/18/23 01:30 NEEDED PRN dilute pepcid Sodium Chloride 10 ml 09/18/23 02:38 09/18/23 02:39 Sodium Chloride 0.9% 10ml Syr (Rad Only) IV 09/18/23 02:39 10 ml ONCE ONE Administration ORDERS Category Date Time Status CT chest w con Stat Cat Scan 09/18/23 01:[address] soft tissue neck w con Stat Cat Scan 09/18/23 01:30 Completed Complete Blood Count Auto Diff Stat Lab 09/18/23 01:38 Completed Comprehensive Metabolic Panel Stat Lab 09/18/23 01:38 Completed Troponin I Q3H Lab 09/18/23 04:23 Completed Troponin I Q3H Lab 09/18/23 07:30 Ordered Troponin I Stat Lab 09/18/23 01:38 Completed ECG initial Besson Routine Y 09/18/23 01:43 Completed ECG Data Tracing #1: I reviewed this ECG and interpreted as documented below: Sinus bradycardia with a ventricular rate of [address] changes concerning for ischemia. Normal axis and intervals. Motion artifact noted given baseline tremor. ECG initial impression date: 09/18/23 ECG initial impression time: 01:46 Medical Decision Narrative: In summary, this patient is a 62-year-old female presenting to the Emergency Department for evaluation of globus sensation and acid reflux. Differential diagnoses considered include but are not limited to complication after esophageal dilatation, esophageal perforation, esophageal rupture, ACS, dysrhythmia, GERD, anxiety. Ruling out the most morbid conditions drove assessment. It should be noted patient's history includes obesity which is not at goal therapy. This complicates all aspects of care by increasing patient's risk for morbidity. I reviewed patient's past medical records and noted her outpatient procedure 09/15/2023 which was uncomplicated per documentation. On exam, the patient is in no acute distress with reassuring physical exam. No significant oropharyngeal swelling, and cardiopulmonary exam is reassuring. Workup included CBC, CMP, troponin, EKG, CT soft tissue neck, and CT chest with IV contrast. Given her symptoms, she was given IV pantoprazole, Pepcid, Benadryl, and Zofran. I independently interpreted CT scans prior to the radiologist read and noted no mediastinal air, significant swelling, masses, or other concerning. Please see their read for final interpretation. Labs were obtained that demonstrated no acutely concerning abnormalities with troponins negative x 2. Patient was given a GI cocktail for further symptomatic improvement. On reassessment, patient had good improvement after administration of interventions above. She states that she is feeling much better. Vitals have remained reassuring on cardiac telemetry throughout ED visit. At this time, feel patient likely has esophagitis. She is already on a PPI at home. 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 Given reassuring workup and exam, feel that she is appropriate for discharge. She was given strict return precautions and was discharged in stable condition after all questions were answered. Critical Care Critical Care Time Critical Care Time: No
[2023-09-18 02:10] LABS: Troponin I < 0.01 ng/ml (0.00-0.034)
[2023-09-18] MEDS: IOPAMIDOL-370 (76%);100ML BOTTLE 150 ML IV (02:39)
[2023-09-18] MEDS: SODIUM CHLORIDE 0.9% 10ML SYR (RAD ONLY) 10 ML IV (02:39)
[2023-09-18] MEDS: BELLADONNA ALKALOIDS 60 ML ML PO (03:49)
--- NOTE | 2023-09-18 04:15 | PC.NURSE ---
CALL PLACED TO [facility] TO CLARIFY SOFT TISSUE NECK READING. SPOKE WITH DR Abrams WHO STATED PATIENT'S READ IS NEGATIVE AND NO MASS IS PRESENT AND DICTATION ERROR. DR SALAZAR SPEAKING WITH PATIENT AT THIS TIME
[2023-09-18 04:54] LABS: Troponin I < 0.01 ng/ml (0.00-0.034)
== END 2023-09-18 05:13 | disposition home or self-care (01) ==
PROVIDERS: Emergency Provider Emergency Medicine; PCP Nurse Practitioner Family
DX: K20.90 Esophagitis, unspecified without bleeding (principal); R13.10 Dysphagia, unspecified; R00.1 Bradycardia, unspecified; K21.9 Gastro-esophageal reflux disease without esophagitis; E03.9 Hypothyroidism, unspecified; E66.9 Obesity, unspecified; Z87.891 Personal history of nicotine dependence
CPT/HCPCS: 70491; 71260; 80053; 84484; 85025; 93005; 96374; 96375; 99285; J2405; Q9967

== ENCOUNTER 2025-05-04 14:51 | Outpatient (CLI) | payer SELFPAY ==
--- NOTE | 2025-05-04 14:52 | XR_ITS ---
FINAL REPORT TECHNIQUE: Left foot 3 views CLINICAL HISTORY: left heel pain COMPARISON: None FINDINGS: LEFT FOOT: 3 images of the left foot were obtained. There is no evidence of fracture or dislocation. A moderate plantar spur is present. Mild hypertrophic changes of the tarsometatarsal articulations are present. Note is made of an accessory navicular. There is no soft tissue abnormality identified. IMPRESSION: Degenerative changes as above, with no acute bony abnormality. Reviewed, Interpreted and Dictated by Lito Hwang MD Transcribed by Ashlee Medley Authenticated and [facility]
--- OUTSIDE RECORDS SUMMARY | 2025-05-04 14:54 | XMS_ITS | Clinical Summary ---
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 Name Role Phone Unavailable Primary Care Provider Unavailabl e Social History Tobacco Use Types Packs/Day Years Used Date Smoking Tobacco: Never Assessed Comments Unknown Sex and Gender Information Value Date Recorded Sex Assigned at Not on file Legal Sex Female 7:52 PM EDT Gender Identity Not on file Sexual Orientation Not on file Plan of Treatment Health Maintenance Due Date Last Done Comments [facility]-Depression Screening 1960 [facility]-Infant/Child/Adol SDOH Screenings 1960 [facility]- SDOH Screenings 1978 [facility]-Adult SDOH Screenings 1978 [facility]-DTaP,Tdap,and Td Vaccine s (1 - Tdap) 12/19/1979 [facility]-Pap Smear 1981 [facility]-Cervical Cancer Screening 1990 [facility]-HPV/Cotest 1990 CT Colonography 2005 Colonoscopy 2005 FIT-DNA 2005 FIT 2005 FOBT 2005 Sigmoidoscopy 2005 [facility]-Colorectal Cancer Screening 2005 [facility]-Pneumococcal Vaccine: 50 + Years (1 of 1 - PCV) 2010 [facility]-Zoster Vaccines (1 of 2) 2010 [id number] Vaccine ( season) 2024 07/10/2021, 10/02/2020, 09/02/2020 [facility]-Influenza Vaccine (#1) 2025 [facility]-RSV Vaccine: 60+ Years o r (1 - 1-dose 75+ series) 12/19/2035 HPV Vaccines Aged Out No longer eligi ble based on patient's age to complete this topic [facility]-HIB Vaccines Aged Out No longer e ligible based on patient's age to complete this topic [facility]-Hepatitis A Vaccines Aged Out No longer eligible based on patient's age to complete this topic [facility]-IPV Vaccines Aged Out No longer e ligible based on patient's age to complete this topic [facility]-Rotavirus Vaccines Aged Out No lo nger eligible based on patient's age to complete this topic
--- OUTSIDE RECORDS SUMMARY | 2025-05-04 14:54 | XMS_ITS | Clinical Summary ---
Author Organization [facility] Address [address] [place] [address] Care Team Providers Care Meter Reader Chief Name Role Phone Pcp, No Primary Care Provider [phone] Source Comments This information has been disclosed to you from confidential records protectedfrom disclosure by state law. You shall make no further disclosure of thisinformation without the specific, written, and informed release of theindividual to whom it pertains, or as otherwise permitted by law. A generalauthorization for the release of medical or other information is not sufficientfor the purposes of therelease of HIV test results or diagnoses. [id number] Health Allergies Active Allergy Reactions Criticality Noted Date Comments Promethazine High 02/12/2023 Restless leg, uncontrolled. Topiramate High 02/12/2023 Blurred vision Medications primidone (MYSOLINE) 250 MG tablet Take 1 tablet (250 mg total) by mouth 2 times a day. Active omeprazole (PRILOSEC) 20 MG capsule Take 1 capsule (20 mg total) by mouth every morning before breakfast. Active multivitamin capsule Take 1 capsule by mouth daily. Active levothyroxine 50 mcg Cap Take 50 mcg by mouth daily. Active cetirizine (ZYRTEC) 10 MG tablet Take 1 tablet (10 mg total) by mouth daily. Active acetaminophen (TYLENOL) 500 MG tablet Take 2 tablets (1,000 mg total) by mouth if needed. Active ibuprofen (MOTRIN) 400 MG tablet Take 2 tablets (800 mg total) by mouth if needed for Pain. Active UBRELVY 100 mg Tab TAKE ONE TABLET BY MOUTH ONCE NEEDED FOR FOR HEADACHE DIRECTED - max of 2 TABLETS DAILY AND 4 TABLETS PER WEEK 04/16/2022 Active Social History Tobacco Use Types Packs/Day Years Used Date Smoking Tobacco: Never Assessed Comments Unknown Sex and Gender Information Value Date Recorded Sex Assigned at Female 09/15/2022 2:24 PM EST Legal Sex Female 7:52 AM EST Gender Identity Female 09/15/2022 2:24 PM EST Sexual Orientation Straight 09/15/2022 2: 24 PM EST Last Filed Vital Signs Vital Sign Reading Time Taken Comments Blood Pressure 137/84 02/12/2023 10:26 AM EDT Pulse 61 02/12/2023 10:26 AM EDT Temperature - - Respiratory Rate - - Oxygen Saturation 96% 02/12/2023 10:26 AM EDT Inhaled Oxygen Concentration 96% 02/12/2023 1 0:26 AM EDT Weight 144.2 kg (318 lb) 02/12/2023 10:26 AM EDT Height 165.1 cm (5' 5 ) 02/12/2023 10:26 AM EDT Body Mass Index 52.92 02/12/2023 10:26 AM EDT Plan of Treatment Health Maintenance Due Date Last Done Comments Abnormal Colonoscopy Follow Up 1960 Hepatitis C Screening (BrainMasshart) 1960 Alcohol Misuse Screening 1978 Depression Screening 1978 HIV Screening 1978 Immunization: DTaP/Tdap/Td (1 - Tdap) 12/19/1979 Cervical Cancer Screening/Pa p Smear (MyChart) 1990 Mammogram (MyChart) 2000 Cologuard (FIT-DNA) 2005 Colonoscopy 2005 Colorectal Cancer Screening (MyChart) 2005 Stool Testing (gFOBT) 2005 Immunization: Pneumococcal ( 1 of 1 - PCV) 2010 Immunization: Zoster (1 of 2) 2010 Immunization: COVID-19 ( season) 2024 07/10/2021, 10/02/2020, 09/02/2020 Immunization: Influenza (MyC byrne) (#1) 2025 Immunization: RSV (Adult) (1 - 1-dose 75+ series) 12/19/2035 Insurance Care Teams Meter Reader Chief Relationship Specialty Start Date End Date Pcp, No No Address PCP - General 02/12/23
--- OUTSIDE RECORDS SUMMARY | 2025-05-04 14:54 | XMS_ITS | Encounter Summary ---
Author Organization [employer] ([place], [place], [place], [place]) Address [address] [place] [address] Care Team Providers Care Environmental Health Officer Name Role Phone Unavailable Primary Care Provider Unavailabl e Encounter Details Date Type Department Care Team (Late st Contact Info) Description 01/18/2019 Transcribed Document [facility] [place] [facility] [address] ProviderAshli MD [address] [place] [address] Social History Tobacco Use Types Packs/Day Years Used Date Smoking Tobacco: Never Assessed Comments Unknown Sex and Gender Information Value Date Recorded Sex Assigned at Female 03/05/2022 5:03 PM CDT Legal Sex Female 3:44 PM CDT Gender Identity Female 03/05/2022 5:03 PM CDT Sexual Orientation Not on file documented as of this encounter Miscellaneous Notes * Cerner Conversion Note - Ashli ProviderMD - 01/18/2019 10:25 AM CDT ED Triage Entered On: 01/18/2019 10:33 EDT Performed On: 01/18/2019 10:28 EDT by KAMALA PECK RN ED Triage Across the Room Triage Date/Time : 01/18/2019 10:28 EDT Chief Complaint : from surgery center via EMS w.c/o MSCP w/radiation to the back today after cataract surgery; procedure completed, received 3mg versed, 50mcg fentanyl, 10mg ketamine for procedure, 81mg ASA, 4mg morphine delivered post-op, 1 SL nitro en route; Hx HTN KAMALA PECK RN - 01/18/2019 10:28 EDT DCP GENERIC CODE Tracking Acuity : 2 - Emergent Tracking Group : [facility] ED KAMALA PECK RN - 01/18/2019 10:28 EDT Mode of Arrival : Stretcher Transported to ED by : Ambulance/ALS EMS Service : [facility] To Room Via : Stretcher Accompanied By : Daughter ED Vital Signs : Document Height & Weight : Document ED Allergies : Document ED Reason for Visit : Document KAMALA PECK RN - 01/18/2019 10:28 EDT Infectious Disease History Infectious Disease History : Chicken pox/Shingles, Measles, Mumps Fever/Chills Last 48 Hours : No Travel To Regions with Travel Advisories : No Travel Outside [place] Within Last 30 Days : No Contact With Traveler to Advisory Region : No Tuberculosis Symptoms : None KAMALA PECK RN - 01/18/2019 10:28 EDT Vital Signs ED Temperature Source : Oral Temperature Mode : Fahrenheit Temperature, Fahrenheit : 97.9 Deg F Clinical Temperature, C : 36.6 Deg C Oxygen Therapy Mode : Room air Peripheral Pulse Rate : 52 bpm (LOW) Respiratory Rate : 16 Breaths/Min Systolic Blood Pressure : 97 mmHg Diastolic Blood Pressure : 61 mmHg Oxygen Saturation : 100 % KAMALA PECK RN - 01/18/2019 10:28 EDT Allergy (As Of: 01/18/2019 10:33:20 EDT) Allergies (Active) Dilaudid Estimated Onset Date: Unspecified ; Reactions: Nausea and vomiting ; Created By: KAMALA PECK RN; Reaction Status: Active ; Category: Drug ; Substance: Dilaudid ; Type: Allergy ; Updated By: KAMALA PECK RN; Reviewed Date: 01/18/2019 10:30 EDT Phenergan Estimated Onset Date: Unspecified ; Created By: KAMALA PECK RN; Reaction Status: Active ; Category: Drug ; Substance: Phenergan ; Type: Allergy ; Updated By: KAMALA PECK RN; Reviewed Date: 01/18/2019 10:30 EDT Diagnosis Control ED (As Of: 01/18/2019 10:33:20 EDT) Problems(Active) Hypertension (SNOMED CT :5128902034 ) Name of Problem: Hypertension ; Recorder: KAMALA PECK RN; Confirmation: Confirmed ; Classification: Medical ; Code: [id number] ; Contributor System: [employer] ; Last Updated: 01/18/2019 10:29 EDT ; Life Cycle Date: 01/18/2019 ; Life Cycle Status: Active ; Vocabulary: SNOMED CT Diagnoses(Active) Chest pain Date: 01/18/2019 ; Diagnosis Type: Reason For Visit ; Confirmation: Complaint of ; Clinical Dx: Chest pain ; Classification: Medical ; Clinical Service: Emergency medicine ; Code: PNED ; Probability: 0 ; Diagnosis Code: [id number] ED Height and Weight Height Source : Stated Height Entry Format : [place] Height, Feet : 5 ft(Converted to: 152 cm, 60 Inch) Height, Inches : 5 Inch(Converted to: 0 ft 5 Inch, 12.70 cm) Clinical Height : 165.1 cm Weight Source, ED : Bed scale Weight Entry Format : [place] Weight, Pounds : 247 lb Clinical Dosing Weight : 112.27 kg Body Surface Area (BSA) : 2.17 m2 Body Mass Index : 41.2 kg/m2 (>HHI) Sophia Body Weight (IBW) : 56.59 kg KAMALA PECK RN - 01/18/2019 10:28 EDT documented in this encounter Plan of Treatment Not on file documented as of this encounter Visit Diagnoses Not on filedocumented in this encounter
--- OUTSIDE RECORDS SUMMARY | 2025-05-04 14:54 | XMS_ITS | Encounter Summary ---
Author Organization [employer] [facility] ([place], [place], [place], [place]) Address [address] [place] [address] Care Team Providers Care Driller Multiple Spindle Name Role Phone Unavailable Primary Care Provider Unavailabl e Encounter Details Date Type Department Care Team (Late st Contact Info) Description 01/18/2019 Transcribed Document [facility] Radiology [address] [place] [address] Alyce Moser MD One [facility] Dept of Emergency Medicine [place], [place] [id number] Social History Tobacco Use Types Packs/Day Years Used Date Smoking Tobacco: Never Assessed Comments Unknown Sex and Gender Information Value Date Recorded Sex Assigned at Female 03/05/2022 5:03 PM CDT Legal Sex Female 3:44 PM CDT Gender Identity Female 03/05/2022 5:03 PM CDT Sexual Orientation Not on file documented as of this encounter Miscellaneous Notes * Cerner Conversion Note - Alyce Moser MD - 01/18/2019 11:34 AM EDT Patient: YAMILETH CAAL Age: 58 years Sex: Female : 1960 Associated Diagnoses: Chest pain Author: ALYCE MOSER MD Basic Information Time seen: Date & time 01/18/2019 10:34:00. History source: Patient. Arrival mode: Ambulance. History limitation: None. Additional information: Chief Complaint from Nursing Triage Note : Chief Complaint 01/18/2019 10:28 EDT Chief Complaint from surgery center via EMS w.c/o MSCP w/radiation to the back today after cataract surgery; procedure completed, received 3mg versed, 50mcg fentanyl, 10mg ketamine for procedure, 81mg ASA, 4mg morphine delivered post-op, 1 SL nitro en route; Hx HTN . History of Present Illness Patient presents from surgery center via EMS for chest pain. Patient underwent right eye cataract removal today. She states prior to surgery starting, she developed substernal chest pressure radiating into her back. Pain was constant, no aggravating or alleviating factors. She reports having had this pain at rest in the past. She reported the pain to the physician After the procedure who recommended coming to the ED for evaluation. Pain currently resolved after receiving SL nitro en route. No associated shortness of breath or syncope. Reports feeling swimmy headed and nauseous after waking up. Patient did receive ketamine, versed, and morphine for the procedure. Reports having a clean heart cath 1-2 years ago. History of HTN, but no known CAD.. Review of Systems Constitutional symptoms: Negative except as documented in HPI. Skin symptoms: Negative except as documented in HPI. Eye symptoms: Negative except as documented in HPI. Respiratory symptoms: Negative except as documented in HPI. Cardiovascular symptoms: Chest pain. Gastrointestinal symptoms: Nausea. Musculoskeletal symptoms: Negative except as documented in HPI. Neurologic symptoms: Negative except as documented in HPI. Psychiatric symptoms: Negative except as documented in HPI. Hematologic/Lymphatic symptoms: Negative except as documented in HPI. Health Status Allergies: Allergic Reactions (Selected) Severity Not Documented Dilaudid- Nausea and vomiting. Phenergan- No reactions were documented.. Past Medical/ Family/ Social History Medical history Reviewed as documented in chart. Surgical history: No active procedure history items have been selected or recorded., Reviewed as documented in chart. Family history: No family history items have been selected or recorded., Reviewed as documented in chart. Social history: Social & Psychosocial Habits No Data Available , Reviewed as documented in chart. Problem list: Active Problems (1) Hypertension , per nurse's notes. Physical Examination Vital Signs Vital Signs/Vital Measures 01/18/2019 10:28 EDT Temperature Source Oral Temperature Mode Fahrenheit Temperature, Fahrenheit 97.9 Deg F Clinical Temperature, C 36.6 Deg C Peripheral Pulse Rate 52 bpm LOW Respiratory Rate 16 Breaths/Min Systolic Blood Pressure 97 mmHg Diastolic Blood Pressure 61 mmHg Oxygen Saturation 100 % Oxygen Therapy Mode Room air . Measurements 01/18/2019 10:28 EDT Height Source Stated Height Entry Format [place] Height/Length, AUSTRIAN (ft) 5 ft Height/Length AUSTRIAN 5 Inch CLINICALHEIGHT 165.1 cm [place] Body Weight 56.59 kg Weight Source, ED Bed scale Weight Entry Format [place] Weight Citizen Of [place] lb 247 lb CLINICALWEIGHT 112.27 kg Body Surface Area (BSA) 2.17 m2 Body Mass Index 41.2 kg/m2 >HHI . Oxygen Saturation 01/18/2019 10:28 EDT Oxygen Saturation 100 % . General: Alert, no acute distress. Skin: Warm, dry, pink. Head: Normocephalic, atraumatic. Neck: Supple, trachea midline. Eye: Normal conjunctiva. Ears, nose, mouth and throat: Oral mucosa moist. Cardiovascular: Regular rate and rhythm, No murmur, bradycardia. Respiratory: Lungs are clear to auscultation, respirations are non-labored. Gastrointestinal: Soft, Nontender, Non distended. Back: Nontender, Normal range of motion. Musculoskeletal: Normal ROM, normal strength. Neurological: Alert and oriented to person, place, time, and situation, No focal neurological deficit observed. Psychiatric: Cooperative, appropriate mood & affect. Medical Decision Making Differential Diagnosis: Angina, anxiety, atypical chest pain, chest wall pain, AMI. Documents reviewed: Emergency department nurses' notes. Electrocardiogram: Time 01/18/2019 10:28:00, rate 49, normal sinus rhythm, no ectopy, normal DE & QRS intervals, EP Interp, Sinus bradycardia, nonspecific ST changes. Electrocardiogram: Time 01/18/2019 11:02:00, rate 49, normal sinus rhythm, no ectopy, normal DE & QRS intervals, EP Interp, Sinus bradycardia, nonspecific ST changes. Electrocardiogram: Time 01/18/2019 13:34:00, rate 46, normal sinus rhythm, no ectopy, normal DE & QRS intervals, EP Interp, sinus bradycardia, nonspecific st changes. Results review: Lab results : Lab Results 01/18/2019 13:40 EDT Troponin I Ultra <0.015 ng/mL 01/18/2019 10:42 EDT Sodium Level 144 mmol/L Potassium Level 4.2 mmol/L Chloride Level 110 mmol/L Carbon Dioxide Level 27 mmol/L Anion Gap 11 Glucose Level 90 mg/dL Blood Urea Nitrogen 15 mg/dL Creatinine Level 0.90 mg/dL eGFR >60 mL/min/1.73m2 eGFR NonAfrican >60 mL/min/1.73m2 Bun/Creatinine 16.7 Calcium Level 9.3 mg/dL Protein Total 6.6 Gram/dL Albumin Level 3.6 Gram/dL Globulin 3.0 Gram/dL A/G Ratio 1.2 Bilirubin Total 0.7 mg/dL Alk Phos 63 Units/Liter AST 18 Units/Liter ALT 21 Units/Liter Lipase Level 133 Units/Liter Troponin I Ultra <0.015 ng/mL ProBNP 77 pg/mL WBC 5.7 K/uL RBC 4.24 Million/uL Hgb 12.7 g/dL Hct 38.0 % MCV 89.6 fL MCH 30.0 pg MCHC 33.4 Gram/dL Platelet Count 266 K/uL MPV 10.7 fL RDW 12.9 % Neut % 60.3 % Neut # 3.45 K/uL Lymph % 26.3 % Lymph # 1.50 x10(3)/uL [place] % 6.5 % [place] # 0.37 K/uL Eos % 6.0 % Eos # 0.34 x10(3)/uL Baso % 0.7 % Baso # 0.04 x10(3)/uL Slide Review No IG# 0.01 x10(3)/uL IG% 0.20 % PT 11.7 Second(s) INR 1.1 PTT 29.1 Second(s) . Chest X-Ray: Radiology Results (Last 48 hours) [id number] -- 01/18/2019 10:25 CR Chest 1 Vw Portable (01/18/2019 10:46) Result: PORTABLE CHEST 01/18/2019 10:40 AMHISTORY: Precordial chest painCOMPARISON: NoneFINDINGS: Cardiac electrodes overlie the chest wall. The cardiacsilhouette is normal in size. The mediastinal and hilar contours areunremarkable. There is evidence of old calcified granulomatous disease.There is no pneumothorax. There is no effusion, edema, or infiltrate.The visualized osseous structures demonstrate no acute abnormalities.IMPRESSION: No acute cardiopulmonary process. Images reviewed, interpreted, and dictated by Dr. Dillon Russell.Transcribed by Danii Diego (R).I have personally viewed, interpreted and dictated the examination. Ihave read and agree with the above final transcribed report. . Reexamination/ Reevaluation Time: 01/18/2019 14:55:00 . Notes: Patient with no chest pain at this time, it has been resolved since arrival here. Patient is ambulating without difficulty, feels much better at this time. She had 2 negative EKGs and troponins. She will follow-up with her primary care doctor and container coordinator. Instructed on signs and symptoms which return and patient voice understanding.. Impression and Plan Diagnosis Chest pain - Discharge, Emergency medicine, Medical Plan Condition: Stable. Disposition: Medically cleared, Discharged Admit/Transfer/Discharge: Discharge (Order): Start: 01/18/2019 14:56 EDT, Discharge to: Home. Patient was given the following educational materials: Nonspecific Chest Pain. Follow up with: Patient Resource Center Within 2 to 3 days Please contact the Patient Resource Center at if you need assistance finding a Primary Care Provider or Specialist in the future. ; Follow up with primary care provider Within 2 to 3 days; Follow up with specialist Within 2 to 3 days Call for follow up appointment with your container coordinator. Counseled: Patient, Regarding diagnosis, Regarding diagnostic results, Regarding treatment plan, Patient indicated understanding of instructions. documented in this encounter Plan of Treatment Not on file documented as of this encounter Visit Diagnoses Not on filedocumented in this encounter
--- OUTSIDE RECORDS SUMMARY | 2025-05-04 14:54 | XMS_ITS | Encounter Summary ---
Author Organization [facility] Address [address] [place] [address] Care Team Providers Care Corncob Pipes Assembler Name Role Phone Unavailable Primary Care Provider Unavailabl e Encounter Details Date Type Department Care Team (Late st Contact Info) Description 06/22/2022 Community Orders Community [facility] [address] [place] [address] Angel Veras, INTERACTIVE VIDEO TECHNICIAN [address] [phone] Tremor (Primary Dx) Social History Tobacco Use Types Packs/Day Years Used Date Smoking Tobacco: Never Assessed Comments Unknown Sex and Gender Information Value Date Recorded Sex Assigned at Not on file Legal Sex Female 7:52 PM EDT Gender Identity Not on file Sexual Orientation Not on file documented as of this encounter Plan of Treatment Not on file documented as of this encounter Visit Diagnoses Diagnosis Tremor- Primary Abnormal involuntary movements documented in this encounter
--- OUTSIDE RECORDS SUMMARY | 2025-05-04 14:54 | XMS_ITS | Encounter Summary ---
Author Organization [employer] ([place], [place], [place], [place]) Address [address] [place] [address] Care Team Providers Care Narcotics Agent Name Role Phone Unavailable Primary Care Provider Unavailabl e Encounter Details Date Type Department Care Team (Late st Contact Info) Description 01/18/2019 Transcribed Document [facility] [place] Medicine [facility] [place] [address] ProviderAshli MD [address] [place] [address] Social History Tobacco Use Types Packs/Day Years Used Date Smoking Tobacco: Never Assessed Comments Unknown Sex and Gender Information Value Date Recorded Sex Assigned at Female 03/05/2022 5:03 PM CDT Legal Sex Female 3:44 PM CDT Gender Identity Female 03/05/2022 5:03 PM CDT Sexual Orientation Not on file documented as of this encounter Miscellaneous Notes * Cerner Conversion Note - Historical ProviderMD - 01/18/2019 1:08 PM CDT CR Chest 1 Vw Portable Ordered: 01/18/2019 Modified Reason for Exam: Chest Pain 01/18/2019 12:31 01/18/2019 13:08 (Tanja Alas PA) Reviewed by Provider, No further action required x1 documented in this encounter Plan of Treatment Not on file documented as of this encounter Visit Diagnoses Not on filedocumented in this encounter
--- OUTSIDE RECORDS SUMMARY | 2025-05-04 14:54 | XMS_ITS | Encounter Summary ---
Author Organization [facility] Address [address] [place] [address] Care Team Providers Care Miner Assistant Name Role Phone Unavailable Primary Care Provider Unavailabl e Encounter Details Date Type Department Care Team (Late st Contact Info) Description 07/14/2022 Community Orders Community Practice [address] [place] [address] Angel Veras, FASTENER SEWING MACHINE OPERATOR [address] [phone] Tremor (Primary Dx); Migraine, unspecified Social History Tobacco Use Types Packs/Day Years [...] Diagnoses Diagnosis Tremor- Primary Abnormal involuntary movements Migraine, unspecified documented in this encounter
--- OUTSIDE RECORDS SUMMARY | 2025-05-04 14:54 | XMS_ITS | Encounter Summary ---
Author Organization [employer] ([place], [place], [place], [place]) Address [address] [place] [address] Care Team Providers Care Interventional Sale Consultant Name Role Phone Unavailable Primary Care Provider Unavailabl e Encounter Details Date Type Department Care Team (Late st Contact Info) Description 01/18/2019 Transcribed Document [facility] Counts include 234 beds at the [facility] [place] [address] ProviderAshli MD [address] [place] [address] Social History Tobacco Use Types [...] ProviderMD - 01/18/2019 10:25 AM CDT ED Assessment Entered On: 01/18/2019 10:38 EDT Performed On: 01/18/2019 10:36 EDT by Heather Trimble Rn ED Quick Look Assessment Level of Consciousness : Alert, Awake Affect/Behavior : Appropriate, Calm Orientation : Oriented x 4 Skin Temperature : Warm Skin Description : Normal for ethnicity Heather Trimble Rn - 01/18/2019 10:36 EDT ED General-Functional Assess Information Obtained From : Patient Communication Barrier : None Primary Language : [place] Any Spiritual/Cultural Needs or Requests : No Currently in Unsafe Situation : No Heather Trimble Rn - 01/18/2019 10:36 EDT Social Habits Smoking Status : Former smoker, quit more than 30 days ago Smokeless Tobacco Status : Never Desires Tobacco Cessation Calc : 0 Heather Trimble Rn - 01/18/2019 10:39 EDT Social History (As Of: 01/18/2019 10:41:32 EDT) Cardiovascular ASMT, ED Chest Pain : No Cardiovascular Assessment WDL : WDL with exceptions (Comment: pt c/o midsternal chest pain during cataract surgery this am. pt states i had an overall feeling of sickness and felt like i was floating . pt describes pain as heavy . pt denies dizziness and chest pain at time of assessment. [Heather Trimble Rn - 01/18/2019 10:39 EDT] ) Heather Trimble Rn - 01/18/2019 10:39 EDT Cardiovascular Symptoms : Chest pain at rest, Dyspnea at rest, Nausea at rest, Nausea with activity Heather Trimble Rn - 01/18/2019 10:36 EDT Gastrointestinal ED Gastrointestinal Assessment WDL : Heather Hollis Rn - 01/18/2019 10:39 EDT Neurologic ASMT, ED Neurologic Assessment WDL : Heather Hollis Rn - 01/18/2019 10:39 EDT documented in this encounter Plan of Treatment Not on file documented as of this encounter Visit Diagnoses Not on filedocumented in this encounter
--- OUTSIDE RECORDS SUMMARY | 2025-05-04 14:54 | XMS_ITS | Encounter Summary ---
Author Organization [employer] ([place], [place], [place], [place]) Address [address] [place] [address] Care Team Providers Care Line Out Worker Name Role Phone Unavailable Primary Care Provider Unavailabl e Encounter Details Date Type Department Care Team (Late st Contact Info) Description 01/18/2019 Transcribed Document [facility] Radiology [address] [place] [address] Alyce Fatima MD One [facility] Dept of Emergency Medicine [place] [phone] Social History Tobacco Use Types Packs/Day Years Used Date Smoking Tobacco: Never Assessed Comments Unknown Sex and Gender Information Value Date Recorded Sex Assigned at Female 03/05/2022 5:03 PM CDT Legal Sex Female 3:44 PM CDT Gender Identity Female 03/05/2022 5:03 PM CDT Sexual Orientation Not on file documented as of this encounter Miscellaneous Notes * Cerner Conversion Note - Alyce Fatima MD - 01/18/2019 3:56 PM EDT documented in this encounter Plan of Treatment Not on file documented as of this encounter Visit Diagnoses Not on filedocumented in this encounter
--- OUTSIDE RECORDS SUMMARY | 2025-05-04 14:54 | XMS_ITS | Encounter Summary ---
Author Organization [employer] ([place], [place], [place], [place]) Address [address] [place] [address] Care Team Providers Care Payroll Officer Name Role Phone Unavailable Primary Care Provider Unavailabl e Encounter Details Date Type Department Care Team (Late st Contact Info) Description 01/18/2019 Transcribed Document [facility] [place] Family Medicine [facility] [place] [address] ProviderAshli MD [address] [place] [address] Social History Tobacco Use Types [...] Conversion Note - Ashli ProviderMD - 01/18/2019 3:09 PM CDT ED Discharge Entered On: 01/18/2019 15:10 EDT Performed On: 01/18/2019 15:09 EDT by WILLIE MANUEL RN Discharge Process Patient Disposition : Discharge Personal Belongings With Patient : Yes Patient Education Completed : Yes Teaching Evaluation : Verbalizes understanding IV Discontinued : Yes Nursing Documentation Completed : No WILLIE MANUEL RN - 01/18/2019 15:09 EDT ED Discharge Discharge To : Home with ambulatory/outpatient follow-up Mode Of Departure : Ambulatory Accompanied By : Daughter Discharge Instructions Reviewed With, Opportunity For Questions Given : Patient Prescriptions Given to Patient : No WILLIE MANUEL RN - 01/18/2019 15:09 EDT Electronically signed by Arthur Polanco Conversion Manager Of Broadcast Content Cerner at 12/25/2022 4:13 PM CDT documented in this encounter Plan of Treatment Not on file documented as of this encounter Visit Diagnoses Not on filedocumented in this encounter
--- OUTSIDE RECORDS SUMMARY | 2025-05-04 14:54 | XMS_ITS | Referral Summary ---
Author Organization [employer] ([place], [place], [place], [place]) Address [address] [place] [address] Care Team Providers Care Extrusion Operator Name Role Phone Unavailable Primary Care Provider Unavailabl e Social History Tobacco Use Types Packs/Day Years Used Date Smoking Tobacco: Never Assessed Comments Unknown Sex and Gender Information Value Date Recorded Sex Assigned at Female 03/05/2022 5:03 PM CDT Legal Sex Female 3:44 PM CDT Gender Identity Female 03/05/2022 5:03 PM CDT Sexual Orientation Not on file Plan of Treatment Not on file
--- OUTSIDE RECORDS SUMMARY | 2025-05-04 14:54 | XMS_ITS | Encounter Summary ---
Author Organization [employer] ([place], [place], [place], [place]) Address [address] [place] [address] Care Team Providers Care Manager Of Information Name Role Phone Unavailable Primary Care Provider Unavailabl e Encounter Details Date Type Department Care Team (Late st Contact Info) Description 01/18/2019 Transcribed Document [facility] [place] Family Medicine [facility] [place] [address] ProviderAshli MD [address] [place] [address] Social History Tobacco Use Types Packs/Day Years Used Date Smoking Tobacco: Never Assessed Comments Unknown Sex and Gender Information Value Date Recorded Sex Assigned at Female 03/05/2022 5:03 PM CDT Legal Sex Female 3:44 PM CDT Gender Identity Female 03/05/2022 5:03 PM CDT Sexual Orientation Not on file documented as of this encounter Miscellaneous Notes * Cerner Conversion Note - Ashli Giordano MD - 01/18/2019 2:59 PM CDT [facility] [place] [address] YAMILETH CAAL :1960 Visit Time:01/18/2019 Your Visit Summary Your Care Team Admitting Physician - SHELLEY MOSER MD Attending Physician - SHELLEY MOSER MD Primary Care Physician - DAGMAR, AMILCAR Referring Physician - SHELLEY MOSER MD Your Diagnosis Chest pain Chest pain Patient Portal Reminder: Be sure to sign up for the [employer] patient portal, which gives you 24/ access to your medical information ??? including these discharge instructions ??? using your computer, smartphone, or tablet. Just go to [facility] to get started. Questions? Call . You may also obtain a copy of your Emergency Department visit from Medical Records by calling the hospital phone number listed above and asking to be directed to the Medical Records Department. If you had special tests, such as EKG???s or X-rays, the interpretation of your tests given to you by the Emergency Department Physician is a preliminary report. Some fractures and illnesses fail to show up on preliminary tests. These will be reviewed again and we will call you if there are any new suggestions. If your symptoms continue notify your physician. After you leave, you should follow the instructions provided. What to do next Follow-Up Appointments Follow Up with Follow up with specialist When Within 2 to 3 days Comments Call for follow up appointment with your breaster Follow Up with Follow up with primary care provider When Within 2 to 3 days Follow Up with Patient Resource Center When Within 2 to 3 days Comments Please contact the Patient Resource Center at if you need assistance finding a Primary Care Provider or Specialist in the future. Allergies Dilaudid (Nausea and vomiting) Phenergan Immunizations This Visit No Immunizations Found Medications The home medications listed are only as accurate as the information you provided. Please continue taking all of your medications prescribed by your Primary Care Provider unless specifically told to change or discontinue the medication. Please direct any questions regarding your home medications to your Primary Care Provider. Take your medications faithfully. Do NOT skip medication. Do NOT stop taking medications without the direction of a physician. Carry a list of your medications with you at all times, and take this medication list with you to your first follow up visit. Report any side effects. Avoid herbal remedies unless discussed with your physician. As part of your treatment plan, your physician may have prescribed a limited course of a controlled substance. This medication may be given to help people with moderate or severe pain or for other medical conditions, but there are risks involved with treatment. Common side effects may include nausea, constipation, drowsiness, sweating, itching, dry mouth, and rash. More serious side effects may include cognitive and motor impairment, like problems with thinking, concentrating, alertness, and movement (e.g. slowed reflexes), and driving and operating heavy machinery can be dangerous. It is important for you to talk to your physician if you have these side effects or questions. These controlled substances can produce physical dependence and be habit-forming if taken for an extended period of time, which means that the body has gotten used to them and may experience withdrawal symptoms if they are abruptly stopped. Withdrawal symptoms can include runny nose, sweating, goose bumps, diarrhea, abdominal cramping, rapid heartbeat, difficulty sleeping, and nervousness. Please dispose of unused and medications per pharmacy guidance. Test Results Laboratory or Other Results This Visit (last charted value for your 01/18/2019 visit) Hematology 01/18/19 10:42:00 WBC: 5.7 K/uL -- Normal range between ( 4.5 and 10.5 ) RBC: 4.24 Million/uL -- Normal range between ( 3.93 and 5.22 ) Hct: 38.0 % -- Normal range between ( 34.1 and 44.9 ) Hgb: 12.7 g/dL -- Normal range between ( 11.2 and 15.7 ) Platelet Count: 266 K/uL -- Normal range between ( 163 and 369 ) MCH: 30.0 pg -- Normal range between ( 25.6 and 32.2 ) MCHC: 33.4 Gram/dL -- Normal range between ( 32.2 and 36.5 ) MCV: 89.6 fL -- Normal range between ( 79.0 and 94.8 ) Slide Review: No Eos %: 6.0 % -- Normal range between ( 0.0 and 7.0 ) [place] #: 0.37 K/uL -- Normal range between ( 0.16 and 1.00 ) Eos #: 0.34 x10(3)/uL -- Normal range between ( 0.00 and 0.80 ) [place] %: 6.5 % -- Normal range between ( 3.0 and 9.0 ) Baso %: 0.7 % -- Normal range between ( 0.0 and 1.5 ) Baso #: 0.04 x10(3)/uL -- Normal range between ( 0.00 and 0.20 ) RDW: 12.9 % -- Normal range between ( 11.7 and 14.9 ) Neut %: 60.3 % -- Normal range between ( 34.0 and 71.0 ) Neut #: 3.45 K/uL -- Normal range between ( 1.56 and 6.13 ) Lymph %: 26.3 % -- Normal range between ( 19.3 and 53.1 ) Lymph #: 1.50 x10(3)/uL -- Normal range between ( 1.00 and 3.90 ) MPV: 10.7 fL -- Normal range between ( 9.4 and 12.4 ) IG#: 0.01 x10(3)/uL -- Normal range between ( 0.00 and 0.05 ) IG%: 0.20 % -- Normal range between ( 0.00 and 0.60 ) General Chemistry 01/18/19 10:42:00 Creatinine Level: 0.90 mg/dL -- Normal range between ( 0.55 and 1.02 ) Sodium Level: 144 mmol/L -- Normal range between ( 136 and 146 ) Potassium Level: 4.2 mmol/L -- Normal range between ( 3.5 and 5.1 ) Chloride Level: 110 mmol/L -- Normal range between ( 102 and 112 ) Carbon Dioxide Level: 27 mmol/L -- Normal range between ( 21 and 32 ) Anion Gap: 11 -- Normal range between ( 9 and 20 ) Bilirubin Total: 0.7 mg/dL -- Normal range between ( 0.2 and 1.2 ) A/G Ratio: 1.2 -- Normal range between ( 1.1 and 2.5 ) ALT: 21 Units/Liter -- Normal range between ( 13 and 56 ) AST: 18 Units/Liter -- Normal range between ( 5 and 37 ) Globulin: 3.0 Gram/dL -- Normal range between ( 1.5 and 4.5 ) Alk Phos: 63 Units/Liter -- Normal range between ( 27 and 136 ) Bun/Creatinine: 16.7 -- Normal range between ( 8.0 and 20.0 ) Calcium Level: 9.3 mg/dL -- Normal range between ( 8.4 and 10.1 ) eGFR : >60 mL/min/1.73m2 eGFR NonAfrican: >60 mL/min/1.73m2 Glucose Level: 90 mg/dL -- Normal range between ( 74 and 106 ) Blood Urea Nitrogen: 15 mg/dL -- Normal range between ( 7 and 22 ) Protein Total: 6.6 Gram/dL -- Normal range between ( 6.4 and 8.2 ) Albumin Level: 3.6 Gram/dL -- Normal range between ( 3.4 and 5.0 ) Lipase Level: 133 Units/Liter -- Normal range between ( 73 and 393 ) Cardiac Specific Markers 01/18/19 13:40:00 Troponin I Ultra: <0.015 ng/mL -- Normal range between ( 0.015 and 0.045 ) 01/18/19 10:42:00 ProBNP: 77 pg/mL -- Normal range between ( 0 and 125 ) Coagulation 01/18/19 10:42:00 INR: 1.1 -- Normal range between ( 0.9 and 1.1 ) PTT: 29.1 Second(s) -- Normal range between ( 22.0 and 32.0 ) PT: 11.7 Second(s) -- Normal range between ( 9.6 and 12.0 ) Diagnostic Radiology 01/18/19 10:46:29 CR Chest 1 Vw Portable: CR Chest 1 Vw Portable Education Materials Nonspecific Chest Pain Chest pain can be caused by many different conditions. There is always a chance that your pain could be related to something serious, such as a heart attack or a blood clot in your lungs. Chest pain can also be caused by conditions that are not life-threatening. If you have chest pain, it is very important to follow up with your health care provider. What are the causes? Causes of this condition include: ??? Heartburn. ??? Pneumonia or bronchitis. ??? Anxiety or stress. ??? Inflammation around your heart (pericarditis) or lung (pleuritis or pleurisy). ??? A blood clot in your lung. ??? A collapsed lung (pneumothorax). This can develop suddenly on its own (spontaneous pneumothorax) or from trauma to the chest. ??? Shingles infection (varicella-zoster virus). ??? Heart attack. ??? Damage to the bones, muscles, and cartilage that make up your chest wall. This can include: ? Bruised bones due to injury. ? Strained muscles or cartilage due to frequent or repeated coughing or overwork. ? Fracture to one or more ribs. ? Sore cartilage due to inflammation (costochondritis). What increases the risk? Risk factors for this condition may include: ??? Activities that increase your risk for trauma or injury to your chest. ??? Respiratory infections or conditions that cause frequent coughing. ??? Medical conditions or overeating that can cause heartburn. ??? Heart disease or family history of heart disease. ??? Conditions or health behaviors that increase your risk of developing a blood clot. ??? Having had chicken pox (varicella zoster). What are the signs or symptoms? Chest pain can feel like: ??? Burning or tingling on the surface of your chest or deep in your chest. ??? Crushing, pressure, aching, or squeezing pain. ??? Dull or sharp pain that is worse when you move, cough, or take a deep breath. ??? Pain that is also felt in your back, neck, shoulder, or arm, or pain that spreads to any of these areas. Your chest pain may come and go, or it may stay constant. How is this diagnosed? Lab tests or other studies may be needed to find the cause of your pain. Your health care provider may have you take a test called an ECG (electrocardiogram). An ECG records your heartbeat patterns at the time the test is performed. You may also have other tests, such as: ??? Transthoracic echocardiogram (TTE). In this test, sound waves are used to create a picture of the heart structures and to look at how blood flows through your heart. ??? Transesophageal echocardiogram (MARY KAY). This is a more advanced imaging test that takes images from inside your body. It allows your health care provider to see your heart in finer detail. ??? Cardiac monitoring. This allows your health care provider to monitor your heart rate and rhythm in real time. ??? Holter monitor. This is a portable device that records your heartbeat and can help to diagnose abnormal heartbeats. It allows your health care provider to track your heart activity for several days, if needed. ??? Stress tests. These can be done through exercise or by taking medicine that makes your heart beat more quickly. ??? Blood tests. ??? Other imaging tests. How is this treated? Treatment depends on what is causing your chest pain. Treatment may include: ??? Medicines. These may include: ? Acid blockers for heartburn. ? Anti-inflammatory medicine. ? Pain medicine for inflammatory conditions. ? Antibiotic medicine, if an infection is present. ? Medicines to dissolve blood clots. ? Medicines to treat coronary artery disease (CAD). ??? Supportive care for conditions that do not require medicines. This may include: ? Resting. ? Applying heat or cold packs to injured areas. ? Limiting activities until pain decreases. Follow these instructions at home: Medicines ??? If you were prescribed an antibiotic, take it as told by your health care provider. Do not stop taking the antibiotic even if you start to feel better. ??? Take [id number] and prescription medicines only as told by your health care provider. Lifestyle ??? Do not use any products that contain nicotine or tobacco, such as cigarettes and e-cigarettes. If you need help quitting, ask your health care provider. ??? Do not drink alcohol. ??? Make lifestyle changes as directed by your health care provider. These may include: ? Getting regular exercise. Ask your health care provider to suggest some activities that are safe for you. ? Eating a heart-healthy diet. A registered dietitian can help you to learn healthy eating options. ? Maintaining a healthy weight. ? Managing diabetes, if necessary. ? Reducing stress, such as with yoga or relaxation techniques. General instructions ??? Avoid any activities that bring on chest pain. ??? If heartburn is the cause for your chest pain, raise (elevate) the head of your bed about 6 inches (15 cm) by putting blocks under the legs. Sleeping with more pillows does not effectively relieve heartburn because it only changes the position of your head. ??? Keep all follow-up visits as told by your health care provider. This is important. This includes any further testing if your chest pain does not go away. Contact a health care provider if: ??? Your chest pain does not go away. ??? You have a rash with blisters on your chest. ??? You have a fever. ??? You have chills. Get help right away if: ??? Your chest pain is worse. ??? You have a cough that gets worse, or you cough up blood. ??? You have severe pain in your abdomen. ??? You have severe weakness. ??? You faint. ??? You have sudden, unexplained chest discomfort. ??? You have sudden, unexplained discomfort in your arms, back, neck, or jaw. ??? You have shortness of breath at any time. ??? You suddenly start to sweat, or your skin gets clammy. ??? You feel nauseous or you vomit. ??? You suddenly feel light-headed or dizzy. ??? Your heart begins to beat quickly, or it feels like it is skipping beats. These symptoms may represent a serious problem that is an emergency. Do not wait to see if the symptoms will go away. Get medical help right away. Call your local emergency services (911 in the [place] Do not drive yourself to the hospital. This information is not intended to replace advice given to you by your health care provider. Make sure you discuss any questions you have with your health care provider. Document Released: 06/02/2006 Document Revised: 05/17/2017 Document Reviewed: 05/17/2017 [employer] Patient Education ?? 2019 [employer]. Emergency Awareness and Preventative Care STROKE is an EMERGENCY Every Minute Counts Act FAST and Check for these signs: FACE Does the face look uneven? ARM Does one arm drift down? SPEECH Does their speech sound strange? TIME Call at any sign of stroke Stroke Risk Factors Atrial Fibrillation (irregular heartbeat) Diabetes Family history of stroke Heart Disease Heavy alcohol use High Blood Pressure High Cholesterol Physical inactivity and obesity Smoking Cigarette Smoking The facts are clear, cigarette smoking will shorten your life. Smoking can cause many illnesses along the way. As a healthcare provider, we recommend that you stop smoking. Assistance with quitting is available by contacting 8-593-UDMT-NOW. This is a free resource providing counseling, support, and referral. Or you may contact your personal physician. National Suicide Prevention Lifeline: The National Suicide Prevention Lifeline is a national network of local crisis centers that provides free and confidential emotional support to people in suicidal crisis or emotional distress 24 hours a day, 7 days a week. Don't Wait! Stop a Heart Attack Before it Starts What is a heart attack? A heart attack is damage or to a part of the heart from severely decreased or lack of blood flow to the heart. Over time, arteries can become narrow from the buildup of fat and cholesterol, which is called plaque. The plaque can rupture causing a blood clot to form. When the blood clot forms, the artery can become severely narrowed or completely blocked, causing a heart attack. Heart attack is the leading cause of in the [place]. 85% of muscle damage occurs within the first 2 hours. Delay in the recognition of heart attack symptoms increases the chances of . Know the early symptoms of a heart attack: Nausea Feeling of fullness in chest Jaw Pain Pain that travels down one or both arms Fatigue/being tired Anxiety Back Pain Chest pressure, squeezing, or discomfort Shortness of breath Sweating, or a cold sweat Feeling of impending doom There are unusual signs of a heart attack, too! Women, the elderly, and diabetics may present with atypical symptoms: Fainting/dizziness Weakness Confusion Risk Factors for a Heart Attack Some heart disease risk factors, such as age and family history, cannot be changed. Others, like smoking and lack of exercise, can be changed. Smoking High Cholesterol High Blood Pressure Family History Obesity Age Gender (Males are at higher risk) Lack of Exercise Diabetes Diet Stress Excessive Alcohol Intake If you or someone you know is experiencing the signs and symptoms of a heart attack, DON???T DELAY. Call immediately and seek help. If someone collapses, perform CPR! Do not attempt to drive if you are having symptoms of heart attack. Hands-Only CPR Why Hands-Only CPR? Hands-Only CPR has been shown to be as effective as conventional CPR for cardiac arrests that occur outside of a hospital. Survival depends on immediately receiving CPR from someone nearby. How do you perform Hands-Only CPR? There are two easy steps: Call if you see a teen or adult collapse Push hard and fast in the center of the chest at a beat of 100 beats per minute. Save a life! 4 WAYS TO GET AHEAD OF SEPSIS SEPSIS is a MEDICAL EMERGENCY. Time matters! Infections put you and your family at risk for a life-threatening condition called sepsis. Sepsis is the body's extreme response to an infection. It is life-threatening, and without timely treatment, sepsis can rapidly lead to tissue damage, organ failure, and . Sepsis happens when an infection you already have-in your skin, lungs, urinary tract or somewhere else-triggers a chain reaction throughout your body. 1 PREVENT INFECTIONS Take good care of chronic conditions. Talk to your doctor about getting the recommended vaccines. 2 PRACTICE GOOD HYGIENE Wash your hands frequently. Keep cuts or open sores clean and covered until they are healed. 3 KNOW THE SYMPTOMS Confusion or disorientation Shortness of breath High heart rate Fever, shivering, or feeling very cold Extreme pain or discomfort Clammy or sweaty skin 4 ACT FAST Get medical care IMMEDIATELY if you suspect sepsis or if you have an infection that is not getting better or is getting worse. To learn more about sepsis and how to prevent infections, visit www.cdc.gov/sepsis. The examination and treatment you have received in the Emergency Department has been done to provide an appropriate evaluation and stabilizing treatment on an emergency basis only. Given the limited resources, it is not meant to be a substitute for complete medical care. The follow-up doctor you named will receive a copy of your records and all test reports. IT IS IMPORTANT THAT YOU SCHEDULE A FOLLOW-UP APPOINTMENT AND ARE RE-EVALUATED. You should report any new complaints, symptoms, or remaining problems at that time. IT IS IMPOSSIBLE FOR THE EMERGENCY DEPARTMENT TO RECOGNIZE AND TREAT ALL ELEMENTS OF INJURY OR ILLNESS IN A SINGLE VISIT. If you have been referred to a specialist physician, it means that we believe you may have a condition that requires the expertise of a specialist. These physicians work in partnership with the hospital and have agreed to see referred patients in their office for further evaluation. KEEP IN MIND THAT THE SPECIALIST HAS HIS/HER OWN OFFICE POLICIES WHICH MAY REQUIRE PROPER INSURANCE OR PAYMENT UP FRONT BEFORE THE SPECIALIST WILL SEE YOU. It is your responsibility to call the specialist physician to make an appointment. We do not have the ability to refer patients to specialists/physicians that work with specific insurance companies. Please be advised that all financial charges or billing practices are determined by that practice, not the hospital. If your insurance company requires that you see a specialist from their approved list, it is your responsibility to contact your insurance company to make those arrangements. It is also your responsibility to follow any other requirements of your insurance company necessary to obtain coverage for claims submitted. We will bill your insurance; however, you are responsible today for any co-pay amounts. You will receive a separate bill for any services you may have received including: emergency, radiology, or pathology physicians. Patient Name:YAMILETH CAAL I have received this information and was given the opportunity to ask questions. Patient/Biologist Aide Name: Patient/Biologist Aide Signature: Relationship to Patient: Clinician/Hospital Biologist Aide Signature: Please Provide a Telephone Number Where You Can Be Reached: Is it Permissible To Leave a Message? Date: Electronically signed by Collin, [facility] Conversion Ally Box at 12/25/2022 4:30 PM CDT documented in this encounter Plan of Treatment Not on file documented as of this encounter Visit Diagnoses Not on filedocumented in this encounter
--- OUTSIDE RECORDS SUMMARY | 2025-05-04 14:54 | XMS_ITS | Clinical Summary ---
Author Organization [employer] ([place], [place], [place], [place]) Address [address] [place] [address] Care Team Providers Care Senior Mortgage Underwriter Name Role Phone Unavailable Primary Care Provider [...]
== END 2025-05-04 23:59 | disposition home or self-care (01) ==
LOC: RAD 14:52
PROVIDERS: PCP Nurse Practitioner Family; Visit Provider Nurse Practitioner Family
DX: M19.072 Primary osteoarthritis, left ankle and foot (principal)
CPT/HCPCS: 73630